=== PATIENT | female | born 1955 | race Caucasian/White ===

== ENCOUNTER 2021-11-24 08:37 | Inpatient (IN) ==
--- NOTE | 2021-11-10 09:37 | PAT Medication Instructions ---
Medication Instructions Date of Service November 10, 2021 Home Medications Medication Instructions Recorded insulin aspart U-100 100 unit/mL See Rx Instructions subcut 10/14/20 subcutaneous solution (Novolog .COMPLEX #60 mL U-100 Insulin aspart) metformin 1,000 mg tablet 1,000 mg PO BID #180 tabs 02/11/21 insulin detemir U-100 100 unit/mL 50 unit (0.5 mL) subcut QPM #45 mL 02/25/21 subcutaneous solution (Levemir U-100 Insulin) clopidogrel 75 mg tablet 75 mg PO QAM #90 tabs 05/22/21 simvastatin 80 mg tablet 80 mg PO QPM #90 tabs 05/25/21 gabapentin 400 mg capsule 400 mg PO TID #90 caps 05/27/21 metoprolol tartrate 50 mg tablet 50 mg PO BID #180 tabs 05/27/21 pen needle, diabetic 31 gauge x #100 ea 05/29/21 3/16" (BD Ultra-Fine Mini Pen Needle) ezetimibe 10 mg tablet 10 mg PO HS #90 tabs 06/09/21 famotidine 40 mg tablet (Pepcid) 40 mg PO HS #90 tabs 06/09/21 potassium chloride 10 mEq 10 meq PO QAM #90 tabs 07/06/21 tablet,extended release(part/cryst) lisinopril 40 mg tablet 40 mg PO HS #90 tabs 07/08/21 cephalexin 500 mg capsule 500 mg PO Q6H 10 days #40 caps 11/07/21 aspirin 81 mg tablet,delayed release (Adult Low Dose Aspirin) 81 mg PO QAM nitroglycerin 0.4 mg sublingual tablet (Nitrostat) 0.4 mg sublingual .COMPLEX PRN insulin aspart U-100 100 unit/mL subcutaneous solution (Novolog U-100 Insulin aspart) See Rx Instructions subcut TID metformin 1,000 mg tablet 1,000 mg PO BID insulin detemir U-100 100 unit/mL subcutaneous solution (Levemir U-100 Insulin) 50 unit (0.5 mL) subcut QPM clopidogrel 75 mg tablet 75 mg PO QAM simvastatin 80 mg tablet 80 mg PO QPM gabapentin 400 mg capsule 400 mg PO TID metoprolol tartrate 50 mg tablet 50 mg PO BID pen needle, diabetic 31 gauge x 3/16" (BD Ultra-Fine Mini Pen Needle) ezetimibe 10 mg tablet 10 mg PO HS famotidine 40 mg tablet (Pepcid) 40 mg PO HS multivitamin (Multiple Vitamins tablet) 1 tab PO QAM potassium chloride 10 mEq tablet,extended release(part/cryst) 10 meq PO QAM lisinopril 40 mg tablet 40 mg PO HS cholecalciferol (vitamin D3) 50 mcg (2,000 unit) capsule 50 mcg PO QAM bumetanide 0.5 mg tablet 0.5 mg PO QAM fluticasone fur. 100 mcg-umeclid 62.5 mcg-vilant 25 mcg inhalat.powder (Trelegy Ellipta) 1 inh inhalation QDL pantoprazole 20 mg tablet,delayed release 20 mg PO QAM cephalexin 500 mg capsule 500 mg PO Q6H 10 days dulaglutide 1.5 mg/0.5 mL subcutaneous pen injector 1.5 mg subcut WK Continue as directed cephalexin 500 mg capsule 500 mg PO Q6H 10 days fluticasone fur. 100 mcg-umeclid 62.5 mcg-vilant 25 mcg inhalat.powder (Trelegy Ellipta) 1 inh inhalation QDL dulaglutide 1.5 mg/0.5 mL subcutaneous pen injector 1.5 mg subcut WK nitroglycerin 0.4 mg sublingual tablet (Nitrostat) 0.4 mg sublingual .COMPLEX PRN(if needed) ASK your prescriber and surgeon aspirin 81 mg tablet,delayed release (Adult Low Dose Aspirin) 81 mg PO QAM clopidogrel 75 mg tablet 75 mg PO QAM DO NOT take the morning of surgery multivitamin (Multiple Vitamins tablet) 1 tab PO QAM potassium chloride 10 mEq tablet,extended release(part/cryst) 10 meq PO QAM cholecalciferol (vitamin D3) 50 mcg (2,000 unit) capsule 50 mcg PO QAM bumetanide 0.5 mg tablet 0.5 mg PO QAM metformin 1,000 mg tablet 1,000 mg PO BID insulin aspart U-100 100 unit/mL subcutaneous solution (Novolog U-100 Insulin aspart) See Rx Instructions subcut TID Take morning of surgery With a small sip of water, OTHERWISE NOTHING TO EAT OR DRINK AFTER MIDNIGHT: gabapentin 400 mg capsule 400 mg PO TID metoprolol tartrate 50 mg tablet 50 mg PO BID fluticasone fur. 100 mcg-umeclid 62.5 mcg-vilant 25 mcg inhalat.powder (Trelegy Ellipta) 1 inh inhalation QDL pantoprazole 20 mg tablet,delayed release 20 mg PO QAM Take evening before surgery simvastatin 80 mg tablet 80 mg PO QPM gabapentin 400 mg capsule 400 mg PO TID metoprolol tartrate 50 mg tablet 50 mg PO BID ezetimibe 10 mg tablet 10 mg PO HS famotidine 40 mg tablet (Pepcid) 40 mg PO HS lisinopril 40 mg tablet 40 mg PO HS metformin 1,000 mg tablet 1,000 mg PO BID insulin detemir U-100 100 unit/mL subcutaneous solution (Levemir U-100 Insulin) 50 unit (0.5 mL) subcut QPM insulin aspart U-100 100 unit/mL subcutaneous solution (Novolog U-100 Insulin aspart) See Rx Instructions subcut TID Other Notes If you have any questions please call us at [phone] or [phone] or [phone] or [phone]
--- NOTE | 2021-11-16 14:52 | Anesthesiology Consultation ---
Date of Service November 16, 2021 Assessment & Plan (1) Encounter for pre-operative examination: - awaiting echocardiogram report and final cardiology clearance. - check BSG am DOS. - ER [facility] 11/07/21: "... right leg pain. The patient states that she had the onset of her symptoms about an hour ago. She states that she suddenly developed a severe pain in the right calf area that radiated up into the area behind the knee. She also noticed that her right great toe was flexed as if in spasm. The patient states that her symptoms have since resolved...evaluation today suggest a early or mild cellulitis to the right posterior calf area where there a couple of skin lesions, erythema and increased warmth. The patient CBC was normal. Chemistry panel shows a glucose of 237 otherwise unremarkable. Ultrasound was negative for DVT. The patient was told the results. She will be discharged on Keflex..." - cardiology 10/27/21 [place]: "...coronary artery disease s/p PCI of LCx, bioprosthetic AVR, hypertension, dyslipidemia, type 2 diabetes mellitus with diabetic neuropathy, hx of CVA in 2014, lymphedema, and peripheral arterial disease s/p right external iliac artery stent in 2017 who presents for preoperative cardiovascular evaluation prior to right common femoral artery endarterectomy on 11/24/[address] Orr...stable and asymptomatic from a cardiovascular standpoint with no anginal symptoms occurring at >4 METS of act ivity. Nuclear stress test in August 2019 was also negative for ischemia. She has no evidence of CHF. She is scheduled to have an echocardiogram in late November, but will arrange for the study to be completed prior to her surgery to reevaluate her bioprosthetic AVR. Pending the results of the echo, patient is at an acceptable risk to proceed with upcoming surgery from a cardiovascular standpoint. She can hold her Plavix for 7 days prior to surgery. Recommend she remain on low dose aspirin therapy throughout the perioperative period give her history of intracoronary stenting. She should also remain on beta ulises therapy perioperatively. Recommend close monitoring and avoidance of hypotension, hypertension, tachycardia, hypoxia, and significant anemia throughout the perioperative period to reduce myocardial oxygen demand and meet myocardial oxygen delivery..." Chart Review Chart Review: Pending: Refer to Additional Notes / Consult section and Patient seen in Pre Admission Testing Teaching & Discussion Pre-Anesthesia Teaching/Discussion Notes: Instructed NPO after midnight before surgery, except medications with 15 cc of water. Medication instructions provided according to the PAT guidelines. History Surgery Operation Date: 11/24/21 08:00 Proposed Procedures p Right Common Femoral Endarterectomy with patch - Ed Orr MD Height/Weight Height: 5 ft 5 in Weight: 98.6 kg Allergies Allergy/AdvReac Type Severity Reaction Status Date / Time No Known Allergies Allergy Verified 11/08/21 00:10 Medications Home Medications Medication Instructions Recorded Confirmed Last Taken aspirin 81 mg tablet,delayed 81 mg PO QAM 10/19/19 11/08/21 11/07/21 release (Adult Low Dose Aspirin) nitroglycerin 0.4 mg sublingual 0.4 mg sublingual .COMPLEX PRN 10/19/19 11/08/21 Unknown tablet (Nitrostat) Chest Pain insulin aspart U-100 100 unit/mL See Rx Instructions subcut 10/14/20 11/08/21 11/07/21 subcutaneous solution (Novolog .COMPLEX #60 mL U-100 Insulin aspart) metformin 1,000 mg tablet 1,000 mg PO BID #180 tabs 02/11/21 11/08/21 11/07/21 insulin detemir U-100 100 unit/mL 50 unit (0.5 mL) subcut QPM #45 mL 02/25/21 11/08/21 11/07/21 subcutaneous solution (Levemir U-100 Insulin) clopidogrel 75 mg tablet 75 mg PO QAM #90 tabs 05/22/21 11/08/21 11/07/21 gabapentin 400 mg capsule 400 mg PO TID #90 caps 05/27/21 11/08/21 11/07/21 14:00 metoprolol tartrate 50 mg tablet 50 mg PO BID #180 tabs 05/27/21 11/08/21 11/07/21 08:00 pen needle, diabetic 31 gauge x #100 ea 05/29/21 10/29/21 Unknown 05/20" (BD Ultra-Fine Mini Pen Needle) ezetimibe 10 mg tablet 10 mg PO HS #90 tabs 06/09/21 11/08/21 11/06/21 famotidine 40 mg tablet (Pepcid) 40 mg PO HS #90 tabs 06/09/21 11/08/21 11/06/21 multivitamin (Multiple Vitamins 1 tab PO QAM 07/02/21 11/08/21 11/07/21 tablet) potassium chloride 10 mEq 10 meq PO QAM #90 tabs 07/06/21 11/08/21 11/07/21 tablet,extended release(part/cryst) lisinopril 40 mg tablet 40 mg PO HS #90 tabs 07/08/21 11/08/21 11/06/21 cholecalciferol (vitamin D3) 50 50 mcg PO QAM 10/29/21 11/08/21 11/07/21 mcg (2,000 unit) capsule bumetanide 0.5 mg tablet 0.5 mg PO QAM 11/06/21 11/08/21 11/07/21 fluticasone fur. 100 mcg-umeclid 1 inh inhalation QDL 11/06/21 11/08/21 11/07/21 62.5 mcg-vilant 25 mcg inhalat.powder (Trelegy Ellipta) pantoprazole 20 mg tablet,delayed 20 mg PO QAM 11/06/21 11/08/21 11/07/21 release dulaglutide 1.5 mg/0.5 mL 1.5 mg subcut WK 11/08/21 11/08/21 Unknown subcutaneous pen injector simvastatin 80 mg tablet 80 mg PO QPM #90 tabs 11/13/21 Unknown Past Medical History Medical History (Updated 11/16/21 @ 15:06 by Laura Luciano PA-C) Carotid arterial disease R carotid endarterectomy 2014 COPD (chronic obstructive pulmonary disease) controlled, stable per pt-denies rescue inhaler use Coronary artery disease s/p 1 stent Diabetes mellitus with complication IDDM Diabetic neuropathy GERD (gastroesophageal reflux disease) controlled, stable per pt History of anesthesia reaction difficulty waking History of femoral angiogram (~09/29/21) right lower extremity angiogram @ [facility] Dr. 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 Exercise / Class Metabolic Activity III < 4 Walking/Shop/Light housework (denies CP or SOB with usual activities) Past Family History Family History Grandmother (Paternal) Breast cancer Family/Other Ovarian cancer Father Diabetes Heart disease Myocardial infarction Hypertension Mother Diabetes Heart disease Brother Diabetes Heart disease Hypertension Grandfather (Paternal) Family history of esophageal cancer Other No family history of adverse response to anesthesia Denies family history of Prostate cancer Colorectal cancer Past Surgical History Surgical History History of cardiac cath x2 with 1 stent placed--last done before 2014 History of esophagogastroduodenoscopy (EGD) last 01/2020 @ [facility] History of tooth extraction all teeth S/P aortic valve replacement (2014) 2014 @ [facility]--follows with Dr. Espinal S/P carotid endarterectomy (2014) R S/P section x 2 S/P coronary artery stent placement 1 placed S/P hernia repair x 2 S/P peripheral artery angioplasty with stent placement (08/2017) angioplasty and stent R external iliac artery S/P total hysterectomy and bilateral salpingo-oophorectomy (1992) d/t endometriosis Past Anesthesia History No Family Hx of Anesthesia Complications and Other (difficulty waking) History of PONV No Hx of PONV and No Hx of Motion Sickness Social History Smoking Status: Current every day smoker tobacco type: cigarettes Smoking cigarettes per day: 5 cigs a day-advised Do You Dip or Chew Tobacco: No Hx Alcohol Use: No Hx Substance Use: No substance use type: does not use Review of Systems Patient denies chest pain, shortness of breath, dyspnea on exertion, snoring, witnessed apneas, fever, chills, cough, wheezing, fatigue, lethargy, nausea, vomiting, visual changes, diaphoresis, numbness, weakness or palpitations. She states had mild HALL when walking in from the sun earlier which is usual for her, denies change or worsening. Physical Exam Vital Signs Vitals BP 102/60 manual P 74 TEMP 98.6 SP02 96% on RA RESP 17 Physical Resting comfortably in chair in NAD, alert and oriented, responding appropriately Full cervical extension range of motion without pain TMD 3.5 finger breadths Mallampati Score 2 Dentition: edentulous Lungs: normal respiratory effort. Clear throughout to auscultation, no adventitious breath sounds Cardiac: regular rate and rhythm, no murmurs noted Carotid arteries: negative bruit bilat Lab Results Anesthesia Preop Results Results Anesthesia Widget: WBC 6.84 K/ul (4.8-10.8) 11/16/21 Hgb 12.5 g/dl (12.0-16.0) 11/16/21 Hct 37.9 % (34.1-44.9) 11/16/21 Plt 231 K/uL (130-400) 11/16/21 Na 139 mmol/L (136-145) 11/16/21 K 4.3 mmol/L (3.5-5.1) 11/16/21 Cl 105 mmol/L (98-107) 11/16/21 CO2 26 mmol/L (21-32) 11/16/21 BUN 24 mg/dl (6-23) H 11/16/21 Creat 1.10 mg/dl (0.6-1.2) 11/16/21 Glucose Level 98 mg/dl (70-99(Fasting)) 11/16/21 POC Glucose 134 mg/dl (70-99) H 09/29/21 PT 9.9 Seconds (9.0-12.0) 11/16/21 PTT 24.2 Seconds (21.0-31.0) 11/16/21 INR 0.9 (0.9-1.1) 11/16/21 HA1c 7.5 % (4.5-5.6) H 11/16/21 Blood Type A Positive 11/16/21 Antibody Screen NEGATIVE 11/16/21 Testing Electrocardiogram Date: 10/28/21 Unusual P axis, possible ectopic atrial rhythm, rate 69 bpm Chest X-Ray Date: 11/16/21 Cardiac silhouette is enlarged. Prior median sternotomy with cardiac valvular prosthesis. Atherosclerosis of the thoracic aorta. No pneumothorax, pleural effusion, airspace consolidation or overt pulmonary edema. Bones of the chest appear grossly intact. IMPRESSION: Cardiomegaly without acute process. Echocardiogram Date: 03/20/19 EF 50-55% No major focal wall motion abnormalities of the LV LVH Peak systolic gradient across the aortic valve bioprosthesis 14 mmHg Mild mitral, tricuspid and pulmonic valvular insufficiency Pulmonary artery pressure was estimated in range of 20 mmHg Dense sclerotic and calcific changes involving the mitral valve leaflets as well as mitral annular calcification Stress Test Date: 08/14/19 Pharmacologic MPHR not reported Normal myocardial perfusion SPECT images without evidence for pharmacologically induced ischemia Normal LV wall motion and thickening EF 65% Other Testing Venous doppler 11/08/21 No DVT within the right lower extremity Carotid doppler 11/02/16 No hemodynamically significant stenosis identified COVID-19 Risk Screen Screening Information COVID-19 Screen Date: 11/16/21 Exposure 21 Days Family/Household +COVID Last 21 Days: No Exposure 10 Days Any COVID Exposure Last 10 Days: No Symptoms Last 10 Days Experienced COVID Sx Last 10 Days: No + COVID 0-90 Days COVID + in Last 0-90 Days: No Risk Plan COVID Risk Plan: No Risk Identified (to surgeon's discretion if preop COVID testing needed)
--- NOTE | 2021-11-24 07:41 | History & Physical Report ---
Date of Service November 24, 2021 History of Present Illness Chief Complaint: Severe claudication, right common femoral artery stensis Primary Care Provider: Domonique Henderson DO Ms. Gan is a middle-aged female who presents to Dr. Orr's vascular surgery clinic today for a postop visit after undergoing a right leg angiography without intervention by Dr. Orr at [facility] approximately 2 weeks ago. Patient states that she has not had any improvement in her right leg symptoms. She continues to claudicate but relatively short distances. During her angiogram, it was noted that she had a severe stenosis versus occlusion of her right common femoral artery which was not amenable to endovascular intervention. She was advised to follow-up in our office to discuss surgical intervention. Patient denies any new complaints or concerns. Allergies Allergy/AdvReac Type Severity Reaction Status Date / Time No Known Allergies Allergy Verified 11/08/21 00:10 Home Medications Medication Instructions Recorded Confirmed Type aspirin 81 mg tablet,delayed 81 mg PO QAM 10/19/19 11/08/21 History release (Adult Low Dose Aspirin) nitroglycerin 0.4 mg sublingual 0.4 mg sublingual .COMPLEX PRN 10/19/19 11/08/21 History tablet (Nitrostat) Chest Pain insulin aspart U-100 100 unit/mL See Rx Instructions subcut 10/14/20 11/08/21 Rx subcutaneous solution (Novolog .COMPLEX #60 mL U-100 Insulin aspart) metformin 1,000 mg tablet 1,000 mg PO BID #180 tabs 02/11/21 11/08/21 Rx insulin detemir U-100 100 unit/mL 50 unit (0.5 mL) subcut QPM #45 mL 02/25/21 11/08/21 Rx subcutaneous solution (Levemir U-100 Insulin) clopidogrel 75 mg tablet 75 mg PO QAM #90 tabs 05/22/21 11/08/21 Rx gabapentin 400 mg capsule 400 mg PO TID #90 caps 05/27/21 11/08/21 Rx metoprolol tartrate 50 mg tablet 50 mg PO BID #180 tabs 05/27/21 11/08/21 Rx pen needle, diabetic 31 gauge x #100 ea 05/29/21 10/29/21 Rx 3/16" (BD Ultra-Fine Mini Pen Needle) ezetimibe 10 mg tablet 10 mg PO HS #90 tabs 04/05/22 09/04/22 Rx famotidine 40 mg tablet (Pepcid) 40 mg PO HS #90 tabs 22 11/08/21 Rx multivitamin (Multiple Vitamins 1 tab PO QAM 07/02/21 11/08/21 History tablet) potassium chloride 10 mEq 10 meq PO QAM #90 tabs 07/06/21 11/08/21 Rx tablet,extended release(part/cryst) lisinopril 40 mg tablet 40 mg PO HS #90 tabs 07/08/21 11/08/21 Rx cholecalciferol (vitamin D3) 50 50 mcg PO QAM 10/29/21 11/08/21 History mcg (2,000 unit) capsule bumetanide 0.5 mg tablet 0.5 mg PO QAM 11/06/21 11/08/21 History fluticasone fur. 100 mcg-umeclid 1 inh inhalation QDL 11/06/21 11/08/21 History 62.5 mcg-vilant 25 mcg inhalat.powder (Trelegy Ellipta) pantoprazole 20 mg tablet,delayed 20 mg PO QAM 11/06/21 11/08/21 History release dulaglutide 1.5 mg/0.5 mL 1.5 mg subcut WK 11/08/21 11/08/21 History subcutaneous pen injector simvastatin 80 mg tablet 80 mg PO QPM #90 tabs 11/13/21 Rx Past Med/Surg History Medical History Carotid arterial disease R carotid endarterectomy 2014 COPD (chronic obstructive pulmonary disease) controlled, stable per pt-denies rescue inhaler use Coronary artery disease s/p 1 stent Diabetes mellitus with complication IDDM Diabetic neuropathy GERD (gastroesophageal reflux disease) controlled, stable per pt History of anesthesia reaction difficulty waking History of femoral angiogram (~09/29/21) right lower extremity angiogram @ [facility] Dr. 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 Espinal S/P carotid endarterectomy (2014) R S/P section x 2 S/P coronary artery stent placement 1 placed S/P hernia repair x 2 S/P peripheral artery angioplasty with stent placement (08/2017) angioplasty and stent R external iliac artery S/P total hysterectomy and bilateral salpingo-oophorectomy (1992) d/t endometriosis Family History Grandmother (Paternal) Breast cancer Family/Other Ovarian cancer Father Diabetes Heart disease Myocardial infarction Hypertension Mother Diabetes Heart disease Brother Diabetes Heart disease Hypertension Grandfather (Paternal) Family history of esophageal cancer Other No family history of adverse response to anesthesia Denies family history of Prostate cancer Colorectal cancer Social History Smoking Status: Current every day smoker Tobacco Type: Cigarettes Age Started Using Tobacco: 21; packs per day: 0.15; Cigarettes Per Day: 5 cigs a day-advised; Second Hand Exposure: No; Hx Alcohol Use: No Hx Substance Use: No Preferred Language: Indonesian Communication Ability: Effective Visual Impairment: No Limitations Hearing Ability: Normal Case Finishing Machine Adjuster Required: No Beliefs That Will Affect Care: None marital status: Single Current Living Situation: Alone current occupational status: disabled How many Children do You have: 2 Feels Safe at Home: Yes Childhood Exposure to Second-Hand Smoke: Yes caffeine: Yes during the past year weight has: remained stable Dental Care, Regularly: Yes Physical Activity Frequency: Daily Physical Activity Frequency Comment: walks around house Seatbelt Use: always Sunscreen Use: Yes Assistive Devices: Denture - Upper, Denture - Lower and Glasses Review of Systems All systems reviewed & are unremarkable except as noted in HPI & below Physical Exam Constitutional: WD/WN, vitals as above Respiratory: normal respiratory effort, lungs clear to auscultation Cardiovascular: RRR, no murmur, no edema Vessels: radial pulses present; + femoral pulses abnormal (none on right), + posterior tibial pulses abnormal (none on right) and + dorsalis pedis pulses abnormal (none on right) Extremities: normal capillary refill Gastrointestinal (Abdomen): normal bowel sounds, soft, nontender, no hepatosplenomegaly Musculoskeletal: no cyanosis or clubbing, extremities motor strength 5/5 Skin: no rashes, warm and dry Neurologic: CN's II-XI intact bilaterally and moves all extremities Psychiatric: Orientation: alert and oriented x 3
[~2021-11-24 08:37] MED LIST: SODIUM CHLORIDE 0.9% 1000ML IV SCH; ceFAZolin 2000MG 2,000 MG/15 ML SYR IV SCH
[2021-11-24] MEDS ORDERED: PROPOFOL IV EMULSION 10 MG/ML 20 ML VIAL IV ONE (09:36)
[2021-11-24] MEDS ORDERED: ONDANSETRON INJ 2 MG/ML 2 ML VIAL ONE (09:36)
[2021-11-24] MEDS ORDERED: MIDAZOLAM HCL 1 MG/ML 2ML VIAL ONE (09:36)
[2021-11-24] MEDS ORDERED: LIDOCAINE 2% MPF LOCAL 5 ML VIAL INFIL ONE (09:36)
[2021-11-24] MEDS ORDERED: fentaNYL citrate 100 MCG/2 ML VIAL ONE ×3 (09:36→12:28)
[2021-11-24 09:50] LABS: BUN Creatinine Ratio 22.4 (10-20); Calcium 8.9 mg/dl (8.5-10.1); Est GFR (African American) 63.1 ml/min; Est GFR (Non-African American) 54.4 ml/min; Potassium 3.9 mmol/L (3.5-5.1)
[2021-11-24] MEDS ORDERED: PHENYLEPHRINE 100MCG/ML 5ML SYR IV PRN (09:51)
[2021-11-24] MEDS ORDERED: ONDANSETRON INJ 2 MG/ML 2 ML VIAL IV PRN ×2 (09:51→14:57)
[2021-11-24] MEDS ORDERED: ATROPINE SULFATE 0.1 MG/ML 10ML SYR IV PRN (09:51)
[2021-11-24] MEDS ORDERED: PROMETHAZINE HCL 6.25 MG in SODIUM CHLORIDE 0.9% 50 ML IV PRN (09:51)
[2021-11-24] MEDS ORDERED: fentaNYL citrate 100 MCG/2 ML VIAL IV PRN (09:51)
[2021-11-24] MEDS ORDERED: LABETALOL HCL IV 5 MG/ML 20ML IV PRN (09:51)
[2021-11-24] MEDS ORDERED: ePHEDrine sulfate 50 MG/ML AMP IV PRN (09:51)
[2021-11-24] MEDS ORDERED: ALBUTEROL 0.083% NEBU SOLN 3 ML VIAL INH PRN (09:51)
[2021-11-24] MEDS ORDERED: KETOROLAC 30 MG/ML VIAL IV PRN (09:51)
[2021-11-24] MEDS ORDERED: HEPARIN (PORCINE) 1000 UNIT/ML 10 ML (CATH LAB USE ONLY) ONE (10:18)
[2021-11-24] MEDS ORDERED: LIDOCAINE 1% LOCAL 20 ML VIAL ONE (10:19)
[2021-11-24] MEDS ORDERED: EPINEPHrine INJ 1 MG/ML AMP ONE (10:19)
[2021-11-24] MEDS ORDERED: PAPAVERINE HCL INJ 30 MG/ML 2 ML VIAL ONE (10:19)
[2021-11-24] MEDS ORDERED: BUPIVACAINE 0.5 % 5 MG/1 ML MPF 30ML VIAL ONE (10:19)
[2021-11-24] MEDS ORDERED: THROMBIN 5000 UNITS KIT ONE (10:20)
[2021-11-24] MEDS ORDERED: GELATIN SPONGE SZ 100 ONE (10:20)
[2021-11-24] MEDS ORDERED: ceFAZolin 330 MG/ML 1 GM VIAL ONE (10:20)
--- NOTE | 2021-11-24 10:26 | History & Physical Bridge Note ---
Date of Service November 24, 2021 History & Physical Bridge Note I have examined the patient, reviewed the History & Physical and in the interval since the performance of the History & Physical I have noted the following changes of clinical significance: no changes noted
[2021-11-24] MEDS ORDERED: THROMBIN FOR SOLN 20000 UNIT KIT ONE (10:27)
[2021-11-24] MEDS ORDERED: HEPARIN SOD (PORCINE) 1000 UNIT/ML ONE (11:13)
[2021-11-24] MEDS ORDERED: ROCURONIUM BROMIDE 10 MG/ML 5 ML VIAL IV ONE (11:39)
[2021-11-24] MEDS ORDERED: PROTAMINE SULFATE 10 MG/ML 5 ML VIAL ONE (11:53)
[2021-11-24] MEDS ORDERED: NEOSTIGMINE METHYLSULFATE 1 MG/ML 10ML VIAL ONE (12:18)
[2021-11-24] MEDS ORDERED: GLYCOPYRROLATE 0.2 MG/ML VIAL ONE (12:18)
--- NOTE | 2021-11-24 12:19 | Operative Report ---
Post Operative Report Pre & Post Diagnosis Operation Date: 11/24/21 10:50 Pre-Op Diagnosis: Right Common Femoral Artery Stenosis Post-Op Diagnosis: Right Common Femoral Artery Stenosis I identified the patient and participated in the time-out.: Yes Procedure Operation Date: 11/24/21 10:50 Actual Procedures p Right Common Femoral Endarterectomy with Bovine Patch Graft(Right) - Ed Orr MD Surgeon Ed Orr MD Applications Consultant Francis,PAC Estimated Blood Loss 30 Findings Consistent with Post-Op Diagnosis Specimens right common femoral artery plaque Anesthesia Type General Complications none Disposition Accompanied Patient To Recovery: No Disposition: Recovery Room Indications This is a 66-year-old female who had severe claudication right lower extremity. She had an arteriogram which showed near occlusion of the right common femoral artery with severe plaque. Endarterectomy was recommended. I have discussed the risks options and benefits of the procedure with the patient. The patient understands the risks options and benefits and agrees to the procedure. Description of Procedure The patient was taken the op room and placed in supine position. After general anesthesia was accomplished the right groin was prepped and draped in a sterile manner. Longitudinal incision was then made in the right groin. This is carried down to where the common femoral artery was identified. It exposed from the proximal superficial femoral artery up to the inguinal ligament. It was heavily calcified from its bifurcation up to the inguinal ligament. At the inguinal ligament the artery was soft with a good pulse. He did have a posterior plaque present but not severe. They look like there was a placed a clamp just underneath the inguinal ligament. The patient was heparinized at that time. After adequate heparinization was accomplished the profunda, superficial femoral artery, and proximal common femoral artery within the clamp. Longitudinal arteriotomy was started on the superficial femoral artery extended upward along the common femoral artery to the inguinal ligament. There was a point at the inguinal ligament where the plaque did stop. The plaque was heavily calcified and totally encroached on the lumen with thrombus present. Using a spatula of the plaque was then endarterectomized from the inguinal ligament down to beyond the bifurcation of the superficial femoral artery. The profundofemoral artery origin was endarterectomized. Tacking stitch was used to tack the plaque down on the medial side of the profunda. All loose debris and loose plaque was removed from the common femoral artery. The artery was irrigated. No loose flaps were seen. The arteriotomy was then closed using a bovine patch angioplasty with a 5-0 Prolene suture sewn with in the usual vascular fashion. Prior to completing the closure backbleeding for bleeding was allowed to occur. The final few sutures were then placed and securely tied. Clamps were removed. There was a small leak seen on the medial side towards the inguinal ligament. This was controlled and interrupted 5-0 Prolene. Adequate hemostasis was then noted of the patch. There is excellent Doppler signals heard in the superficial femoral artery and profundofemoral artery on the right groin. The wound was inspected. It was irrigated with Ancef solution. Once adequate hemostasis was obtained wound was then closed with a running 2-0 Vicryl suture for the femoral sheath 3-0 Vicryl for the subcutaneous layer and jose l for the skin. A Prevena dressing was then placed over the wound.The patient left the operation room in satisfactory condition and tolerated the procedure well. All needle and sponge counts were correct at the end of the procedure. Jacinta Castro Pac assisted due to lack of resident availability and was necessary for positioning, draping, retraction, wound closure deep layers, subcutaneous tissue, and skin closure and was necessary for assisting with the case. I attest to the content of the Intraoperative Record and any orders documented therein. Any exceptions are noted below.
[2021-11-24] MEDS ORDERED: MoRPHine SULFATE 4 MG/ML 1 ML CARP\\VIAL IV PRN (14:57)
[2021-11-24] MEDS ORDERED: NITROGLYCERIN SL 0.4 MG/TAB TAB SL PRN (14:57)
[2021-11-24] MEDS: GABAPENTIN 400 MG CAP PO SCH ×2 (16:15→20:40)
[2021-11-24] MEDS: LACTATED RINGER'S 1,000 ML IV SCH (16:44)
[2021-11-24] MEDS: INSULIN ASPART PER UNIT SQ SCH ×2 (17:54→21:14)
[2021-11-24] MEDS: ceFAZolin 2000MG 2,000 MG/15 ML SYR IV SCH (18:27)
[2021-11-24] MEDS: lisinopril 40 MG TAB PO SCH (20:39)
[2021-11-24] MEDS: METOPROLOL TARTRATE 50 MG TAB PO SCH (20:39)
[2021-11-24] MEDS: SIMVASTATIN 80 MG TAB PO SCH (20:39)
[2021-11-24] MEDS: EZETIMIBE 10 MG TABLET PO SCH (20:40)
[2021-11-24] MEDS: metFORMIN HCL 500 MG TAB PO SCH (20:40)
[2021-11-24] MEDS: FAMOTIDINE 40 MG TABLET PO SCH (20:41)
[2021-11-24] MEDS: INSULIN DETEMIR FLEXPEN/FLEX TOUCH 100 UNITS/ML 3ML SQ SCH (21:14)
[2021-11-25] MEDS: LACTATED RINGER'S 1,000 ML IV SCH ×2 (00:54→10:04)
[2021-11-25] MEDS: ceFAZolin 2000MG 2,000 MG/15 ML SYR IV SCH (01:08)
[2021-11-25 06:32] LABS: Basophils # (auto) 0.01 K/uL (0-0.2); Basophils % (auto) 0.1 %; Eosinophils # (auto) 0.18 K/uL (0-0.50); Eosinophils % (auto) 2.7 %; Hematocrit (blood only) 32.1 % (34.1-44.9); Hemoglobin 10.8 g/dl (12.0-16.0); Immature Granulocytes # (auto) 0.02 K/uL (0.00-0.02); Immature Granulocytes % (auto) 0.3 %; Lymphocytes # (auto) 1.42 K/uL (1.2-3.4); Mean Corpuscular Hemoglobin 30.8 pg (25.0-34.0); Mean Corpuscular Hgb Conc 33.6 g/dL (32.0-36.0); Mean Corpuscular Volume 91.5 fL (80.0-100.0); Mean Platelet Volume 10.2 fL (9.4-12.3); Monocytes # (auto) 0.77 K/uL (0.24-0.82); Monocytes % (auto) 11.4 %; Neutrophils # (auto) 4.35 K/uL (1.4-6.5); Neutrophils % (auto) 64.5 %; Platelet Count 193 K/uL (130-400); RDW Standard Deviation 46.8 fL (36.4-46.3); Red Blood Count 3.51 M/uL (3.93-5.22); White Blood Count 6.75 K/ul (4.8-10.8)
[2021-11-25] MEDS: oxyCODONE/ACETAMINOPHEN 5mg/325mg TAB PO PRN ×2 (07:51→21:33)
[2021-11-25] MEDS: ASPIRIN 81 MG ECTAB PO SCH (08:30)
[2021-11-25] MEDS: PANTOprazole 40 MG TAB PO SCH (08:31)
[2021-11-25] MEDS: MULTIVITAMIN TAB PO SCH (08:31)
[2021-11-25] MEDS: BUMETANIDE 1 MG TAB PO SCH (08:31)
[2021-11-25] MEDS: CLOPIDOGREL BISULFATE 75 MG TAB PO SCH (08:32)
[2021-11-25] MEDS: GABAPENTIN 400 MG CAP PO SCH ×3 (08:32→21:10)
[2021-11-25] MEDS: CHOLECALCIFEROL 1,000 UNITS 25 MCG TAB PO SCH (08:32)
[2021-11-25] MEDS: ENOXAPARIN INJ 40 MG/0.4 ML SYR SQ SCH (08:33)
[2021-11-25] MEDS: metFORMIN HCL 500 MG TAB PO SCH ×2 (08:33→21:10)
[2021-11-25] MEDS: METOPROLOL TARTRATE 50 MG TAB PO SCH ×2 (09:16→21:11)
[2021-11-25] MEDS: INSULIN ASPART PER UNIT SQ SCH ×4 (09:24→21:08)
[2021-11-25] MEDS: POTASSIUM CHLORIDE 10 MEQ TABCR PO SCH (09:34)
[2021-11-25] MEDS ORDERED: SODIUM CHLORIDE 0.9% 1000ML 500 ML IV ONE (10:31)
[2021-11-25] MEDS: SODIUM CHLORIDE 0.9% 1000ML 1,000 ML IV SCH ×2 (11:37→19:42)
[2021-11-25] MEDS: FLUTICASONE FUROATE 100MCG 14 PUFFS/INHALER INH SCH (11:38)
[2021-11-25] MEDS: UMECLIDINIUM/VILANTEROL 62.5/25MCG 7 PUFFS/INHALER INH SCH (11:38)
--- NOTE | 2021-11-25 13:30 | Surgery Progress Note ---
Date of Service November 25, 2021 Assessment & Plan (1) Occlusion of common femoral artery: Plan: Pt doing well postop. Taking PO well. Continue fluids for now. Can get OOB to chair if asymptomatic after supper. Admission and Anticipated Discharge Date Admission Date: November 24, 2021 Subjective 66 yo f POD 31 after R common femoral endarterectomy with bovine patch, seen in f/u today. Pt admits some R groin pain, but states is tolerable. Denies any new RLE pain. Has ambulated to BR and back. States is tired today. Has been mildly hypotensive, but denies feeling lightheaded or dizzy. Review of Systems Review of Systems: All systems reviewed & are unremarkable except as noted in HPI & below Physical Exam Constitutional: WD/WN, vitals as above + obese Respiratory: normal respiratory effort Auscultation: + diminished lung sounds and + wheezes Cardiovascular: Rate/Rhythm: regular rate and regular rhythm Vessels: posterior tibial pulses present, dorsalis pedis pulses present and radial pulses present; + abnormal peripheral pulses Extremities: normal capillary refill and + edema Gastrointestinal (Abdomen): Inspection/Auscultation: abdomen normal to inspection and normal bowel sounds Percussion/Palpation: abdomen soft; abdomen nontender Musculoskeletal: no cyanosis or clubbing, extremities motor strength 5/5 Skin: no rashes, warm and dry + incision (R groin prevena vac inplace.) Neurologic: moves all extremities and awake; no focal motor deficits and not confused Psychiatric: A+Ox3, euthymic affect Results & Data ([facility]) Vital Signs (Past 12 Hours) Vital Signs Temp Pulse Resp BP BP Pulse Ox O2 Del Method 11/25/21 10:55 36.9 C 73 87/55 L 96 Nasal Cannula 11/25/21 12:33 64 99/52 L 94 Nasal Cannula 11/25/21 11:36 65 93/58 L 97 Nasal Cannula 11/25/21 11:10 65 96/60 L 96 Nasal Cannula 11/25/21 07:37 Nasal Cannula 11/25/21 10:21 84 96/65 L 94 Nasal Cannula 11/25/21 09:15 37.1 C 85 89/55 L 11/25/21 07:57 37.7 C H 88 17 102/66 91 Nasal Cannula 11/25/21 04:17 37.6 C H 77 18 107/65 94 Nasal Cannula O2 Flow Rate 11/25/21 10:55 2.5 11/25/21 12:33 2 11/25/21 11:36 2 11/25/21 11:10 2 11/25/21 07:37 2 11/25/21 10:21 2 11/25/21 09:15 11/25/21 07:57 1 11/25/21 04:17 1
[2021-11-25] MEDS: INSULIN DETEMIR FLEXPEN/FLEX TOUCH 100 UNITS/ML 3ML SQ SCH (21:09)
[2021-11-25] MEDS: EZETIMIBE 10 MG TABLET PO SCH (21:09)
[2021-11-25] MEDS: SIMVASTATIN 80 MG TAB PO SCH (21:10)
[2021-11-25] MEDS: FAMOTIDINE 40 MG TABLET PO SCH (21:11)
[2021-11-25] MEDS: lisinopril 40 MG TAB PO SCH (21:11)
[2021-11-26] MEDS: SODIUM CHLORIDE 0.9% 1000ML 1,000 ML IV SCH ×2 (03:21→11:16)
[2021-11-26] MEDS: ENOXAPARIN INJ 40 MG/0.4 ML SYR SQ SCH (07:56)
[2021-11-26] MEDS: PANTOprazole 40 MG TAB PO SCH (07:57)
[2021-11-26] MEDS: metFORMIN HCL 500 MG TAB PO SCH ×2 (07:58→21:10)
[2021-11-26] MEDS: CHOLECALCIFEROL 1,000 UNITS 25 MCG TAB PO SCH (07:58)
[2021-11-26] MEDS: MULTIVITAMIN TAB PO SCH (07:58)
[2021-11-26] MEDS: CLOPIDOGREL BISULFATE 75 MG TAB PO SCH (07:58)
[2021-11-26] MEDS: BUMETANIDE 1 MG TAB PO SCH (07:59)
[2021-11-26] MEDS: ASPIRIN 81 MG ECTAB PO SCH (07:59)
[2021-11-26] MEDS: GABAPENTIN 400 MG CAP PO SCH ×3 (08:00→21:10)
[2021-11-26] MEDS: POTASSIUM CHLORIDE 10 MEQ TABCR PO SCH (08:58)
[2021-11-26] MEDS: METOPROLOL TARTRATE 50 MG TAB PO SCH ×2 (09:03→21:11)
[2021-11-26] MEDS: INSULIN ASPART PER UNIT SQ SCH ×4 (09:43→21:23)
[2021-11-26] MEDS: FLUTICASONE FUROATE 100MCG 14 PUFFS/INHALER INH SCH (11:16)
[2021-11-26] MEDS: UMECLIDINIUM/VILANTEROL 62.5/25MCG 7 PUFFS/INHALER INH SCH (11:16)
--- NOTE | 2021-11-26 14:26 | Surgery Progress Note ---
Date of Service November 26, 2021 Assessment & Plan (1) Stenosis of right femoral artery: Plan: POD #2 from a right common femoral endarterectomy. She is doing well. Plan on d/c with home health tomorrow. Admission and Anticipated Discharge Date Admission Date: November 24, 2021 Subjective Patient states she is feeling better this afternoon. Denies any significant groin pain. Denies foot pain. Physical Exam Constitutional: WD/WN, vitals as above Respiratory: normal respiratory effort; no respiratory distress Cardiovascular: Rate/Rhythm: regular rate and regular rhythm Vessels: dorsalis pedis pulses present (palpable both sides) Extremities: normal capillary refill Musculoskeletal: no cyanosis or clubbing, extremities motor strength 5/5 Skin: + incision (dressing intact) Neurologic: CN's II-XI intact bilaterally and moves all extremities Psychiatric: Orientation: alert and oriented x 3 Results & Data ([facility]) Vital Signs (Past 12 Hours) Vital Signs Temp Pulse Resp BP BP Pulse Ox O2 Del Method 11/26/21 14:15 37.2 C 80 20 103/61 96 Nasal Cannula 11/26/21 07:49 Nasal Cannula 11/26/21 09:58 96/47 L 11/26/21 09:30 94/60 L 11/26/21 09:02 86 97/61 L 90 Nasal Cannula 11/26/21 07:33 37.5 C 76 18 106/68 94 Nasal Cannula O2 Flow Rate 11/26/21 14:15 2 11/26/21 07:49 2 11/26/21 09:58 11/26/21 09:30 11/26/21 09:02 1 11/26/21 07:33 2.5
[2021-11-26] MEDS ORDERED: oxyCODONE/ACETAMINOPHEN 5mg/325mg TAB PO PRN (14:27)
[2021-11-26] MEDS: EZETIMIBE 10 MG TABLET PO SCH (21:10)
[2021-11-26] MEDS: FAMOTIDINE 40 MG TABLET PO SCH (21:10)
[2021-11-26] MEDS: lisinopril 40 MG TAB PO SCH (21:11)
[2021-11-26] MEDS: SIMVASTATIN 80 MG TAB PO SCH (21:11)
[2021-11-26] MEDS: INSULIN DETEMIR FLEXPEN/FLEX TOUCH 100 UNITS/ML 3ML SQ SCH (21:23)
[2021-11-27] MEDS: ASPIRIN 81 MG ECTAB PO SCH (08:27)
[2021-11-27] MEDS: GABAPENTIN 400 MG CAP PO SCH ×2 (08:27→13:00)
[2021-11-27] MEDS: ENOXAPARIN INJ 40 MG/0.4 ML SYR SQ SCH (08:27)
[2021-11-27] MEDS: CHOLECALCIFEROL 1,000 UNITS 25 MCG TAB PO SCH (08:27)
[2021-11-27] MEDS: metFORMIN HCL 500 MG TAB PO SCH (08:27)
[2021-11-27] MEDS: CLOPIDOGREL BISULFATE 75 MG TAB PO SCH (08:27)
[2021-11-27] MEDS: BUMETANIDE 1 MG TAB PO SCH (08:27)
[2021-11-27] MEDS: PANTOprazole 40 MG TAB PO SCH (08:27)
[2021-11-27] MEDS: MULTIVITAMIN TAB PO SCH (08:27)
[2021-11-27] MEDS: METOPROLOL TARTRATE 50 MG TAB PO SCH (08:27)
[2021-11-27] MEDS: POTASSIUM CHLORIDE 10 MEQ TABCR PO SCH (08:28)
[2021-11-27] MEDS: INSULIN ASPART PER UNIT SQ SCH ×2 (09:11→12:59)
--- NOTE | 2021-11-27 11:10 | Surgery Progress Note ---
Date of Service November 27, 2021 Assessment & Plan (1) Stenosis of right femoral artery: Plan: Patient doing well post right common femoral endarterectomy and patch. Prevena dressing in place with good suction. This can be removed tuesday. Will d/c today. Admission and Anticipated Discharge Date Admission Date: November 24, 2021 Subjective Patient has minimal pain in right groin. Feels much better today. Claims her right foot is warm and feels much better. Physical Exam Constitutional: WD/WN, vitals as above Respiratory: normal respiratory effort; no respiratory distress Cardiovascular: Rate/Rhythm: regular rate and regular rhythm Vessels: femoral pulses present and dorsalis pedis pulses present Extremities: normal capillary refill Musculoskeletal: no cyanosis or clubbing, extremities motor strength 5/5 Skin: + incision (dressing intact) Neurologic: CN's II-XI intact bilaterally and moves all extremities Psychiatric: Orientation: alert and oriented x 3 Results & Data ([facility]) Vital Signs (Past 12 Hours) Vital Signs Temp Pulse Resp BP Pulse Ox Pulse Ox O2 Del Method 11/27/21 08:15 Nasal Cannula 11/27/21 08:15 94 11/27/21 06:51 37.5 C 80 18 104/57 L 94 Nasal Cannula 11/26/21 23:16 36.8 C 81 18 101/65 96 Nasal Cannula O2 Del Method O2 Flow Rate O2 Flow Rate 11/27/21 08:15 2 11/27/21 08:15 Nasal Cannula 2 11/27/21 06:51 2 11/26/21 23:16 2
[2021-11-27] MEDS: FLUTICASONE FUROATE 100MCG 14 PUFFS/INHALER INH SCH (13:00)
[2021-11-27] MEDS: UMECLIDINIUM/VILANTEROL 62.5/25MCG 7 PUFFS/INHALER INH SCH (13:00)
--- NOTE | 2021-11-30 06:39 | Anesthesiology Progress Note ---
Date of Service November 30, 2021 Anesthesia Post Procedure Pain Intensity Right Groin: Pain Intensity: 3 Transfer of Care Handoff Completed per policy Notes Mental Status: alert / awake / arousable Patient Amnestic to Procedure: Yes Nausea / Vomiting: adequately controlled Pain: adequately controlled Airway Patency, RR, SpO2: stable & adequate BP & HR: stable & adequate Hydration State: stable & adequate Anesthetic Complications: no major complications apparent
--- NOTE | 2021-12-01 08:09 | Discharge Summary ---
Date of Service December 01, 2021 Admission HPI Per Admitting Provider Ms. Gan is a middle-aged female who presents to Dr. Orr's vascular surgery clinic today for a postop visit after undergoing a right leg angiography without intervention by Dr. Orr at [facility] approximately 2 weeks ago. Patient states that she has not had any improvement in her right leg symptoms. She continues to claudicate but relatively short distances. During her angiogram, it was noted that she had a severe stenosis versus occlusion of her right common femoral artery which was not amenable to endovascular intervention. She was advised to follow-up in our office to discus s surgical intervention. Patient denies any new complaints or concerns. Admission Exam Per Admitting Provider Constitutional: WD/WN, vitals as above Respiratory: normal respiratory effort, lungs clear to auscultation Cardiovascular: RRR, no murmur, no edema Vessels: radial pulses present; + femoral pulses abnormal (none on right), + posterior tibial pulses abnormal (none on right) and + dorsalis pedis pulses abnormal (none on right) Extremities: normal capillary refill Gastrointestinal (Abdomen): normal bowel sounds, soft, nontender, no hepatosplenomegaly Musculoskeletal: no cyanosis or clubbing, extremities motor strength 5/5 Skin: no rashes, warm and dry Neurologic: CN's II-XI intact bilaterally and moves all extremities Psychiatric: Orientation: alert and oriented x 3 Principal Diagnosis 1. s/p R Common femoral endarterectomy with bovine patch 2. R common femoral artery occlusion Discharge Exam Constitutional WD/WN, vitals as above + obese Respiratory normal respiratory effort Auscultation: + diminished lung sounds and + wheezes Cardiovascular Rate/Rhythm: regular rate and regular rhythm Vessels: posterior tibial pulses present, dorsalis pedis pulses present and radial pulses present; + abnormal peripheral pulses Extremities: normal capillary refill and + edema Gastrointestinal (Abdomen) Inspection/Auscultation: abdomen normal to inspection and normal bowel sounds Percussion/Palpation: abdomen soft; abdomen nontender Musculoskeletal no cyanosis or clubbing, extremities motor strength 5/5 Skin no rashes, warm and dry + incision (R groin prevena vac inplace.) Neurologic moves all extremities and awake; no focal motor deficits and not confused Psychiatric A+Ox3, euthymic affect Discharge Data Allergies Allergy/AdvReac Type Severity Reaction Status Date / Time No Known Allergies Allergy Verified 11/24/21 09:02 Procedures Performed Operation Date: 11/24/21 10:50 Actual Procedures p Right Common Femoral Endarterectomy with Bovine Patch Graft(Right) - Ed Orr MD Ordered Studies 11/24/21 05:00 US - OR guided needle placemen Routine Hospital Course (1) Stenosis of right femoral artery: POD #3. Patient doing well post right common femoral endarterectomy and patch. Prevena dressing in place with good suction. This can be removed tuesday. Will d/c today. Total Time Total Time Spent Total Time Spent (In Minutes): 0 Discharge Plan Discharge Items Patient Disposition: Home - Home Health Services Reason For Visit: Right Common Femoral Artery Stenosis Discharge Diagnosis: Right common femoral artery stenosis, post endarterectomy and patch Activity: Per Instructions section Lifting: Gradually increase as tolerated Exercise/Sports: Gradually increase as tolerated Weightbearing: Full weightbearing Non-emergency contact: Surgeon Call non-emergency contact if: your temperature is above 101.5, your wound has increased redness, your wound has increased drainage and your wound pain has increased Follow-up/Referrals: Domonique Henderson DO [Primary Care Provider] - Diet: Carb Consistent or DM2 and Heart Healthy Addtl Attending Provider Instructions: ACTIVITY RECOMMENDATIONS: Remove prevena dressing tuesday shower after prevena removed. SPECIAL CARE INSTRUCTIONS: Call your doctor if: * Temperature above 101 degrees * Pain not relieved by pain medicine ordered * There is increased drainage or redness from any incision * You have any unanswered questions or concerns. Pending Studies at Discharge: No Stand-Alone Forms: My [facility], Smoking Cessation Medications and DC Order Prescriptions: New oxycodone-acetaminophen [Percocet] 5-325 mg tablet 1 tab PO Q6H PRN (Reason: pain) Qty: 30 0RF Continued insulin aspart U-100 [Novolog U-100 Insulin aspart] 100 unit/mL solution See Rx Instructions subcut .COMPLEX Qty: 60 5RF Rx Instructions: 14 units TID increase 2 units based on Blood sugar reading MAX dose of 22 units tid subcut; metformin 1,000 mg tablet 1,000 mg PO BID Qty: 180 3RF Levemir U-100 Insulin 100 unit/mL solution 50 unit subcut QPM Qty: 45 3RF metoprolol tartrate 50 mg tablet 50 mg PO BID Qty: 180 1RF gabapentin 400 mg capsule 400 mg PO TID Qty: 90 5RF (DME) pen needle, diabetic [BD Ultra-Fine Mini Pen Needle] 31 gauge x 3/16" needle See Rx Instructions .Route Qty: 100 3RF Rx Instructions: As directed 3 times a day with insulin ezetimibe 10 mg tablet 10 mg PO HS Qty: 90 1RF famotidine [Pepcid] 40 mg tablet 40 mg PO HS Qty: 90 1RF Rx Instructions: 40 mg PO HS and PRN QAM; potassium chloride 10 mEq tablet,ER particles/crystals 10 meq PO QAM Qty: 90 1RF lisinopril 40 mg tablet 40 mg PO HS Qty: 90 1RF simvastatin 80 mg tablet 80 mg PO QPM Qty: 90 1RF aspirin [Adult Low Dose Aspirin] 81 mg tablet,delayed release (DR/EC) 81 mg PO QAM nitroglycerin [Nitrostat] 0.4 mg tablet, sublingual 0.4 mg sublingual .COMPLEX PRN (Reason: Chest Pain) Rx Instructions: 1 SL AT THE ONSET OF CHEST PAIN.MAY REPEAT EVERY 5 MIN FOR A TOTAL OF THREE DOSES PRN; do not exceed 3 doses per episode cholecalciferol (vitamin D3) 50 mcg (2,000 unit) capsule 50 mcg PO QAM multivitamin [Multiple Vitamins] Tablet 1 tab PO QAM bumetanide 0.5 mg tablet 0.5 mg PO QAM Trelegy Ellipta 100-62.5-25 mcg blister with device 1 inh inhalation QDL dulaglutide 1.5 mg/0.5 mL pen injector 1.5 mg subcut WK Label Comments: takes on sundays No Action pantoprazole 20 mg tablet,delayed release (DR/EC) 20 mg PO QAM Qty: 90 1RF clopidogrel 75 mg tablet 75 mg PO QAM Qty: 90 1RF Discharge Orders: Discharge Order (Routine); Ordered 11/27/21 Ordered By: Ed Orr Admission Data Admit Date/Time: 11/24/21 08:42 Attending Provider: Ed Orr Admit Provider: Ed Orr Primary Care Provider: Domonique Henderson Other Interventions: Discharge Summary Assessment (RN) Last Done: 11/27/21 15:01
== END 2021-11-27 17:44 | disposition home health service (06) | DRG 254 ==
LOC: ASU 08:37 → 3E 08:42

== ENCOUNTER 2021-12-31 15:22 | Inpatient (IN) ==
[2021-12-31] MEDS ORDERED: ACETAMINOPHEN 325 MG TAB PO PRN (15:30)
[2021-12-31] MEDS ORDERED: ONDANSETRON INJ 2 MG/ML 2 ML VIAL IV PRN (15:30)
[2021-12-31] MEDS ORDERED: oxyCODONE/ACETAMINOPHEN 5mg/325mg TAB PO PRN (15:35)
[2021-12-31] MEDS ORDERED: VANCOMYCIN CONSULT ACTIVE PRN (15:40)
[2021-12-31] MEDS ORDERED: VANCOMYCIN HCL 1,000 MG in SODIUM CHLORIDE 0.9% 250 ML IV SCH (15:45)
--- NOTE | 2021-12-31 16:06 | History & Physical Report ---
Date of Service December 31, 2021 Assessment & Plan (1) Wound, surgical, infected: Plan: Pt discussed with Dr Orr. Pt admitted for IV abx, imaging, and definitive care. Will undergo CTA abd/pelvis to eval surgical site, obtain blood cx d/t systemic sx, also culture wound. Will reeval in AM. History of Present Illness Chief Complaint: R groin swelling Primary Care Provider: Domonique Henderson, DO 66 yo f with multiple medical problems, including DMII, HTN, hyperlipidemia, neuropathy, carotid stenosis, aortic valve replacement, GERD, CAD, IPMN, COPD, PAD, seen in office today for eval after she noted increased swelling and drainage from R groin surgical wound starting 4 days ago. Pt previously underwent R common femoral artery endarterectomy with bovine patch on Nov.24. Her R groin wound was looking well and jose l were removed on 12/14/21. She states she noted increased swelling and signifncat drainage from R groin wound about 4 days ago and has been getting worse. Admits fatigue/malaise, and states she vomited this AM. No HALL, chest pain, SOB, abd pain, nausea presently, rest pain, claudication, discoloration of toes, other complaints. In office today she was noted to have temp of 100F and appeared ill. She was recommended to go to [facility] for admission for IV abx. Allergies Allergy/AdvReac Type Severity Reaction Status Date / Time No Known Allergies Allergy Verified 12/23/21 14:48 Home Medications Medication Instructions Recorded Confirmed Type aspirin 81 mg tablet,delayed 81 mg PO QAM 10/19/19 12/23/21 History release (Adult Low Dose Aspirin) nitroglycerin 0.4 mg sublingual 0.4 mg sublingual .COMPLEX PRN 10/19/19 12/23/21 History tablet (Nitrostat) Chest Pain insulin aspart U-100 100 unit/mL See Rx Instructions subcut 10/14/20 12/23/21 Rx subcutaneous solution (Novolog .COMPLEX #60 mL U-100 Insulin aspart) metformin 1,000 mg tablet 1,000 mg PO BID #180 tabs 02/11/21 12/23/21 Rx insulin detemir U-100 100 unit/mL 50 unit (0.5 mL) subcut QPM #45 mL 02/25/21 12/23/21 Rx subcutaneous solution (Levemir U-100 Insulin) pen needle, diabetic 31 gauge x #100 ea 05/29/21 12/23/21 Rx 3/16" (BD Ultra-Fine Mini Pen Needle) multivitamin (Multiple Vitamins 1 tab PO QAM 07/02/21 12/23/21 History tablet) potassium chloride 10 mEq 10 meq PO QAM #90 tabs 07/06/21 12/23/21 Rx tablet,extended release(part/cryst) lisinopril 40 mg tablet 40 mg PO HS #90 tabs 07/08/21 12/23/21 Rx cholecalciferol (vitamin D3) 50 50 mcg PO QAM 10/29/21 12/23/21 History mcg (2,000 unit) capsule bumetanide 0.5 mg tablet 0.5 mg PO QAM 11/06/21 12/23/21 History dulaglutide 1.5 mg/0.5 mL 1.5 mg subcut WK 11/08/21 12/23/21 History subcutaneous pen injector simvastatin 80 mg tablet 80 mg PO QPM #90 tabs 11/13/21 12/23/21 Rx clopidogrel 75 mg tablet 75 mg PO QAM #90 tabs 11/30/21 12/23/21 Rx pantoprazole 20 mg tablet,delayed 20 mg PO QAM #90 tabs 11/30/21 12/23/21 Rx release gabapentin 400 mg capsule 400 mg PO TID #90 caps 12/04/21 12/23/21 Rx blood pressure monitor #1 ea 12/08/21 12/23/21 Rx metoprolol tartrate 50 mg tablet 50 mg PO BID #180 tabs 12/10/21 12/23/21 Rx ezetimibe 10 mg tablet 10 mg PO HS #90 tabs 12/17/21 12/23/21 Rx famotidine 40 mg tablet (Pepcid) 40 mg PO HS #90 tabs 12/17/21 12/23/21 Rx fluticasone fur. 100 mcg-umeclid 1 inh inhalation QDL 90 days #60 ea 12/17/21 12/23/21 Rx 62.5 mcg-vilant 25 mcg inhalat.powder (Trelegy Ellipta) nystatin 100,000 unit/gram topical 1 applic topical TID 2 weeks #30 12/23/21 12/23/21 Rx cream grams nystatin 100,000 unit/gram topical 1 applic topical TID PRN yeast 12/23/21 12/23/21 Rx powder infection #60 grams Past Med/Surg History Medical History Carotid arterial disease R carotid endarterectomy 2014 COPD (chronic obstructive pulmonary disease) controlled, stable per pt-denies rescue inhaler use Coronary artery disease s/p 1 stent Diabetes mellitus with complication IDDM Diabetic neuropathy GERD (gastroesophageal reflux disease) controlled, stable per pt History of anesthesia reaction difficulty waking History of femoral angiogram (~09/29/21) right lower extremity angiogram @ [facility] Dr. 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) Lymphedema hx Occlusion of common femoral artery On anticoagulant therapy plavix daily Peripheral arterial disease stent R iliac artery Wound, surgical, infected Surgical History History of cardiac cath x2 with 1 stent placed--last done before 2014 History of esophagogastroduodenoscopy (EGD) last 01/2020 @ [facility] History of tooth extraction all teeth S/P aortic valve replacement (2014) [address] [facility] [place]--follows with Dr. Espinal S/P carotid endarterectomy (2014) R S/P section x 2 S/P coronary artery stent placement 1 placed S/P hernia repair x 2 S/P peripheral artery angioplasty with stent placement (08/2017) angioplasty and stent R external iliac artery S/P total hysterectomy and bilateral salpingo-oophorectomy (1992) d/t endometriosis Family History Grandmother (Paternal) Breast cancer Family/Other Ovarian cancer Father Diabetes Heart disease Myocardial infarction Hypertension Mother Diabetes Heart disease Brother Diabetes Heart disease Hypertension Grandfather (Paternal) Family history of esophageal cancer Other No family history of adverse response to anesthesia Denies family history of Prostate cancer Colorectal cancer Social History Smoking Status: Heavy tobacco smoker Tobacco Type: Cigarettes Age Started Using Tobacco: 21; packs per day: 0.15; Cigarettes Per Day: 5 cigs a day-advised; Second Hand Exposure: No; Hx Alcohol Use: No Hx Substance Use: No Preferred Language: Liberian Communication Ability: Effective Visual Impairment: No Limitations Hearing Ability: Normal Marine Services Technician Required: No Beliefs That Will Affect Care: None marital status: Single Current Living Situation: Alone current occupational status: disabled How many Children do You have: 2 Feels Safe at Home: Yes Childhood Exposure to Second-Hand Smoke: Yes caffeine: Yes during the past year weight has: remained stable Dental Care, Regularly: Yes Physical Activity Frequency: Daily Physical Activity Frequency Comment: walks around house Seatbelt Use: always Sunscreen Use: Yes Assistive Devices: Walker Review of Systems All systems reviewed & are unremarkable except as noted in HPI & below Physical Exam Constitutional: WD/WN, vitals as above + ill appearing, + disheveled, cooperative and comfortable; not in distress ENMT: Ears: no hearing impairment Neck: trachea midline Respiratory: normal respiratory effort; no respiratory distress Auscultation: + diminished lung sounds and + wheezes (coarse sounds) Cardiovascular: Rate/Rhythm: regular rate and regular rhythm Vessels: posterior tibial pulses present (dopplerable), dorsalis pedis pulses present (dopplerable) and radial pulses present; + abnormal peripheral pulses Extremities: normal capillary refill and + edema Gastrointestinal (Abdomen): Inspection/Auscultation: abdomen normal to inspection and normal bowel sounds Percussion/Palpation: abdomen soft; abdomen nontender Musculoskeletal: no cyanosis or clubbing, extremities motor strength 5/5 Skin: R groin incision healed, but with copious serous draiange. + significant localized erythema and warmth and tenderness. Neurologic: moves all extremities and awake; no focal motor deficits and not confused Psychiatric: Orientation: alert and oriented x 3 Affect: + blunted affect Code Status & VTE Plan VTE Prophylaxis Plan VTE Prophylaxis will be ordered: Yes
[2021-12-31] MEDS ORDERED: OPTIRAY 320 500ml IV ONE (17:46)
[2021-12-31 17:55] LABS: Basophils # (auto) 0.06 K/uL (0-0.2); Basophils % (auto) 0.5 %; Eosinophils # (auto) 0.03 K/uL (0-0.50); Eosinophils % (auto) 0.2 %; Immature Granulocytes # (auto) 0.05 K/uL (0.00-0.02); Immature Granulocytes % (auto) 0.4 %; Lymphocytes # (auto) 1.21 K/uL (1.2-3.4); Lymphocytes % (auto) 9.7 %; Mean Corpuscular Hgb Conc 33.3 g/dL (32.0-36.0); Mean Corpuscular Volume 93.1 fL (80.0-100.0); Mean Platelet Volume 10.6 fL (9.4-12.3); Monocytes # (auto) 1.39 K/uL (0.24-0.82); Monocytes % (auto) 11.1 %; Neutrophils # (auto) 9.76 K/uL (1.4-6.5); Neutrophils % (auto) 78.1 %; Platelet Count 229 K/uL (130-400); RDW Coefficient of Variation 14.2 % (11.5-14.5); RDW Standard Deviation 48.6 fL (36.4-46.3); Red Blood Count 4.19 M/uL (3.93-5.22)
[2021-12-31 18:04] LABS: Prothrombin Time 10.9 Seconds (9.0-12.0)
--- NOTE | 2021-12-31 18:09 | CT Scan Report ---
CT ANGIOGRAM OF THE ABDOMEN AND PELVIS COMBO CLINICAL HISTORY: Right groin infection. Recent surgery. COMPARISON STUDY: CT angiogram of the abdomen and pelvis dated 11/22/2019. TECHNIQUE: Before and following the IV administration of 108 cc of Optiray 320, CT angiogram of the a bdomen and pelvis was performed from the lung bases the proximal femora. Images are reviewed in the a xial, sagittal, and coronal planes. 3-D MIPS images are created and assessed. IV contrast was adminis tered without complication. A dose lowering technique was utilized adhering to the principles of ALA RA. The examinations are degraded by motion artifact. CT DOSE: 3364.43 mGy.cm FINDINGS: Lower chest: The patient is status post midline sternotomy and cardiac valve surgeries. The heart is enlarged and without pericardial effusion. The coronary arteries are densely calcified. There is a sm all hiatal hernia. The lung bases are grossly clear noting dependent atelectasis. Liver: The contrast-enhanced liver is normal in size, contour, and attenuation. There is no intrahepa tic biliary ductal dilatation. Gallbladder: Unremarkable. Spleen: Normal in size and attenuation noting heterogeneous arterial phase enhancement. Pancreas: Unremarkable. Adrenal glands: Nodular thickening of the adrenal glands is similar to previous. Kidneys: The contrast enhanced kidneys are normal in size and without hydronephrosis. No renal calcul i are identified on the unenhanced series. There is no ureteral stone. The kidneys enhance symmetrica lly. Abdominal aorta and iliac arteries: There is advanced atherosclerotic calcification of the abdominal aorta. The abdominal aorta is normal in caliber and patent. No dissection is seen. Advanced atheroscl erotic plaque and irregularity seen throughout the iliac arteries. Stents are present within the righ t external iliac artery. The stents are patent. Postsurgical change is suggested involving the right common femoral artery. A linear filling defect within the right superficial femoral artery on image # [id number] may represent a focal dissection. Major branches of the abdominal aorta: The celiac trunk, superior mesenteric, and inferior mesenteric arteries are widely patent. Hepatic arterial anatomy is conventional. The splenic artery is patent. There are 2 right renal arteries and a single left renal artery. The renal arteries are patent bilate rally. Bowel: There is moderate colonic fecal retention. No bowel obstruction is seen. There is mild diverti culosis of the right colon without CT evidence of acute diverticulitis. The appendix is well-visuali zed and normal. Peritoneum: There is no intraperitoneal free air or abdominal ascites. There are fat and fluid-contai demetrio umbilical/periumbilical hernias. There is laxity of the ventral pelvic wall with diastases of th e rectus musculature. Lymphadenopathy: None. Pelvic viscera: The bladder is normal as visualized. The uterus is surgically absent. No adnexal lesi on is seen. Soft tissues: There is a peripherally enhancing fluid collection in the right groin with surrounding inflammation. This measures approximately 6.5 x 3.5 x 11.5 cm as seen on image #415. The collection e xtends from the right common femoral artery peripherally into the upper thigh. There is overlying dami mal thickening. Skeletal structures: The skeletal structures are osteopenic. There is mild lumbosacral spondylosis. N o lytic or blastic bony lesions are seen. IMPRESSION: 1. Motion compromised examination. 2. Postsurgical change is noted in the right groin. 3. There is a large, peripherally enhancing, and presumably postsurgical fluid collection in the righ t groin as detailed above with surrounding infiltration. Although this could represent a resolving he matoma, the sterility of this fluid cannot be evaluated by imaging and abscess is not excluded. Clini bea correlation will be essential. 4. There is a linear filling defect within the proximal right superficial femoral artery which is new from 11/22/2019. A focal dissection is not excluded. 5. Right external iliac artery stents are patent. 6. The abdominal aorta is patent, as are its major branches. 7. Additional findings as above. ACT 112: Negative or not required by law. Electronically signed by: Rober Duong M.D. 12/31/2021 6:07 PM
[2021-12-31 18:29] LABS: BUN Creatinine Ratio 15.2 (10-20); Calcium 9.8 mg/dl (8.5-10.1); Creatinine Clr Calc Pharmacy 57.4 ml/min; Est GFR (African American) 52.3 ml/min; Est GFR (Non-African American) 45.1 ml/min; Potassium 3.8 mmol/L (3.5-5.1)
[2021-12-31] MEDS ORDERED: VANCOMYCIN HCL 2,000 MG in SODIUM CHLORIDE 0.9% 500 ML IV ONE (19:30)
[2021-12-31] MEDS ORDERED: NITROGLYCERIN SL 0.4 MG/TAB TAB SL PRN (20:00)
[2021-12-31] MEDS ORDERED: NYSTATIN POWDER 15GM BTL EXT PRN (20:01)
[2021-12-31] MEDS ORDERED: PHARMACY GLYCEMIC MGMT CONSULT PRN (20:07)
[2021-12-31] MEDS ORDERED: METOPROLOL TARTRATE 50 MG TAB PO SCH (21:00)
[2021-12-31] MEDS ORDERED: GABAPENTIN 400 MG CAP PO SCH (21:00)
[2021-12-31] MEDS ORDERED: lisinopril 40 MG TAB PO SCH (21:00)
--- NOTE | 2021-12-31 21:29 | Communication Note ---
Date of Service: December 31, 2021 Code phillip was called for BP of 50/38. At my arrival, patient is conversing. Patient is admitted under vascular service for R groin infection. NSS bolus 1L started. repeat BP 74/48. Temp is 37.0 (37.7 several hours ago) and recent bsg was 200+. Checking cbc, cmp, lactate. I spoke with Dr. Orr on phone and will be transferring patient to ICU under his direction. She has not been administered pain or antihypertensives per chart review. She is receiving vancomycin. Most likely etiology of the hypotension is septic shock. Lower suspicion for hemorrhagic or cardiogenic per her presentation.
[2021-12-31] MEDS ORDERED: ENOXAPARIN INJ 40 MG/0.4 ML SYR SQ SCH (21:30)
[2021-12-31 21:31] LABS: Basophils # (auto) 0.05 K/uL (0-0.2); Basophils % (auto) 0.4 %; Eosinophils # (auto) 0.01 K/uL (0-0.50); Eosinophils % (auto) 0.1 %; Hemoglobin 11.2 g/dl (12.0-16.0); Immature Granulocytes % (auto) 0.8 %; Lymphocytes % (auto) 15.2 %; Mean Corpuscular Hemoglobin 31.2 pg (25.0-34.0); Mean Corpuscular Hgb Conc 33.9 g/dL (32.0-36.0); Mean Corpuscular Volume 91.9 fL (80.0-100.0); Mean Platelet Volume 10.4 fL (9.4-12.3); Monocytes # (auto) 1.53 K/uL (0.24-0.82); Monocytes % (auto) 11.6 %; Neutrophils # (auto) 9.45 K/uL (1.4-6.5); Neutrophils % (auto) 71.9 %; Platelet Count 193 K/uL (130-400); RDW Coefficient of Variation 14.3 % (11.5-14.5); RDW Standard Deviation 48.2 fL (36.4-46.3); Red Blood Count 3.59 M/uL (3.93-5.22); White Blood Count 13.14 K/ul (4.8-10.8)
[2021-12-31] MEDS ORDERED: CARBOHYDRATES FOR HYPOGLYCEMIA PO PRN (21:45)
[2021-12-31] MEDS ORDERED: GLUCAGON FOR INJ 1 MG VIAL IM PRN (21:45)
[2021-12-31] MEDS ORDERED: LANTUS PER UNIT CHARGE SQ SCH (21:45)
[2021-12-31] MEDS ORDERED: GLUCOSE 40% GEL 15 GM TUBE PO PRN (21:45)
[2021-12-31] MEDS ORDERED: DEXTROSE 50% 50 ML SYRINGE IV PRN (21:45)
[2021-12-31] MEDS ORDERED: GLUCOSE 10 TAB/TUBE PO PRN (21:45)
[2021-12-31] MEDS ORDERED: PIPERACILLIN/TAZOBACTAM 3.375 GM in DEXTROSE 5% 100 ML IV ONE (21:47)
[2021-12-31 21:51] LABS: INR 1.1 (0.9-1.1); Prothrombin Time 11.5 Seconds (9.0-12.0)
[2021-12-31] MEDS ORDERED: NOREPINEPHRINE/D5W 4 MG/250 ML IV ONE (21:51)
[2021-12-31] MEDS ORDERED: ICU Protocol for HYPERglycemia PRN (21:53)
[2021-12-31] MEDS ORDERED: STAT IV Infusion **Titration per Protocol STA (21:53)
--- NOTE | 2021-12-31 21:57 | Critical Care Consultation ---
Date of Consultation December 31, 2021 Assessment & Plan (1) Wound, surgical, infected: (2) Stenosis of right femoral artery: (3) COPD (chronic obstructive pulmonary disease): (4) Hypertension: (5) Coronary artery disease: (6) GERD (gastroesophageal reflux disease): (7) Hyperlipidemia: (8) Diabetic neuropathy: (9) Carotid arterial disease: (10) Peripheral arterial disease: (11) S/P aortic valve replacement: (12) Current smoker: Plan Reason Critically Ill: 66 YOF admitted for concerns of surgical site infection- direct admission, whom later developed hypotension. A rapid response team was called. Patient was notably hypotensive at time of response. She was trans ferred to ICU for likely sepsis. Labs are pending and will continue with resuscitation, broaden abx coverage, evaluate organ dysfunction, evaluate for other sources as well. Neuro - Diabetic neuropathy CAM ICU: Negative - Try to maintain normal sleep wake cycles - Continue gabapentin when a Cardiac -Shock, Carotid artery stenosis, HTN, Peripheral Artery Disease- s/p stenting right common femoral, Aortic Valve replacement history, - Patient presents likely in septic shock from soft tissue infection of her previously done right common femoral artery stenting. Surgery was done in November with removal of jose l in December - Will resuscitate up to 30ml/kg if needed- wean vasoactive support as able - Random Cortisol - Bedside POCUS consistent with low volume state- no pericardial effusion, appears to be good squeeze by LV - No evidence of pulmonary edema - Surgical care to primary service Respiratory - COPD, Current smoker - History of not an acute exacerbation at this time- on Trelegey at home- will order Umeclidinium/Vilanterol in conjunction with Fluticasone - Not on RUSSELL at home- add PRN Albuterol - No PFTS for review - smokes 0.25-0.5 PPD GI - GERD - on dual therapy H2/PPI at home - Continue these- may need to convert to IV PPI if prolonged NPO state secondary to vasopressor use RENAL/LYTES - MARY - ELECTRICAL REPAIRER increased from 1.2/1.1- likely in setting of sepsis - Avoid nephrotoxic medications and if needed minimize exposure time - renal dose medications if needed - No acute needs - Cancino catheter placed for accurate SOBEIDA ENDO - DMII on inslulin - Continue sliding scale and bolus insulin - Hyperglycemic ICU prtocol - HYPOglcyemic protocol ordered HEME - NO acute needs ID - Septic shock - Patient with likely source of right groin soft tissue infection delayed from surgical site in November - Vancomycin, will add Zosyn for pseudomonas coverage with her history of DM - Evidence of MARY, no further organ dysfunction at this time - Lactate 1.0 - WBC 13 with elevated NLR of 5:1 - send urine, await blood and wound culture results - Hold home BP medications- fluids and pressors as above - Source control per primary surgical service LINES/IV ACCESS - PIV x2, Cancino to gravity Continue use of theese lines DVT PROPHYLAXIS - SCDS, DISPO- ICU I have personally spent 45 minutes of critical care time in the direct management of this patient. This is a life/limb threatening event. This includes time spent evaluating patient, direct bedside care, chart review, placing orders, interpretation of diagnostic studies, discussion with consultants, patient, and family members, as well as other required patient management activities. This time is exclusive of all separately billable procedures, and in addition to any other critical care service time. Thank you for allowing us to participate in the care of this patient. Please refer to my attending physician's documentation for any further recommendations. 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 Patient was direct admission to hospital today via the Vascular Surgical Team following office visit for concern of right groin surgical site infection. Patient recently had a right common femoral endarterectomy with patch in November 2021. Patient states that wound was looking good up until about 3-5 days ago where she noticed increase in redness, warmth, and pain. Initially she states that there wasn't any drainage from the site, but within past 2 days she noted clear drainage starting to come from the wound. She denies feeling ill or having fevers at home. She was evaluated in the clinic today, on admission she did have wound cultures, blood cultures obtained. She was initally started on Vancomycin. This is currently infusing. Code Purple/Rapid Response was called this evening for hypotension. Upon arrival the patient was noted to be supine with bolus of crystalloid infusing. Patient was awake, conversant, she is warm peripherally and centrally, HR noted in the 70s and regular. Her RN reports that BP was 50/38 prior to bolus being started, her BP was 70/40s with fluid infsuing. The IM/FP resident was also at bedside and did discuss case with Primary Vascular surgeon. Patient will be transferred to the ICU for continued resuscitation for likely septic shock, will initiate vasopressors, re-send labs to include lactate. As she is diabetic will add on Pseudomonas coverage for STI/Surgical site infection with Zosyn. Imaging obtained on admission by primary team- CTA abdomen/pelvis- does note fluid collection in right groin with hematoma vs. abscess. Allergies Allergy/AdvReac Type Severity Reaction Status Date / Time No Known Allergies Allergy Verified 12/23/21 14:48 Home Medications Medication Instructions Recorded Confirmed Type aspirin 81 mg tablet,delayed 81 mg PO QAM 10/19/19 12/23/21 History release (Adult Low Dose Aspirin) nitroglycerin 0.4 mg sublingual 0.4 mg sublingual .COMPLEX PRN 10/19/19 12/23/21 History tablet (Nitrostat) Chest Pain insulin aspart U-100 100 unit/mL See Rx Instructions subcut 10/14/20 12/23/21 Rx subcutaneous solution (Novolog .COMPLEX #60 mL U-100 Insulin aspart) metformin 1,000 mg tablet 1,000 mg PO BID #180 tabs 02/11/21 12/23/21 Rx insulin detemir U-100 100 unit/mL 50 unit (0.5 mL) subcut QPM #45 mL 02/25/21 12/23/21 Rx subcutaneous solution (Levemir U-100 Insulin) pen needle, diabetic 31 gauge x #100 ea 05/29/21 12/23/21 Rx 3/16" (BD Ultra-Fine Mini Pen Needle) multivitamin (Multiple Vitamins 1 tab PO QAM 07/02/21 12/23/21 History tablet) potassium chloride 10 mEq 10 meq PO QAM #90 tabs 07/06/21 12/23/21 Rx tablet,extended release(part/cryst) lisinopril 40 mg tablet 40 mg PO HS #90 tabs 07/08/21 12/23/21 Rx cholecalciferol (vitamin D3) 50 50 mcg PO QAM 10/29/21 12/23/21 History mcg (2,000 unit) capsule bumetanide 0.5 mg tablet 0.5 mg PO QAM 11/06/21 12/23/21 History dulaglutide 1.5 mg/0.5 mL 1.5 mg subcut WK 11/08/21 12/23/21 History subcutaneous pen injector simvastatin 80 mg tablet 80 mg PO QPM #90 tabs 11/13/21 12/23/21 Rx clopidogrel 75 mg tablet 75 mg PO QAM #90 tabs 11/30/21 12/23/21 Rx pantoprazole 20 mg tablet,delayed 20 mg PO QAM #90 tabs 11/30/21 12/23/21 Rx release gabapentin 400 mg capsule 400 mg PO TID #90 caps 12/04/21 12/23/21 Rx blood pressure monitor #1 ea 12/08/21 12/23/21 Rx metoprolol tartrate 50 mg tablet 50 mg PO BID #180 tabs 12/10/21 12/23/21 Rx ezetimibe 10 mg tablet 10 mg PO HS #90 tabs 12/17/21 12/23/21 Rx famotidine 40 mg tablet (Pepcid) 40 mg PO HS #90 tabs 12/17/21 12/23/21 Rx fluticasone fur. 100 mcg-umeclid 1 inh inhalation QDL 90 days #60 ea 12/17/21 12/23/21 Rx 62.5 mcg-vilant 25 mcg inhalat.powder (Trelegy Ellipta) nystatin 100,000 unit/gram topical 1 applic topical TID 2 weeks #30 12/23/21 12/23/21 Rx cream grams nystatin 100,000 unit/gram topical 1 applic topical TID PRN yeast 12/23/21 12/23/21 Rx powder infection #60 grams Patient History Medical History Carotid arterial disease R carotid endarterectomy 2014 COPD (chronic obstructive pulmonary disease) controlled, stable per pt-denies rescue inhaler use Coronary artery disease s/p 1 stent Diabetes mellitus with complication IDDM Diabetic neuropathy GERD (gastroesophageal reflux disease) controlled, stable per pt History of anesthesia reaction difficulty waking History of femoral angiogram (~09/29/21) right lower extremity angiogram @ [facility] Dr. 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) Lymphedema hx Occlusion of common femoral artery On anticoagulant therapy plavix daily Peripheral arterial disease stent R iliac artery Wound, surgical, infected Surgical History History of cardiac cath x2 with 1 stent placed--last done before 2014 History of esophagogastroduodenoscopy (EGD) last 01/2020 @ [facility] History of tooth extraction all teeth S/P aortic valve replacement (2014) 2015 @ [facility] Anthony--follows with Dr. Espinal S/P carotid endarterectomy (2014) R S/P section x 2 S/P coronary artery stent placement 1 placed S/P hernia repair x 2 S/P peripheral artery angioplasty with stent placement (08/2017) angioplasty and stent R external iliac artery S/P total hysterectomy and bilateral salpingo-oophorectomy (1992) d/t endometriosis Family History Grandmother (Paternal) Breast cancer Family/Other Ovarian cancer Father Diabetes Heart disease Myocardial infarction Hypertension Mother Diabetes Heart disease Brother Diabetes Heart disease Hypertension Grandfather (Paternal) Family history of esophageal cancer Other No family history of adverse response to anesthesia Denies family history of Prostate cancer Colorectal cancer Social History Smoking Status: Heavy tobacco smoker Tobacco Type: Cigarettes Age Started Using Tobacco: 21; packs per day: 0.15; Cigarettes Per Day: 5 cigs a day-advised; Second Hand Exposure: No; Hx Alcohol Use: No Hx Substance Use: No Preferred Language: Trinidadian Communication Ability: Effective Visual Impairment: No Limitations Hearing Ability: Normal Drilling Machine Runner Required: No Beliefs That Will Affect Care: None marital status: Single Current Living Situation: Alone current occupational status: disabled How many Children do You have: 2 Feels Safe at Home: Yes Childhood Exposure to Second-Hand Smoke: Yes caffeine: Yes during the past year weight has: remained stable Dental Care, Regularly: Yes Physical Activity Frequency: Daily Physical Activity Frequency Comment: walks around house Seatbelt Use: always Sunscreen Use: Yes Assistive Devices: Walker Review of Systems Review of Systems: REVIEW OF SYSTEMS: Constitutional: (+) fever, sweats or chills Eyes: No diplopia, no worsening or blurred vision ENT: normal hearing, no trouble swallowing Respiratory: No cough, sputum, dyspnea at rest or on exertion Cardiovascular: No chest pain, tightness or palpitations Abdomen: No pain, nausea, vomiting, diarrhea or constipation Musculoskeletal: No joint pain, calf pain, swelling Neurologic: No weakness, numbness/tingling, or balance problems Psychiatric: No anxiety or depression Skin: (+) pain and erythema/drainage to right groin. Physical Exam Physical Exam: PHYSICAL EXAM: General: awake, alert, no apparent distress Head: Normocephalic, atraumatic ENT: PERRL, EOMI, no pharyngeal exudate, mucous membranes dry Neuro: AAO x 3, speech clear and appropriate, strength intact bilaterally 5/5, sensation intact and equal all extremities and dermatomes, no pronator drift Chest: equal rise and fall of the chest, no accessory muscle use, no heaves or thrills, Clear to auscultation, on room air, Cardiac: Regular rate and rhythm, telemetry reviewed- NSR, skin warm dry, cap refill <3 seconds, peripheral pulses +2 no JVD, no murmur, no edema GI: NABS x 4 quadrants, soft, nontender to palpation, no rebound, guarding or tenderness : Cancino placed, no pain, no CVA tenderness, urine clear Extremities: Normal inspection, no peripheral edema or erythema, calfs nontender to palpation Psych: Normal mood and affect Skin: Right groin with erythema up to inguinal fold and mid-thigh, yellow drainage noted on dressing, Results & Data Results & Data ([facility]) Vital Signs (Past 12 Hours) Vital Signs Temp Pulse Resp BP BP Pulse Ox O2 Del Method 12/31/21 20:52 82 75/48 L 12/31/21 20:58 76 50/38 L 12/31/21 20:57 37.0 C 78 16 74/48 L 93 Room Air 12/31/21 20:52 Room Air 12/31/21 17:11 Room Air 12/31/21 16:36 37.7 C H 89 18 96/58 L 92 Room Air Diagnostic Findings Abdomen/Pelvis CTA 12/31/21 15:35 CT ANGIOGRAM OF THE ABDOMEN AND PELVIS COMBO CLINICAL HISTORY: Right groin infection. Recent surgery. COMPARISON STUDY: CT angiogram of the abdomen and pelvis dated 11/22/2019. TECHNIQUE: Before and following the IV administration of 108 cc of Optiray 320, CT angiogram of the abdomen and pelvis was performed from the lung bases the proximal femora. Images are reviewed in the axial, sagittal, and coronal planes. 3-D MIPS images are created and assessed. IV contrast was administered without complication. A dose lowering technique was utilized adhering to the principles of ALARA. The examinations are degraded by motion artifact. CT DOSE: 3364.43 mGy.cm FINDINGS: Lower chest: The patient is status post midline sternotomy and cardiac valve surgeries. The heart is enlarged and without pericardial effusion. The coronary arteries are densely calcified. There is a small hiatal hernia. The lung bases are grossly clear noting dependent atelectasis. Liver: The contrast-enhanced liver is normal in size, contour, and attenuation. There is no intrahepatic biliary ductal dilatation. Gallbladder: Unremarkable. Spleen: Normal in size and attenuation noting heterogeneous arterial phase enhancement. Pancreas: Unremarkable. Adrenal glands: Nodular thickening of the adrenal glands is similar to previous. Kidneys: The contrast enhanced kidneys are normal in size and without hydronephrosis. No renal calculi are identified on the unenhanced series. There is no ureteral stone. The kidneys enhance symmetrically. Abdominal aorta and iliac arteries: There is advanced atherosclerotic calcification of the abdominal aorta. The abdominal aorta is normal in caliber and patent. No dissection is seen. Advanced atherosclerotic plaque and irregularity seen throughout the iliac arteries. Stents are present within the right external iliac artery. The stents are patent. Postsurgical change is suggested involving the right common femoral artery. A linear filling defect within the right superficial femoral artery on image #[id number] may represent a focal dissection. Major branches of the abdominal aorta: The celiac trunk, superior mesenteric, and inferior mesenteric arteries are widely patent. Hepatic arterial anatomy is conventional. The splenic artery is patent. There are 2 right renal arteries and a single left renal artery. The renal arteries are patent bilaterally. Bowel: There is moderate colonic fecal retention. No bowel obstruction is seen. There is mild diverticulosis of the right colon without CT evidence of acute diverticulitis. The appendix is well-visualized and normal. Peritoneum: There is no intraperitoneal free air or abdominal ascites. There are fat and fluid-containing umbilical/periumbilical hernias. There is laxity of the ventral pelvic wall with diastases of the rectus musculature. Lymphadenopathy: None. Pelvic viscera: The bladder is normal as visualized. The uterus is surgically absent. No adnexal lesion is seen. Soft tissues: There is a peripherally enhancing fluid collection in the right groin with surrounding inflammation. This measures approximately 6.5 x 3.5 x 11.5 cm as seen on image #415. The collection extends from the right common femoral artery peripherally into the upper thigh. There is overlying dermal thickening. Skeletal structures: The skeletal structures are osteopenic. There is mild lumbosacral spondylosis. No lytic or blastic bony lesions are seen. IMPRESSION: 1. Motion compromised examination. 2. Postsurgical change is noted in the right groin. 3. There is a large, peripherally enhancing, and presumably postsurgical fluid collection in the right groin as detailed above with surrounding infiltration. Although this could represent a resolving hematoma, the sterility of this fluid cannot be evaluated by imaging and abscess is not excluded. Clinical correlation will be essential. 4. There is a linear filling defect within the proximal right superficial femoral artery which is new from 11/22/2019. A focal dissection is not excluded. 5. Right external iliac artery stents are patent. 6. The abdominal aorta is patent, as are its major branches. 7. Additional findings as above. ACT 112: Negative or not required by law. Electronically signed by: Rober Duong M.D. 12/31/2021 6:07 PM Medications Administered Home Medications aspirin 81 mg tablet,delayed release (Adult Low Dose Aspirin) 81 mg PO QAM 10/19/19 [History Confirmed 12/23/21] nitroglycerin 0.4 mg sublingual tablet (Nitrostat) 0.4 mg sublingual .COMPLEX PRN Chest Pain 10/19/19 [History Confirmed 12/23/21] insulin aspart U-100 100 unit/mL subcutaneous solution (Novolog U-100 Insulin aspart) See Rx Instructions subcut .COMPLEX #60 mL 10/14/20 [Rx Confirmed 12/23/21] metformin 1,000 mg tablet 1,000 mg PO BID #180 tabs 02/11/21 [Rx Confirmed 12/23/21] insulin detemir U-100 100 unit/mL subcutaneous solution (Levemir U-100 Insulin) 50 unit (0.5 mL) subcut QPM #45 mL 02/25/21 [Rx Confirmed 12/23/21] pen needle, diabetic 31 gauge x 3/16" (BD Ultra-Fine Mini Pen Needle) #100 ea 05/29/21 [Rx Confirmed 12/23/21] multivitamin (Multiple Vitamins tablet) 1 tab PO QAM 07/02/21 [History Confirmed 12/23/21] potassium chloride 10 mEq tablet,extended release(part/cryst) 10 meq PO QAM #90 tabs 07/06/21 [Rx Confirmed 12/23/21] lisinopril 40 mg tablet 40 mg PO HS #90 tabs 07/08/21 [Rx Confirmed 12/23/21] cholecalciferol (vitamin D3) 50 mcg (2,000 unit) capsule 50 mcg PO QAM 10/29/21 [History Confirmed 12/23/21] bumetanide 0.5 mg tablet 0.5 mg PO QAM 11/06/21 [History Confirmed 12/23/21] dulaglutide 1.5 mg/0.5 mL subcutaneous pen injector 1.5 mg subcut WK 11/08/21 [History Confirmed 12/23/21] simvastatin 80 mg tablet 80 mg PO QPM #90 tabs 11/13/21 [Rx Confirmed 12/23/21] clopidogrel 75 mg tablet 75 mg PO QAM #90 tabs 11/30/21 [Rx Confirmed 12/23/21] pantoprazole 20 mg tablet,delayed release 20 mg PO QAM #90 tabs 11/30/21 [Rx Confirmed 12/23/21] gabapentin 400 mg capsule 400 mg PO TID #90 caps 12/04/21 [Rx Confirmed 12/23/21] blood pressure monitor #1 ea 12/08/21 [Rx Confirmed 12/23/21] metoprolol tartrate 50 mg tablet 50 mg PO BID #180 tabs 12/10/21 [Rx Confirmed 12/23/21] ezetimibe 10 mg tablet 10 mg PO HS #90 tabs 12/17/21 [Rx Confirmed 12/23/21] famotidine 40 mg tablet (Pepcid) 40 mg PO HS #90 tabs 12/17/21 [Rx Confirmed 12/23/21] fluticasone fur. 100 mcg-umeclid 62.5 mcg-vilant 25 mcg inhalat.powder (Trelegy Ellipta) 1 inh inhalation QDL 90 days #60 ea 12/17/21 [Rx Confirmed 12/23/21] nystatin 100,000 unit/gram topical cream 1 applic topical TID 2 weeks #30 grams 12/23/21 [Rx Confirmed 12/23/21] nystatin 100,000 unit/gram topical powder 1 applic topical TID PRN yeast infection #60 grams 12/23/21 [Rx Confirmed 12/23/21] Active Medications Clopidogrel Bisulfate (Clopidogrel Bisulfate 75 Mg Tab) 75 mg PO QAM ZAC Stop: 01/31/22 08:59 Dextrose (Dextrose 50% 50 Ml Syringe) 25 - 50 ml IV UD PRN; Protocol PRN Reason: Hypoglycemia Protocol Stop: 01/30/22 21:44 Ezetimibe (Ezetimibe 10 Mg Tablet) 10 mg PO HS ZAC Stop: 01/30/22 20:59 Famotidine (Famotidine 40 Mg Tablet) 40 mg PO HS ZAC Stop: 01/30/22 20:59 Fluticasone Furoate (Fluticasone Furoate 100mcg 14 Puffs/Inhaler) 1 puffs INH QDL ZAC Stop: 01/31/22 11:29 Glucagon (Glucagon For Inj 1 Mg Vial) 1 mg IM UD PRN; Protocol PRN Reason: Hypoglycemia Protocol Stop: 01/30/22 21:44 Glucose (Glucose 40% Gel 15 Gm Tube) 15 - 30 gm PO UD PRN; Protocol PRN Reason: Hypoglycemia Protocol Stop: 01/30/22 21:44 Glucose (Glucose 10 Tab/Tube) 4 - 8 tab PO UD PRN; Protocol PRN Reason: Hypoglycemia Protocol Stop: 01/30/22 21:44 Vancomycin HCl 2,000 mg/ (Sodium Chloride) 540 mls @ 200 mls/hr IV ONE ONE; Protocol Stop: 12/31/21 22:11 Last Admin: 12/31/21 20:30 Dose: 200 mls/hr Vancomycin HCl 750 mg/ Sodium (Chloride) 265 mls @ 200 mls/hr IV Q12H ZAC; Protocol Stop: 01/08/22 07:29 Piperacillin Sod/Tazobactam (Sod 3.375 gm/ Dextrose) 115 mls @ 28.75 mls/hr IV Q8H ZAC; Protocol Stop: 01/07/22 21:59 Piperacillin Sod/Tazobactam (Sod 3.375 gm/ Dextrose) 115 mls @ 230 mls/hr IV NOW ONE; Protocol Stop: 12/31/21 22:16 Norepinephrine Bitartrate (Levophed/D5w) 4 mg in 250 mls @ 18.075 mls/hr IV .[id number] [facility]; Protocol Stop: 01/30/22 21:52 Lactated Ringer's (Lr) 500 mls @ 999 mls/hr IV .Q31M ONE Stop: 12/31/21 22:32 Insulin Aspart (Insulin Aspart Per Unit) 0 units SC Q6 ZAC Stop: 01/31/22 21:44 Insulin Glargine (Lantus Per Unit Charge) 40 units SQ HS ZAC Stop: 01/30/22 21:44 Miscellaneous (Carbohydrates For Hypoglycemia ) 15 - 30 gm PO UD PRN PRN Reason: Hypoglycemia Treatment Stop: 01/30/22 21:44 Miscellaneous (Icu Protocol For Hyperglycemia) 1 each N/A PRN PRN; Protocol PRN Reason: Hyperglycemia Protocol Stop: 01/02/22 21:52 Miscellaneous Information (Vancomycin Consult Active) 1 each N/A UD PRN PRN Reason: Consult Stop: 01/30/22 15:39 Miscellaneous Information (Pharmacy Glycemic Mgmt Consult) 1 each N/A UD PRN; Protocol PRN Reason: Consult Stop: 01/30/22 20:06 Multivitamins (Multivitamin Tab) 1 tab PO QAM [facility] Stop: 01/31/22 08:59 Nystatin (Nystatin Powder 15gm Btl) 1 appln EXT PRN PRN PRN Reason: Affected Skin Folds Stop: 01/30/22 20:00 Pantoprazole Sodium (Pantoprazole 40 Mg Tab) 40 mg PO QAM [facility] Stop: 01/31/22 08:59 Potassium Chloride (Potassium Chloride 10 Meq Tabcr) 10 meq PO DAILY [facility] Stop: 01/31/22 08:59 Simvastatin (Simvastatin 80 Mg Tab) 80 mg PO PM [facility] Stop: 01/30/22 20:59 ECG Additional Comments: obtain on arrival to ICU Coding Level of Care Code Critical Care 1st 30-74 mins Diagnoses Wound, surgical, infected T81.49XA Stenosis of right femoral artery I70.201 COPD (chronic obstructive pulmonary disease) J44.9 Hypertension I10 Coronary artery disease I25.10 GERD (gastroesophageal reflux disease) K21.9 Hyperlipidemia E78.5 Diabetic neuropathy E11.40 Carotid arterial disease I77.9 Peripheral arterial disease I73.9 S/P aortic valve replacement Z95.2 Current smoker F17.200
[2021-12-31] MEDS: NOREPINEPHRINE/D5W 4 MG/250 ML PLCT IV SCH (22:00)
[2021-12-31] MEDS ORDERED: LACTATED RINGER'S 500 ML IV ONE (22:02)
[2021-12-31 22:12] LABS: Bilirubin,Total 0.7 mg/dl (0.2-1.0); Calcium 8.5 mg/dl (8.5-10.1); Creatinine Clr Calc Pharmacy 45.7 ml/min; Est GFR (African American) 39.7 ml/min; Est GFR (Non-African American) 34.2 ml/min; Globulin 3.1 gm/dl (2.5-4.0); Potassium 3.8 mmol/L (3.5-5.1); Total Protein 6.1 gm/dl (6.0-8.3)
[2021-12-31] MEDS: EZETIMIBE 10 MG TABLET PO SCH (22:23)
[2021-12-31] MEDS: SIMVASTATIN 80 MG TAB PO SCH (22:23)
[2021-12-31] MEDS: FAMOTIDINE 40 MG TABLET PO SCH (22:23)
[2022-01-01] MEDS ORDERED: ALBUTEROL HFA 8 GM INHALER INH PRN (01:38)
[2022-01-01] MEDS: PIPERACILLIN/TAZOBACTAM 3.375 GM in DEXTROSE 5% 100 ML IV SCH ×3 (03:47→19:11)
[2022-01-01] MEDS: INSULIN ASPART PER UNIT SC SCH ×4 (08:03→20:52)
[2022-01-01] MEDS: VANCOMYCIN HCL 750 MG in SODIUM CHLORIDE 0.9% 250 ML IV SCH ×2 (08:04→19:12)
[2022-01-01] MEDS: MULTIVITAMIN TAB PO SCH (08:04)
[2022-01-01] MEDS: PANTOprazole 40 MG TAB PO SCH (08:05)
[2022-01-01] MEDS: UMECLIDINIUM/VILANTEROL 62.5/25MCG 7 PUFFS/INHALER INH SCH (08:05)
[2022-01-01] MEDS: CLOPIDOGREL BISULFATE 75 MG TAB PO SCH (08:05)
[2022-01-01] MEDS ORDERED: BUMETANIDE 1 MG TAB PO SCH (09:00)
[2022-01-01] MEDS ORDERED: CHOLECALCIFEROL 1,000 UNITS 25 MCG TAB PO SCH (09:00)
[2022-01-01] MEDS ORDERED: ASPIRIN 81 MG ECTAB PO SCH (09:00)
--- NOTE | 2022-01-01 09:15 | Surgery Progress Note ---
Date of Service January 01, 2022 Assessment & Plan (1) Wound, surgical, infected: Plan: Pt discussed with Dr Orr. Recommends R groin I&D, debridement, and wound vac placement in OR today. CTA reviewed, demonstrates R groin fludi collection. Pt moved to ICU d/t septic shock overnight. She is stable presently after fluid resuscitation. Procedure, risks, benefits, and alternatives discussed with pt by myself at Dr Orr's request. She expresses understanding and agreement to proceed. Admission and Anticipated Discharge Date Admission Date: December 31, 2021 Subjective 66 yo f with multiple medical problems, admitted for R groin wound infection, seen in f/u today. Pt states feeling slightly better than yesterday. Still t ired and mildly nauseated. No new complaints. Review of Systems Review of Systems: All systems reviewed & are unremarkable except as noted in HPI & below Physical Exam Constitutional: WD/WN, vitals as above + ill appearing, + disheveled, coope rative and comfortable; not in distress Respiratory: normal respiratory effort; no respiratory distress Auscultation: + diminished lung sounds and + wheezes (coarse sounds) Cardiovascular: Rate/Rhythm: regular rate and regular rhythm Vessels: posterior tibial pulses present (dopplerable), dorsalis pedis pulses present (dopplerable) and radial pulses present; + abnormal peripheral pulses Extremities: normal capillary refill and + edema Gastrointestinal (Abdomen): Inspection/Auscultation: abdomen normal to inspection and normal bowel sounds Percussion/Palpation: abdomen soft; abdomen nontender Musculoskeletal: no cyanosis or clubbing, extremities motor strength 5/5 Neurologic: moves all extremities and awake; no focal motor deficits and not confused Psychiatric: Orientation: alert and oriented x 3 Affect: + blunted affect Results & Data ([place]) Vital Signs (Past 12 Hours) Vital Signs Temp Pulse Resp BP BP Pulse Ox O2 Del Method 01/01/22 06:15 38.1 C H 64 22 93 01/01/22 06:15 104/41 L 01/01/22 06:00 38.1 C H 63 23 94 01/01/22 06:00 111/49 L 01/01/22 05:45 38.1 C H 69 23 94 01/01/22 05:45 104/51 L 01/01/22 05:30 38.1 C H 69 23 93 01/01/22 05:30 104/55 L 01/01/22 05:15 38.1 C H 72 26 H 92 01/01/22 05:15 108/46 L 01/01/22 05:00 38.1 C H 69 22 94 01/01/22 05:00 101/45 L 01/01/22 04:45 38.2 C H 67 22 94 01/01/22 04:45 103/47 L 01/01/22 04:30 38.2 C H 65 23 93 01/01/22 04:30 100/50 L 01/01/22 04:15 38.2 C H 68 25 H 93 01/01/22 04:15 101/47 L 01/01/22 04:00 38.2 C H 75 26 H 90 01/01/22 04:00 94/42 L 01/01/22 03:45 38.2 C H 83 30 H 94 01/01/22 03:45 109/55 L 01/01/22 03:30 38.2 C H 68 24 92 01/01/22 03:30 103/45 L 01/01/22 03:15 38.2 C H 61 24 92 01/01/22 03:15 94/50 L 01/01/22 03:00 38.2 C H 65 24 93 01/01/22 03:00 102/54 L 01/01/22 02:45 38.1 C H 67 23 94 01/01/22 02:45 94/49 L 01/01/22 02:30 38.1 C H 65 24 93 01/01/22 02:30 92/52 L 01/01/22 02:15 38.1 C H 66 23 94 01/01/22 02:15 93/48 L 01/01/22 02:00 38.1 C H 73 24 93 01/01/22 02:00 92/49 L 01/01/22 01:45 38.1 C H 76 24 92 01/01/22 01:45 104/48 L 01/01/22 01:30 38.1 C H 69 22 93 01/01/22 01:30 90/39 L 01/01/22 01:15 38.1 C H 68 22 94 01/01/22 01:15 118/53 L 01/01/22 01:00 38.1 C H 64 24 96 01/01/22 01:00 103/48 L 01/01/22 00:45 38.1 C H 69 22 96 01/01/22 00:45 102/44 L 01/01/22 00:30 38.0 C H 65 22 95 01/01/22 00:30 103/44 L 01/01/22 00:15 38.0 C H 68 21 95 01/01/22 00:15 104/48 L 01/01/22 00:00 38.0 C H 70 23 95 01/01/22 00:00 104/46 L 12/31/21 23:45 37.9 C H 65 22 95 12/31/21 23:45 108/47 L 12/31/21 23:30 37.9 C H 71 24 92 12/31/21 23:30 103/43 L 12/31/21 23:15 37.8 C H 63 22 96 12/31/21 23:15 96/45 L 12/31/21 23:00 37.8 C H 66 21 96 12/31/21 23:00 95/39 L 12/31/21 22:50 37.7 C H 68 22 96 12/31/21 22:45 37.7 C H 66 21 97 12/31/21 22:45 115/45 L 12/31/21 22:40 37.7 C H 66 22 96 12/31/21 21:30 77/43 L 96 Nasal Cannula 12/31/21 22:30 37.6 C H 64 15 98 12/31/21 22:30 106/60 12/31/21 22:15 37.6 C H 70 22 98 12/31/21 22:15 111/55 L 12/31/21 22:04 37.5 C 76 23 99 Nasal Cannula 12/31/21 22:00 Nasal Cannula 12/31/21 21:53 76 12/31/21 22:00 89/43 L O2 Flow Rate 01/01/22 06:15 01/01/22 06:15 01/01/22 06:00 01/01/22 06:00 01/01/22 05:45 01/01/22 05:45 01/01/22 05:30 01/01/22 05:30 01/01/22 05:15 01/01/22 05:15 01/01/22 05:00 01/01/22 05:00 01/01/22 04:45 01/01/22 04:45 01/01/22 04:30 01/01/22 04:30 01/01/22 04:15 01/01/22 04:15 01/01/22 04:00 01/01/22 04:00 01/01/22 03:45 01/01/22 03:45 01/01/22 03:30 01/01/22 03:30 01/01/22 03:15 01/01/22 03:15 01/01/22 03:00 01/01/22 03:00 01/01/22 02:45 01/01/22 02:45 01/01/22 02:30 01/01/22 02:30 01/01/22 02:15 01/01/22 02:15 01/01/22 02:00 01/01/22 02:00 01/01/22 01:45 01/01/22 01:45 01/01/22 01:30 01/01/22 01:30 01/01/22 01:15 01/01/22 01:15 01/01/22 01:00 01/01/22 01:00 01/01/22 00:45 01/01/22 00:45 01/01/22 00:30 01/01/22 00:30 01/01/22 00:15 01/01/22 00:15 01/01/22 00:00 01/01/22 00:00 12/31/21 23:45 12/31/21 23:45 12/31/21 23:30 12/31/21 23:30 12/31/21 23:15 12/31/21 23:15 12/31/21 23:00 12/31/21 23:00 12/31/21 22:50 12/31/21 22:45 12/31/21 22:45 12/31/21 22:40 12/31/21 21:30 2 12/31/21 22:30 12/31/21 22:30 12/31/21 22:15 12/31/21 22:15 12/31/21 22:04 2 12/31/21 22:00 2 12/31/21 21:53 12/31/21 22:00
[2022-01-01] MEDS ORDERED: NORMOSOL-R 1,000 ML IV SCH (09:45)
[2022-01-01 09:49] LABS: Basophils # (auto) 0.05 K/uL (0-0.2); Basophils % (auto) 0.5 %; Eosinophils % (auto) 0.9 %; Hematocrit (blood only) 31.4 % (34.1-44.9); Hemoglobin 10.7 g/dl (12.0-16.0); Immature Granulocytes # (auto) 0.04 K/uL (0.00-0.02); Immature Granulocytes % (auto) 0.4 %; Lymphocytes # (auto) 1.51 K/uL (1.2-3.4); Mean Corpuscular Hemoglobin 31.4 pg (25.0-34.0); Mean Corpuscular Hgb Conc 34.1 g/dL (32.0-36.0); Mean Corpuscular Volume 92.1 fL (80.0-100.0); Mean Platelet Volume 10.5 fL (9.4-12.3); Monocytes # (auto) 1.13 K/uL (0.24-0.82); Monocytes % (auto) 10.5 %; Neutrophils # (auto) 7.93 K/uL (1.4-6.5); Neutrophils % (auto) 73.7 %; Platelet Count 193 K/uL (130-400); RDW Coefficient of Variation 14.3 % (11.5-14.5); RDW Standard Deviation 48.3 fL (36.4-46.3); Red Blood Count 3.41 M/uL (3.93-5.22); White Blood Count 10.76 K/ul (4.8-10.8)
--- NOTE | 2022-01-01 09:56 | Critical Care Progress Note ---
Date of Service January 01, 2022 Assessment & Plan (1) COPD (chronic obstructive pulmonary disease): Plan: Reason Critically Ill: 66-year-old female who was admitted to the hospital for septic shock likely secondary to postsurgical soft tissue infection of medial thigh and transferred to the ICU for vasopressor support. Now awaiting I&D surgery, transfer to hospitalist service. Neuro -Diabetic neuropathy: * Continue home gabapentin Cardiac -Shock/PAD (s/p femoral stent)/hypertension/CAD: Patient stabilized hemodynamically. On maintenance Normosol as she is n.p.o awaiting surgery. * Vasopressor support: Wean down norepinephrine as tolerated * Continue home simvastatin Respiratory -COPD: Patient continues to smoke daily, approximately half pack a day. On Trelegy at home * Anoro Ellipta, Arnuity Ellipta scheduled. With albuterol inhaler as needed. Recommend outpatient follow-up to discuss adjustment of COPD regimen. GI -GERD: * Continue home pantoprazole, famotidine * Currently n.p.o. diet. Advance diet as tolerated postoperatively. RENAL/LYTES -Slight hypokalemia, hypomagnesemia * Initiate magnesium repletion postoperatively unless patient has already been transferred (1 g IV x4 bags). Recheck in a.m. -Cancino catheter in place: * No concerns at this time. ENDO -DM2 on insulin: * Continue sliding scale, bolus insulin, per home regimen. * Hypoglycemic ICU protocol HEME * Stable H&H. Continue to trend ID -Right groin abscess/cellulitis/sepsis: Patient seen by Dr. Orr, who confirmed I&D procedure will proceed later today. Lactate of 1.0 this morning. * Defer antibiotic management to primary team * Topical nystatin * Monitor fever curve. * Mucinex, flutter valve ordered for productive cough LINES/IV ACCESS * PIVs intact. DVT PROPHYLAXIS * Defer to surgical team. Thank you for allowing us to be part of this patient's care. Please refer to Dr. Joe's documentation for any further recommendations. (2) Hypertension: (3) Coronary artery disease: (4) GERD (gastroesophageal reflux disease): (5) Soft tissue infection: (6) Wound, surgical, infected: (7) Stenosis of right femoral artery: (8) Hyperlipidemia: (9) Diabetic neuropathy: (10) Carotid arterial disease: (11) Peripheral arterial disease: (12) S/P aortic valve replacement: (13) Current smoker: Admission and Anticipated Discharge Date Admission Date: December 31, 2021 Supervising Physician Co-Signing Physician Notes Dr. Hernandez was the resident-physician during care of patient. I separately evaluated patient for ellison portions of the history and the exam. I was present during the critical portion of medical decision making, and I discussed the case with the resident. I generally agree with the findings and plan except for any additions/exceptions noted. Patient seen and examined at bedside She was on 0.02 of Levophed at time of examination MAP being in the high 60s. She stated that she is feeling better after coming to the hospital Denies any chest pain, no shortness of breath, no headache. No nausea or vomiting. Constitutional: No acute distress HEENT: EOMI, PERRLA Respiratory system: Decreased air entry bilaterally, no wheeze, rhonchi, positive crackles bilateral lower lobes CVS: S1-S2 positive, positive 3 out of 6 systolic murmur appreciated best at ao rta Abdomen: Soft, nontender, nondistended, positive bowel sounds x4, obese Extremities: +2 pulses bilaterally radialis/ dorsalis pedis, no cyanosis, +1 pitting edema bilateral lower extremity, right groin clear drainage appreciated with mild erythema around Neuro: Awake alert oriented x3 Psych: Normal mood and affect G/U:Positive Cancino --Prophylaxis VTE: IPC GI: Pantoprazole Lines: Peripheral Diet: N.p.o. Plan: In/out: +725, urine output 16 T-max 38.1 C Continue with broad-spectrum antibiotics. CT of the leg does show fluid collection subcu. Case discussed with Dr. Orr. Stated it is good to take the patient to the OR. Continue with O2 supplementation to keep oxygen saturation between 90-92% Continue with inhalers for her underlying COPD Hypokalemia and hypomagnesemia being replaced I have personally spent 36 minutes of critical care time in the direct management of this patient. This is a life/limb threatening event. This includes time spent evaluating patient, direct bedside care, chart review, placing orders, interpretation of diagnostic studies, discussion with consultants, patient, and/or family members regarding treatment decisions, as well as other required patient management activities. This time is exclusive of all separately billable procedures, and teaching time and separate from and in addition to any other critical care service time. Subjective No acute events overnight. This morning, patient sleeping upon entry. She denies headache, shortness of breath, chest pain, abdominal pain. Review of Systems Review of Systems: All systems reviewed & are unremarkable except as noted in HPI & below Physical Exam Physical Exam: General: No acute distress HEENT: PERRLA. Normal conjunctiva, anicteric sclera. Oropharynx normal. Respiratory: Normal respiratory effort, hampered by cough on inspiration. Bibasilar crackles. No wheeze. Cardiovascular: RRR + murmur loudest at the left upper sternal border. No gallops or rubs. Bilateral pedal edema. GI: Soft abdomen with normal bowel sounds heard on auscultation. Nontender x4 quadrants Neuro: Alert and oriented x3. Skin: Bilateral erythema in the medial thigh that appears to include the groin on limited exam. Bilateral, warm, tender erythema of the lower leg Results & Data Results & Data ([facility]) Vital Signs (Past 12 Hours) Vital Signs Temp Pulse Pulse Resp BP BP BP 01/01/22 06:15 38.1 C H 64 22 01/01/22 06:15 104/41 L 01/01/22 06:00 38.1 C H 63 23 01/01/22 06:00 111/49 L 01/01/22 05:45 38.1 C H 69 23 01/01/22 05:45 104/51 L 01/01/22 05:30 38.1 C H 69 23 01/01/22 05:30 104/55 L 01/01/22 05:15 38.1 C H 72 26 H 01/01/22 05:15 108/46 L 01/01/22 05:00 38.1 C H 69 22 01/01/22 05:00 101/45 L 01/01/22 04:45 38.2 C H 67 22 01/01/22 04:45 103/47 L 01/01/22 04:30 38.2 C H 65 23 01/01/22 04:30 100/50 L 01/01/22 04:15 38.2 C H 68 25 H 01/01/22 04:15 101/47 L 01/01/22 04:00 38.2 C H 75 26 H 01/01/22 04:00 94/42 L 01/01/22 03:45 38.2 C H 83 30 H 01/01/22 03:45 109/55 L 01/01/22 03:30 38.2 C H 68 24 01/01/22 03:30 103/45 L 01/01/22 03:15 38.2 C H 61 24 01/01/22 03:15 94/50 L 01/01/22 03:00 38.2 C H 65 24 01/01/22 03:00 102/54 L 01/01/22 02:45 38.1 C H 67 23 01/01/22 02:45 94/49 L 01/01/22 02:30 38.1 C H 65 24 01/01/22 02:30 92/52 L 01/01/22 02:15 38.1 C H 66 23 01/01/22 02:15 93/48 L 01/01/22 02:00 38.1 C H 73 24 01/01/22 02:00 92/49 L 01/01/22 01:45 38.1 C H 76 24 01/01/22 01:45 104/48 L 01/01/22 01:30 38.1 C H 69 22 01/01/22 01:30 90/39 L 01/01/22 01:15 38.1 C H 68 22 01/01/22 01:15 118/53 L 01/01/22 01:00 38.1 C H 64 24 01/01/22 01:00 103/48 L 01/01/22 00:45 38.1 C H 69 22 01/01/22 00:45 102/44 L 01/01/22 00:30 38.0 C H 65 22 01/01/22 00:30 103/44 L 01/01/22 00:15 38.0 C H 68 21 01/01/22 00:15 104/48 L 01/01/22 00:00 38.0 C H 70 23 01/01/22 00:00 104/46 L 12/31/21 23:45 37.9 C H 65 22 12/31/21 23:45 108/47 L 12/31/21 23:30 37.9 C H 71 24 12/31/21 23:30 103/43 L 12/31/21 23:15 37.8 C H 63 22 12/31/21 23:15 96/45 L 12/31/21 23:00 37.8 C H 66 21 12/31/21 23:00 95/39 L 12/31/21 22:50 37.7 C H 68 22 12/31/21 22:45 37.7 C H 66 21 12/31/21 22:45 115/45 L 12/31/21 22:40 37.7 C H 66 22 12/31/21 21:30 77/43 L 12/31/21 22:30 37.6 C H 64 15 12/31/21 22:30 106/60 12/31/21 22:15 37.6 C H 70 22 12/31/21 22:15 111/55 L 12/31/21 22:04 37.5 C 76 23 12/31/21 22:00 12/31/21 21:53 76 12/31/21 22:00 89/43 L 12/31/21 20:52 82 75/48 L 12/31/21 20:58 76 50/38 L 12/31/21 20:57 37.0 C 78 16 74/48 L 12/31/21 20:52 Pulse Ox O2 Del Method O2 Flow Rate 01/01/22 06:15 93 01/01/22 06:15 01/01/22 06:00 94 01/01/22 06:00 01/01/22 05:45 94 01/01/22 05:45 01/01/22 05:30 93 01/01/22 05:30 01/01/22 05:15 92 01/01/22 05:15 01/01/22 05:00 94 01/01/22 05:00 01/01/22 04:45 94 01/01/22 04:45 01/01/22 04:30 93 01/01/22 04:30 01/01/22 04:15 93 01/01/22 04:15 01/01/22 04:00 90 01/01/22 04:00 01/01/22 03:45 94 01/01/22 03:45 01/01/22 03:30 92 01/01/22 03:30 01/01/22 03:15 92 01/01/22 03:15 01/01/22 03:00 93 01/01/22 03:00 01/01/22 02:45 94 01/01/22 02:45 01/01/22 02:30 93 01/01/22 02:30 01/01/22 02:15 94 01/01/22 02:15 01/01/22 02:00 93 01/01/22 02:00 01/01/22 01:45 92 01/01/22 01:45 01/01/22 01:30 93 01/01/22 01:30 01/01/22 01:15 94 01/01/22 01:15 01/01/22 01:00 96 01/01/22 01:00 01/01/22 00:45 96 01/01/22 00:45 01/01/22 00:30 95 01/01/22 00:30 01/01/22 00:15 95 01/01/22 00:15 01/01/22 00:00 95 01/01/22 00:00 12/31/21 23:45 95 12/31/21 23:45 12/31/21 23:30 92 12/31/21 23:30 12/31/21 23:15 96 12/31/21 23:15 12/31/21 23:00 96 12/31/21 23:00 12/31/21 22:50 96 12/31/21 22:45 97 12/31/21 22:45 12/31/21 22:40 96 12/31/21 21:30 96 Nasal Cannula 2 12/31/21 22:30 98 12/31/21 22:30 12/31/21 22:15 98 12/31/21 22:15 12/31/21 22:04 99 Nasal Cannula 2 12/31/21 22:00 Nasal Cannula 2 12/31/21 21:53 12/31/21 22:00 12/31/21 20:52 12/31/21 20:58 12/31/21 20:57 93 Room Air 12/31/21 20:52 Room Air Laboratory Results 01/01/22 09:18 01/01/22 09:18 Resident Activity Tracking Resident Involvement: Resident Care Provided Care Provided: Adult Hospital Medicine
--- NOTE | 2022-01-01 09:56 | Anesthesiology Consultation ---
Date of Service January 01, 2022 Assessment & Plan Chart Review Chart Review: Acceptable Risk for Surgery and Patient NOT seen in Pre Admission Testing Consults Requested none ASA ASA4 Proposed Anesthesia Anesthesia Type: General Anesthesia Line Insertion: Arterial line History Surgery Operation Date: 01/01/22 08:20 Proposed Procedures p Right Groin Incision and Drainage with Wound Vac Placement - Ed Orr MD Height/Weight Height: 5 ft 11 in Weight: 96.4 kg Allergies Allergy/AdvReac Type Severity Reaction Status Date / Time No Known Allergies Allergy Verified 12/23/21 14:48 Medications Home Medications Medication Instructions Recorded Confirmed Last Taken aspirin 81 mg tablet,delayed 81 mg PO QAM 10/19/19 12/23/21 11/23/21 09:00 release (Adult Low Dose Aspirin) nitroglycerin 0.4 mg sublingual 0.4 mg sublingual .COMPLEX PRN 10/19/19 12/23/21 Unknown tablet (Nitrostat) Chest Pain insulin aspart U-100 100 unit/mL See Rx Instructions subcut 10/14/20 12/23/21 11/23/21 17:00 subcutaneous solution (Novolog .COMPLEX #60 mL U-100 Insulin aspart) metformin 1,000 mg tablet 1,000 mg PO BID #180 tabs 02/11/21 12/23/21 11/22/21 17:00 insulin detemir U-100 100 unit/mL 50 unit (0.5 mL) subcut QPM #45 mL 02/25/21 12/23/21 11/23/21 21:00 subcutaneous solution (Levemir U-100 Insulin) pen needle, diabetic 31 gauge x #100 ea 05/29/21 12/23/21 Unknown 3/16" (BD Ultra-Fine Mini Pen Needle) multivitamin (Multiple Vitamins 1 tab PO QAM 07/02/21 12/23/21 11/23/21 09:00 tablet) potassium chloride 10 mEq 10 meq PO QAM #90 tabs 07/06/21 12/23/21 11/23/21 09:00 tablet,extended release(part/cryst) lisinopril 40 mg tablet 40 mg PO HS #90 tabs 07/08/21 12/23/21 11/23/21 21:00 cholecalciferol (vitamin D3) 50 50 mcg PO QAM 10/29/21 12/23/21 11/23/21 09:00 mcg (2,000 unit) capsule bumetanide 0.5 mg tablet 0.5 mg PO QAM 11/06/21 12/23/21 11/23/21 09:00 dulaglutide 1.5 mg/0.5 mL 1.5 mg subcut WK 11/08/21 12/23/21 11/22/21 09:00 subcutaneous pen injector simvastatin 80 mg tablet 80 mg PO QPM #90 tabs 11/13/21 12/23/21 11/23/21 21:00 clopidogrel 75 mg tablet 75 mg PO QAM #90 tabs 11/30/21 12/23/21 Unknown pantoprazole 20 mg tablet,delayed 20 mg PO QAM #90 tabs 11/30/21 12/23/21 Unknown release gabapentin 400 mg capsule 400 mg PO TID #90 caps 12/04/21 12/23/21 Unknown blood pressure monitor #1 ea 12/08/21 12/23/21 Unknown metoprolol tartrate 50 mg tablet 50 mg PO BID #180 tabs 12/10/21 12/23/21 Unknown ezetimibe 10 mg tablet 10 mg PO HS #90 tabs 12/17/21 12/23/21 Unknown famotidine 40 mg tablet (Pepcid) 40 mg PO HS #90 tabs 12/17/21 12/23/21 Unknown fluticasone fur. 100 mcg-umeclid 1 inh inhalation QDL 90 days #60 ea 12/17/21 12/23/21 Unknown 62.5 mcg-vilant 25 mcg inhalat.powder (Trelegy Ellipta) nystatin 100,000 unit/gram topical 1 applic topical TID 2 weeks #30 12/23/21 12/23/21 Unknown cream grams nystatin 100,000 unit/gram topical 1 applic topical TID PRN yeast 12/23/21 12/23/21 Unknown powder infection #60 grams Active Medications Generic Name Dose Route Start Last Admin Trade Name Freq PRN Reason Stop Dose Admin Clopidogrel Bisulfate 75 mg 01/01/22 09:00 01/01/22 08:05 Clopidogrel Bisulfate 75 Mg Tab PO 01/31/22 08:59 75 mg QAM ZAC Administration Ezetimibe 10 mg 12/31/21 21:00 12/31/21 22:23 Ezetimibe 10 Mg Tablet PO 01/30/22 20:59 10 mg HS ZAC Administration Famotidine 40 mg 12/31/21 21:00 12/31/21 22:23 Famotidine 40 Mg Tablet PO 01/30/22 20:59 40 mg HS ZAC Administration Vancomycin HCl 750 mg/ Sodium 265 mls @ 200 mls/hr 01/01/22 07:30 01/01/22 08:04 Chloride IV 01/08/22 07:29 200 mls/hr Q12H ZAC Administration Protocol Piperacillin Sod/Tazobactam 115 mls @ 28.75 mls/hr 01/01/22 04:00 01/01/22 08:17 Sod 3.375 gm/ Dextrose IV 01/08/22 03:59 Infused Q8H ZAC Infusion Protocol Norepinephrine Bitartrate 4 mg in 250 mls @ 18.075 mls/hr 12/31/21 21:53 01/01/22 04:06 Levophed/D5w IV 01/30/22 21:52 0.03 mcg/kg/min .[id number] ZAC 10.8 mls/hr Titration Protocol 0.05 MCG/KG/MIN Insulin Aspart 0 units 01/01/22 06:30 01/01/22 08:03 Insulin Aspart Per Unit SC 01/31/22 06:29 5 units Q6 ZAC Administration Insulin Glargine 40 units 12/31/21 21:45 12/31/21 22:26 Lantus Per Unit Charge SQ 01/30/22 21:44 40 units HS ZAC Administration Multivitamins 1 tab 01/01/22 09:00 01/01/22 08:04 Multivitamin Tab PO 01/31/22 08:59 Not Given QAM ZAC Pantoprazole Sodium 40 mg 01/01/22 09:00 01/01/22 08:05 Pantoprazole 40 Mg Tab PO 01/31/22 08:59 40 mg QAM ZAC Administration Simvastatin 80 mg 12/31/21 21:00 12/31/21 22:23 Simvastatin 80 Mg Tab PO 01/30/22 20:59 80 mg PM ZAC Administration Umeclidinium/Vilanterol 1 puffs 01/01/22 09:00 01/01/22 08:05 Umeclidinium/Vilanterol 62.5/25mcg 7 Puffs/Inhaler INH 01/31/22 08:59 1 puffs DAILY ZAC Administration Past Medical History Medical History Carotid arterial disease R carotid endarterectomy 2014 COPD (chronic obstructive pulmonary disease) controlled, stable per pt-denies rescue inhaler use Coronary artery disease s/p 1 stent Diabetes mellitus with complication IDDM Diabetic neuropathy GERD (gastroesophageal reflux disease) controlled, stable per pt History of anesthesia reaction difficulty waking History of femoral angiogram (~09/29/21) right lower extremity angiogram @ [facility] Dr. 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) Lymphedema hx Occlusion of common femoral artery On anticoagulant therapy plavix daily Peripheral arterial disease stent R iliac artery Wound, surgical, infected Exercise / Class Metabolic Activity III < 4 Walking/Shop/Light housework Past Family History Family History Grandmother (Paternal) Breast cancer Family/Other Ovarian cancer Father Diabetes Heart disease Myocardial infarction Hypertension Mother Diabetes Heart disease Brother Diabetes Heart disease Hypertension Grandfather (Paternal) Family history of esophageal cancer Other No family history of adverse response to anesthesia Denies family history of Prostate cancer Colorectal cancer Past Surgical History Surgical History History of cardiac cath x2 with 1 stent placed--last done before 2014 History of esophagogastroduodenoscopy (EGD) last 01/2020 @ [facility] History of tooth extraction all teeth S/P aortic valve replacement (2014) 2014 @ [facility] [place]--follows with Dr. Espinal S/P carotid endarterectomy (2014) R S/P section x 2 S/P coronary artery stent placement 1 placed S/P hernia repair x 2 S/P peripheral artery angioplasty with stent placement (08/2017) angioplasty and stent R external iliac artery S/P total hysterectomy and bilateral salpingo-oophorectomy (1992) d/t endometriosis Past Anesthesia History No Hx of Anesthesia Complications and No Family Hx of Anesthesia Complications History of PONV No Hx of PONV and No Hx of Motion Sickness Social History Smoking Status: Heavy tobacco smoker tobacco type: cigarettes Smoking cigarettes per day: 5 cigs a day-advised Hx Alcohol Use: No Hx Substance Use: No substance use type: does not use Physical Exam Vital Signs Last Vital Signs Temp 37.3 C 01/01/22 09:45 Pulse 64 01/01/22 09:45 Resp 22 01/01/22 09:45 BP 90/45 L 01/01/22 09:45 Pulse Ox 94 01/01/22 09:45 O2 Del Method 01/01/22 09:45 O2 Flow Rate 2 12/31/21 22:04 Testing Laboratory Results 01/01/22 09:18 PT 11.5 Seconds (9.0-12.0) 12/31/21 21:18 INR 1.1 (0.9-1.1) 12/31/21 21:18 12/31/21 Unknown Gram Stain - Final Groin 01/01/22 12/31/21 07:59 22:16 POC Glucose 229 H 194 H Electrocardiogram Date: 12/31/21 Findings: + NSR @ (at 70 w/ 1st degree AVB;NS ST & T wave abnl) Echocardiogram Date: 11/13/21 EF: 60% LV Function: normal RWMA: + none Other Findings: + LVH (mild) and + diastolic dysfunction (Grade 1) Bioprosthetic AV NL Fxn;MAC-severe
[2022-01-01 10:18] LABS: Albumin Globulin Ratio 0.9 (0.9-2); Albumin Level 2.8 gm/dl (3.4-5.0); BUN Creatinine Ratio 16.4 (10-20); Bilirubin,Total 0.9 mg/dl (0.2-1.0); Calcium 8.3 mg/dl (8.5-10.1); Creatinine Clr Calc Pharmacy 61.9 ml/min; Est GFR (African American) 57.2 ml/min; Est GFR (Non-African American) 49.4 ml/min; Magnesium 1.5 mg/dl (1.7-2.4); Phosphorus 2.8 mg/dl (2.5-4.9); Potassium 3.3 mmol/L (3.5-5.1); Total Protein 5.8 gm/dl (6.0-8.3)
[2022-01-01] MEDS: FLUTICASONE FUROATE 100MCG 14 PUFFS/INHALER INH SCH (12:24)
--- NOTE | 2022-01-01 13:03 | Pharmacy Report ---
Pharmacy Glycemic Short Note 2 - Date of Service January 01, 2022 - Glycemic Short BSG Results (Last 24 hours): 12/31/21 12/31/21 12/31/21 17:01 17:14 20:15 Glucose 129 H POC Glucose 152 H 219 H 12/31/21 12/31/21 01/01/22 21:18 22:16 07:59 Glucose 205 H POC Glucose 194 H 229 H 01/01/22 01/01/22 09:18 12:30 Glucose 183 H POC Glucose 120 H OUTPATIENT ANTIDIABETIC REGIMEN: * Levemir 50 units SC PM * Novolog 14-22 units SC TIDM * Trulicity 1.5 mg SC Sundays * Metformin 1000 mg PO BIDM * HbA1c = 7.5% (11/16/21) ASSESSMENT: * 66 yo F admitted to ICU secondary to postsurgical soft tissue infection of thigh leading to septic shock and requiring vasopressor support. Patient is an insulin-dependent type 2 diabetic as an outpatient. Moderately controlled given most recent A1c. Has been NPO since admission for possible surgery. Remains on Vancomycin and Zosyn. Levophed has been off since around 1000. * Received 40 units of Lantus around 2230 last evening. No Novolog until this AM. BSGs were: 152-219 mg/dL. * Fasting BSG elevated at 229 mg/dL this AM. Received 5 units correctional Novolog and BSG down to 120 mg/dL prior to OR. Expecting some stress-induced hyperglycemia postoperatively and likely to have diet ordered. * No change to Novolog. Will increase Lantus to 45 units this evening. PLAN FOR INPATIENT GLYCEMIC CONTROL: * Hold outpatient oral diabetes medications * Basal insulin * Lantus 45 units SC AM * Bolus insulin * NovoLog per scale ACHS or Q6hrs while NPO * Goal Range: Low 110 mg/dL - High 140 mg/dL * Correction Factor: 20 mg/dL/unit * Nutritional / Prandial insulin per carb ratio of 1 unit per 7 grams CHO consumed
[2022-01-01] MEDS ORDERED: fentaNYL citrate 100 MCG/2 ML VIAL ONE (13:10)
[2022-01-01] MEDS ORDERED: ONDANSETRON INJ 2 MG/ML 2 ML VIAL ONE (13:12)
[2022-01-01] MEDS ORDERED: PROPOFOL IV EMULSION 10 MG/ML 20 ML VIAL IV ONE (13:12)
[2022-01-01] MEDS ORDERED: DEXAMETHASONE SOD INJ 4 MG/ML VIAL ONE (13:12)
--- NOTE | 2022-01-01 13:12 | Pharmacy Report ---
Pharmacy PK ABX Note - Date of Service January 01, 2022 - Assessment and Plan Assessment 66 year old F receiving Vancomycin and Zosyn for treatment of postsurgical soft tissue infection of thigh. * PMHx significant for T2DM, current every day smoker, lymphedema, peripheral arterial disease, recent surgery (11/2021). * Afebrile. Leukocytosis of 12.50k on admission, down to 10.76k today. SCr 1.25 upon admission, bumped to 1.5 but now down to 1.16 this AM. Procalcitonin 0.47. Lactate 1.0. * Preliminary groin culture growing Staph species. Blood cultures with no growth to date. * Heading back to OR for I&D today. Plan Vancomycin * Loading dose: 2000 mg IV x 1 * Maintenance dose: 750 mg IV every 12 hours * Regimen is predicted to achieve target AUC/CHRISTOPHER of 400-600 mg/L.hr * Random level ordered for: 01/02/22 Zosyn * 3.375 g IV loading dose followed by 3.375 g IV every 8 hours Pharmacy will continue to follow and will adjust dose/frequency as necessary. Thank you. Pharmacy has transitioned to AUC monitoring for vancomycin. AUC/CHRISTOPHER is the pref erred PK/PD target and is associated with decreased risk of nephrotoxicity compared to traditional trough targets.
--- NOTE | 2022-01-01 13:35 | Operative Report ---
Post Operative Report Pre & Post Diagnosis Operation Date: 01/01/22 08:20 Pre-Op Diagnosis: Infected wound, right groin Post-Op Diagnosis: Infected wound, right groin I identified the patient and participated in the time-out.: Yes Procedure Operation Date: 01/01/22 08:20 Actual Procedures p Right Groin Incision and Drainage with Wound Vac [id number](Right) - Ed Orr MD Surgeon Ed Orr MD Fork Repairer Francis,PAC Estimated Blood Loss 20 Findings Consistent with Post-Op Diagnosis Specimens culture sent Anesthesia Type General Complications none Disposition Accompanied Patient To Recovery: No Disposition: Recovery Room Indications Is a 66-year-old female who had a right common femoral artery endarterectomy with bovine patch angioplasty 3 weeks prior to this. Last time she was seen in the office post surgery her wound was healed nicely. There is no redness drainage or tenderness present. She came to the office yesterday which is approximately 3 weeks after surgery with a swollen erythematous right groin mostly lateral to the incision. She was draining serous fluid. She was admitted to the hospital last night. During the night she became hypotensive was admitted to the ICU. CAT scan shows collection of fluid lateral to the old incision. Debridement and wound VAC application was recommended. I have discussed the risks options and benefits of the procedure with the patient. The patient understands the risks options and benefits and agrees to the procedure. Description of Procedure The patient was taken to the operating room placed in supine position. After general seizure was accomplished the right groin was prepped draped in sterile manner. A timeout was performed and the patient was identified. Incision was made in the line of the old incision. This carried down through the skin layers. There was a large 12 x 8 x 4 cm collection of murky fluid. This was anterior to the muscles of the thigh. It was away from the arterial supply. This area was then irrigated with the Pulsavac. The wound was cleaned at that point. Cultures were sent. Wound VAC was then applied to the wound. It measur ed proximally 12 x 8 x 4 cm in size. The patient left the operation room in satisfactory condition and tolerated the procedure well. All needle and sponge counts were correct at the end of the procedure. Jacinta Castro Pac assisted due to lack of resident availability and was necessary for positioning, draping, retraction, wound closure deep layers, subcutaneous tissue, and skin closure and was necessary for assisting with the case. I attest to the content of the Intraoperative Record and any orders documented therein. Any exceptions are noted below.
--- NOTE | 2022-01-01 15:11 | Billing Data ---
Date of Service January 01, 2022 Coding Level of Care Code Critical Care 1st 30-74 mins Time Spent (min) 36
--- NOTE | 2022-01-01 15:11 | Anesthesiology Progress Note ---
Date of Service January 01, 2022 Anesthesia Post Procedure Vital Signs Vital Signs: Temp Pulse Pulse Pulse Resp BP BP 01/01/22 14:50 68 15 01/01/22 12:45 119/62 01/01/22 12:45 68 18 01/01/22 12:30 68 25 H 01/01/22 12:30 110/79 01/01/22 12:15 114/57 L 01/01/22 12:15 37.2 C 67 20 01/01/22 12:00 37.2 C 64 14 01/01/22 12:00 114/67 01/01/22 11:45 124/64 01/01/22 11:45 37.3 C 71 18 01/01/22 11:30 37.2 C 65 20 01/01/22 11:30 114/55 L 01/01/22 11:15 107/52 L 01/01/22 11:15 37.3 C 63 20 01/01/22 11:00 37.3 C 68 20 01/01/22 11:00 95/51 L 01/01/22 10:45 114/55 L 01/01/22 10:45 37.3 C 63 20 01/01/22 10:30 37.3 C 63 21 01/01/22 10:30 97/55 L 01/01/22 10:15 98/49 L 01/01/22 10:15 37.3 C 66 20 01/01/22 10:00 37.3 C 65 22 01/01/22 10:00 101/46 L 01/01/22 14:40 71 13 01/01/22 14:30 36.6 C 71 19 01/01/22 14:20 73 20 01/01/22 14:10 91 H 18 01/01/22 14:00 79 20 01/01/22 13:53 36.5 C 94 H 14 01/01/22 12:12 36.6 C 69 18 114/67 01/01/22 09:45 37.3 C 64 22 01/01/22 09:45 90/45 L 01/01/22 09:30 37.3 C 63 20 01/01/22 09:30 107/48 L 01/01/22 09:15 37.3 C 67 20 01/01/22 09:15 98/48 L 01/01/22 09:00 37.5 C 75 25 H 01/01/22 09:00 110/61 01/01/22 08:46 37.5 C 78 21 01/01/22 08:46 98/48 L 01/01/22 08:45 37.5 C 72 20 01/01/22 08:30 37.6 C H 71 19 01/01/22 08:30 116/64 01/01/22 08:15 37.6 C H 74 14 01/01/22 08:15 111/60 01/01/22 08:00 37.7 C H 77 20 01/01/22 08:00 109/53 L 01/01/22 07:47 120/59 L 01/01/22 07:47 37.8 C H 70 18 01/01/22 07:45 37.8 C H 66 20 01/01/22 07:45 109/50 L 01/01/22 07:30 37.9 C H 65 14 01/01/22 07:30 113/56 L 01/01/22 07:15 37.9 C H 69 20 01/01/22 07:15 118/59 L 01/01/22 07:00 37.9 C H 63 22 01/01/22 07:00 109/47 L 01/01/22 08:00 01/01/22 06:15 38.1 C H 64 22 01/01/22 06:15 104/41 L 01/01/22 06:00 38.1 C H 63 23 01/01/22 06:00 111/49 L 01/01/22 05:45 38.1 C H 69 23 01/01/22 05:45 104/51 L 01/01/22 05:30 38.1 C H 69 23 01/01/22 05:30 104/55 L 01/01/22 05:15 38.1 C H 72 26 H 01/01/22 05:15 108/46 L 01/01/22 05:00 38.1 C H 69 22 01/01/22 05:00 101/45 L 01/01/22 04:45 38.2 C H 67 22 01/01/22 04:45 103/47 L 01/01/22 04:30 38.2 C H 65 23 01/01/22 04:30 100/50 L 01/01/22 04:15 38.2 C H 68 25 H 01/01/22 04:15 101/47 L 01/01/22 04:00 38.2 C H 75 26 H 01/01/22 04:00 94/42 L 01/01/22 03:45 38.2 C H 83 30 H 01/01/22 03:45 109/55 L 01/01/22 03:30 38.2 C H 68 24 01/01/22 03:30 103/45 L 01/01/22 03:15 38.2 C H 61 24 01/01/22 03:15 94/50 L 01/01/22 03:00 38.2 C H 65 24 01/01/22 03:00 102/54 L 01/01/22 02:45 38.1 C H 67 23 01/01/22 02:45 94/49 L 01/01/22 02:30 38.1 C H 65 24 01/01/22 02:30 92/52 L 01/01/22 02:15 38.1 C H 66 23 01/01/22 02:15 93/48 L 01/01/22 02:00 38.1 C H 73 24 01/01/22 02:00 92/49 L 01/01/22 01:45 38.1 C H 76 24 01/01/22 01:45 104/48 L 01/01/22 01:30 38.1 C H 69 22 01/01/22 01:30 90/39 L 01/01/22 01:15 38.1 C H 68 22 01/01/22 01:15 118/53 L 01/01/22 01:00 38.1 C H 64 24 01/01/22 01:00 103/48 L 01/01/22 00:45 38.1 C H 69 22 01/01/22 00:45 102/44 L 01/01/22 00:30 38.0 C H 65 22 01/01/22 00:30 103/44 L 01/01/22 00:15 38.0 C H 68 21 01/01/22 00:15 104/48 L 01/01/22 00:00 38.0 C H 70 23 01/01/22 00:00 104/46 L 12/31/21 23:45 37.9 C H 65 22 12/31/21 23:45 108/47 L 12/31/21 23:30 37.9 C H 71 24 12/31/21 23:30 103/43 L 12/31/21 23:15 37.8 C H 63 22 12/31/21 23:15 96/45 L 12/31/21 23:00 37.8 C H 66 21 12/31/21 23:00 95/39 L 12/31/21 22:50 37.7 C H 68 22 12/31/21 22:45 37.7 C H 66 21 12/31/21 22:45 115/45 L 12/31/21 22:40 37.7 C H 66 22 12/31/21 21:30 12/31/21 22:30 37.6 C H 64 15 12/31/21 22:30 106/60 12/31/21 22:15 37.6 C H 70 22 12/31/21 22:15 111/55 L 12/31/21 22:04 37.5 C 76 23 12/31/21 22:00 12/31/21 21:53 76 12/31/21 22:00 12/31/21 20:52 82 12/31/21 20:58 76 50/38 L 12/31/21 20:57 37.0 C 78 16 12/31/21 20:52 12/31/21 17:11 12/31/21 16:36 37.7 C H 89 18 BP Pulse Ox O2 Del Method O2 Flow Rate 01/01/22 14:50 95/49 L 96 Nasal Cannula 3 01/01/22 12:45 01/01/22 12:45 94 Nasal Cannula 2 01/01/22 12:30 92 01/01/22 12:30 01/01/22 12:15 01/01/22 12:15 93 01/01/22 12:00 95 01/01/22 12:00 01/01/22 11:45 01/01/22 11:45 93 01/01/22 11:30 95 01/01/22 11:30 01/01/22 11:15 01/01/22 11:15 95 01/01/22 11:00 95 01/01/22 11:00 01/01/22 10:45 01/01/22 10:45 95 01/01/22 10:30 95 01/01/22 10:30 01/01/22 10:15 01/01/22 10:15 94 01/01/22 10:00 93 01/01/22 10:00 01/01/22 14:40 98/47 L 93 Nasal Cannula 3 01/01/22 14:30 95/46 L 95 Nasal Cannula 3 01/01/22 14:20 98/47 L 94 Nasal Cannula 3 01/01/22 14:10 98/48 L 94 Oxymask 6 01/01/22 14:00 97/53 L 100 Oxymask 10 01/01/22 13:53 111/53 L 92 Oxymask 15 01/01/22 12:12 93 Nasal Cannula 3 01/01/22 09:45 94 Room Air 01/01/22 09:45 01/01/22 09:30 92 01/01/22 09:30 01/01/22 09:15 91 01/01/22 09:15 01/01/22 09:00 96 01/01/22 09:00 01/01/22 08:46 92 01/01/22 08:46 01/01/22 08:45 92 01/01/22 08:30 94 01/01/22 08:30 01/01/22 08:15 97 01/01/22 08:15 01/01/22 08:00 94 01/01/22 08:00 01/01/22 07:47 01/01/22 07:47 92 01/01/22 07:45 93 01/01/22 07:45 01/01/22 07:30 96 01/01/22 07:30 01/01/22 07:15 95 01/01/22 07:15 01/01/22 07:00 94 01/01/22 07:00 01/01/22 08:00 Room Air 01/01/22 06:15 93 01/01/22 06:15 01/01/22 06:00 94 01/01/22 06:00 01/01/22 05:45 94 01/01/22 05:45 01/01/22 05:30 93 01/01/22 05:30 01/01/22 05:15 92 01/01/22 05:15 01/01/22 05:00 94 01/01/22 05:00 01/01/22 04:45 94 01/01/22 04:45 01/01/22 04:30 93 01/01/22 04:30 01/01/22 04:15 93 01/01/22 04:15 01/01/22 04:00 90 01/01/22 04:00 01/01/22 03:45 94 01/01/22 03:45 01/01/22 03:30 92 01/01/22 03:30 01/01/22 03:15 92 01/01/22 03:15 01/01/22 03:00 93 01/01/22 03:00 01/01/22 02:45 94 01/01/22 02:45 01/01/22 02:30 93 01/01/22 02:30 01/01/22 02:15 94 01/01/22 02:15 01/01/22 02:00 93 01/01/22 02:00 01/01/22 01:45 92 01/01/22 01:45 01/01/22 01:30 93 01/01/22 01:30 01/01/22 01:15 94 01/01/22 01:15 01/01/22 01:00 96 01/01/22 01:00 01/01/22 00:45 96 01/01/22 00:45 01/01/22 00:30 95 01/01/22 00:30 01/01/22 00:15 95 01/01/22 00:15 01/01/22 00:00 95 01/01/22 00:00 12/31/21 23:45 95 12/31/21 23:45 12/31/21 23:30 92 12/31/21 23:30 12/31/21 23:15 96 12/31/21 23:15 12/31/21 23:00 96 12/31/21 23:00 12/31/21 22:50 96 12/31/21 22:45 97 12/31/21 22:45 12/31/21 22:40 96 12/31/21 21:30 77/43 L 96 Nasal Cannula 2 12/31/21 22:30 98 12/31/21 22:30 12/31/21 22:15 98 12/31/21 22:15 12/31/21 22:04 99 Nasal Cannula 2 12/31/21 22:00 Nasal Cannula 2 12/31/21 21:53 12/31/21 22:00 89/43 L 12/31/21 20:52 75/48 L 12/31/21 20:58 12/31/21 20:57 74/48 L 93 Room Air 12/31/21 20:52 Room Air 12/31/21 17:11 Room Air 12/31/21 16:36 96/58 L 92 Room Air Pain Intensity Right Groin: Pain Intensity: 2 Transfer of Care Handoff Completed per policy Notes Mental Status: alert / awake / arousable and participated in evaluation Patient Amnestic to Procedure: Yes Nausea / Vomiting: adequately controlled Pain: adequately controlled Airway Patency, RR, SpO2: stable & adequate BP & HR: stable & adequate Hydration State: stable & adequate Anesthetic Complications: no major complications apparent and Pt Satisfied with anesthetic care
[2022-01-01] MEDS ORDERED: oxyCODONE/ACETAMINOPHEN 5mg/325mg TAB PO PRN (15:16)
[2022-01-01] MEDS: POTASSIUM CHLORIDE 10 MEQ TABCR PO SCH (16:41)
[2022-01-01] MEDS: MAGNESIUM SULFATE / D5W 1 GM/100 ML BAG IV SCH ×2 (16:44→18:57)
[2022-01-01] MEDS: LACTATED RINGER'S 1,000 ML IV SCH (16:44)
[2022-01-01] MEDS ORDERED: Nursing to Pharmacy Communication SCH (16:45)
[2022-01-01] MEDS ORDERED: INSULIN ASPART PER UNIT ONE (16:55)
[2022-01-01] MEDS: POTASSIUM CHLORIDE / WTR 10 MEQ/100 ML PLCT IV SCH ×3 (16:56→19:12)
[2022-01-01] MEDS: NOREPINEPHRINE/D5W 4 MG/250 ML PLCT IV SCH (19:01)
[2022-01-01] MEDS: guaiFENesin 600 MG TABCR PO SCH (20:51)
[2022-01-01] MEDS: FAMOTIDINE 40 MG TABLET PO SCH (20:51)
[2022-01-01] MEDS: EZETIMIBE 10 MG TABLET PO SCH (20:51)
[2022-01-01] MEDS: SIMVASTATIN 80 MG TAB PO SCH (20:51)
[2022-01-01] MEDS: LANTUS PER UNIT CHARGE SQ SCH (20:53)
[2022-01-01] MEDS ORDERED: INSULIN ASPART PER UNIT SC SCH (21:45)
[2022-01-02] MEDS: LACTATED RINGER'S 1,000 ML IV SCH ×2 (00:06→07:40)
[2022-01-02] MEDS: NOREPINEPHRINE/D5W 4 MG/250 ML PLCT IV SCH (03:55)
[2022-01-02] MEDS: PIPERACILLIN/TAZOBACTAM 3.375 GM in DEXTROSE 5% 100 ML IV SCH ×3 (03:56→20:45)
[2022-01-02 05:46] LABS: Creatinine Clr Calc Pharmacy 74.7 ml/min; Est GFR (African American) 71.9 ml/min; Est GFR (Non-African American) 62.1 ml/min; Magnesium 1.9 mg/dl (1.7-2.4)
[2022-01-02] MEDS ORDERED: VANCOMYCIN LEVEL ONE (07:30)
--- NOTE | 2022-01-02 07:43 | Critical Care Progress Note ---
Date of Service January 02, 2022 Assessment & Plan (1) COPD (chronic obstructive pulmonary disease): Plan: Reason Critically Ill: 66-year-old female who was admitted to the hospital for septic shock likely secondary to postsurgical soft tissue infection of medial thigh and transferred to the ICU for vasopressor support. Now stable s/p I&D surgery. Likely downgrade from ICU service. Neuro -Diabetic neuropathy: * Continue home gabapentin Cardiac -Shock/PAD (s/p femoral stent)/hypertension/CAD: Patient stabilized hemodynamically. * Continue home simvastatin Respiratory -COPD: Patient continues to smoke daily, approximately half pack a day. On Trelegy at home * Anoro Ellipta, Arnuity Ellipta scheduled. With albuterol inhaler as needed. Recommend outpatient follow-up to discuss adjustment of COPD regimen. GI -GERD: * Continue home pantoprazole, famotidine RENAL/LYTES -No significant electrolyte derangements -Cancino catheter in place: * No concerns at this time. ENDO -DM2 on insulin: * Continue sliding scale, bolus insulin, per home regimen. * Hypoglycemic ICU protocol HEME -Hemoglobin 9.9, down from 10.7. Patient hemodynamically stable, otherwise asymptomatic. * Continue to trend ID -Right groin abscess/cellulitis/sepsis: Patient seen by Dr. Orr, who confirmed I&D procedure will proceed later today. Lactate of 1.0 this morning. * Continue vancomycin, Zosyn * Topical nystatin * Monitor fever curve. * Mucinex, flutter valve ordered for productive cough LINES/IV ACCESS * PIVs intact. DVT PROPHYLAXIS * Defer to surgical team. Thank you for allowing us to be part of this patient's care. Please refer to Dr. Joe's documentation for any further recommendations. (2) Hypertension: (3) Coronary artery disease: (4) GERD (gastroesophageal reflux disease): (5) Soft tissue infection: Admission and Anticipated Discharge Date Admission Date: December 31, 2021 Supervising Physician Co-Signing Physician Notes Dr. Hernandez was the resident-physician during care of patient. I separately evaluated patient for ellison portions of the history and the exam. I was present during the critical portion of medical decision making, and I discussed the case with the resident. I generally agree with the findings and plan except for any additions/exceptions noted. Patient seen and examined at bedside. No acute distress, no adverse events overnight Patient's map was in the 70s at the time of examination She did not need any vasopressor support Overall she says she is feeling well. She was taken to the OR yesterday for cleaning of the wound. Denies any pain. No chest pain, no shortness of breath No headache. Fair appetite Constitutional: No acute distress HEENT: EOMI, PERRLA Respiratory system: Decreased air entry bilaterally, no wheeze, rhonchi, positive crackles bilateral lower lobes CVS: S1-S2 positive, positive 3 out of 6 systolic murmur appreciated best at aorta Abdomen: Soft, nontender, nondistended, positive bowel sounds x4, obese Extremities: +2 pulses bilaterally radialis/ dorsalis pedis, no cyanosis, +1 pitting edema bilateral lower extremity, right groin wound VAC in place Neuro: Awake alert oriented x3 Psych: Normal mood and affect G/U:Positive Cancino --Prophylaxis VTE: Heparin subcu GI: Pantoprazole Lines: Peripheral Diet: Cardiac Plan: In/out: +1.8 L, urine output 2251 Afebrile in the 24 hours Wound cultures growing Staphylococcus species. Would continue with vancomycin and Zosyn for the time being till we have narrowed down whether it is MSSA. Phosphorus being replaced. DC IV fluids Patient hemodynamically stable to be downgraded to medical floor Please note the above document was generated using voice recognition software. It may contain grammatical, syntax or spelling errors.Any formal questions or concerns about the content, text or information contained within the body of this dictation should be directly addressed to the provider for clarification. Subjective No acute events overnight. Patient is awake this morning upon arrival. She denies headache, nausea, vomiting, or groin pain. She continues to cough up phlegm. Review of Systems Review of Systems: All systems reviewed & are unremarkable except as noted in HPI & below Physical Exam Physical Exam: General: No acute distress HEENT: PERRLA. Normal conjunctiva, anicteric sclera. Oropharynx normal. Respiratory: Normal respiratory effort, mild aspiratory wheeze. Cardiovascular: RRR. 3/6 systolic murmur heard loudest at the RUSB. No gallops or rubs. No edema. GI: Soft abdomen with normal bowel sounds heard on auscultation. Nontender x4 quadrants Neuro: Alert and oriented x3. Skin: Bilateral pedal erythema appears improved from yesterday. Results & Data Results & Data ([facility]) Vital Signs (Past 12 Hours) Vital Signs Temp Pulse Resp BP Pulse Ox Pulse Ox O2 Del Method 01/02/22 05:30 36.8 C 63 18 95 01/02/22 05:00 36.8 C 63 18 94 01/02/22 05:00 100/56 L 01/02/22 04:30 36.7 C 70 27 H 93 01/02/22 04:00 36.7 C 64 20 97 01/02/22 04:00 113/62 01/02/22 03:30 36.7 C 58 L 18 96 01/02/22 03:00 36.7 C 66 17 98 01/02/22 03:00 115/56 L 01/02/22 02:30 36.6 C 64 18 96 01/02/22 02:00 36.7 C 62 18 97 01/02/22 02:00 93/50 L 01/02/22 01:30 36.7 C 60 18 96 01/02/22 01:00 36.8 C 65 20 97 01/02/22 01:00 111/52 L 01/02/22 00:30 36.9 C 59 L 19 95 01/02/22 00:00 36.9 C 65 18 96 01/02/22 00:00 101/55 L 01/01/22 23:00 37.0 C 67 21 97 01/01/22 23:00 103/55 L 01/01/22 22:00 37.0 C 66 21 94 01/01/22 22:00 95/57 L 01/01/22 21:00 37.1 C 82 24 98 01/01/22 20:00 69 27 H 97 01/01/22 20:00 105/57 L 01/01/22 23:59 95 01/01/22 20:00 Nasal Cannula O2 Del Method O2 Flow Rate O2 Flow Rate 01/02/22 05:30 01/02/22 05:00 01/02/22 05:00 01/02/22 04:30 01/02/22 04:00 01/02/22 04:00 01/02/22 03:30 01/02/22 03:00 01/02/22 03:00 01/02/22 02:30 01/02/22 02:00 01/02/22 02:00 01/02/22 01:30 01/02/22 01:00 01/02/22 01:00 01/02/22 00:30 01/02/22 00:00 01/02/22 00:00 01/01/22 23:00 01/01/22 23:00 01/01/22 22:00 01/01/22 22:00 01/01/22 21:00 01/01/22 20:00 01/01/22 20:00 01/01/22 23:59 Nasal Cannula 4 01/01/22 20:00 4 Resident Activity Tracking Resident Involvement: Resident Care Provided Care Provided: Adult Hospital Medicine
[2022-01-02] MEDS: POTASSIUM CHLORIDE 10 MEQ TABCR PO SCH (07:54)
[2022-01-02] MEDS: INSULIN ASPART PER UNIT SC SCH ×4 (07:54→21:25)
[2022-01-02] MEDS: CLOPIDOGREL BISULFATE 75 MG TAB PO SCH (07:55)
[2022-01-02] MEDS: PANTOprazole 40 MG TAB PO SCH (07:55)
[2022-01-02] MEDS: MULTIVITAMIN TAB PO SCH (07:55)
[2022-01-02] MEDS: guaiFENesin 600 MG TABCR PO SCH ×2 (07:56→21:24)
[2022-01-02] MEDS: UMECLIDINIUM/VILANTEROL 62.5/25MCG 7 PUFFS/INHALER INH SCH (07:56)
[2022-01-02] MEDS: VANCOMYCIN HCL 750 MG in SODIUM CHLORIDE 0.9% 250 ML IV SCH (07:58)
[2022-01-02 08:00] LABS: Basophils # (auto) 0.03 K/uL (0-0.2); Basophils % (auto) 0.3 %; Eosinophils # (auto) 0.01 K/uL (0-0.50); Eosinophils % (auto) 0.1 %; Hematocrit (blood only) 30.8 % (34.1-44.9); Hemoglobin 9.9 g/dl (12.0-16.0); Immature Granulocytes # (auto) 0.04 K/uL (0.00-0.02); Immature Granulocytes % (auto) 0.4 %; Lymphocytes # (auto) 1.08 K/uL (1.2-3.4); Lymphocytes % (auto) 11.5 %; Mean Corpuscular Hemoglobin 30.3 pg (25.0-34.0); Mean Corpuscular Hgb Conc 32.1 g/dL (32.0-36.0); Mean Corpuscular Volume 94.2 fL (80.0-100.0); Mean Platelet Volume 10.8 fL (9.4-12.3); Monocytes # (auto) 0.79 K/uL (0.24-0.82); Monocytes % (auto) 8.4 %; Neutrophils # (auto) 7.46 K/uL (1.4-6.5); Neutrophils % (auto) 79.3 %; Platelet Count 195 K/uL (130-400); RDW Coefficient of Variation 14.2 % (11.5-14.5); RDW Standard Deviation 49.2 fL (36.4-46.3); Red Blood Count 3.27 M/uL (3.93-5.22); White Blood Count 9.41 K/ul (4.8-10.8)
[2022-01-02] MEDS ORDERED: MAGNESIUM SULFATE / D5W 1 GM/100 ML BAG IV ONE (08:00)
[2022-01-02 08:23] LABS: BUN Creatinine Ratio 18.8 (10-20); Calcium 8.1 mg/dl (8.5-10.1); Creatinine Clr Calc Pharmacy 74.9 ml/min; Est GFR (African American) 71.9 ml/min; Est GFR (Non-African American) 62.1 ml/min; Phosphorus 2.2 mg/dl (2.5-4.9); Potassium 4.3 mmol/L (3.5-5.1)
[2022-01-02] MEDS ORDERED: POTASSIUM PHOS 3 MMOL/1 ML INFUSION IV STA (08:25)
[2022-01-02] MEDS ORDERED: POTASSIUM PHOSPHATE 15 MMOL in SODIUM CHLORIDE 0.9% 250 ML IV ONE (08:45)
[2022-01-02] MEDS: HEPARIN SOD 5,000 UNIT/0.5 ML VIAL SQ SCH ×2 (08:50→21:24)
--- NOTE | 2022-01-02 09:32 | Pharmacy Report ---
Pharmacy PK ABX Note - Date of Service January 02, 2022 - Assessment and Plan Assessment 66 year old F receiving Vancomycin and Zosyn for treatment of postsurgical soft tissue infection of thigh. * PMHx significant for T2DM, current every day smoker, lymphedema, peripheral arterial disease, recent surgery (11/2021). * Remains afebrile and leukocytosis has resolved. SCr improved to 0.96 today. * Groin culture from admission final as MSSA. Provider would like to continue Vanc/Zosyn until OR culture is finalized. Plan Vancomycin * Current regimen: 750 mg IV every 12 hours * Random level obtained 01/02/22 resulted as 11.9 mcg/mL. This is predicted to b e subtherapeutic. * Change to 1000 mg IV every 12 hours. Predicted AUC at steady state: 497 mg/L.hr * Repeat random level ordered for: 01/04/22 Zosyn * 3.375 g IV loading dose followed by 3.375 g IV every 8 hours Pharmacy will continue to follow and will adjust dose/frequency as necessary. Thank you. Pharmacy has transitioned to AUC monitoring for vancomycin. AUC/CHRISTOPHER is the preferred PK/PD target and is associated with decreased risk of nephrotoxicity compared to traditional trough targets.
--- NOTE | 2022-01-02 10:08 | Billing Data ---
Date of Service January 02, 2022 Coding Level of Care Code 66080 Subseq Hosp Care Lvl 3
[2022-01-02] MEDS: FLUTICASONE FUROATE 100MCG 14 PUFFS/INHALER INH SCH (11:55)
[2022-01-02] MEDS: VANCOMYCIN HCL 1,000 MG in SODIUM CHLORIDE 0.9% 250 ML IV SCH (20:45)
[2022-01-02] MEDS: SIMVASTATIN 80 MG TAB PO SCH (21:24)
[2022-01-02] MEDS: EZETIMIBE 10 MG TABLET PO SCH (21:24)
[2022-01-02] MEDS: FAMOTIDINE 40 MG TABLET PO SCH (21:24)
[2022-01-02] MEDS: LANTUS PER UNIT CHARGE SQ SCH (21:25)
--- NOTE | 2022-01-02 22:43 | Electrocardiogram Report ---
Test Reason : Blood Pressure : / mmHG Vent. Rate : 070 BPM Atrial Rate : 070 BPM P-R Int : 220 ms QRS Dur : 106 ms QT Int : 442 ms P-R-T Axes : 078 012 058 degrees QTc Int : 477 ms Sinus rhythm with 1st degree A-V block Nonspecific ST and T wave abnormality Abnormal ECG When compared with ECG of 13-NOV-2019 00:05, Nonspecific ST abnormality is now Present Confirmed by Darrick Tobar ([id number]) on 01/02/2022 10:42:54 PM Referred By: Ed Orr Confirmed By:Darrick Tobar
[2022-01-03] MEDS: PIPERACILLIN/TAZOBACTAM 3.375 GM in DEXTROSE 5% 100 ML IV SCH ×3 (03:55→19:58)
[2022-01-03 07:09] LABS: Hematocrit (blood only) 28.5 % (34.1-44.9); Hemoglobin 9.6 g/dl (12.0-16.0); Mean Corpuscular Hemoglobin 30.9 pg (25.0-34.0); Mean Corpuscular Hgb Conc 33.7 g/dL (32.0-36.0); Mean Corpuscular Volume 91.6 fL (80.0-100.0); Mean Platelet Volume 10.7 fL (9.4-12.3); Platelet Count 202 K/uL (130-400); RDW Coefficient of Variation 13.8 % (11.5-14.5); RDW Standard Deviation 46.4 fL (36.4-46.3); Red Blood Count 3.11 M/uL (3.93-5.22); White Blood Count 6.65 K/ul (4.8-10.8)
[2022-01-03 07:33] LABS: Creatinine Clr Calc Pharmacy 82.4 ml/min; Est GFR (African American) 79.9 ml/min; Est GFR (Non-African American) 68.9 ml/min; Magnesium 1.7 mg/dl (1.7-2.4)
[2022-01-03] MEDS: MULTIVITAMIN TAB PO SCH (08:38)
[2022-01-03] MEDS: guaiFENesin 600 MG TABCR PO SCH ×2 (08:38→20:04)
[2022-01-03] MEDS: PANTOprazole 40 MG TAB PO SCH (08:38)
[2022-01-03] MEDS: UMECLIDINIUM/VILANTEROL 62.5/25MCG 7 PUFFS/INHALER INH SCH (08:39)
[2022-01-03] MEDS: HEPARIN SOD 5,000 UNIT/0.5 ML VIAL SQ SCH ×2 (08:39→20:04)
[2022-01-03] MEDS: POTASSIUM CHLORIDE 10 MEQ TABCR PO SCH (08:39)
[2022-01-03] MEDS: CLOPIDOGREL BISULFATE 75 MG TAB PO SCH (08:39)
[2022-01-03] MEDS: VANCOMYCIN HCL 1,000 MG in SODIUM CHLORIDE 0.9% 250 ML IV SCH ×2 (08:40→19:58)
[2022-01-03] MEDS: INSULIN ASPART PER UNIT SC SCH ×4 (09:18→21:01)
--- NOTE | 2022-01-03 09:33 | Surgery Progress Note ---
Date of Service January 03, 2022 Assessment & Plan (1) Wound, surgical, infected: Plan: Patient is postoperative day 2 from her debridement of her right groin wound.Cultures so far showed pinpoint growth and are being reintubated.Once cultures are done we most likely will switch her to oral antibiotics and discharged home with her wound VAC. Admission and Anticipated Discharge Date Admission Date: December 31, 2021 Subjective Patient does not complain of any pain. Her foot feels normal. She is tolerating the VAC well Physical Exam Constitutional: WD/WN, vitals as above Respiratory: normal respiratory effort; no respiratory distress Cardiovascular: Rate/Rhythm: regular rate and regular rhythm Vessels: posterior tibial pulses present (Good Doppler pulse) Extremities: normal capillary refill Musculoskeletal: Extremities: strength 5/5 throughout Skin: + wound (Wound VAC in place) Neurologic: CN's II-XI intact bilaterally and moves all extremities Psychiatric: Orientation: alert and oriented x 3 Results & Data ([facility]) Vital Signs (Past 12 Hours) Vital Signs Temp Pulse Resp BP Pulse Ox O2 Del Method O2 Flow Rate 01/03/22 07:25 36.8 C 59 L 16 142/71 H 95 Nasal Cannula 3
[2022-01-03] MEDS: FLUTICASONE FUROATE 100MCG 14 PUFFS/INHALER INH SCH (13:17)
--- NOTE | 2022-01-03 13:51 | Pharmacy Report ---
Pharmacy Glycemic Short Note 2 - Date of Service January 03, 2022 - Glycemic Short BSG Results (Last 24 hours): 01/02/22 01/02/22 01/03/22 17:10 21:03 07:57 POC Glucose 129 H 106 H 65 L* 01/03/22 01/03/22 07:58 12:00 POC Glucose 76 89 OUTPATIENT ANTIDIABETIC REGIMEN: * Levemir 50 units SC PM * Novolog 14-22 units SC TIDM * Trulicity 1.5 mg SC Sundays * Metformin 1000 mg PO BIDM * HbA1c = 7.5% (11/16/21) ASSESSMENT: 01/03/22 * Patient's BSGs yesterday were [phone] mg/dL. Patient received 62 units of insulin (45 units of basal and 17 units of bolus). * Patient's fasting BSG was 76 mg/dL. * Reduce basal by 50% to 20 units nightly as regimen very basal heavy and fasting BSG dropped significantly). * Novolog weight-based stress of 1/2. BACKGROUND * 66 yo F admitted to ICU secondary to postsurgical soft tissue infection of thigh leading to septic shock and requiring vasopressor support. Patient is an insulin-dependent type 2 diabetic as an outpatient. Moderately controlled given most recent A1c. Has been NPO since admission for possible surgery. Remains on Vancomycin and Zosyn. Levophed has been off since around 1000. * Received 40 units of Lantus around 2230 last evening. No Novolog until this AM. BSGs were: 152-219 mg/dL. * Fasting BSG elevated at 229 mg/dL this AM. Received 5 units correctional Novolog and BSG down to 120 mg/dL prior to OR. Expecting some stress-induced hyperglycemia postoperatively and likely to have diet ordered. * No change to Novolog. Will increase Lantus to 45 units this evening. PLAN FOR INPATIENT GLYCEMIC CONTROL: * Hold outpatient oral diabetes medications * Basal insulin * Lantus 20 units SC PM * Bolus insulin * NovoLog per scale ACHS or Q6hrs while NPO * Goal Range: Low 110 mg/dL - High 140 mg/dL * Correction Factor: 30 mg/dL/unit * Nutritional / Prandial insulin per carb ratio of 1 unit per 10 grams CHO consumed
[2022-01-03] MEDS: FAMOTIDINE 40 MG TABLET PO SCH (20:04)
[2022-01-03] MEDS: EZETIMIBE 10 MG TABLET PO SCH (20:04)
[2022-01-03] MEDS: SIMVASTATIN 80 MG TAB PO SCH (20:04)
[2022-01-03] MEDS ORDERED: LANTUS PER UNIT CHARGE SQ SCH (21:00)
[2022-01-04] MEDS: PIPERACILLIN/TAZOBACTAM 3.375 GM in DEXTROSE 5% 100 ML IV SCH ×3 (05:08→20:37)
[2022-01-04] MEDS ORDERED: VANCOMYCIN LEVEL ONE (07:30)
[2022-01-04 07:44] LABS: Creatinine Clr Calc Pharmacy 92.6 ml/min; Est GFR (Non-African American) 78.6 ml/min; Magnesium 1.6 mg/dl (1.7-2.4)
--- NOTE | 2022-01-04 09:22 | Surgery Progress Note ---
Date of Service January 04, 2022 Assessment & Plan (1) Wound, surgical, infected: Plan: POD #3 after R groin wound I&D. Doing well with wound vac. Will need PT/OT assessments to determine whether she will need rehab. Will need wound vac changes M/W/F. OK for d/c once discharge plan in place. Admission and Anticipated Discharge Date Admission Date: December 31, 2021 Subjective 66 yo f POD #3 after R groin I&D, debridement, seen in f/u today. Pt states she is feeling much better. Patient does not complain of any pain. Her foot feels normal. She is tolerating the VAC well Review of Systems Review of Systems: All systems reviewed & are unremarkable except as noted in HPI & below Physical Exam Constitutional: WD/WN, vitals as above + ill appearing, + disheveled, cooperative and comfortable; not in distress Respiratory: normal respiratory effort; no respiratory distress Auscultation: lungs clear to auscultation bilaterally and + diminished lung sounds Cardiovascular: Rate/Rhythm: regular rate and regular rhythm Vessels: posterior tibial pulses present (dopplerable), dorsalis pedis pulses present (dopplerable) and radial pulses present; + abnormal peripheral pulses Extremities: normal capillary refill Gastrointestinal (Abdomen): Inspection/Auscultation: abdomen normal to inspection and normal bowel sounds Percussion/Palpation: abdomen soft; abdomen nontender Musculoskeletal: no cyanosis or clubbing, extremities motor strength 5/5 Skin: R groin wound vac changed today. Wound bed with excellent granulation, no erythema or purulent draiange noted. Neurologic: moves all extremities and awake; no focal motor deficits and not confused Psychiatric: Orientation: alert and oriented x 3 Affect: + blunted affect Results & Data ([facility]) Vital Signs (Past 12 Hours) Vital Signs Temp Pulse Resp BP Pulse Ox O2 Del Method 01/04/22 07:15 36.8 C 78 16 178/77 H 92 Room Air 01/03/22 21:58 36.6 C 73 16 164/67 H 93 Room Air
[2022-01-04] MEDS: VANCOMYCIN HCL 1,000 MG in SODIUM CHLORIDE 0.9% 250 ML IV SCH ×2 (09:24→17:44)
[2022-01-04] MEDS: CLOPIDOGREL BISULFATE 75 MG TAB PO SCH (09:25)
[2022-01-04] MEDS: PANTOprazole 40 MG TAB PO SCH (09:25)
[2022-01-04] MEDS: guaiFENesin 600 MG TABCR PO SCH ×2 (09:25→20:40)
[2022-01-04] MEDS: MULTIVITAMIN TAB PO SCH (09:25)
[2022-01-04] MEDS: HEPARIN SOD 5,000 UNIT/0.5 ML VIAL SQ SCH ×2 (09:26→20:40)
[2022-01-04] MEDS: UMECLIDINIUM/VILANTEROL 62.5/25MCG 7 PUFFS/INHALER INH SCH (09:27)
[2022-01-04] MEDS: INSULIN ASPART PER UNIT SC SCH ×4 (09:28→21:22)
[2022-01-04] MEDS: POTASSIUM CHLORIDE 10 MEQ TABCR PO SCH (09:30)
[2022-01-04] MEDS: FLUTICASONE FUROATE 100MCG 14 PUFFS/INHALER INH SCH (11:10)
--- NOTE | 2022-01-04 13:59 | Pharmacy Report ---
Pharmacy PK ABX Note - Date of Service January 04, 2022 - Assessment and Plan Assessment 66 year old F receiving Vancomycin and Zosyn for treatment of postsurgical soft tissue infection of thigh. * PMHx significant for T2DM, current every day smoker, lymphedema, peripheral arterial disease, recent surgery (11/2021). * Remains afebrile and leukocytosis has resolved. SCr improved to 0.79 mg/dL today. * Groin culture from admission final as MSSA. OR culture from 01/01 currently g rowing Staph species. * Awaiting final report of 01/01 culture - if also MSSA likely reasonable to de-escalate to cefazolin or cephalexin (if PO okay) Plan Vancomycin * Current regimen: 1000 mg IV every 12 hours * Random level obtained 01/04/22 resulted as 13.5 mcg/mL. This is predicted to be subtherapeutic. * Change to 1000 mg IV every 8 hours. Predicted AUC at steady state: 556 mg/L.hr * Will repeat level in the next 48-72 hours if therapy is continued and/or change in patient clinical status Zosyn * 3.375 g IV loading dose followed by 3.375 g IV every 8 hours Pharmacy will continue to follow and will adjust dose/frequency as necessary. Thank you. Pharmacy has transitioned to AUC monitoring for vancomycin. AUC/CHRISTOPHER is the preferred PK/PD target and is associated with decreased risk of nephrotoxicity compared to traditional trough targets.
[2022-01-04] MEDS: FAMOTIDINE 40 MG TABLET PO SCH (20:40)
[2022-01-04] MEDS: SIMVASTATIN 80 MG TAB PO SCH (20:40)
[2022-01-04] MEDS: EZETIMIBE 10 MG TABLET PO SCH (20:40)
[2022-01-04] MEDS ORDERED: LANTUS PER UNIT CHARGE SQ SCH (21:00)
[2022-01-05] MEDS: VANCOMYCIN HCL 1,000 MG in SODIUM CHLORIDE 0.9% 250 ML IV SCH ×2 (00:26→08:08)
[2022-01-05] MEDS: PIPERACILLIN/TAZOBACTAM 3.375 GM in DEXTROSE 5% 100 ML IV SCH ×2 (04:01→12:48)
[2022-01-05] MEDS: CLOPIDOGREL BISULFATE 75 MG TAB PO SCH (08:12)
[2022-01-05] MEDS: PANTOprazole 40 MG TAB PO SCH (08:12)
[2022-01-05] MEDS: UMECLIDINIUM/VILANTEROL 62.5/25MCG 7 PUFFS/INHALER INH SCH (08:13)
[2022-01-05] MEDS: MULTIVITAMIN TAB PO SCH (08:13)
[2022-01-05] MEDS: guaiFENesin 600 MG TABCR PO SCH (08:13)
[2022-01-05] MEDS: HEPARIN SOD 5,000 UNIT/0.5 ML VIAL SQ SCH (08:14)
[2022-01-05] MEDS: INSULIN ASPART PER UNIT SC SCH ×2 (08:59→12:56)
[2022-01-05] MEDS: POTASSIUM CHLORIDE 10 MEQ TABCR PO SCH (09:01)
--- NOTE | 2022-01-05 10:47 | Surgery Progress Note ---
Date of Service January 05, 2022 Assessment & Plan (1) Wound, surgical, infected: Plan: POD #4 after R groin wound I&D. Doing well with wound vac. Approved for home vac and home nursing. Will d/c home today. Admission and Anticipated Discharge Date Admission Date: December 31, 2021 Subjective 66 yo f POD #4 after R groin I&D, debridement, seen in f/u today. Pt states she is feeling much better. Patient does not complain of any pain. Her foot feels normal. She is tolerating the VAC well. Review of Systems Review of Systems: All systems reviewed & are unremarkable except as noted in HPI & below Physical Exam Constitutional: WD/WN, vitals as above cooperative and comfortable; not in distress Respiratory: normal respiratory effort; no respiratory distress Auscultation: lungs clear to auscultation bilaterally, + diminished lung sounds and + wheezes (coarse sounds) Cardiovascular: Rate/Rhythm: regular rate and regular rhythm Vessels: posterior tibial pulses present (dopplerable), dorsalis pedis pulses present (dopplerable) and radial pulses present; + abnormal peripheral pulses Extremities: normal capillary refill Gastrointestinal (Abdomen): Inspection/Auscultation: abdomen normal to inspection and normal bowel sounds Percussion/Palpation: abdomen soft; abdomen nontender Musculoskeletal: no cyanosis or clubbing, extremities motor strength 5/5 Skin: Wound vac in place, working well. Neurologic: moves all extremities and awake; no focal motor deficits and not confused Psychiatric: Orientation: alert and oriented x 3 Results & Data ([facility]) Vital Signs (Past 12 Hours) Vital Signs Temp Pulse Resp BP Pulse Ox O2 Del Method 01/05/22 07:15 37.0 C 71 18 142/77 H 93 Room Air
[2022-01-05] MEDS: FLUTICASONE FUROATE 100MCG 14 PUFFS/INHALER INH SCH (12:43)
--- NOTE | 2022-01-06 13:20 | Discharge Summary ---
Date of Service January 06, 2022 Admission HPI Per Admitting Provider 66 yo f with multiple medical problems, including DMII, HTN, hyperlipidemia, neuropathy, carotid stenosis, aortic valve replacement, GERD, CAD, IPMN, COPD, PAD, seen in office today for eval after she noted increased swelling and drainage from R groin surgical wound starting 4 days ago. Pt previously underwent R common femoral artery endarterectomy with bovine patch on Nov.24. Her R groin wound was looking well and jose l were removed on 12/14/21. She states she noted increased swelling and signifncat drainage from R groin wound about 4 days ago and has been getting worse. Admits fatigue/malaise, and states she vomited this AM. No HALL, chest pain, SOB, abd pain, nausea presently, rest pain, claudication, discoloration of toes, other complaints. In office today she was noted to have temp of 100F and appeared ill. She was recommended to go to [facility] for admission for IV abx. Admission Exam Per Admitting Provider Constitutional: WD/WN, vitals as above + ill appearing, + disheveled, cooperative and comfortable; not in distress ENMT: Ears: no hearing impairment Neck: trachea midline Respiratory: normal respiratory effort; no respiratory distress Auscultation: + diminished lung sounds and + wheezes (coarse sounds) Cardiovascular: Rate/Rhythm: regular rate and regular rhythm Vessels: posterior tibial pulses present (dopplerable), dorsalis pedis pulses present (dopplerable) and radial pulses present; + abnormal peripheral pulses Extremities: normal capillary refill and + edema Gastrointestinal (Abdomen): Inspection/Auscultation: abdomen normal to inspection and normal bowel sounds Percussion/Palpation: abdomen soft; abdomen nontender Musculoskeletal: no cyanosis or clubbing, extremities motor strength 5/5 Skin: R groin incision healed, but with copious serous draiange. + significant localized erythema and warmth and tenderness. Neurologic: moves all extremities and awake; no focal motor deficits and not confused Psychiatric: Orientation: alert and oriented x 3 Affect: + blunted affect Principal Diagnosis 1. s/p R groin I&D and debridement with wound vac placement 2. R groin wound infection Discharge Exam Constitutional WD/WN, vitals as above + ill appearing, + disheveled, cooperative and comfortable; not in distress ENMT Ears: no hearing impairment Neck trachea midline Respiratory normal respiratory effort; no respiratory distress Auscultation: lungs clear to auscultation bilaterally, + diminished lung sounds and + wheezes (coarse sounds) Cardiovascular Rate/Rhythm: regular rate and regular rhythm Vessels: posterior tibial pulses present (dopplerable), dorsalis pedis pulses present (dopplerable) and radial pulses present; + abnormal peripheral pulses Extremities: normal capillary refill; no edema Gastrointestinal (Abdomen) Inspection/Auscultation: abdomen normal to inspection and normal bowel sounds Percussion/Palpation: abdomen soft; abdomen nontender Musculoskeletal no cyanosis or clubbing, extremities motor strength 5/5 Skin R groin wound vac working well Neurologic moves all extremities and awake; no focal motor deficits and not confused Psychiatric Orientation: alert and oriented x 3 Affect: euthymic affect Discharge Data Allergies Allergy/AdvReac Type Severity Reaction Status Date / Time No Known Allergies Allergy Verified 12/23/21 14:48 Consultations 12/31/21 21:24 Consult [employer] Routine Procedures Performed Operation Date: 01/01/22 08:20 Actual Procedures p Right Groin Incision and Drainage with Wound Vacuum Placement(Right) - Ed Orr MD Ordered Studies 12/31/21 15:35 CTA abd pelvis wo/w con [CT angio abd pelvis wo/w con] Routine Hospital Course (1) Wound, surgical, infected: POD #4 after R groin wound I&D. Doing well with wound vac. Approved for home vac and home nursing. Will d/c home today. Total Time Total Time Spent Total Time Spent (In Minutes): 0 Discharge Plan Discharge Items Patient Disposition: Home - Home Health Services Reason For Visit: RT GROIN WOUND INFECTION Discharge Diagnosis: 1. s/p R groin wound Incision & Drainage and Debridement with wound vac placement 2. R groin wound infection Activity: Per Instructions section Non-emergency contact: Primary Care Provider and Surgeon Call non-emergency contact if: your pain is not controlled, your pain is concerning for you, you have a fever, your wound has increased redness and your wound has increased drainage Follow-up/Referrals: Domonique Hendersno DO [Primary Care Provider] - 01/13/22 10:20 am (Follow up with your PCP within 1-2 weeks APPT WITH JEREMÍAS RIBERA PA-C) Ed Orr MD [Physician] - (Follow up with Dr Orr or Jacinta Castro PA-C, in [address] Orr's office will call you with a hosptial follow up visit.) Diet: Heart Healthy Addtl Attending Provider Instructions: ACTIVITY RECOMMENDATIONS: 1. DO NOT GET WOUND WET. 2. No Lifting more than 10 lbs. 3. Will need office appt on a wound vac change day for us to reeval the wound. HOME NURSING WILL NEED TO REPLACE WOUND VAC AT HOME AFTER YOUR APPT. See Above SPECIAL CARE INSTRUCTIONS: Call your doctor if: * Temperature above 101 degrees * Pain not relieved by pain medicine ordered * There is increased drainage or redness from any incision * You have any unanswered questions or concerns. Pending Studies at Discharge: No Stand-Alone Forms: [facility] E96, Smoking Cessation Medications and DC Order Prescriptions: New oxycodone-acetaminophen [Percocet] 5-325 mg Tablet 1 - 2 tab PO Q6H PRN (Reason: pain) Qty: 20 0RF sulfamethoxazole-trimethoprim [Bactrim DS] 800-160 mg tablet 1 tab PO Q12H 14 Days Qty: 28 0RF Continued insulin aspart U-100 [Novolog U-100 Insulin aspart] 100 unit/mL solution See Rx Instructions subcut .COMPLEX Qty: 60 5RF Rx Instructions: 14 units TID increase 2 units based on Blood sugar reading MAX dose of 22 units tid subcut; metformin 1,000 mg tablet 1,000 mg PO BID Qty: 180 3RF Levemir U-100 Insulin 100 unit/mL solution 50 unit subcut QPM Qty: 45 3RF (DME) pen needle, diabetic [BD Ultra-Fine Mini Pen Needle] 31 gauge x 3/16" needle See Rx Instructions .Route Qty: 100 3RF Rx Instructions: As directed 3 times a day with insulin potassium chloride 10 mEq tablet,ER particles/crystals 10 meq PO QAM Qty: 90 1RF lisinopril 40 mg tablet 40 mg PO HS Qty: 90 1RF simvastatin 80 mg tablet 80 mg PO QPM Qty: 90 1RF pantoprazole 20 mg tablet,delayed release (DR/EC) 20 mg PO QAM Qty: 90 1RF clopidogrel 75 mg tablet 75 mg PO QAM Qty: 90 1RF gabapentin 400 mg capsule 400 mg PO TID Qty: 90 5RF (DME) blood pressure monitor Kit See Rx Instructions .Route Qty: 1 0RF Rx Instructions: As directed metoprolol tartrate 50 mg tablet 50 mg PO BID Qty: 180 1RF ezetimibe 10 mg tablet 10 mg PO HS Qty: 90 1RF famotidine [Pepcid] 40 mg tablet 40 mg PO HS Qty: 90 1RF Rx Instructions: 40 mg PO HS and PRN QAM; Trelegy Ellipta 100-62.5-25 mcg blister with device 1 inh inhalation QDL 90 Days Qty: 60 1RF aspirin [Adult Low Dose Aspirin] 81 mg tablet,delayed release (DR/EC) 81 mg PO QAM nitroglycerin [Nitrostat] 0.4 mg tablet, sublingual 0.4 mg sublingual .COMPLEX PRN (Reason: Chest Pain) Rx Instructions: 1 SL AT THE ONSET OF CHEST PAIN.MAY REPEAT EVERY 5 MIN FOR A TOTAL OF THREE DOSES PRN; do not exceed 3 doses per episode cholecalciferol (vitamin D3) 50 mcg (2,000 unit) capsule 50 mcg PO QAM multivitamin [Multiple Vitamins] Tablet 1 tab PO QAM nystatin 100,000 unit/gram cream 1 applic topical TID 14 Days Qty: 30 4RF Rx Instructions: until area healed nystatin 100,000 unit/gram powder 1 applic topical TID PRN (Reason: yeast infection) Qty: 60 3RF bumetanide 0.5 mg tablet 0.5 mg PO QAM dulaglutide 1.5 mg/0.5 mL pen injector 1.5 mg subcut WK Label Comments: takes on sundays Discharge Orders: Discharge Order (Routine); Ordered 01/05/22 Ordered By: Jacinta Sloan/Other Patient Handouts: Nutrition for Wound Healing, Negative Pressure Wound Therapy Admission Data Admit Date/Time: 12/31/21 15:32 Attending Provider: Ed Orr Admit Provider: Ed Orr Primary Care Provider: Domonique Henderson Other Providers: Chriss Irving Other Interventions: Discharge Summary Assessment (RN) Last Done: 01/05/22 11:10
--- NOTE | 2022-01-15 08:33 | Coding Query ---
CODING QUERY To promote full compliance with coding requirements relating to patient care, provider participation is requested in all cases of slipper maker uncertainty. Please assist us with the question(s) below: Please clarify the meaning of MARY. MARY is not a valid abbreviation. Thank you. ( X ) Acute Kidney Injury ( ) Acute Kidney Insufficiency ( ) Other (Specify): Principal Diagnosis: "that condition established after study, to be chiefly responsible for occasioning the admission of the patient to the hospital for care." Co-Existing Principal Diagnosis: "when two or more diagnoses equally meet the criteria for principal diagnosis as determined by the circumstances of admission, diagnostic work up, and/or therapy provided, and the Alphabetic Index, Tabular List, or another coding guideline does not provide sequencing direction, any one of the diagnoses may be sequenced first." "When the physician has documented what appears to be a current diagnosis in the body of the record, but has not included the diagnosis in the final diagnostic statement, the physician should be asked whether the diagnosis should be added." (Source Coding [facility] 2 QTR90. p3-4) [place]
== END 2022-01-05 14:47 | disposition home health service (06) | DRG 862 ==
LOC: 3W 16:05 → 1E 21:28 → 3N 01-02 13:13

== ENCOUNTER 2022-05-07 11:43 | Inpatient (IN) ==
--- NOTE | 2022-05-07 11:54 | Emergency Department Note ---
Impression & Plan Mobitz type 2 second degree heart block, CHF (congestive heart failure) ED Provider Note NAME: SHANA WARD AGE: 66 SEX: F : 1955 ARRIVES VIA: Ambulance INFORMANT: Patient ED PROVIDER(S): Sree Astorga DO CHIEF COMPLAINT: shortness of breath HPI: Patient is a 66-year-old female with a past medical history of COPD, CAD with stents, hypertension, GERD, diabetes, hyperlipidemia, aortic valve replacement who presents to the ER for shortness of breath which has been getting worse over the past week. She notes she can no longer lay flat as she is significantly short of breath. She denies any chest pain. Does have some nausea but no vomiting. She had diarrhea several days ago and that has resolved. No dysuria, urgency, or frequency. She was at the PCPs office and referred in as she was found to be hypoxic at 86%. No cough or congestion. She does admit to increased swelling of the legs. PAST MEDICAL HISTORY:See Below PAST SURGICAL HISTORY:See Below FAMILY HISTORY:See Below SOCIAL HISTORY:See Below HOME MEDICATIONS:See Below ALLERGIES:See Below VITALS:See Below PHYSICAL EXAMINATION: GENERAL: Sitting up in bed, alert, well appearing, well nourished, no distress, non-toxic EYE EXAM: normal conjunctiva. PERRL and EOM's grossly intact. OROPHARYNX:mucous membranes are moist NECK: supple, no nuchal rigidity, no adenopathy, non-tender LUNGS: Clear to auscultation. Normal chest wall mechanics HEART: no murmurs, S1 normal and S2 normal ABDOMEN: abdomen soft, non-tender, normo-active bowel sounds, no masses, no rebound or guarding. UPPER EXTREMITIES: upper extremities are grossly normal. LOWER EXTREMITIES: Pitting edema in the lower extremity NEURO EXAM: Normal sensorium, cranial nerves II-XII grossly intact, normal speech, no gross weakness of arms, no gross weakness of legs. MEDICAL DECISION MAKING: Patient is a 66-year-old female who presents the ER for shortness of breath which has been getting worse for the past week. IV was established blood work is obtained. She was referred in by the PCP. Labs show no significant leukocy tosis. Mild anemia at 10. BMP with a potassium of 5.6 and creatinine 1.6. LFTs bilirubin and lipase was unremarkable. Troponin was elevated 28. COVID- negative. EKG does suggest a Mobitz 2 heart block with a heart rate in the 30s. Systolic pressures are maintaining. She was given dose of Lasix after discussion with cardiology. She was updated at bedside. Discussed with hospitalist for further evaluation and management. She remained on the pacer pads throughout her stay in the ER. Triage Nursing notes reviewed. Limited review of prior medical records performed Vital Signs: reviewed and remarkable for no significant abnormalities Differential diagnosis: Cardiac ischemia, aortic dissection, pulmonary embolism, pneumothorax, pneumo diogenes, pericarditis, myocarditis, esophageal rupture, GERD, cholecystitis, pancreatitis, musculoskeletal, as well as other pathologies. ER treatment provided: See below Diagnostics interpreted by me include EKG and cardiac monitoring as listed below: -Cardiac Monitoring: An order was placed for continuous cardiac monitoring. The monitor shows a rate of 35 with sinus rhythm. -ECG: Mobitz 2 rate of [address] wave changes in the inferior leads QTc 448 -Laboratory studies:Interpreted by me as stated above in MDM and shown below. Imaging studies: Xrays: As interpreted by me: Portable AP upright 1 view of the chest shows no pneumonia CTs show: none Consultation(s): D/w Dr. Espinal for further evaluation management and treatment from cardiology. Recommended monitoring and admission as patient was not hypotensive at this time. Procedures:none Past Med/Surg History Medical History Carotid arterial disease R carotid endarterectomy 2014 COPD (chronic obstructive pulmonary disease) controlled, stable per pt-denies rescue inhaler use Coronary artery disease s/p 1 stent Diabetes mellitus with complication IDDM Diabetic neuropathy GERD (gastroesophageal reflux disease) controlled, stable per pt History of anesthesia reaction difficulty waking History of femoral angiogram (~09/29/21) right lower extremity angiogram @ [facility] Dr. 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 Espinal S/P carotid endarterectomy (2014) R S/P section x 2 S/P coronary artery stent placement 1 placed S/P hernia repair x 2 S/P peripheral artery angioplasty with stent placement (08/2017) angioplasty and stent R external iliac artery S/P total hysterectomy and bilateral salpingo-oophorectomy (1992) d/t endometriosis Family History Grandmother (Paternal) Breast cancer Family/Other Ovarian cancer Father Diabetes Heart disease Myocardial infarction Hypertension Mother Diabetes Heart disease Brother Diabetes Heart disease Hypertension Grandfather (Paternal) Family history of esophageal cancer Other No family history of adverse response to anesthesia Denies family history of Prostate cancer Colorectal cancer Social History Smoking Status: Current every day smoker Tobacco Type: Cigarettes Age Started Using Tobacco: 21; packs per day: 0.15; Cigarettes Per Day: 5 cigs a day-advised; Second Hand Exposure: No; Hx Alcohol Use: No Hx Substance Use: No Preferred Language: Albanian Communication Ability: Effective Visual Impairment: No Limitations Hearing Ability: Normal Foreman Or Supervisor And Operator Required: No Beliefs That Will Affect Care: None marital status: Single Current Living Situation: Alone current occupational status: disabled How many Children do You have: 2 Feels Safe at Home: Yes Childhood Exposure to Second-Hand Smoke: Yes caffeine: Yes during the past year weight has: remained stable Dental Care, Regularly: Yes Physical Activity Frequency: Daily Physical Activity Frequency Comment: walks around house Seatbelt Use: always Sunscreen Use: Yes Assistive Devices: None Allergies Allergies Allergy/AdvReac Type Severity Reaction Status Date / Time No Known Allergies Allergy Verified 05/07/22 10:25 Home Meds Home Medications Medication Instructions Recorded Confirmed aspirin 81 mg tablet,delayed 81 mg PO QAM 10/19/19 05/07/22 release (Adult Low Dose Aspirin) multivitamin (Multiple Vitamins 1 tab PO QAM 07/02/21 05/07/22 tablet) cholecalciferol (vitamin D3) 50 50 mcg PO QAM 10/29/21 05/07/22 mcg (2,000 unit) capsule nystatin 100,000 unit/gram topical 1 applic topical TID PRN 05/07/22 cream Previous Rx's Medication Instructions Recorded insulin aspart U-100 100 unit/mL See Rx Instructions subcut 10/14/20 subcutaneous solution (Novolog .COMPLEX #60 mL U-100 Insulin aspart) insulin detemir U-100 100 unit/mL 50 unit (0.5 mL) subcut QPM #45 mL 02/25/21 subcutaneous solution (Levemir U-100 Insulin) pen needle, diabetic 31 gauge x #100 ea 05/29/2105/20" (BD Ultra-Fine Mini Pen Needle) simvastatin 80 mg tablet 80 mg PO QPM #90 tabs 11/13/21 clopidogrel 75 mg tablet 75 mg PO QAM #90 tabs 11/30/21 pantoprazole 20 mg tablet,delayed 20 mg PO QAM #90 tabs 11/30/21 release gabapentin 400 mg capsule 400 mg PO TID #90 caps 12/04/21 blood pressure monitor #1 ea 12/08/21 metoprolol tartrate 50 mg tablet 50 mg PO BID #180 tabs 12/10/21 ezetimibe 10 mg tablet 10 mg PO HS #90 tabs 12/17/21 famotidine 40 mg tablet (Pepcid) 40 mg PO HS #90 tabs 12/17/21 nystatin 100,000 unit/gram topical 1 applic topical TID PRN yeast 12/23/21 powder infection #60 grams potassium chloride 10 mEq 10 meq PO QAM #90 tabs 01/08/22 tablet,extended release(part/cryst) nitroglycerin 0.4 mg sublingual 0.4 mg sublingual .COMPLEX PRN 01/14/22 tablet (Nitrostat) Chest Pain #20 tabs lisinopril 40 mg tablet 40 mg PO HS #90 tabs 01/27/22 bumetanide 0.5 mg tablet 0.5 mg PO QAM #90 tabs 02/03/22 dulaglutide 1.5 mg/0.5 mL 1.5 mg (0.5 mL) subcut WK #6 mL 02/22/22 subcutaneous pen injector metformin 1,000 mg tablet 1,000 mg PO BID #180 tabs 02/22/22 fluticasone fur. 100 mcg-umeclid 1 inh inhalation QDL 90 days #60 ea 04/12/22 62.5 mcg-vilant 25 mcg inhalat.powder (Trelegy Ellipta) Results & Data (ED) Vital Signs Vital Signs - 24 hr 05/07/22 11:55 05/07/22 12:04 05/07/22 11:56 Temperature 36.8 C Temperature Source Oral Pulse Rate 33 L 30 L 33 L Pulse Rate [Right Brachial] Pulse Rhythm Regular Pulse Rhythm [Right Brachial] Pulse Strength Normal Pulse Strength [Right Brachial] Respiratory Rate 19 19 Respiratory Effort / Characteristics Non-Labored Spontaneous Respiratory Depth Normal Respiratory Pattern Regular Blood Pressure 127/50 L Blood Pressure [Right Arm] Blood Pressure Mean 75 Blood Pressure Mean [Right Arm] Blood Pressure Position Lying Blood Pressure Position [Right Arm] Pulse Oximetry 94 94 Oxygen Delivery Method Room Air Nasal Cannula Nasal Cannula Oxygen Flow Rate 2 Sepsis Recent Fever Within 48 Hours No Sepsis New/Unexplained Change in Mental Status No Sepsis Action Taken by Nursing No Action Required 05/07/22 14:00 Temperature Temperature Source Pulse Rate Pulse Rate [Right Brachial] 40 L Pulse Rhythm Pulse Rhythm [Right Brachial] Regular Pulse Strength Pulse Strength [Right Brachial] Normal Respiratory Rate 19 Respiratory Effort / Characteristics Non-Labored Spontaneous Respiratory Depth Normal Respiratory Pattern Regular Blood Pressure Blood Pressure [Right Arm] 149/36 H Blood Pressure Mean Blood Pressure Mean [Right Arm] 73 Blood Pressure Position Blood Pressure Position [Right Arm] Lying Pulse Oximetry 95 Oxygen Delivery Method Nasal Cannula Oxygen Flow Rate 2 Sepsis Recent Fever Within 48 Hours Sepsis New/Unexplained Change in Mental Status Sepsis Action Taken by Nursing Laboratory Data 05/07/22 12:00 05/07/22 12:00 Lab Results 05/07/22 05/07/22 05/07/22 Range/Units 11:57 12:00 12:00 WBC 7.69 (4.8-10.8) K/ul RBC 3.40 L (4.20-5.40) M/uL Hgb 10.0 L (12.0-16.0) g/dl Hct 31.7 L (37.0-47.0) % MCV 93.2 (80.0-100.0) fL MCH 29.4 (25.0-34.0) pg MCHC 31.5 L (32.0-36.0) g/dL RDW Std Deviation 50.0 H (36.4-46.3) fL RDW Coeff of Jacinto 15.0 H (11.5-14.5) % Plt Count 269 (130-400) K/uL MPV 10.5 (9.4-12.4) fL Immature Gran % (Auto) 0.1 % Neut % (Auto) 66.2 % Lymph % (Auto) 24.1 % Hart % (Auto) 8.8 % Eos % (Auto) 0.3 % Baso % (Auto) 0.5 % Neut # (Auto) 5.09 (1.40-6.50) K/uL Lymph # (Auto) 1.85 (1.2-3.4) K/uL Hart # (Auto) 0.68 H (0.11-0.59) K/uL Eos # (Auto) 0.02 (0-0.50) K/uL Baso # (Auto) 0.04 (0-0.2) K/uL Immature Gran # (Auto) 0.01 (0.01-0.20) K/uL Sodium 140 (136-145) mmol/L Potassium 5.6 H (3.5-5.1) mmol/L Chloride 111 H (98-107) mmol/L Carbon Dioxide 26 (21-32) mmol/L Anion Gap 3 (3-11) BUN 30 H (6-23) mg/dl Creatinine 1.67 H (0.6-1.2) mg/dl Est Cr Clr Drug Dosing 38.9 ml/min Est GFR ( Amer) 36.8 ml/min Est GFR (Non-Af Amer) 31.8 ml/min BUN/Creatinine Ratio 18.0 (10-20) Glucose 65 L (70-99(Fasting)) mg/dl POC Glucose (70-99) mg/dl Calcium 9.1 (8.5-10.1) mg/dl Total Bilirubin 0.8 (0.2-1.0) mg/dl AST 18 (13-39) U/L ALT 22 (7-52) U/L Alkaline Phosphatase 69 (34-104) U/L Troponin I High Sens 28.8 H (0-14) pg/ml Total Protein 6.9 (6.0-8.3) gm/dl Albumin 3.4 (3.4-5.0) gm/dl Globulin 3.5 (2.5-4.0) gm/dl Albumin/Globulin Ratio 1.0 (0.9-2) Lipase 21 (11-82) U/L SARS-CoV-2 (PCR) NEGATIVE (Negative) 05/07/22 05/07/22 Range/Units 13:29 13:55 WBC (4.8-10.8) K/ul RBC (4.20-5.40) M/uL Hgb (12.0-16.0) g/dl Hct (37.0-47.0) % MCV (80.0-100.0) fL MCH (25.0-34.0) pg MCHC (32.0-36.0) g/dL RDW Std Deviation (36.4-46.3) fL RDW Coeff of Jacinto (11.5-14.5) % Plt Count (130-400) K/uL MPV (9.4-12.4) fL Immature Gran % (Auto) % Neut % (Auto) % Lymph % (Auto) % Hart % (Auto) % Eos % (Auto) % Baso % (Auto) % Neut # (Auto) (1.40-6.50) K/uL Lymph # (Auto) (1.2-3.4) K/uL Hart # (Auto) (0.11-0.59) K/uL Eos # (Auto) (0-0.50) K/uL Baso # (Auto) (0-0.2) K/uL Immature Gran # (Auto) (0.01-0.20) K/uL Sodium (136-145) mmol/L Potassium (3.5-5.1) mmol/L Chloride (98-107) mmol/L Carbon Dioxide (21-32) mmol/L Anion Gap (3-11) BUN (6-23) mg/dl Creatinine (0.6-1.2) mg/dl Est Cr Clr Drug Dosing ml/min Est GFR ( Amer) ml/min Est GFR (Non-Af Amer) ml/min BUN/Creatinine Ratio (10-20) Glucose (70-99(Fasting)) mg/dl POC Glucose 51 L* 87 (70-99) mg/dl Calcium (8.5-10.1) mg/dl Total Bilirubin (0.2-1.0) mg/dl AST (13-39) U/L ALT (7-52) U/L Alkaline Phosphatase (34-104) U/L Troponin I High Sens (0-14) pg/ml Total Protein (6.0-8.3) gm/dl Albumin (3.4-5.0) gm/dl Globulin (2.5-4.0) gm/dl Albumin/Globulin Ratio (0.9-2) Lipase (11-82) U/L SARS-CoV-2 (PCR) (Negative) Administered Medications Discontinued Medications Dextrose (Dextrose 50% 50 Ml Syringe) 25 ml IV NOW ONE Stop: 05/07/22 13:33 Last Admin: 05/07/22 13:36 Dose: 25 ml Documented By: FEDERICO Furosemide (Furosemide Inj 20 Mg/2 Ml Vial) 20 mg IV NOW STA Stop: 05/07/22 12:41 Last Admin: 05/07/22 13:51 Dose: 20 mg Documented By: FEDERICO Calcium Gluconate 1,000 mg/ (Dextrose) 60 mls @ 240 mls/hr IV NOW ONE Stop: 05/07/22 13:43 Last Admin: 05/07/22 13:53 Dose: 240 mls/hr Documented By: FEDERICO Imaging Data Radiologist's Impression: Chest X-Ray 05/07/22 11:51 XR chest 1V portable HISTORY: Chest pain, nonspecific COMPARISON: Chest 11/16/2021. FINDINGS: No pneumothorax. The cardiac silhouette is mildly enlarged. This has s lightly progressed in the interval. Interval progression of the diffuse interstitial/vascular thickening and patchy bibasilar densities which likely represents moderate pulmonary edema. There are small bilateral pleural effusions which are new from the prior study. There are postoperative changes and an aortic valve prosthesis. IMPRESSION: Interval progression of the moderate pulmonary edema and small bilateral pleural effusions. ACT 112: Negative or not required by law. Electronically signed by: Jose D Reddy M.D. 05/07/2022 12:30 PM Discharge Plan Visit Data Chief Complaint: Bradycardia ED Provider: Sree Astorga Discharge Problem: Mobitz type 2 second degree heart block, CHF (congestive heart failure) Forms Stand Alone Forms: [facility] Prescriptions Prescriptions: No Action insulin aspart U-100 [Novolog U-100 Insulin aspart] 100 unit/mL solution See Rx Instructions subcut .COMPLEX Qty: 60 5RF Rx Instructions: 14 units TID increase 2 units based on Blood sugar reading MAX dose of 22 units tid subcut; Levemir U-100 Insulin 100 unit/mL solution 50 unit subcut QPM Qty: 45 3RF (DME) pen needle, diabetic [BD Ultra-Fine Mini Pen Needle] 31 gauge x 3/16" needle See Rx Instructions .Route Qty: 100 3RF Rx Instructions: As directed 3 times a day with insulin simvastatin 80 mg tablet 80 mg PO QPM Qty: 90 1RF pantoprazole 20 mg tablet,delayed release (DR/EC) 20 mg PO QAM Qty: 90 1RF clopidogrel 75 mg tablet 75 mg PO QAM Qty: 90 1RF gabapentin 400 mg capsule 400 mg PO TID Qty: 90 5RF (DME) blood pressure monitor Kit See Rx Instructions .Route Qty: 1 0RF Rx Instructions: As directed metoprolol tartrate 50 mg tablet 50 mg PO BID Qty: 180 1RF ezetimibe 10 mg tablet 10 mg PO HS Qty: 90 1RF famotidine [Pepcid] 40 mg tablet 40 mg PO HS Qty: 90 1RF Rx Instructions: 40 mg PO HS and PRN QAM; potassium chloride 10 mEq tablet,ER particles/crystals 10 meq PO QAM Qty: 90 1RF lisinopril 40 mg tablet 40 mg PO HS Qty: 90 1RF bumetanide 0.5 mg tablet 0.5 mg PO QAM Qty: 90 1RF metformin 1,000 mg tablet 1,000 mg PO BID Qty: 180 3RF dulaglutide 1.5 mg/0.5 mL pen injector 1.5 mg subcut WK Qty: 6 1RF Patient Comments: takes on sundays Trelegy Ellipta 100-62.5-25 mcg blister with device 1 inh inhalation QDL 90 Days Qty: 60 1RF aspirin [Adult Low Dose Aspirin] 81 mg tablet,delayed release (DR/EC) 81 mg PO QAM cholecalciferol (vitamin D3) 50 mcg (2,000 unit) capsule 50 mcg PO QAM nystatin 100,000 unit/gram cream 1 applic topical TID PRN Rx Instructions: until area healed multivitamin [Multiple Vitamins] Tablet 1 tab PO QAM nitroglycerin [Nitrostat] 0.4 mg tablet, sublingual 0.4 mg sublingual .COMPLEX PRN (Reason: Chest Pain) Qty: 20 3RF Rx Instructions: 1 SL AT THE ONSET OF CHEST PAIN.MAY REPEAT EVERY 5 MIN FOR A TOTAL OF THREE DOSES PRN; do not exceed 3 doses per episode nystatin 100,000 unit/gram powder 1 applic topical TID PRN (Reason: yeast infection) Qty: 60 3RF Referrals Referrals: Domonique Henderson DO [Primary Care Provider] -
[2022-05-07 12:27] LABS: Basophils # (auto) 0.04 K/uL (0-0.2); Basophils % (auto) 0.5 %; Eosinophils # (auto) 0.02 K/uL (0-0.50); Eosinophils % (auto) 0.3 %; Hematocrit (blood only) 31.7 % (37.0-47.0); Immature Granulocytes # (auto) 0.01 K/uL (0.01-0.20); Immature Granulocytes % (auto) 0.1 %; Lymphocytes # (auto) 1.85 K/uL (1.2-3.4); Lymphocytes % (auto) 24.1 %; Mean Corpuscular Hemoglobin 29.4 pg (25.0-34.0); Mean Corpuscular Hgb Conc 31.5 g/dL (32.0-36.0); Mean Corpuscular Volume 93.2 fL (80.0-100.0); Mean Platelet Volume 10.5 fL (9.4-12.4); Monocytes # (auto) 0.68 K/uL (0.11-0.59); Monocytes % (auto) 8.8 %; Neutrophils # (auto) 5.09 K/uL (1.40-6.50); Neutrophils % (auto) 66.2 %; Platelet Count 269 K/uL (130-400); White Blood Count 7.69 K/ul (4.8-10.8)
--- NOTE | 2022-05-07 12:31 | XRay Report ---
XR chest 1V portable HISTORY: Chest pain, nonspecific COMPARISON: Chest 11/16/2021. FINDINGS: No pneumothorax. The cardiac silhouette is mildly enlarged. This has slightly progressed in the interval. Interval progression of the diffuse interstitial/vascular thickening and patchy bibasi lar densities which likely represents moderate pulmonary edema. There are small bilateral pleural eff usions which are new from the prior study. There are postoperative changes and an aortic valve prosth esis. IMPRESSION: Interval progression of the moderate pulmonary edema and small bilateral pleural effusions. ACT 112: Negative or not required by law. Electronically signed by: Jose D Reddy M.D. 05/07/2022 12:30 PM
[2022-05-07] MEDS ORDERED: FUROSEMIDE INJ 20 MG/2 ML VIAL IV STA (12:40)
[2022-05-07 12:46] LABS: Albumin Level 3.4 gm/dl (3.4-5.0); Bilirubin,Total 0.8 mg/dl (0.2-1.0); Calcium 9.1 mg/dl (8.5-10.1); Creatinine Clr Calc Pharmacy 38.9 ml/min; Est GFR (African American) 36.8 ml/min; Est GFR (Non-African American) 31.8 ml/min; Globulin 3.5 gm/dl (2.5-4.0); Potassium 5.6 mmol/L (3.5-5.1); Total Protein 6.9 gm/dl (6.0-8.3)
--- NOTE | 2022-05-07 12:48 | History & Physical Report ---
Date of Service May 07, 2022 Assessment & Plan (1) Bradycardia: Plan: Bradycardia, shortness of breath, AoC CHF with volume overload: - Likely onset by combination of sx bradycardia with addition salt load from soup intake in the prior week - Metoprolol tartrate 50 mg twice daily home held for bradycardia. Patient is not on other negative chronotropic's. Bioprosthetic AVR 2014 CAD with PCI: LCx PATT 08/2007, patent on repeat cath 12/2014 History of right common femoral endarterectomy with subsequent surgical site infection Lipids: Well-controlled in the past year Echo 11/2021: EF 60-65%, mild LVH, well-functioning bioprosthetic valve - EKG:Sinus bradycardia.? Mobitz 2 versus U waves in the setting of bradycardia. Potassium levels pending. Mild hyperkalemia 5.6, creatinine elevated at 1.67, clinically with volume overload High-sensitivity troponin: mild elevation, suspect demand. Trended Baseline approximately 1011, 10.0 on admission. MCV 93 - HD stable at this time. Defer temp pacer. - Cardiology consulted. Reviewed case on admission. Given that her blood pressure stable and is generally well will defer temporary pacemaker placement at this time, will continue on PCU with pacer pads in place. Atropine is entered on-call. Will hold metoprolol and follow-up rhythm. Unable to clearly distinguish between Mobitz 1 and 2 on 2 block, but suspicious for Mobitz 2. Repeat echo pending Metoprolol held Hyperkalemia With mild MARY, bradycardia/slow flow Lasix given No peaked T waves BMP trended every 6 hours, then daily MARY Creatinine 1.67 on admission, suspect slow flow with bradycardia. Clinically patient is clearly volume overloaded with orthopnea, pulmonary edema, lower extremity edema. We will continue Lasix as above. If blood pressure drops, atropine versus baseline - BMP daily - Really dose medications Lisinopril held COPD - +orthopnea and cough suspect 2/2 AoC CHF - no wheezing at admission exam, diffusely course - will tx as above, albuterol PRN. Defer steroids/abx at this time GERD Continue Protonix DM 2 Hold home antiglycemic's (Dulaglutide/metformin) Convert to weight-based basal bolus Goal BSG [id number] Basal 9 twice daily CF 45, carb ratio 15 Glucose checks AC/at bedtime DVT PPx: SCDs, Heparin w ?MARY. Hold if pacer placement anticipated Diet: DM2, HH Dispo: PCU CODE: FULL (2) COPD (chronic obstructive pulmonary disease): (3) Hypertension: (4) Coronary artery disease: (5) GERD (gastroesophageal reflux disease): (6) Hyperlipidemia: (7) Diabetes mellitus with complication: (8) Carotid arterial disease: (9) Peripheral arterial disease: (10) S/P aortic valve replacement: History of Present Illness Primary Care Provider: Domonique Henderson DO Shea is a 66-year-old female with past medical history of COPD, CAD with history of PCI, hypertension, GERD, DM, hyperlipidemia, AVR who presented with shortness of breath worsening over the last week and orthopnea. Has felt sick for week. stomaches, only eating broth and soups. Did have a few days of diarrhea. No vomiting. No fever, no chills or sweats. +myalgias for 2-3 days. No diarrhea today. No chest pain, no chest pressure +orthopnea and shortness of breath x4 days. Sleeping sitting up because she can't breath laying flat no syncope of presyncope No over the counter medication changes this week. Did take bumex today ASA/Plaavix Trelegy inhaler --> COPD. Works well. +wheezing in the last week. Medical History: Reviewed Medications: Reviewed Family history: Reviewed Surgical History: Reviewed Allergies: Reviewed Social History: +1ppw tobacco use. No alcohol. Code Status:Full Code Allergies Allergy/AdvReac Type Severity Reaction Status Date / Time No Known Allergies Allergy Verified 05/07/22 10:25 Home Medications Medication Instructions Recorded Confirmed Type aspirin 81 mg tablet,delayed 81 mg PO QAM 10/19/19 05/07/22 History release (Adult Low Dose Aspirin) insulin aspart U-100 100 unit/mL See Rx Instructions subcut 10/14/20 05/07/22 Rx subcutaneous solution (Novolog .COMPLEX #60 mL U-100 Insulin aspart) insulin detemir U-100 100 unit/mL 50 unit (0.5 mL) subcut QPM #45 mL 02/25/21 05/07/22 Rx subcutaneous solution (Levemir U-100 Insulin) pen needle, diabetic 31 gauge x #100 ea 05/29/21 05/07/22 Rx 3/16" (BD Ultra-Fine Mini Pen Needle) multivitamin (Multiple Vitamins 1 tab PO QAM 07/02/21 05/07/22 History tablet) cholecalciferol (vitamin D3) 50 50 mcg PO QAM 10/29/21 05/07/22 History mcg (2,000 unit) capsule simvastatin 80 mg tablet 80 mg PO QPM #90 tabs 11/13/21 05/07/22 Rx clopidogrel 75 mg tablet 75 mg PO QAM #90 tabs 11/30/21 05/07/22 Rx pantoprazole 20 mg tablet,delayed 20 mg PO QAM #90 tabs 11/30/21 05/07/22 Rx release gabapentin 400 mg capsule 400 mg PO TID #90 caps 12/04/21 05/07/22 Rx blood pressure monitor #1 ea 12/08/21 05/07/22 Rx metoprolol tartrate 50 mg tablet 50 mg PO BID #180 tabs 12/10/21 05/07/22 Rx ezetimibe 10 mg tablet 10 mg PO HS #90 tabs 12/17/21 05/07/22 Rx famotidine 40 mg tablet (Pepcid) 40 mg PO HS #90 tabs 12/17/21 05/07/22 Rx nystatin 100,000 unit/gram topical 1 applic topical TID PRN yeast 12/23/21 0 05/07/22 Rx powder infection #60 grams potassium chloride 10 mEq 10 meq PO QAM #90 tabs 01/08/22 05/07/22 Rx tablet,extended release(part/cryst) nitroglycerin 0.4 mg sublingual 0.4 mg sublingual .COMPLEX PRN 01/14/22 05/07/22 Rx tablet (Nitrostat) Chest Pain #20 tabs lisinopril 40 mg tablet 40 mg PO HS #90 tabs 01/27/22 05/07/22 Rx bumetanide 0.5 mg tablet 0.5 mg PO QAM #90 tabs 02/03/22 05/07/22 Rx dulaglutide 1.5 mg/0.5 mL 1.5 mg (0.5 mL) subcut WK #6 mL 02/22/22 05/07/22 Rx subcutaneous pen injector metformin 1,000 mg tablet 1,000 mg PO BID #180 tabs 02/22/22 05/07/22 Rx fluticasone fur. 100 mcg-umeclid 1 inh inhalation QDL 90 days #60 ea 04/12/22 05/07/22 Rx 62.5 mcg-vilant 25 mcg inhalat.powder (Trelegy Ellipta) nystatin 100,000 unit/gram topical 1 applic topical TID PRN 05/07/22 History cream Past Med/Surg History Medical History Carotid arterial disease R carotid endarterectomy 2014 COPD (chronic obstructive pulmonary disease) controlled, stable per pt-denies rescue inhaler use Coronary artery disease s/p 1 stent Diabetes mellitus with complication IDDM Diabetic neuropathy GERD (gastroesophageal reflux disease) controlled, stable per pt History of anesthesia reaction difficulty waking History of femoral angiogram (~09/29/21) right lower extremity angiogram @ [facility] Dr. 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) Lymphedema hx Occlusion of common femoral artery On anticoagulant therapy plavix daily Peripheral arterial disease stent R iliac artery Wound, surgical, infected Surgical History History of cardiac cath x2 with 1 stent placed--last done before 2014 History of esophagogastroduodenoscopy (EGD) last 01/2020 @ [facility] History of tooth extraction all teeth S/P aortic valve replacement (2014) 2014 @ [facility]--follows with Dr. Espinal S/P carotid endarterectomy (2014) R S/P section x 2 S/P coronary artery stent placement 1 placed S/P hernia repair x 2 S/P peripheral artery angioplasty with stent placement (08/2017) angioplasty and stent R external iliac artery S/P total hysterectomy and bilateral salpingo-oophorectomy (1992) d/t endometriosis Family History Grandmother (Paternal) Breast cancer Family/Other Ovarian cancer Father Diabetes Heart disease Myocardial infarction Hypertension Mother Diabetes Heart disease Brother Diabetes Heart disease Hypertension Grandfather (Paternal) Family history of esophageal cancer Other No family history of adverse response to anesthesia Denies family history of Prostate cancer Colorectal cancer Social History Smoking Status: Current every day smoker Tobacco Type: Cigarettes Age Started Using Tobacco: 21; packs per day: 0.15; Cigarettes Per Day: 5 cigs a day-advised; Second Hand Exposure: No; Hx Alcohol Use: No Hx Substance Use: No Preferred Language: Irish Communication Ability: Effective Visual Impairment: No Limitations Hearing Ability: Normal Clinical Appeals Auditor Required: No Beliefs That Will Affect Care: None marital status: Single Current Living Situation: Alone current occupational status: disabled How many Children do You have: 2 Feels Safe at Home: Yes Childhood Exposure to Second-Hand Smoke: Yes caffeine: Yes during the past year weight has: remained stable Dental Care, Regularly: Yes Physical Activity Frequency: Daily Physical Activity Frequency Comment: walks around house Seatbelt Use: always Sunscreen Use: Yes Assistive Devices: None Review of Systems Review of Systems: All systems reviewed & are unremarkable except as noted in HPI & below Physical Exam Physical Exam: General: A&Ox3. NAD. Cooperative. HEENT: Atraumatic, normocephalic.Vision/hearing intact Pulm:Coarse, bibasilar crackles and diminished breath sounds. No wheezing. Symmetrical chest rise. No increased work of breathing. No respiratory distress. Cardiac:Bradycardic, soft systolic murmur. Radial pulses intact and symmetrical.JVD above the clavicle which rises to the mandible on HJR Abdominal: Nontender, nondistended, soft. BS present. Extremities: Bilateral pitting edema. Distal extremity strength and sensation grossly intact Results & Data Results & Data ([facility]) Vital Signs (Past 12 Hours) Vital Signs Temp Pulse Resp BP Pulse Ox O2 Del Method O2 Flow Rate 05/07/22 11:56 33 L 05/07/22 12:04 30 L 19 94 Nasal Cannula 2 05/07/22 11:55 36.8 C 33 L 19 127/50 L 94 Room Air, Nasal Cannula PG Care Time/CCT Total # of Minutes Spent Total Time Spent with Patient: Total time spent is greater than 50% in coordination of care (as documented) at patient's floor/unit and/or counseling patient: Coding Level of Care Code 75448 INT INP/OBS CARE 3/75MIN Diagnoses Bradycardia R00.1 COPD (chronic obstructive pulmonary disease) J44.9 Hypertension I10 Coronary artery disease I25.10 GERD (gastroesophageal reflux disease) K21.9 Hyperlipidemia E78.5 Diabetes mellitus with complication E11.8 Carotid arterial disease I77.9 Peripheral arterial disease I73.9 S/P aortic valve replacement Z95.2
[2022-05-07 12:51] LABS: Troponin I High Sensitivity 28.8 pg/ml (0-14)
[2022-05-07] MEDS ORDERED: ATROPINE SULFATE 0.1 MG/ML 10ML SYR IV PRN (13:12)
[2022-05-07] MEDS ORDERED: GLUCAGON FOR INJ 1 MG VIAL SQ PRN (13:23)
[2022-05-07] MEDS ORDERED: DEXTROSE 50% 50 ML SYRINGE IV PRN (13:23)
[2022-05-07] MEDS ORDERED: GLUCOSE 40% GEL 15 GM TUBE PO PRN (13:23)
[2022-05-07] MEDS ORDERED: CARBOHYDRATES FOR HYPOGLYCEMIA PO PRN (13:23)
[2022-05-07] MEDS ORDERED: GLUCOSE 10 TAB/TUBE PO PRN (13:23)
[2022-05-07] MEDS ORDERED: CALCIUM GLUCONATE 10% 1,000 MG in DEXTROSE 5% 50 ML IV ONE (13:29)
[2022-05-07] MEDS ORDERED: STAT IV STA (13:29)
[2022-05-07] MEDS ORDERED: DEXTROSE 50% 50 ML SYRINGE IV ONE (13:32)
--- NOTE | 2022-05-07 14:04 | Cardiology Consultation ---
Date of Consultation May 07, 2022 Assessment & Plan (1) Bradycardia: -sinus rhythm with 2-1 AV block noted on presentation. -agree with holding metoprolol tartrate. -no need for temporary pacemaker at this time (hemodynamically stable and normal mentation). -will likely need permanent pacemaker. (2) CHF (congestive heart failure): -suspect her hypervolemia secondary to her bradycardia. -agree with intravenous diuretics. -would recheck an echocardiogram to assess left ventricular systolic function. (3) Coronary artery disease: -s/p LCx PATT, August 2007, patent December 2014. -nonobstructive disease at catheterization, December 2014. -continue medical management. (4) S/P aortic valve replacement: -s/p #25 Allen-Haq pericardial tissue valve, December 2014. -normal function on echocardiogram November 2021. History of Present Illness History of Present Illness Mrs. Gan is a 66-year-old female admitted earlier today with profound bradycardia and decompensated CHF. This consultation was ordered to assistance in her cardiac management. Of note, the patient is well known to me from the outpatient setting. The patient was in her usual state of health until approximately 1 week prior to presentation. She began to note abdominal discomfort in began to experience loose stools. She was not able to eat anything but soups and broth. Approximately 4-5 days prior to presentation, patient began to note significant fatigue, dyspnea with minimal exertion, and orthopnea. She presented to Lisha Roberts PA-C in our [place] office this morning. She was significantly hypoxic, and bradycardic, and therefore immediately transferred to the hospital by ambulance. On arrival here, the patient was noted to be in decompensated CHF and had a heart rate of approximately 30 beats per minute. Twelve lead ECG noted 2-1 AV conduction. Hospitalization was rec ommended. Her cardiac history began in August 2007 when she underwent placement of a PATT within the LCx. She had a follow-up catheterization performed in December 2014 before her valve replacement surgery. This noted a 30% in stent restenoses. She also was found have a 40% mid LAD and 40% distal RCA. Results personally reviewed and discussed in detail. She underwent placement of a #25 Allen-Haq pericardial tissue valve in the aortic position in December 2014 at the [facility]. She did have an echocardiogram performed in November 2021 which noted normal left ventricular systolic function with ejection fraction 60-65%. The bioprosthetic aortic valve was functioning properly. There was mild left ventricular hypertrophy. She underwent a right common femoral artery endarterectomy in November [address] Orr. Unfortunately, she was readmitted in December with an infection at her surgical site. This required an I and D, IV antibiotics, and application of a wound VAC. She was discharged home on January 06, 2022. Currently, patient is resting comfortably without complaints chest pain dyspnea, syncope, or presyncope. Past medical and surgical history 1. Coronary artery disease-see above 2. LCx PATT-August 2007, patent December 2014 3. Bioprosthetic AVR-December 2014, see above 4. Hypertension 5. Hypercholesterolemia 6. Diabetes mellitus 7. Diabetic neuropathy 8. Peripheral vascular disease-Dr. Orr 9. Right CVA-2014 10. Right external iliac artery stent -2017 11. Right common femoral endarterectomy-November 2021 12. GERD 13. Lymphedema 14. IPMN 15. Hysterectomy-1992 Social history Single, lives alone Retired nurse's aide Smokes 10 cigarettes per week No alcohol Family history Father at 78 from COPD Mother at 53 from an PR Both brothers have diabetes Review of systems A 10 point review systems was negative except that described above. Allergies Allergy/AdvReac Type Severity Reaction Status Date / Time No Known Allergies Allergy Verified 05/07/22 10:25 Home Medications Medication Instructions Recorded Confirmed Type aspirin 81 mg tablet,delayed 81 mg PO QAM 10/19/19 05/07/22 History release (Adult Low Dose Aspirin) insulin aspart U-100 100 unit/mL See Rx Instructions subcut 10/14/20 05/07/22 Rx subcutaneous solution (Novolog .COMPLEX #60 mL U-100 Insulin aspart) insulin detemir U-100 100 unit/mL 50 unit (0.5 mL) subcut QPM #45 mL 02/25/21 05/07/22 Rx subcutaneous solution (Levemir U-100 Insulin) pen needle, diabetic 31 gauge x #100 ea 05/29/21 05/07/22 Rx 3/16" (BD Ultra-Fine Mini Pen Needle) multivitamin (Multiple Vitamins 1 tab PO QAM 07/02/21 05/07/22 History tablet) cholecalciferol (vitamin D3) 50 50 mcg PO QAM 10/29/21 05/07/22 History mcg (2,000 unit) capsule simvastatin 80 mg tablet 80 mg PO QPM #90 tabs 11/13/21 05/07/22 Rx clopidogrel 75 mg tablet 75 mg PO QAM #90 tabs 11/30/21 05/07/22 Rx pantoprazole 20 mg tablet,delayed 20 mg PO QAM #90 tabs 11/30/21 05/07/22 Rx release gabapentin 400 mg capsule 400 mg PO TID #90 caps 12/04/21 05/07/22 Rx blood pressure monitor #1 ea 12/08/21 05/07/22 Rx metoprolol tartrate 50 mg tablet 50 mg PO BID #180 tabs 12/10/21 05/07/22 Rx ezetimibe 10 mg tablet 10 mg PO HS #90 tabs 12/17/21 05/07/22 Rx famotidine 40 mg tablet (Pepcid) 40 mg PO HS #90 tabs 12/17/21 05/07/22 Rx nystatin 100,000 unit/gram topical 1 applic topical TID PRN yeast 12/23/2105/27 Rx powder infection #60 grams potassium chloride 10 mEq 10 meq PO QAM #90 tabs 01/08/22 05/07/22 Rx tablet,extended release(part/cryst) nitroglycerin 0.4 mg sublingual 0.4 mg sublingual .COMPLEX PRN 01/14/22 05/07/22 Rx tablet (Nitrostat) Chest Pain #20 tabs lisinopril 40 mg tablet 40 mg PO HS #90 tabs 01/27/22 05/07/22 Rx bumetanide 0.5 mg tablet 0.5 mg PO QAM #90 tabs 02/03/22 05/07/22 Rx dulaglutide 1.5 mg/0.5 mL 1.5 mg (0.5 mL) subcut WK #6 mL 02/22/22 05/07/22 Rx subcutaneous pen injector metformin 1,000 mg tablet 1,000 mg PO BID #180 tabs 02/22/22 05/07/22 Rx fluticasone fur. 100 mcg-umeclid 1 inh inhalation QDL 90 days #60 ea 04/12/22 05/07/22 Rx 62.5 mcg-vilant 25 mcg inhalat.powder (Trelegy Ellipta) nystatin 100,000 unit/gram topical 1 applic topical TID PRN 05/07/22 History cream Patient History Medical History Carotid arterial disease R carotid endarterectomy 2014 COPD (chronic obstructive pulmonary disease) controlled, stable per pt-denies rescue inhaler use Coronary artery disease s/p 1 stent Diabetes mellitus with complication IDDM Diabetic neuropathy GERD (gastroesophageal reflux disease) controlled, stable per pt History of anesthesia reaction difficulty waking History of femoral angiogram (~09/29/21) right lower extremity angiogram @ [facility] Dr. 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) Lymphedema hx Occlusion of common femoral artery On anticoagulant therapy plavix daily Peripheral arterial disease stent R iliac artery Wound, surgical, infected Surgical History History of cardiac cath x2 with 1 stent placed--last done before 2014 History of esophagogastroduodenoscopy (EGD) last 01/2020 @ [facility] History of tooth extraction all teeth S/P aortic valve replacement (2014) 2014 @ [facility] [place]--follows with Dr. Espinal S/P carotid endarterectomy (2014) R S/P section x 2 S/P coronary artery stent placement 1 placed S/P hernia repair x 2 S/P peripheral artery angioplasty with stent placement (08/2017) angioplasty and stent R external iliac artery S/P total hysterectomy and bilateral salpingo-oophorectomy (1992) d/t endometriosis Family History Grandmother (Paternal) Breast cancer Family/Other Ovarian cancer Father Diabetes Heart disease Myocardial infarction Hypertension Mother Diabetes Heart disease Brother Diabetes Heart disease Hypertension Grandfather (Paternal) Family history of esophageal cancer Other No family history of adverse response to anesthesia Denies family history of Prostate cancer Colorectal cancer Social History Smoking Status: Current every day smoker Tobacco Type: Cigarettes Age Started Using Tobacco: 21; packs per day: 0.15; Cigarettes Per Day: 5 cigs a day-advised; Second Hand Exposure: No; Hx Alcohol Use: No Hx Substance Use: No Preferred Language: Nicaraguan Communication Ability: Effective Visual Impairment: No Limitations Hearing Ability: Normal Water Resources Program Director Required: No Beliefs That Will Affect Care: None marital status: Single Current Living Situation: Alone current occupational status: disabled How many Children do You have: 2 Feels Safe at Home: Yes Childhood Exposure to Second-Hand Smoke: Yes caffeine: Yes during the past year weight has: remained stable Dental Care, Regularly: Yes Physical Activity Frequency: Daily Physical Activity Frequency Comment: walks around house Seatbelt Use: always Sunscreen Use: Yes Assistive Devices: None Physical Exam Physical Exam: In general is well-developed well-nourished white female no acute distress. HEENT exam is negative. Neck is supple with full carotid upstrokes. A transmitted murmur is noted bilaterally. No JVD. Cardiovascular exam reveals a regular rhythm with a 2/6 basal systolic ejection murmur. No S3. Lungs are clear without rales, rhonchi or wheezes. Abdomen is obese without bruits. Extremities reveal intact radial artery pulses bilaterally. 2+ nonpitting edema is noted to the knees bilaterally. Results & Data ([facility]) Vital Signs (Past 12 Hours) Vital Signs Temp Pulse Resp BP Pulse Ox O2 Del Method O2 Flow Rate 05/07/22 11:56 33 L 05/07/22 12:04 30 L 19 94 Nasal Cannula 2 05/07/22 11:55 36.8 C 33 L 19 127/50 L 94 Room Air, Nasal Cannula Laboratory Results CBC notes a hemoglobin of 10.0, hematocrit 31.7, white count 7.69, and platelet count of 487605. Electrolytes note a sodium of 140, potassium 5.6, chloride 111, bicarb 26, BUN 30, creatinine 1.67, and glucose of 65. High sensitivity troponin is 28.8. Diagnostic Findings EKG notes sinus rhythm with 2-1 AV block. There is a nonspecific ST and T-wave abnormality. Chest x-ray notes cardiomegaly and diffuse interstitial edema. PG Care Time/CCT Total # of Minutes Spent Total Time Spent with Patient: Total time spent is greater than 50% in coordination of care (as documented) at patient's floor/unit and/or counseling patient: Coding Level of Care Code 50693 INT INP/OBS CARE 3/75MIN Diagnoses Bradycardia R00.1 CHF (congestive heart failure) I50.9 Coronary artery disease I25.10 S/P aortic valve replacement Z95.2
[2022-05-07] MEDS ORDERED: ACETAMINOPHEN 325 MG TAB PO PRN (15:04)
--- NOTE | 2022-05-07 15:15 | Electrocardiogram Report ---
Test Reason : Blood Pressure : / mmHG Vent. Rate : 033 BPM Atrial Rate : 033 BPM P-R Int : 194 ms QRS Dur : 088 ms QT Int : 606 ms P-R-T Axes : 053 034 041 degrees QTc Int : 448 ms Poor data quality, interpretation may be adversely affected Sinus rhythm with 2:1 A-V conduction Nonspecific ST and T wave abnormality Abnormal ECG When compared with ECG of 31-DEC-2021 22:44, Significant changes have occurred Confirmed by Keagan Espinal ([id number]) on 05/07/2022 3:14:57 PM Referred By: Confirmed By:Keagan Espinal
[2022-05-07] MEDS: HEPARIN SOD 5,000 UNIT/0.5 ML VIAL SQ SCH ×2 (16:07→21:11)
[2022-05-07] MEDS: FUROSEMIDE 40 MG/4 ML VIAL IV SCH (17:15)
[2022-05-07] MEDS: INSULIN ASPART PER UNIT SC SCH ×2 (17:16→21:07)
[2022-05-07 18:55] LABS: BUN Creatinine Ratio 18.2 (10-20); Calcium 9.1 mg/dl (8.5-10.1); Creatinine Clr Calc Pharmacy 42.2 ml/min; Est GFR (African American) 40.6 ml/min; Potassium 4.2 mmol/L (3.5-5.1)
[2022-05-07 19:53] LABS: Magnesium 1.9 mg/dl (1.7-2.4)
[2022-05-07] MEDS: LANTUS PER UNIT CHARGE SQ SCH (21:07)
[2022-05-07] MEDS: MAGNESIUM SULFATE / D5W 1 GM/100 ML BAG IV SCH ×2 (21:11→22:50)
[2022-05-07] MEDS: EZETIMIBE 10 MG TABLET PO SCH (21:11)
[2022-05-07] MEDS: SIMVASTATIN 80 MG TAB PO SCH (21:11)
[2022-05-07] MEDS: BENZONATATE 100 MG CAPSULE PO PRN (22:52)
[2022-05-08 05:00] LABS: Basophils # (auto) 0.05 K/uL (0-0.2); Basophils % (auto) 0.7 %; Eosinophils # (auto) 0.12 K/uL (0-0.50); Eosinophils % (auto) 1.8 %; Hematocrit (blood only) 29.6 % (37.0-47.0); Hemoglobin 9.5 g/dl (12.0-16.0); Immature Granulocytes # (auto) 0.02 K/uL (0.01-0.20); Immature Granulocytes % (auto) 0.3 %; Lymphocytes # (auto) 1.79 K/uL (1.2-3.4); Lymphocytes % (auto) 26.4 %; Mean Corpuscular Hemoglobin 29.1 pg (25.0-34.0); Mean Corpuscular Hgb Conc 32.1 g/dL (32.0-36.0); Mean Corpuscular Volume 90.8 fL (80.0-100.0); Mean Platelet Volume 10.6 fL (9.4-12.4); Monocytes # (auto) 0.69 K/uL (0.11-0.59); Monocytes % (auto) 10.2 %; Neutrophils # (auto) 4.11 K/uL (1.40-6.50); Neutrophils % (auto) 60.6 %; Platelet Count 249 K/uL (130-400); RDW Coefficient of Variation 14.8 % (11.5-14.5); RDW Standard Deviation 48.5 fL (36.4-46.3); Red Blood Count 3.26 M/uL (4.20-5.40); White Blood Count 6.78 K/ul (4.8-10.8)
[2022-05-08 05:12] LABS: BUN Creatinine Ratio 22.4 (10-20); Calcium 8.7 mg/dl (8.5-10.1); Creatinine Clr Calc Pharmacy 45.4 ml/min; Est GFR (African American) 44.4 ml/min; Est GFR (Non-African American) 38.3 ml/min; Potassium 4.5 mmol/L (3.5-5.1)
[2022-05-08] MEDS: HEPARIN SOD 5,000 UNIT/0.5 ML VIAL SQ SCH ×3 (05:38→21:35)
[2022-05-08] MEDS: INSULIN ASPART PER UNIT SC SCH ×4 (08:36→21:14)
[2022-05-08] MEDS: LANTUS PER UNIT CHARGE SQ SCH ×2 (08:36→21:14)
[2022-05-08] MEDS: FUROSEMIDE 40 MG/4 ML VIAL IV SCH ×2 (08:38→17:44)
[2022-05-08] MEDS: PANTOprazole 40 MG TAB PO SCH (08:38)
[2022-05-08] MEDS: CLOPIDOGREL BISULFATE 75 MG TAB PO SCH (08:38)
[2022-05-08] MEDS: ASPIRIN 81 MG ECTAB PO SCH (08:38)
[2022-05-08 09:48] LABS: BUN Creatinine Ratio 22.1 (10-20); Calcium 9.2 mg/dl (8.5-10.1); Creatinine Clr Calc Pharmacy 46.4 ml/min; Est GFR (African American) 45.6 ml/min; Est GFR (Non-African American) 39.3 ml/min; Potassium 4.5 mmol/L (3.5-5.1)
[2022-05-08 10:03] LABS: Estimated Average Glucose 146 mg/dl; Hemoglobin A1C 6.7 % (4.5-5.6)
[2022-05-08] MEDS: guaiFENesin 600 MG TABCR PO SCH ×2 (10:22→21:36)
[2022-05-08] MEDS ORDERED: NON-FORMULARY MEDICATION (Fluticasone-Umeclidin-Vilanter [Trelegy Ellipta] 100-62.5-25 mcg INH SCH (11:30)
[2022-05-08 12:12] LABS: BUN Creatinine Ratio 23.7 (10-20); Calcium 9.2 mg/dl (8.5-10.1); Creatinine Clr Calc Pharmacy 49.6 ml/min; Est GFR (African American) 49.4 ml/min; Est GFR (Non-African American) 42.6 ml/min; Potassium 4.4 mmol/L (3.5-5.1)
[2022-05-08] MEDS: FLUTICASONE FUROATE 100MCG 14 PUFFS/INHALER INH SCH (12:17)
[2022-05-08] MEDS: UMECLIDINIUM/VILANTEROL 62.5/25MCG 7 PUFFS/INHALER INH SCH (12:18)
--- NOTE | 2022-05-08 12:56 | Cardiology Progress Note ---
Date of Service May 08, 2022 Assessment & Plan (1) Bradycardia: (2) CHF (congestive heart failure): (3) Coronary artery disease: (4) S/P aortic valve replacement: Plan Patient remains bradycardic with significant heart block but normotensive BP and good perfusion, no symptoms attributable to bradycardia at rest. She appears only mildly hypervolemic and is modestly diuresing with furosemide 40 mg twice daily. Renal function slightly improved overnight. No symptoms to suggest ongoing myocardial ischemia, previously her coronary disease was nonobstructive. Appropriate bioprosthetic aortic valve function on echo late 2021 as well is on exam currently. Permanent pacemaker planned for early this week. Admission and Anticipated Discharge Date Admission Date: May 07, 2022 Subjective Uneventful night. Patient had no complaints. Rhythm remains sinus with second- degree AV block (2-1) with heart rates often in the 30-40 bpm range. Patient remains at bedrest. Physical Exam Physical Exam: No distress. BP normotensive. Pulse 42 bpm and slightly irregular. Skin: no ecchymoses or generalized lesions. HEENT: unremarkable. Neck: Jugular venous pulse just above the clavicle at 90 degrees, bilateral transmitted murmur. Lungs: Moderately decreased breath sounds but clear. No accessory muscle use Cardiac: Slightly irregular rhythm, normal S1 and intact aortic closure sound, 2/6 basal systolic ejection murmur rating to the carotids, no diastolic murmur or gallop. Abdomen: benign. Extremities: 2+ pretibial edema, pulses intact. Neurologic: normal affect and conversation, nonfocal. Results & Data ([facility]) Vital Signs (Past 12 Hours) Vital Signs Temp Pulse Pulse Resp BP Pulse Ox O2 Del Method 05/08/22 12:06 97.9 F 42 L 20 116/48 L 94 Nasal Cannula 05/08/22 09:30 Nasal Cannula 05/08/22 08:02 97.9 F 59 L 16 144/84 H 92 Nasal Cannula 05/08/22 07:50 35 L 05/08/22 02:27 98.8 F 35 L 19 107/48 L 91 Nasal Cannula O2 Flow Rate 05/08/22 12:06 2 05/08/22 09:30 2 05/08/22 08:02 2 05/08/22 07:50 05/08/22 02:27 2 Laboratory Results Normal electrolytes with potassium 4.5, BUN 32, creatinine 1.43 (28/1.54 yesterday). PG Care Time/CCT Total # of Minutes Spent Total Time Spent with Patient: Total time spent is greater than 50% in coordination of care (as documented) at patient's floor/unit and/or counseling patient: Coding Level of Care Code 81391 SUB INP/OBS CARE 2/35MIN Diagnoses Bradycardia R00.1 CHF (congestive heart failure) I50.9 Coronary artery disease I25.10 S/P aortic valve replacement Z95.2
--- NOTE | 2022-05-08 17:09 | Hospitalist Progress Note ---
Date of Service May 08, 2022 Assessment & Plan (1) Bradycardia: Plan: Due to 2nd degree AV block, 2:1, in the setting of chronic beta ulises use. Metoprolol d/c. TSH wnl in 2021; will recheck while here. NO exposure to ticks - does not go outside; has no outside pets. This afternoon her BPs were low; thus, lasix was held, patient placed on bedrest. Need to follow this carefully. Thus far no urgent need for dopamine or similar agent or temporary pacer insertion. Plan is still permanent pacemaker placement on Tuesday. (2) Acute diastolic HF (heart failure): Plan: 2nd to #1 has been diuresed with good results over the last 24 hours but BPs now low or low-normal and thus will hold lasix this evening recheck BMP am (3) COPD (chronic obstructive pulmonary disease): Plan: possible early mild COPD flare, but defer on steroids. add mucinex 1200mg BID. add combivent 1 puff QID. Cont home meds. (4) Hypertension: Plan: low, due to diuresis and #1. holding AMADA holding BB holding bumex has received several doses of IV lasix - held this afternoon due to low BP (5) Coronary artery disease: Plan: LCx PATT August 2007 patent stent in December 2014 no evidence of ACS cont aspirin BB on hold due to #1 cont plavix cont zetia cont simvastatin 80mg daily (6) GERD (gastroesophageal reflux disease): Plan: cont PPI (7) Hyperlipidemia: Plan: cont zetia + simvastatin (8) Diabetes mellitus with complication: Plan: a1c <7% cont lantus cont novolog (9) Carotid arterial disease: Plan: 2014 - CEA cont asa, plavix, etc (10) Peripheral arterial disease: Plan: right common femoral endarterectomy, November 2021 no issues at this time palpable distal pulses in legs cont asa, plavix, statin, etc (11) S/P aortic valve replacement: Plan: bioprosthetic AV 2021 - echo with normal functioning and well-seated AV (12) MARY (acute kidney injury): Plan: Cr 1.6 at presentation improving repeat BMP am (13) DVT prophylaxis: Plan: heparin 5000 TID (14) Tobacco dependence: Plan: nicoderm 7mg daily Plan given that she feels unwell - which may all be 2nd to #1 - but to be complete check ua, r/o UTI care d/w Dr Barbosa from cardiology Admission and Anticipated Discharge Date Admission Date: May 07, 2022 Subjective tele overnight - HRs 30-40 2nd degree AV block, 2:1 patient simply feels poorly she feels ill - has cough, although not much different than her chronic cough mild white sputum production no dyspnea at rest but + STANLEY had diarrhea at home has some myalgias no chest pain no sore throat no headache no fevers Review of Systems Review of Systems: gen - appetite fair, no fevers/chills cv - no chest pain pulm - mild wheezing GI - no abd pain - voiding without LUTS Physical Exam Physical Exam: gen - looks ill, coughing, NAD mouth - MMM neck - JVD about 2cm above clavicle heart - bradycardic, s1 s2 lungs - mild fine rales b/l with wheezing b/l abd - soft, NT, ND, BS+ ext - trace edema, pulses 2+ b/l psych - a/o x 3 Results & Data Results & Data ([facility]) Vital Signs (Past 12 Hours) Vital Signs Temp Pulse Pulse Resp BP Pulse Ox O2 Del Method 05/08/22 16:02 36.9 C 37 L 20 91/36 L 92 Nasal Cannula 05/08/22 15:21 39 L 05/08/22 12:06 36.6 C 42 L 20 116/48 L 94 Nasal Cannula 05/08/22 09:30 Nasal Cannula 05/08/22 08:02 36.6 C 59 L 16 144/84 H 92 Nasal Cannula 05/08/22 07:50 35 L O2 Flow Rate 05/08/22 16:02 2 05/08/22 15:21 05/08/22 12:06 2 05/08/22 09:30 2 05/08/22 08:02 2 05/08/22 07:50 Laboratory Results Laboratory Results - last 24 hr 05/08/22 05/08/22 05/08/22 04:12 09:15 09:15 Sodium 139 Potassium 4.5 Chloride 105 Carbon Dioxide 30 Anion Gap 4 BUN 31 H Creatinine 1.40 H Est Cr Clr Drug Dosing 46.4 Est GFR ( Amer) 45.6 Est GFR (Non-Af Amer) 39.3 BUN/Creatinine Ratio 22.1 H Glucose 237 H POC Glucose Estimat Average Glucose 146 Hemoglobin A1c 6.7 H Calcium 9.2 Troponin I High Sens 27.6 H 05/08/22 05/08/22 05/08/22 11:13 11:41 16:28 Sodium 139 Potassium 4.4 Chloride 105 Carbon Dioxide 31 Anion Gap 3 BUN 31 H Creatinine 1.31 H Est Cr Clr Drug Dosing 49.6 Est GFR ( Amer) 49.4 Est GFR (Non-Af Amer) 42.6 BUN/Creatinine Ratio 23.7 H Glucose 136 H POC Glucose 147 H 167 H Estimat Average Glucose Hemoglobin A1c Calcium 9.2 Troponin I High Sens PG Care Time/CCT Total # of Minutes Spent Total Time Spent with Patient: Total time spent is greater than 50% in coordination of care (as documented) at patient's floor/unit and/or counseling patient: Coding Level of Care Code 84038 SUB INP/OBS CARE 3/50MIN Diagnoses Bradycardia R00.1 Acute diastolic HF (heart failure) I50.31 COPD (chronic obstructive pulmonary disease) J44.9 Hypertension I10 Coronary artery disease I25.10 GERD (gastroesophageal reflux disease) K21.9 Hyperlipidemia E78.5 Diabetes mellitus with complication E11.8 Carotid arterial disease I77.9 Peripheral arterial disease I73.9 S/P aortic valve replacement Z95.2 MARY (acute kidney injury) N17.9 DVT prophylaxis Z29.9 Tobacco dependence F17.200
[2022-05-08] MEDS ORDERED: IPRATROPIUM BROMIDE/ALBUTEROL respimat INH INH SCH (17:10)
[2022-05-08] MEDS: ALBUTEROL HFA 8 GM INHALER INH SCH (19:00)
[2022-05-08] MEDS: IPRATROPIUM BROMIDE HFA INHALER INH SCH (19:01)
[2022-05-08] MEDS: NICOTINE 7 MG/24 HR TDSY TD SCH (21:32)
[2022-05-08] MEDS: EZETIMIBE 10 MG TABLET PO SCH (21:36)
[2022-05-08] MEDS: SIMVASTATIN 80 MG TAB PO SCH (21:36)
[2022-05-09] MEDS: HEPARIN SOD 5,000 UNIT/0.5 ML VIAL SQ SCH ×3 (06:31→21:39)
[2022-05-09] MEDS: IPRATROPIUM BROMIDE HFA INHALER INH SCH ×4 (07:45→19:07)
[2022-05-09] MEDS: ALBUTEROL HFA 8 GM INHALER INH SCH ×4 (07:45→19:07)
[2022-05-09] MEDS: CLOPIDOGREL BISULFATE 75 MG TAB PO SCH (08:24)
[2022-05-09] MEDS: guaiFENesin 600 MG TABCR PO SCH ×2 (08:24→21:39)
[2022-05-09] MEDS: PANTOprazole 40 MG TAB PO SCH (08:24)
[2022-05-09] MEDS: ASPIRIN 81 MG ECTAB PO SCH (08:25)
[2022-05-09] MEDS: INSULIN ASPART PER UNIT SC SCH ×4 (08:26→21:13)
[2022-05-09] MEDS: NICOTINE 7 MG/24 HR TDSY TD SCH (08:33)
[2022-05-09] MEDS: LANTUS PER UNIT CHARGE SQ SCH ×2 (08:37→21:13)
[2022-05-09 09:38] LABS: BUN Creatinine Ratio 23.5 (10-20); Calcium 8.9 mg/dl (8.5-10.1); Creatinine Clr Calc Pharmacy 64.6 ml/min; Est GFR (African American) 66.8 ml/min; Est GFR (Non-African American) 57.7 ml/min; Magnesium 1.9 mg/dl (1.7-2.4); Potassium 3.8 mmol/L (3.5-5.1)
--- NOTE | 2022-05-09 09:40 | Cardiology Progress Note ---
Date of Service May 09, 2022 Assessment & Plan (1) Bradycardia: (2) CHF (congestive heart failure): (3) Coronary artery disease: (4) S/P aortic valve replacement: Plan Patient remains bradycardic with significant heart block. BP variable, transient hypotension yesterday without evidence of hypoperfusion. Moderately hypertensive and mildly hypervolemic appearing this morning, could resume diuretic but with once daily dosing rather than twice daily (furosemide 40 mg daily). No symptoms to suggest ongoing myocardial ischemia, previously her coronary disease was nonobstructive. Appropriate bioprosthetic aortic valve function on echo late 2021 as well is on exam currently. Permanent pacemaker planned for early this week. Admission and Anticipated Discharge Date Admission Date: May 07, 2022 Subjective Uneventful night. No specific complaints. No lightheadedness or orthostatic symptoms. She had mild hypotension yesterday and her diuretic was held, this morning she is moderately hypertensive. Rhythm remains sinus with second-degree AV block (2-1) with heart rate consistently in the 40 bpm range. Physical Exam Physical Exam: No distress. BP moderately hypertensive. . Pulse 42 bpm and slightly irregular. Skin: no ecchymoses or generalized lesions. HEENT: unremarkable. Neck: Jugular venous pulse jail to the angle of the jaw at 90 degrees with increased respiratory variation, bilateral transmitted murmur. Lungs: Moderately decreased breath sounds with occasional faint expiratory wheeze. No accessory muscle use Cardiac: Slightly irregular rhythm, normal S1 and intact aortic closure sound, 3/6 basal systolic ejection murmur rating to the carotids, no diastolic murmur or gallop. Abdomen: benign. Extremities: 1+ pretibial edema, pulses intact. Neurologic: normal affect and conversation, nonfocal. Results & Data ([facility]) Vital Signs (Past 12 Hours) Vital Signs Temp Pulse Pulse Resp BP BP Pulse Ox 05/09/22 08:01 98.1 F 54 L 18 170/65 H 93 05/09/22 07:47 42 L 16 94 05/08/22 22:01 40 L 05/09/22 03:07 98.2 F 48 L 19 151/53 H 94 05/08/22 23:04 98.6 F 40 L 17 129/48 L 95 O2 Del Method O2 Flow Rate 05/09/22 08:01 Nasal Cannula 2 05/09/22 07:47 Nasal Cannula 2 05/08/22 22:01 05/09/22 03:07 Nasal Cannula 2 05/08/22 23:04 Nasal Cannula 2 Laboratory Results Normal electrolytes, BUN 24, creatinine 1.02. PG Care Time/CCT Total # of Minutes Spent Total Time Spent with Patient: Total time spent is greater than 50% in coordination of care (as documented) at patient's floor/unit and/or counseling patient: Coding Level of Care Code 81322 SUB INP/OBS CARE 2/35MIN Diagnoses Bradycardia R00.1 CHF (congestive heart failure) I50.9 Coronary artery disease I25.10 S/P aortic valve replacement Z95.2
[2022-05-09 10:59] LABS: Appearance Urine Clear (Clear); Bacteria Urine Automated Negative (Negative); Bilirubin Urine Negative (Negative); Blood Urine Negative (Negative); Cast Urine Automated 0 /lpf (0-5); Color Urine Yellow; Epithelial Cell Urine Auto >30 /lpf (0-5); Glucose Urine UA Negative (Negative); Ketones Urine Trace (Negative); Leukocyte Esterase Urine Trace (Negative); Nitrite Urine Negative (Negative); Protein Urine 1+ (Negative); RBC Urine Automated 0-4 /hpf (0-4); Specific Gravity Urine 1.021 (1.000-1.030); Urobilinogen Urine Negative (Negative); pH Urine 6.5 (4.5-7.5)
[2022-05-09] MEDS ORDERED: FUROSEMIDE 40 MG/4 ML VIAL IV ONE (11:21)
[2022-05-09] MEDS: UMECLIDINIUM/VILANTEROL 62.5/25MCG 7 PUFFS/INHALER INH SCH (12:47)
[2022-05-09] MEDS: FLUTICASONE FUROATE 100MCG 14 PUFFS/INHALER INH SCH (12:47)
--- NOTE | 2022-05-09 13:03 | Hospitalist Progress Note ---
Date of Service May 09, 2022 Assessment & Plan (1) Bradycardia: Plan: Due to 2nd degree AV block, 2:1, in the setting of chronic beta ulises use. Metoprolol d/c. TSH wnl today. NO exposure to ticks - does not go outside; has no outside pets. Perfusion remains adequate with good UOP. Creatinine wnl. BPs satisfactory. Plan -l permanent pacemaker placement tomorrow. NPO after MN tonight. (2) Acute diastolic HF (heart failure): Plan: 2nd to #1 resume diuresis with lasix 40mg IV daily (3) COPD (chronic obstructive pulmonary disease): Plan: pt reports numerous infectious symptoms - myalgias, nausea, cough, etc cxr obtained - no pneumonia Biofire resp panel fully negative cont bronchodilators, mucinex cont home meds cont NC O2 (4) Hypertension: Plan: low, due to diuresis and #1. holding AMADA holding BB holding bumex has received several doses of IV lasix - dose reduced from BID to qdaily dosing. (5) Coronary artery disease: Plan: LCx PATT August 2007 patent stent in December 2014 no evidence of ACS cont aspirin BB on hold due to #1 cont plavix cont zetia cont simvastatin 80mg daily (6) GERD (gastroesophageal reflux disease): Plan: cont PPI (7) Hyperlipidemia: Plan: cont zetia + simvastatin (8) Diabetes mellitus with complication: Plan: a1c <7% cont lantus cont novolog (9) Carotid arterial disease: Plan: 2014 - CEA cont asa, plavix, etc (10) Peripheral arterial disease: Plan: right common femoral endarterectomy, November 2021 no issues at this time palpable distal pulses in legs cont asa, plavix, statin, etc (11) S/P aortic valve replacement: Plan: bioprosthetic AV 2021 - echo with normal functioning and well-seated AV has fairly loud systolic murmur in expected location of AV -- check limited echo to reassess AVR function (12) MARY (acute kidney injury): Plan: Cr 1.6 at presentation now 1 resolved repeat BMP am (13) DVT prophylaxis: Plan: heparin 5000 TID (14) Tobacco dependence: Plan: nicoderm 7mg daily Plan care d/w Dr aBrbosa from cardiology Admission and Anticipated Discharge Date Admission Date: May 07, 2022 Subjective patient continues to feel poorly did not sleep last night appetite remains poor has upset stomach/nausea -- did not eat breakfast, but did each lunch still feels "achy all over" still with cough and mild runny nose no fevers no dysuria tele - ongoing 2nd degree AV block 2:1; rates 30-50, mostly 40s or less Review of Systems Review of Systems: gen - no fevers or chills; very tired/fatigued cv - no orthopnea or chest pain; denies dizziness pulm - mild cough, mild wheezing, white sputum only GI - no vomiting but has nausea Physical Exam Physical Exam: gen - looks ill and quite tired; NAD mouth - MMM neck - JVD present heart - bradycardic, s1 s2, 2-3/6 systolic murmur RUSB/LUSB lungs - mild fine rales b/l (worse on right) with wheezing b/l abd - soft, NT, ND, BS+ ext - trace edema, pulses 2+ b/l psych - a/o x 3 Results & Data Results & Data ([facility]) Vital Signs (Past 12 Hours) Vital Signs Temp Pulse Pulse Resp BP BP Pulse Ox 05/09/22 12:08 37.0 C 46 L 18 129/46 L 92 05/09/22 11:45 50 L 16 95 05/09/22 08:35 45 L 05/09/22 08:35 05/09/22 08:01 36.7 C 54 L 18 170/65 H 93 05/09/22 07:47 42 L 16 94 05/09/22 03:07 36.8 C 48 L 19 151/53 H 94 O2 Del Method O2 Flow Rate 05/09/22 12:08 Nasal Cannula 2 05/09/22 11:45 Nasal Cannula 2 05/09/22 08:35 05/09/22 08:35 Nasal Cannula 2 05/09/22 08:01 Nasal Cannula 2 05/09/22 07:47 Nasal Cannula 2 05/09/22 03:07 Nasal Cannula 2 Laboratory Results Laboratory Results - last 24 hr 05/08/22 05/08/22 05/09/22 16:28 20:01 07:19 Sodium Potassium Chloride Carbon Dioxide Anion Gap BUN Creatinine Est Cr Clr Drug Dosing Est GFR ( Amer) Est GFR (Non-Af Amer) BUN/Creatinine Ratio Glucose POC Glucose 167 H 237 H 132 H Calcium Magnesium TSH Urine Color Urine Appearance Urine pH Ur Specific [place] Urine Protein Urine Glucose (UA) Urine Ketones Urine Blood Urine Nitrite Urine Bilirubin Urine Urobilinogen Ur Leukocyte Esterase Urine WBC (Auto) Urine RBC (Auto) U Hyaline Cast (Auto) U Epithel Cells (Auto) Urine Bacteria (Auto) 05/09/22 05/09/22 05/09/22 09:07 09:07 10:45 Sodium 141 Potassium 3.8 Chloride 109 H Carbon Dioxide 29 Anion Gap 3 BUN 24 H Creatinine 1.02 Est Cr Clr Drug Dosing 64.6 Est GFR ( Amer) 66.8 Est GFR (Non-Af Amer) 57.7 BUN/Creatinine Ratio 23.5 H Glucose 155 H POC Glucose Calcium 8.9 Magnesium 1.9 TSH 2.127 Urine Color Yellow Urine Appearance Clear Urine pH 6.5 Ur Specific [place] 1.021 Urine Protein 1+ H Urine Glucose (UA) Negative Urine Ketones Trace H Urine Blood Negative Urine Nitrite Negative Urine Bilirubin Negative Urine Urobilinogen Negative Ur Leukocyte Esterase Trace H Urine WBC (Auto) 1-5 Urine RBC (Auto) 0-4 U Hyaline Cast (Auto) 0 U Epithel Cells (Auto) >30 H Urine Bacteria (Auto) Negative 05/09/22 11:29 Sodium Potassium Chloride Carbon Dioxide Anion Gap BUN Creatinine Est Cr Clr Drug Dosing Est GFR ( Amer) Est GFR (Non-Af Amer) BUN/Creatinine Ratio Glucose POC Glucose 140 H Calcium Magnesium TSH Urine Color Urine Appearance Urine pH Ur Specific [place] Urine Protein Urine Glucose (UA) Urine Ketones Urine Blood Urine Nitrite Urine Bilirubin Urine Urobilinogen Ur Leukocyte Esterase Urine WBC (Auto) Urine RBC (Auto) U Hyaline Cast (Auto) U Epithel Cells (Auto) Urine Bacteria (Auto) Diagnostic Findings Chest X-Ray 05/09/22 15:59 XR chest 2V PA/lateral HISTORY: 66 years-old Female fatigue, cough, wheezing; eval pneumonia acute cough with wheezing COMPARISON: Chest radiograph 05/07/2022 TECHNIQUE: PA and lateral views of the chest FINDINGS: Cardiomegaly with pulmonary vascular congestion, improved from the prior study. Prior median sternotomy with cardiac valvular prosthesis. Bones appear grossly intact. Decreased size of the layering pleural effusions with improved bibasilar densities. IMPRESSION: 1. Cardiomegaly with improved pulmonary edema. 2. Decreased size of the layering pleural effusions with improved aeration of the lung bases. ACT 112: Negative or not required by law. The above report was generated using voice recognition software. It may contain grammatical, syntax or spelling errors. Electronically signed by: Anupam Vila M.D. 05/09/2022 4:58 PM PG Care Time/CCT Total # of Minutes Spent Total Time Spent with Patient: Total time spent is greater than 50% in coordination of care (as documented) at patient's floor/unit and/or counseling patient: Coding Level of Care Code 21236 SUB INP/OBS CARE 3/50MIN Diagnoses Bradycardia R00.1 Acute diastolic HF (heart failure) I50.31 COPD (chronic obstructive pulmonary disease) J44.9 Hypertension I10 Coronary artery disease I25.10 GERD (gastroesophageal reflux disease) K21.9 Hyperlipidemia E78.5 Diabetes mellitus with complication E11.8 Carotid arterial disease I77.9 Peripheral arterial disease I73.9 S/P aortic valve replacement Z95.2 MARY (acute kidney injury) N17.9 DVT prophylaxis Z29.9 Tobacco dependence F17.200
--- NOTE | 2022-05-09 17:00 | XRay Report ---
XR chest 2V PA/lateral HISTORY: 66 years-old Female fatigue, cough, wheezing; eval pneumonia acute cough with wheezing COMPARISON: Chest radiograph 05/07/2022 TECHNIQUE: PA and lateral views of the chest FINDINGS: Cardiomegaly with pulmonary vascular congestion, improved from the prior study. Prior median sternoto my with cardiac valvular prosthesis. Bones appear grossly intact. Decreased size of the layering pleu ral effusions with improved bibasilar densities. IMPRESSION: 1. Cardiomegaly with improved pulmonary edema. 2. Decreased size of the layering pleural effusions with improved aeration of the lung bases. ACT 112: Negative or not required by law. The above report was generated using voice recognition software. It may contain grammatical, syntax o r spelling errors. Electronically signed by: Anupam Vila M.D. 05/09/2022 4:58 PM
[2022-05-09 19:02] LABS: Adenovirus PCR Not Detected (NotDetected); Bordetella parapertussis PCR Not Detected (NotDetected); Bordetella pertussis PCR Not Detected (NotDetected); Chlamydia pneumoniae PCR Not Detected (NotDetected); Coronavirus 229E PCR Not Detected (NotDetected); Coronavirus CoV-2 (COVID19)PCR Not Detected (NotDetected); Coronavirus HKU1 PCR Not Detected (NotDetected); Coronavirus NL63 PCR Not Detected (NotDetected); Coronavirus OC43PCR Not Detected (NotDetected); Human Metapneumovirus PCR Not Detected (NotDetected); Influenza A PCR Not Detected (NotDetected); Influenza B PCR Not Detected (NotDetected); Mycoplasma pneumoniae PCR Not Detected (NotDetected); Parainfluenza Virus 1 PCR Not Detected (NotDetected); Parainfluenza Virus 2 PCR Not Detected (NotDetected); Parainfluenza Virus 3 PCR Not Detected (NotDetected); Parainfluenza Virus 4 PCR Not Detected (NotDetected); Respiratory Syncytial VirusPCR Not Detected (NotDetected); Rhinovirus/Enterovirus PCR Not Detected (NotDetected)
[2022-05-09] MEDS: MELATONIN 3 MG TAB PO SCH (21:38)
[2022-05-09] MEDS: SIMVASTATIN 80 MG TAB PO SCH (21:38)
[2022-05-09] MEDS: EZETIMIBE 10 MG TABLET PO SCH (21:38)
[2022-05-10] MEDS: HEPARIN SOD 5,000 UNIT/0.5 ML VIAL SQ SCH ×3 (05:22→21:20)
[2022-05-10] MEDS: ALBUTEROL HFA 8 GM INHALER INH SCH ×4 (07:08→19:58)
[2022-05-10] MEDS: IPRATROPIUM BROMIDE HFA INHALER INH SCH ×4 (07:08→19:58)
[2022-05-10 07:18] LABS: BUN Creatinine Ratio 19.4 (10-20); Creatinine Clr Calc Pharmacy 67.2 ml/min; Est GFR (African American) 70.2 ml/min; Est GFR (Non-African American) 60.5 ml/min; Potassium 3.5 mmol/L (3.5-5.1)
[2022-05-10] MEDS ORDERED: BACITRACIN OINT 0.9 GM PKT ONE (08:11)
[2022-05-10] MEDS ORDERED: LIDOCAINE 1% LOCAL 20 ML VIAL ONE (08:11)
[2022-05-10] MEDS ORDERED: WATER, STERILE FOR INJ 10 ML VIAL ONE (08:12)
[2022-05-10] MEDS ORDERED: VANCOMYCIN HCL 1000MG/20ML VIAL ONE (08:12)
[2022-05-10] MEDS: NICOTINE 7 MG/24 HR TDSY TD SCH (08:30)
[2022-05-10] MEDS: INSULIN ASPART PER UNIT SC SCH ×4 (08:37→20:28)
--- NOTE | 2022-05-10 08:59 | History & Physical Bridge Note ---
Date of Service May 10, 2022 History & Physical Bridge Note I have examined the patient, reviewed the History & Physical and in the interval since the performance of the History & Physical I have noted the following changes of clinical significance: no changes noted. She continues to have second degree AV block, often with periods of 2-1 AV block. She requires a pacemaker. I reviewed the indications, procedure, risks and alternatives with the patient, and answered all questions. Patient understands and agrees to the procedure. Consent obtained. I also reviewed the risks and use of sedation, patient understands and consent obtained.
--- NOTE | 2022-05-10 09:00 | Pre Anesthesia Assessment ---
Date of Service May 10, 2022 Pre Sedation Assessment Vital Signs Temp Pulse Pulse Resp BP BP Pulse Ox 05/10/22 08:50 44 L 16 150/49 H 96 05/10/22 07:55 46 L 05/10/22 07:52 36.8 C 44 L 18 130/50 L 94 05/10/22 07:08 43 L 16 93 05/09/22 21:59 38 L 05/10/22 04:12 36.9 C 46 L 18 150/54 H 93 05/09/22 23:06 36.5 C 40 L 18 150/61 H 94 05/09/22 19:56 05/09/22 19:30 36.2 C L 43 L 18 151/70 H 92 05/09/22 19:10 38 L 16 92 05/09/22 15:23 48 L 16 94 05/09/22 15:18 36.3 C L 48 L 18 154/67 H 92 05/09/22 15:10 38 L 05/09/22 12:08 37.0 C 46 L 18 129/46 L 92 05/09/22 11:45 50 L 16 95 O2 Del Method O2 Flow Rate 05/10/22 08:50 Nasal Cannula 2 05/10/22 07:55 05/10/22 07:52 Nasal Cannula 2 05/10/22 07:08 Room Air 05/09/22 21:59 05/10/22 04:12 Nasal Cannula 2 05/09/22 23:06 Nasal Cannula 2 05/09/22 19:56 Nasal Cannula 2 05/09/22 19:30 Nasal Cannula 2 05/09/22 19:10 Nasal Cannula 2 05/09/22 15:23 Room Air 05/09/22 15:18 Nasal Cannula 2 05/09/22 15:10 05/09/22 12:08 Nasal Cannula 2 05/09/22 11:45 Nasal Cannula 2 Cardiovascular + bradycardic no murmur Respiratory normal respiratory effort, lungs clear to auscultation Pre-Sedation Airway Assessment Smoking Status: Current every day smoker Hx Sleep Apnea: No Short, Thick Neck: No Thyromental Distance: > or= 3.5 Finger Breadths Oral Cavity: + WNL Mallampati Class: III ASA: ASA2 NPO Status Date of Last Intake of Fluids: 05/09/22 Time of Last Intake of Fluids: 23:00 Date of Last Intake of Solid Food: 05/09/22 Time of Last Intake of Solid Foods: 23:00 Procedure Planning Contraindications for Sedation: none Current Medications Reviewed: Yes Notes The planned sedation has been discussed with the patient. Informed Consent was obtained. I have identified the patient, determined the appropriateness of sedation and have assessed the patient immediately prior to the procedure. All medicine(s) and interventions are by my order.
[2022-05-10] MEDS ORDERED: MIDAZOLAM HCL 5 MG/ML 1 ML VIAL ONE (09:01)
[2022-05-10] MEDS ORDERED: fentaNYL citrate 100 MCG/2 ML VIAL ONE ×2 (09:01→10:18)
[2022-05-10] MEDS ORDERED: ceFAZolin 330 MG/ML 1 GM VIAL ONE (09:06)
--- NOTE | 2022-05-10 10:52 | Electrophysiology Report ---
Date of Service May 10, 2022 Electrophysiology Procedure Electrophysiology Procedure Report Preoperative diagnosis: Symptomatic second-degree AV block Postoperative diagnosis: Same Procedure: Dual-chamber left bundle branch pacemaker implantation Surgeon: Claudio Holley MD Estimated blood loss: 40 cc Complications: None Disposition: Commissions Specialist recovery Procedure details: After obtaining informed consent for the procedure, the patient was brought to the laboratory and prepped and draped in the standard sterile manner. The left prepectoral region was anesthetized with 1% lidocaine local anesthetic and left axillary venipuncture was performed by percutaneous technique and a guidewire placed through the left subclavian vein into the superior vena cava. The area was further infiltrated with 1% lidocaine local anesthetic and a 5 cm incision was made parallel to the left clavicle and 2 cm below it and carried down to the anterior pectoralis fascia. A pacemaker pocket was formed by blunt dissection anterior to the pectoralis fascia and a vancomycin-soaked sponge was placed in the pocket. An 8.5 [place] [employer] lead introducer was placed over the guidewire into the left subclavian vein, the dilator and guidewire were removed and a bipolar active fixation steroid tipped atrial lead was advanced through the introducer into the superior vena cava. A guidewire was placed through the introducer and the introducer was stripped from the lead and guidewire. The atrial lead was temporarily positioned in the right ventricle for backup pacing. A 7 [place] [employer] lead introducer was placed over the guidewire into the left subclavian vein, the dilator and guidewire were removed. A C315 His 02 septal sheath was advanced through the introducer over a guidewire and advanced into the right ventricular outflow tract. The guidewire and dilator were removed and the sh eath was positioned in a mid septal location. A bipolar active fixation steroid tipped ventricular lead was advanced through the introducer and rotated to advance the screw into the septum. Septal penetration was confirmed by dye injection through the sheath. Pacing and sensing thresholds were evaluated in bipolar configuration and are noted on the data sheet. The septal sheath was stripped away from the lead. The introducer and the introducer was removed over the the lead. The atrial lead was then removed from the right ventricle and using a curved stylette the atrial lead was positioned in the region of the atrial appendage and the screw extended fixing the lead in position. Pacing and sensing thresholds were evaluated in bipolar configuration and are recorded on the implant data sheet. Diaphragmatic pacing was evaluated as noted on the implant data sheet. Once the leads were in position they were attached to the anterior pectoralis fascia using 2 sutures of 2-0 silk around each lead collar. The vancomycin soaked sponge was removed from the pocket, hemostasis was obtained, the pacemaker was attached to the leads and placed in the pocket with the leads coiled beneath it. The incision was closed with a running double subcutaneous closure of 3-0 Vicryl absorbable suture, followed by running subcuticular skin closure of 4-0 Vicryl absorbable suture. Bacitracin ointment was placed on the incision and a dressing applied. [facility] Electrophysiology codes Indication for Procedure (1) Second degree atrioventricular block, Mobitz (type) I: Pacing Procedure 1: Pacin Insert/Replace Pacer A & V PG Moderate Sedation Codes Moderate Sedation Codes Procedure 1: Sedation/Anesthesia: 82419 Mod Sedation by the same physician;Init15 Min Child Age 5 & Up Procedure 2: Sedation/Anesthesia: 26747 Mod Sedation by the same physician; Ea [id number] Minutes
[2022-05-10] MEDS: CLOPIDOGREL BISULFATE 75 MG TAB PO SCH (11:02)
[2022-05-10] MEDS: PANTOprazole 40 MG TAB PO SCH (11:02)
[2022-05-10] MEDS: guaiFENesin 600 MG TABCR PO SCH ×2 (11:02→19:50)
[2022-05-10] MEDS: UMECLIDINIUM/VILANTEROL 62.5/25MCG 7 PUFFS/INHALER INH SCH (11:03)
[2022-05-10] MEDS: FLUTICASONE FUROATE 100MCG 14 PUFFS/INHALER INH SCH (11:03)
[2022-05-10] MEDS: ASPIRIN 81 MG ECTAB PO SCH (11:06)
--- NOTE | 2022-05-10 11:15 | Post Anesthesia Assessment ---
Date of Service May 10, 2022 Post Sedation Assessment Vital Signs Temp Pulse Pulse Resp BP BP Pulse Ox 05/10/22 11:12 86 18 94 05/10/22 08:50 44 L 16 150/49 H 96 05/10/22 07:55 46 L 05/10/22 07:52 36.8 C 44 L 18 130/50 L 94 05/10/22 07:08 43 L 16 93 05/09/22 21:59 38 L 05/10/22 04:12 36.9 C 46 L 18 150/54 H 93 05/09/22 23:06 36.5 C 40 L 18 150/61 H 94 05/09/22 19:56 05/09/22 19:30 36.2 C L 43 L 18 151/70 H 92 05/09/22 19:10 38 L 16 92 05/09/22 15:23 48 L 16 94 05/09/22 15:18 36.3 C L 48 L 18 154/67 H 92 05/09/22 15:10 38 L 05/09/22 12:08 37.0 C 46 L 18 129/46 L 92 05/09/22 11:45 50 L 16 95 O2 Del Method O2 Flow Rate 05/10/22 11:12 Nasal Cannula 2 05/10/22 08:50 Nasal Cannula 2 05/10/22 07:55 05/10/22 07:52 Nasal Cannula 2 05/10/22 07:08 Room Air 05/09/22 21:59 05/10/22 04:12 Nasal Cannula 2 05/09/22 23:06 Nasal Cannula 2 05/09/22 19:56 Nasal Cannula 2 05/09/22 19:30 Nasal Cannula 2 05/09/22 19:10 Nasal Cannula 2 05/09/22 15:23 Room Air 05/09/22 15:18 Nasal Cannula 2 05/09/22 15:10 05/09/22 12:08 Nasal Cannula 2 05/09/22 11:45 Nasal Cannula 2 Discharge Sedation Level of Care: Fast Track Phase II Post Sedation Plan On clinical assessment, the patient appears to have tolerated the sedation without complications. Patient is recovering as anticipated. Patient will continue to be monitored by nursing and may be discharged when sedation discharge criteria are met per below protocol. Upon Completions of procedure up to 15 minutes continue every 5 minute vital signs and the P.A.R. score; then discharge to a Phase I or Fast Track to Phase II per the following guidelines: * Discharge Patient to appropriate Phase II area if PAR is 8 or greater or return to pre- procedure baseline. The post - procedure orders will be as directed. * If PAR score is less than 8 or not return to pre-procedure baseline then patient will follow Phase I monitoring till PAR is reached for Phase II. The Phase I may be done in procedure room or may call to secure a Phase I area. * If naloxone or flumazenil are used for reversal, hold in Phase I for continued monitoring from when last reversal dose was given for a minimum of 60 minutes or longer pending the nurse and/or physician discretion of patient condition before discharge to Phase II. Please call the Sedation Physician to re-evaluate and complete post-note for discharge to Phase II area. Do NOT discharge from procedure sedation or Phase 1 until post- sedation evaluation note is complete by procedure /sedation MD Sedation Discharge Instructions to be given to the patient at discharge to home.
[2022-05-10] MEDS: LANTUS PER UNIT CHARGE SQ SCH ×2 (12:08→20:29)
--- NOTE | 2022-05-10 12:50 | XCELERA ---
[id number]
[2022-05-10] MEDS: METOPROLOL TARTRATE 50 MG TAB PO SCH ×2 (13:19→19:50)
--- NOTE | 2022-05-10 15:42 | Hospitalist Progress Note ---
Date of Service May 10, 2022 Assessment & Plan (1) Bradycardia: Plan: Due to 2nd degree AV block, 2:1, in the setting of chronic beta ulises use. Metoprolol d/c. TSH wnl today. NO exposure to ticks - does not go outside; has no outside pets. s/p permanent pacemaker placement by Dr Holley this am. Mild bleeding at insertion site but thus far no hematoma. Pacing on monitor since returning from OR. Appreciate Dr Holley's assistance. CXR in am. (2) Acute diastolic HF (heart failure): Plan: 2nd to #1 improved defer further diuresis to cardiology (3) COPD (chronic obstructive pulmonary disease): Plan: pt reports numerous infectious symptoms - myalgias, nausea, cough, etc cxr obtained - no pneumonia Biofire resp panel fully negative cont bronchodilators, mucinex cont home meds cont NC O2 (4) Hypertension: Plan: low, due to diuresis and #1. holding AMADA holding BB holding bumex has received several doses of IV lasix - dose reduced from BID to qdaily dosing. (5) S/P aortic valve replacement: Plan: bioprosthetic AV 2021 - echo with normal functioning and well-seated AV has fairly loud systolic murmur in expected location of AV -- checked limited echo to reassess AVR function - results as below - patient has had infectious symptoms - sweats, nausea, myalgias, simply feel unwell thus, will obtain blood cx's x 2 sets to ensure no bacteremia to suggest endoca rditis check sed rate, crp Dr Holley aware of of echo findings, exam, etc. Dr Holley to discuss with cardiology team re: JAMES (6) Coronary artery disease: Plan: LCx PATT August 2007 patent stent in December 2014 no evidence of ACS cont aspirin BB on hold due to #1 - defer resumption to cardiology cont plavix cont zetia cont simvastatin 80mg daily (7) GERD (gastroesophageal reflux disease): Plan: cont PPI (8) Hyperlipidemia: Plan: cont zetia + simvastatin (9) Diabetes mellitus with complication: Plan: a1c <7% cont lantus cont novolog adjust insulins as needed (10) Carotid arterial disease: Plan: 2014 - CEA cont asa, plavix, etc (11) Peripheral arterial disease: Plan: right common femoral endarterectomy, November 2021 normal distal pulses in legs cont asa, plavix, statin, etc (12) MARY (acute kidney injury): Plan: Cr 1.6 at presentation now 0.9 resolved repeat BMP am due to diuresis (13) DVT prophylaxis: Plan: heparin 5000 TID (14) Tobacco dependence: Plan: nicoderm 7mg daily (15) Myalgia: Plan: extensive w/u for infectious process while here - ua wnl, urine cx neg, cxr w/o pneumonia, biofire resp panel neg obtained blood cx's x 2 sets today along with sed rate/crp (see # 5 above) could check a CPK in am to be complete Plan care d/w Dr Holley from cardiology grand-daughter updated at bedside today daughter updated over the weekend Admission and Anticipated Discharge Date Admission Date: May 07, 2022 Subjective patient underwent pace insertion this am she also underwent echo which showed increased velocities across her bioprosthetic AV - a significant change from her echo in fall 2021 tele overnight - AVB, 2nd degree 2:1 now pacing post-pacer insertion despite pacemaker placement and now normal HRs she continues to feel lousy continues with nausea continues with cough, fatigue she mentions having had severe sweats a few days before she came into the hospital myalgias continue as well Review of Systems Review of Systems: gen - no fevers/chills cv - mild discomfort over pacemaker site but no central pain; no orthopnea pulm - continues with mild cough and mild dyspnea with activity GI - nausea but no emesis; able to eat/drink; no pain Physical Exam Physical Exam: gen - still looks ill and quite tired; NAD mouth - MMM neck - minimal JVD heart - RRR, s1 s2, 2-3/6 systolic murmur RUSB/left mid sternal border lungs - mild fine rales b/l with wheezing b/l - no change from yesterday's exam abd - soft, NT, ND, BS+ ext - no edema, pulses 2+ b/l psych - a/o x 3 chest - pacemaker site left upper chest covered with large dressing; dressing is blood-soaked Results & Data Results & Data ([facility]) Vital Signs (Past 12 Hours) Vital Signs Temp Pulse Pulse Resp BP BP Pulse Ox 05/10/22 15:37 36.5 C 65 20 125/61 95 05/10/22 14:30 36.7 C 89 16 128/74 92 05/10/22 14:00 87 18 128/75 92 05/10/22 13:30 88 16 116/73 91 05/10/22 13:00 88 16 122/74 91 05/10/22 12:51 05/10/22 12:30 93 H 16 127/74 91 05/10/22 12:15 91 H 16 145/62 H 91 05/10/22 11:45 86 16 129/71 05/10/22 11:30 75 18 129/71 91 05/10/22 11:15 36.6 C 85 16 150/83 H 92 05/10/22 11:00 36.6 C 86 14 139/81 92 05/10/22 11:12 86 18 94 05/10/22 08:50 44 L 16 150/49 H 96 05/10/22 07:55 46 L 05/10/22 07:52 36.8 C 44 L 18 130/50 L 94 05/10/22 07:08 43 L 16 93 05/10/22 04:12 36.9 C 46 L 18 150/54 H 93 O2 Del Method O2 Flow Rate 05/10/22 15:37 Nasal Cannula 2 05/10/22 14:30 Nasal Cannula 2 05/10/22 14:00 Nasal Cannula 2 05/10/22 13:30 Nasal Cannula 2 05/10/22 13:00 Nasal Cannula 2 05/10/22 12:51 Nasal Cannula 2 05/10/22 12:30 Nasal Cannula 2 05/10/22 12:15 Nasal Cannula 2 05/10/22 11:45 05/10/22 11:30 Nasal Cannula 2 05/10/22 11:15 Nasal Cannula 2 05/10/22 11:00 Nasal Cannula 2 05/10/22 11:12 Nasal Cannula 2 05/10/22 08:50 Nasal Cannula 2 05/10/22 07:55 05/10/22 07:52 Nasal Cannula 2 05/10/22 07:08 Room Air 05/10/22 04:12 Nasal Cannula 2 Laboratory Results Laboratory Results - last 24 hr 05/09/22 05/09/22 05/09/22 16:21 19:50 Unknown Sodium Potassium Chloride Carbon Dioxide Anion Gap BUN Creatinine Est Cr Clr Drug Dosing Est GFR ( Amer) Est GFR (Non-Af Amer) BUN/Creatinine Ratio Glucose POC Glucose 180 H 204 H Calcium Adenovirus (PCR) Not Detected B. pertussis DNA (PCR) Not Detected B.parapertussis DNA PCR Not Detected C. pneumoniae DNA (PCR) Not Detected Coronavirus OC43 (PCR) Not Detected Coronavirus HKU1 (PCR) Not Detected Coronavirus 229E (PCR) Not Detected SARS-CoV-2 (PCR) Not Detected Coronavirus NL63 (PCR) Not Detected Human Metapneumovir PCR Not Detected Influenza Type A (PCR) Not Detected Influenza Type B (PCR) Not Detected M. pneumoniae (PCR) Not Detected Parainfluenza 1 (PCR) Not Detected Parainfluenza 2 (PCR) Not Detected Parainfluenza 3 (PCR) Not Detected Parainfluenza 4 (PCR) Not Detected RSV (PCR) Not Detected Entero/Rhino (PCR) Not Detected 05/10/22 05/10/22 05/10/22 06:11 06:17 07:37 Sodium 141 Potassium 3.5 Chloride 108 H Carbon Dioxide 29 Anion Gap 4 BUN 19 Creatinine 0.98 Est Cr Clr Drug Dosing 67.2 Est GFR ( Amer) 70.2 Est GFR (Non-Af Amer) 60.5 BUN/Creatinine Ratio 19.4 Glucose 159 H POC Glucose 164 H 177 H Calcium 9.0 Adenovirus (PCR) B. pertussis DNA (PCR) B.parapertussis DNA PCR C. pneumoniae DNA (PCR) Coronavirus OC43 (PCR) Coronavirus HKU1 (PCR) Coronavirus 229E (PCR) SARS-CoV-2 (PCR) Coronavirus NL63 (PCR) Human Metapneumovir PCR Influenza Type A (PCR) Influenza Type B (PCR) M. pneumoniae (PCR) Parainfluenza 1 (PCR) Parainfluenza 2 (PCR) Parainfluenza 3 (PCR) Parainfluenza 4 (PCR) RSV (PCR) Entero/Rhino (PCR) 05/10/22 11:36 Sodium Potassium Chloride Carbon Dioxide Anion Gap BUN Creatinine Est Cr Clr Drug Dosing Est GFR ( Amer) Est GFR (Non-Af Amer) BUN/Creatinine Ratio Glucose POC Glucose 152 H Calcium Adenovirus (PCR) B. pertussis DNA (PCR) B.parapertussis DNA PCR C. pneumoniae DNA (PCR) Coronavirus OC43 (PCR) Coronavirus HKU1 (PCR) Coronavirus 229E (PCR) SARS-CoV-2 (PCR) Coronavirus NL63 (PCR) Human Metapneumovir PCR Influenza Type A (PCR) Influenza Type B (PCR) M. pneumoniae (PCR) Parainfluenza 1 (PCR) Parainfluenza 2 (PCR) Parainfluenza 3 (PCR) Parainfluenza 4 (PCR) RSV (PCR) Entero/Rhino (PCR) PG Care Time/CCT Total # of Minutes Spent Total Time Spent with Patient: Total time spent is greater than 50% in coordination of care (as documented) at patient's floor/unit and/or counseling patient: Coding Level of Care Code 57489 SUB INP/OBS CARE 2/35MIN Diagnoses Bradycardia R00.1 Acute diastolic HF (heart failure) I50.31 COPD (chronic obstructive pulmonary disease) J44.9 Hypertension I10 S/P aortic valve replacement Z95.2 Coronary artery disease I25.10 GERD (gastroesophageal reflux disease) K21.9 Hyperlipidemia E78.5 Diabetes mellitus with complication E11.8 Carotid arterial disease I77.9 Peripheral arterial disease I73.9 MARY (acute kidney injury) N17.9 DVT prophylaxis Z29.9 Tobacco dependence F17.200 Myalgia M79.10
[2022-05-10] MEDS: ACETAMINOPHEN W/CODEINE #3 1 TAB PO PRN ×2 (17:10→21:24)
[2022-05-10] MEDS: SIMVASTATIN 80 MG TAB PO SCH (19:50)
[2022-05-10] MEDS: MELATONIN 3 MG TAB PO SCH (19:50)
[2022-05-10] MEDS: BENZONATATE 100 MG CAPSULE PO PRN (19:50)
[2022-05-10] MEDS: EZETIMIBE 10 MG TABLET PO SCH (19:50)
[2022-05-11] MEDS: ACETAMINOPHEN W/CODEINE #3 1 TAB PO PRN ×3 (02:54→22:23)
--- NOTE | 2022-05-11 05:39 | Electrocardiogram Report ---
Test Reason : Blood Pressure : / mmHG Vent. Rate : 093 BPM Atrial Rate : 093 BPM P-R Int : 226 ms QRS Dur : 116 ms QT Int : 450 ms P-R-T Axes : 042 113 -54 degrees QTc Int : 559 ms Atrial-sensed ventricular-paced rhythm with occasional Premature ventricular complexes Abnormal ECG When compared with ECG of 07-MAY-2022 11:52, Electronic ventricular pacemaker has replaced Sinus rhythm with 2:1 A-V conduction Confirmed by Claudio Holley [id number] on 05/11/2022 5:39:07 AM Referred By: Domonique Henderson Confirmed By:Claudio Holley
[2022-05-11] MEDS: HEPARIN SOD 5,000 UNIT/0.5 ML VIAL SQ SCH ×3 (06:21→21:16)
[2022-05-11 06:43] LABS: Hematocrit (blood only) 30.3 % (37.0-47.0); Hemoglobin 9.9 g/dl (12.0-16.0); Mean Corpuscular Hgb Conc 32.7 g/dL (32.0-36.0); Mean Corpuscular Volume 91.8 fL (80.0-100.0); Mean Platelet Volume 10.1 fL (9.4-12.4); Platelet Count 235 K/uL (130-400); RDW Coefficient of Variation 14.6 % (11.5-14.5); RDW Standard Deviation 48.6 fL (36.4-46.3); White Blood Count 5.84 K/ul (4.8-10.8)
[2022-05-11] MEDS: IPRATROPIUM BROMIDE HFA INHALER INH SCH ×4 (07:00→20:03)
[2022-05-11] MEDS: ALBUTEROL HFA 8 GM INHALER INH SCH ×4 (07:00→20:03)
[2022-05-11 07:03] LABS: BUN Creatinine Ratio 18.9 (10-20); Calcium 8.9 mg/dl (8.5-10.1); Creatinine Clr Calc Pharmacy 62.1 ml/min; Est GFR (African American) 63.8 ml/min; Est GFR (Non-African American) 55.1 ml/min; Magnesium 1.7 mg/dl (1.7-2.4); Potassium 3.8 mmol/L (3.5-5.1)
[2022-05-11] MEDS: NICOTINE 7 MG/24 HR TDSY TD SCH (08:34)
[2022-05-11] MEDS: LANTUS PER UNIT CHARGE SQ SCH ×2 (08:40→21:10)
[2022-05-11] MEDS: METOPROLOL TARTRATE 50 MG TAB PO SCH ×2 (08:40→21:15)
[2022-05-11] MEDS: INSULIN ASPART PER UNIT SC SCH ×4 (08:40→21:09)
[2022-05-11] MEDS: CLOPIDOGREL BISULFATE 75 MG TAB PO SCH (08:41)
[2022-05-11] MEDS: ASPIRIN 81 MG ECTAB PO SCH (08:41)
[2022-05-11] MEDS: PANTOprazole 40 MG TAB PO SCH (08:41)
[2022-05-11] MEDS: guaiFENesin 600 MG TABCR PO SCH ×2 (08:41→21:15)
--- NOTE | 2022-05-11 09:34 | XRay Report ---
XR chest 2V PA/lateral HISTORY: 66 years-old Female EXACT TIME ORDERED Evaluate for pneumothorax and l status post placemen t of a left subclavian pacer COMPARISON: 05/09/2022 TECHNIQUE: PA and lateral views of the chest FINDINGS: Cardiac silhouette is enlarged. Prior median sternotomy with cardiac valvular prosthesis. Left subcla vian pacer. No pneumothorax. Small pleural effusions with mild bibasilar densities. Degenerative long ges of the shoulders and spine. IMPRESSION: 1. Status post placement of a left subclavian dual lead pacer. No postprocedural pneumothorax identif ied. 2. Small pleural effusions with mild bibasilar atelectasis. ACT 112: Negative or not required by law. The above report was generated using voice recognition software. It may contain grammatical, syntax o r spelling errors. Electronically signed by: Anupam Vial M.D. 05/11/2022 9:33 AM
--- NOTE | 2022-05-11 09:36 | Cardiology Progress Note ---
Date of Service May 11, 2022 Assessment & Plan (1) Status post placement of cardiac pacemaker: Plan: 1. Postop day #1: The device is working well, leads are in good position and there is no pneumothorax. She is having some oozing from the incision, part of this may be her platelet inhibition although it is more than expected just from that. Her hemoglobin is not down from preop. We will continue to observe, it is conceivable that we will have to open the incision to contain the bleeding. It does not seem to be bleeding into the pacemaker pocket so we should be able to just do some superficial subcutaneous hemostasis if needed. I will keep her n.p.o. in case we need to do it this afternoon. Admission and Anticipated Discharge Date Admission Date: May 07, 2022 Subjective She is having some incisional discomfort but not a lot more than expected. She did have a lot of incisional oozing over the night although I do not think she had a lot of blood loss. Otherwise she has been feeling well without chest discomfort or shortness of breath. Physical Exam Physical Exam: The incision is oozing, the dressing was saturated. There does not appear to be swelling in the device pocket. There is the expected ecchymosis around the incision. The incision is tight. Cardiac rhythm is regular without rub Lungs are clear Results & Data ([facility]) Vital Signs (Past 12 Hours) Vital Signs Temp Pulse Pulse Resp BP BP Pulse Ox 05/11/22 07:11 36.8 C 78 19 111/64 92 05/11/22 07:02 76 18 95 05/11/22 03:03 36.6 C 70 18 125/70 92 05/11/22 00:08 64 05/10/22 22:38 37.0 C 65 18 126/56 L 95 O2 Del Method O2 Flow Rate 05/11/22 07:11 Nasal Cannula 3 05/11/22 07:02 Nasal Cannula 2 05/11/22 03:03 Nasal Cannula 3 05/11/22 00:08 05/10/22 22:38 Nasal Cannula 2 Laboratory Results CBC 05/11/22 Range/Units 06:16 WBC 5.84 (4.8-10.8) K/ul RBC 3.30 L (4.20-5.40) M/uL Hgb 9.9 L (12.0-16.0) g/dl Hct 30.3 L (37.0-47.0) % Plt Count 235 (130-400) K/uL Comprehensive Metabolic Panel 05/11/22 Range/Units 06:16 Sodium 138 (136-145) mmol/L Potassium 3.8 (3.5-5.1) mmol/L Chloride 105 (98-107) mmol/L Carbon Dioxide 29 (21-32) mmol/L BUN 20 (6-23) mg/dl Creatinine 1.06 (0.6-1.2) mg/dl Glucose 151 H (70-99(Fasting)) mg/dl Calcium 8.9 (8.5-10.1) mg/dl Intake and Output 05/10/22 05/11/22 05/11/22 22:59 06:59 14:59 Intake Total 200 / 625 150 / 625 Output Total 300 / 525 175 / 525 Balance -100 / 100 -25 / 100 Intake: Oral 200 / 625 150 / 625 Output: Urine 300 / 525 175 / 525 Diagnostic Findings 1. Postop electrocardiogram: Appropriate left bundle pacing. 2. Telemetry: Appropriate ventricular pacing throughout 3. Chest x-ray: Good lead position in the atrial appendage and the intraventricular septum. No pneumothorax. 4. Device evaluation: Excellent pacing and sensing characteristics PG Care Time/CCT Total # of Minutes Spent Total Time Spent with Patient: Total time spent is greater than 50% in coordination of care (as documented) at patient's floor/unit and/or counseling patient: Coding Level of Care Code 57524 Post Operative Follow-Up Diagnoses Status post placement of cardiac pacemaker Z95.0 CPT Codes Dual Lead Pacemaker System - 00101 ([id number])
[2022-05-11] MEDS: UMECLIDINIUM/VILANTEROL 62.5/25MCG 7 PUFFS/INHALER INH SCH (12:48)
[2022-05-11] MEDS: FLUTICASONE FUROATE 100MCG 14 PUFFS/INHALER INH SCH (12:49)
--- NOTE | 2022-05-11 15:14 | Hospitalist Progress Note ---
Date of Service May 11, 2022 Assessment & Plan (1) Bradycardia: Plan: Due to 2nd degree AV block, 2:1, in the setting of chronic beta ulises use. s/p permanent pacemaker placement by Dr Holley this am. Mild bleeding at insertion site but thus far no hematoma. Dr Gallo aware Pacing on monitor since returning from OR. Appreciate Dr Holley's assistance. CXR in am. (2) Acute diastolic HF (heart failure): Plan: 2nd to #1 improved defer further diuresis to cardiology (3) COPD (chronic obstructive pulmonary disease): Plan: pt reports numerous infectious symptoms - myalgias, nausea, cough, etc cxr obtained - no pneumonia Biofire resp panel fully negative cont bronchodilators, mucinex cont home meds cont NC O2 (4) Hypertension: Plan: BP 142/69 today will resume home meds which were on hold on account of low BP (5) S/P aortic valve replacement: Plan: bioprosthetic AV 2021 - echo with normal functioning and well-seated AV has fairly loud systolic murmur in expected location of AV -- checked limited echo to reassess AVR function showed increase in gradient cardiology aware (6) Coronary artery disease: Plan: LCx PATT August 2007 patent stent in December 2014 no evidence of ACS cont aspirin, BB cont plavix cont zetia cont simvastatin 80mg daily (7) GERD (gastroesophageal reflux disease): Plan: cont PPI (8) Hyperlipidemia: Plan: cont zetia + simvastatin (9) Diabetes mellitus with complication: Plan: a1c <7% cont lantus cont novolog adjust insulins as needed (10) Carotid arterial disease: Plan: 2014 - CEA cont asa, plavix, etc (11) Peripheral arterial disease: Plan: right common femoral endarterectomy, November 2021 normal distal pulses in legs cont asa, plavix, statin, etc (12) MARY (acute kidney injury): Plan: resolved repeat BMP am due to diuresis (13) DVT prophylaxis: Plan: heparin 5000 TID (14) Tobacco dependence: Plan: nicoderm 7mg daily (15) Myalgia: Plan: extensive w/u for infectious process while here - ua wnl, urine cx neg, cxr w/o pneumonia, biofire resp panel neg obtained blood cx's x 2 sets today along with sed rate/crp (see # 5 above) could check a CPK in am to be complete Plan Due to bleeding, may go back to the OR Admission and Anticipated Discharge Date Admission Date: May 07, 2022 Subjective patient seen and examined, she is post pacemaker insertion, however, she is still oozing blood from the site Review of Systems Review of Systems: All systems reviewed are negative, apart from the ones contained in the history. Physical Exam Physical Exam: The patient is awake, alert and oriented 3, well developed and well nourished, normocephalic and atraumatic, lying in bed and in no acute distress. HEENT--PERRL, EOMI, mucous membranes and oropharynx mildly dry Neck--supple. No JVD. No bruits. Thyroid normal, trachea midline, no adenopathy. Heart--normal S1 and S2. No murmurs, rubs or gallops. Lungs--clear bilaterally, no respiratory distress, no accessory muscle use. Abdomen--normal bowel sounds and soft. Mild epigastric and left sided abdominal pain Extremities--no cyanosis or clubbing. No edema. Dermatologic--normal skin turgor, normal color, no abnormal lymph nodes, no rash. Neurologic--cranial nerves II through XII grossly intact. Rheumatologic--normal range of motion. Psychiatric--normal affect. Results & Data Results & Data ([facility]) Vital Signs (Past 12 Hours) Vital Signs Temp Pulse Pulse Resp BP Pulse Ox O2 Del Method 05/11/22 12:00 Nasal Cannula 05/11/22 08:00 77 05/11/22 11:44 99.5 F 71 16 142/69 H 95 Room Air 05/11/22 10:44 70 16 94 Nasal Cannula 05/11/22 07:11 98.2 F 78 19 111/64 92 Nasal Cannula 05/11/22 07:02 76 18 95 Nasal Cannula O2 Flow Rate 05/11/22 12:00 3 05/11/22 08:00 05/11/22 11:44 05/11/22 10:44 3 05/11/22 07:11 3 05/11/22 07:02 2 PG Care Time/CCT Total # of Minutes Spent Total Time Spent with Patient: Total time spent is greater than 50% in coordination of care (as documented) at patient's floor/unit and/or counseling patient: Coding Level of Care Code 14523 SUB INP/OBS CARE 235MIN Diagnoses Bradycardia R00.1 Acute diastolic HF (heart failure) I50.31 COPD (chronic obstructive pulmonary disease) J44.9 Hypertension I10 S/P aortic valve replacement Z95.2 Coronary artery disease I25.10 GERD (gastroesophageal reflux disease) K21.9 Hyperlipidemia E78.5 Diabetes mellitus with complication E11.8 Carotid arterial disease I77.9 Peripheral arterial disease I73.9 MARY (acute kidney injury) N17.9 DVT prophylaxis Z29.9 Tobacco dependence F17.200 Myalgia M79.10 Time Spent (min) 35
[2022-05-11] MEDS: BENZONATATE 100 MG CAPSULE PO PRN (21:14)
[2022-05-11] MEDS: MELATONIN 3 MG TAB PO SCH (21:15)
[2022-05-11] MEDS: EZETIMIBE 10 MG TABLET PO SCH (21:15)
[2022-05-11] MEDS: SIMVASTATIN 80 MG TAB PO SCH (21:15)
[2022-05-12] MEDS: HEPARIN SOD 5,000 UNIT/0.5 ML VIAL SQ SCH ×3 (06:03→20:39)
[2022-05-12 06:52] LABS: Hematocrit (blood only) 29.6 % (37.0-47.0); Hemoglobin 9.7 g/dl (12.0-16.0); Mean Corpuscular Hemoglobin 29.9 pg (25.0-34.0); Mean Corpuscular Hgb Conc 32.8 g/dL (32.0-36.0); Mean Corpuscular Volume 91.4 fL (80.0-100.0); Mean Platelet Volume 9.7 fL (9.4-12.4); Platelet Count 210 K/uL (130-400); RDW Coefficient of Variation 14.7 % (11.5-14.5); Red Blood Count 3.24 M/uL (4.20-5.40); White Blood Count 4.42 K/ul (4.8-10.8)
[2022-05-12] MEDS: IPRATROPIUM BROMIDE HFA INHALER INH SCH ×4 (07:34→19:22)
[2022-05-12] MEDS: ALBUTEROL HFA 8 GM INHALER INH SCH ×4 (07:35→19:22)
[2022-05-12] MEDS: NICOTINE 7 MG/24 HR TDSY TD SCH (08:42)
[2022-05-12] MEDS: LANTUS PER UNIT CHARGE SQ SCH ×2 (08:46→20:35)
[2022-05-12] MEDS: METOPROLOL TARTRATE 50 MG TAB PO SCH ×2 (08:46→20:40)
[2022-05-12] MEDS: INSULIN ASPART PER UNIT SC SCH ×4 (08:46→20:35)
[2022-05-12] MEDS: PANTOprazole 40 MG TAB PO SCH (08:47)
[2022-05-12] MEDS: CLOPIDOGREL BISULFATE 75 MG TAB PO SCH (08:47)
[2022-05-12] MEDS: guaiFENesin 600 MG TABCR PO SCH ×2 (08:47→20:40)
[2022-05-12] MEDS: ASPIRIN 81 MG ECTAB PO SCH (08:47)
--- NOTE | 2022-05-12 13:01 | Hospitalist Progress Note ---
Date of Service May 12, 2022 Assessment & Plan (1) Bradycardia: Plan: Due to 2nd degree AV block, 2:1, in the setting of chronic beta ulises use. s/p permanent pacemaker placement by Dr Holley this am. Hemostasis has been achieved at the site after some oozing yesterday Pacemaker is working well Appreciate Dr Holley's assistance. CXR in am. (2) Acute diastolic HF (heart failure): Plan: 2nd to #1 improved defer further diuresis to cardiology (3) COPD (chronic obstructive pulmonary disease): Plan: pt reports numerous infectious symptoms - myalgias, nausea, cough, etc cxr obtained - no pneumonia Biofire resp panel fully negative cont bronchodilators, mucinex cont home meds cont NC O2 (4) Hypertension: Plan: BP 105/64 continue home meds (5) S/P aortic valve replacement: Plan: bioprosthetic AV 2021 - echo with normal functioning and well-seated AV has fairly loud systolic murmur in expected location of AV -- checked limited echo to reassess AVR function showed increase in gradient cardiology aware (6) Coronary artery disease: Plan: LCx PATT August 2007 patent stent in December 2014 no evidence of ACS cont aspirin, BB cont plavix cont zetia cont simvastatin 80mg daily (7) GERD (gastroesophageal reflux disease): Plan: cont PPI (8) Hyperlipidemia: Plan: cont zetia + simvastatin (9) Diabetes mellitus with complication: Plan: a1c <7% cont lantus cont novolog adjust insulins as needed (10) Carotid arterial disease: Plan: 2014 - CEA cont asa, plavix, etc (11) Peripheral arterial disease: Plan: right common femoral endarterectomy, November 2021 normal distal pulses in legs cont asa, plavix, statin, etc (12) MARY (acute kidney injury): Plan: resolved repeat BMP am due to diuresis (13) DVT prophylaxis: Plan: heparin 5000 TID (14) Tobacco dependence: Plan: nicoderm 7mg daily (15) Myalgia: Plan: extensive w/u for infectious process while here - ua wnl, urine cx neg, cxr w/o pneumonia, biofire resp panel neg obtained blood cx's x 2 sets today along with sed rate/crp (see # 5 above) could check a CPK in am to be complete Plan d/c when ok by cardiology Admission and Anticipated Discharge Date Admission Date: May 07, 2022 Subjective patient seen and examined, she is post pacemaker insertion, no more blood oozing from the site Review of Systems Review of Systems: All systems reviewed are negative, apart from the ones contained in the history. Physical Exam Physical Exam: The patient is awake, alert and oriented 3, well developed and well nourished, normocephalic and atraumatic, lying in bed and in no acute distress. HEENT--PERRL, EOMI, mucous membranes and oropharynx mildly dry Neck--supple. No JVD. No bruits. Thyroid normal, trachea midline, no adenopathy. Heart--normal S1 and S2. No murmurs, rubs or gallops. Lungs--clear bilaterally, no respiratory distress, no accessory muscle use. Abdomen--normal bowel sounds and soft. Mild epigastric and left sided abdominal pain Extremities--no cyanosis or clubbing. No edema. Dermatologic--normal skin turgor, normal color, no abnormal lymph nodes, no rash. Neurologic--cranial nerves II through XII grossly intact. Rheumatologic--normal range of motion. Psychiatric--normal affect. Results & Data Results & Data ([facility]) Vital Signs (Past 12 Hours) Vital Signs Temp Pulse Pulse Resp BP BP Pulse Ox 05/12/22 11:40 98.1 F 70 18 105/64 95 05/12/22 10:54 96 H 14 64 L 05/12/22 09:53 92 05/12/22 09:27 05/12/22 07:52 77 05/12/22 07:42 98.2 F 82 20 130/74 93 05/12/22 07:35 89 12 94 05/12/22 03:00 99.3 F 71 18 123/65 92 O2 Del Method O2 Flow Rate FiO2 05/12/22 11:40 Nasal Cannula 2 05/12/22 10:54 Room Air 21 05/12/22 09:53 Nasal Cannula 1 05/12/22 09:27 Nasal Cannula 1 05/12/22 07:52 05/12/22 07:42 Nasal Cannula 2 05/12/22 07:35 Nasal Cannula 1.5 05/12/22 03:00 Nasal Cannula 2 PG Care Time/CCT Total # of Minutes Spent Total Time Spent with Patient: Total time spent is greater than 50% in coordination of care (as documented) at patient's floor/unit and/or counseling patient: Coding Level of Care Code 72945 SUB INP/OBS CARE 2/35MIN Diagnoses Bradycardia R00.1 Acute diastolic HF (heart failure) I50.31 COPD (chronic obstructive pulmonary disease) J44.9 Hypertension I10 S/P aortic valve replacement Z95.2 Coronary artery disease I25.10 GERD (gastroesophageal reflux disease) K21.9 Hyperlipidemia E78.5 Diabetes mellitus with complication E11.8 Carotid arterial disease I77.9 Peripheral arterial disease I73.9 MARY (acute kidney injury) N17.9 DVT prophylaxis Z29.9 Tobacco dependence F17.200 Myalgia M79.10 Time Spent (min) 35
[2022-05-12] MEDS: FLUTICASONE FUROATE 100MCG 14 PUFFS/INHALER INH SCH (13:18)
[2022-05-12] MEDS: UMECLIDINIUM/VILANTEROL 62.5/25MCG 7 PUFFS/INHALER INH SCH (13:18)
--- NOTE | 2022-05-12 15:17 | Cardiology Progress Note ---
Date of Service May 12, 2022 Assessment & Plan (1) Status post placement of cardiac pacemaker: Plan 1. Postop day #2: She had some oozing from the implant site yesterday, that resolved by evening and has not recurred. Her hemoglobin has not dropped therefore I do not believe she had significant blood loss. The site looks good and she feels well. She is stable for discharge from my standpoint. I will arrange device follow-up. Admission and Anticipated Discharge Date Admission Date: May 07, 2022 Subjective She is feeling better today, less incisional discomfort. No incisional bleeding since yesterday afternoon. Physical Exam Physical Exam: The incision is now clean and dry with no bleeding on the dressing from yesterday evening. No swelling, no erythema and minimal tenderness. Expected ecchymosis. Results & Data ([facility]) Vital Signs (Past 12 Hours) Vital Signs Temp Pulse Pulse Pulse Resp BP Pulse Ox 05/12/22 15:10 67 14 98 05/12/22 11:40 36.7 C 70 18 105/64 95 05/12/22 10:54 96 H 14 64 L 05/12/22 09:53 92 05/12/22 09:27 05/12/22 07:52 77 05/12/22 07:42 36.8 C 82 20 130/74 93 05/12/22 07:35 89 12 94 O2 Del Method O2 Flow Rate FiO2 05/12/22 15:10 Nasal Cannula 1.5 05/12/22 11:40 Nasal Cannula 2 05/12/22 10:54 Room Air 21 05/12/22 09:53 Nasal Cannula 1 05/12/22 09:27 Nasal Cannula 1 05/12/22 07:52 05/12/22 07:42 Nasal Cannula 2 05/12/22 07:35 Nasal Cannula 1.5 Laboratory Results CBC 05/12/22 Range/Units 06:19 WBC 4.42 L (4.8-10.8) K/ul RBC 3.24 L (4.20-5.40) M/uL Hgb 9.7 L (12.0-16.0) g/dl Hct 29.6 L (37.0-47.0) % Plt Count 210 (130-400) K/uL Comprehensive Metabolic Panel 05/12/22 Range/Units 12:06 Glucose 297 H (70-99(Fasting)) mg/dl Intake and Output 05/12/22 05/12/22 05/12/22 06:59 14:59 22:59 Intake Total 120 / 220 275 / 275 Balance 120 / 120 275 / 275 Intake: Oral 120 / 220 275 / 275 Other: Weight 96.9 kg Diagnostic Findings Telemetry: Normal pacemaker function PG Care Time/CCT Total # of Minutes Spent Total Time Spent with Patient: Total time spent is greater than 50% in coordination of care (as documented) at patient's floor/unit and/or counseling patient: Coding Level of Care Code 23594 Post Operative Follow-Up Diagnoses Status post placement of cardiac pacemaker Z95.0
[2022-05-12] MEDS: SIMVASTATIN 80 MG TAB PO SCH (20:39)
[2022-05-12] MEDS: MELATONIN 3 MG TAB PO SCH (20:40)
[2022-05-12] MEDS: EZETIMIBE 10 MG TABLET PO SCH (20:40)
[2022-05-13] MEDS: HEPARIN SOD 5,000 UNIT/0.5 ML VIAL SQ SCH (05:44)
[2022-05-13 06:46] LABS: Hematocrit (blood only) 28.9 % (37.0-47.0); Hemoglobin 9.5 g/dl (12.0-16.0); Mean Corpuscular Hemoglobin 29.6 pg (25.0-34.0); Mean Corpuscular Hgb Conc 32.9 g/dL (32.0-36.0); Mean Platelet Volume 10.4 fL (9.4-12.4); Platelet Count 205 K/uL (130-400); RDW Coefficient of Variation 14.4 % (11.5-14.5); Red Blood Count 3.21 M/uL (4.20-5.40); White Blood Count 4.61 K/ul (4.8-10.8)
[2022-05-13] MEDS: ALBUTEROL HFA 8 GM INHALER INH SCH ×2 (07:04→11:23)
[2022-05-13] MEDS: IPRATROPIUM BROMIDE HFA INHALER INH SCH ×2 (07:05→11:23)
[2022-05-13] MEDS: NICOTINE 7 MG/24 HR TDSY TD SCH (08:28)
[2022-05-13] MEDS: INSULIN ASPART PER UNIT SC SCH ×2 (08:32→12:24)
[2022-05-13] MEDS: LANTUS PER UNIT CHARGE SQ SCH (08:32)
[2022-05-13] MEDS: CLOPIDOGREL BISULFATE 75 MG TAB PO SCH (08:33)
[2022-05-13] MEDS: METOPROLOL TARTRATE 50 MG TAB PO SCH (08:33)
[2022-05-13] MEDS: guaiFENesin 600 MG TABCR PO SCH (08:33)
[2022-05-13] MEDS: ASPIRIN 81 MG ECTAB PO SCH (08:33)
[2022-05-13] MEDS: PANTOprazole 40 MG TAB PO SCH (08:33)
--- NOTE | 2022-05-13 09:16 | Cardiology Progress Note ---
Date of Service May 13, 2022 Assessment & Plan (1) Status post placement of cardiac pacemaker: Plan 1. Postop day #3: Surgically she is doing well and does not need to remain in the hospital for that. I would prefer to keep the dressing on and dry until discharge although it could be removed at any time now and the incision left open to air. I will arrange follow-up in the office for pacer evaluation in 1 month. Admission and Anticipated Discharge Date Admission Date: May 07, 2022 Subjective She is feeling better today than before, no incisional discomfort, feeling stronger in general Physical Exam Physical Exam: I did not remove the dressing but there is no blood on it. Results & Data ([facility]) Vital Signs (Past 12 Hours) Vital Signs Temp Pulse Pulse Resp BP BP Pulse Ox 05/13/22 07:20 36.5 C 70 18 101/65 93 05/13/22 07:18 67 05/13/22 07:06 82 18 95 05/13/22 03:12 37.3 C 60 20 130/75 95 05/12/22 23:18 73 05/12/22 23:13 37.2 C 66 20 120/70 93 O2 Del Method O2 Flow Rate 05/13/22 07:20 Room Air 05/13/22 07:18 05/13/22 07:06 Nasal Cannula 1 05/13/22 03:12 Nasal Cannula 1 05/12/22 23:18 05/12/22 23:13 Nasal Cannula 1 Laboratory Results CBC 05/13/22 Range/Units 05:34 WBC 4.61 L (4.8-10.8) K/ul RBC 3.21 L (4.20-5.40) M/uL Hgb 9.5 L (12.0-16.0) g/dl Hct 28.9 L (37.0-47.0) % Plt Count 205 (130-400) K/uL Comprehensive Metabolic Panel 05/12/22 Range/Units 12:06 Glucose 297 H (70-99(Fasting)) mg/dl Intake and Output 05/12/22 05/13/22 05/13/22 22:59 06:59 14:59 Intake Total 375 / 800 150 / 800 Output Total 550 / 1600 1050 / 1600 Balance -175 / -800 -900 / -800 Intake: Oral 375 / 800 150 / 800 Output: Urine 550 / 1600 1050 / 1600 Other: Weight 96.1 kg Weight Measurement Method Built in [facility] PG Care Time/CCT Total # of Minutes Spent Total Time Spent with Patient: Total time spent is greater than 50% in coordination of care (as documented) at patient's floor/unit and/or counseling patient: Coding Level of Care Code None Diagnoses Status post placement of cardiac pacemaker Z95.0
[2022-05-13] MEDS: FLUTICASONE FUROATE 100MCG 14 PUFFS/INHALER INH SCH (12:20)
[2022-05-13] MEDS: UMECLIDINIUM/VILANTEROL 62.5/25MCG 7 PUFFS/INHALER INH SCH (12:20)
--- NOTE | 2022-05-13 13:16 | Discharge Summary ---
Date of Service May 13, 2022 Admission HPI Per Admitting Provider Shea is a 66-year-old female with past medical history of COPD, CAD with history of PCI, hypertension, GERD, DM, hyperlipidemia, AVR who presented with shortness of breath worsening over the last week and orthopnea. Has felt sick for week. stomaches, only eating broth and soups. Did have a few days of diarrhea. No vomiting. No fever, no chills or sweats. +myalgias for 2-3 days. No diarrhea today. No chest pain, no chest pressure +orthopnea and shortness of breath x4 days. Sleeping sitting up because she can't breath laying flat no syncope of presyncope No over the counter medication changes this week. Did take bumex today ASA/Plaavix Trelegy inhaler --> COPD. Works well. +wheezing in the last week. Medical History: Reviewed Medications: Reviewed Family history: Reviewed Surgical History: Reviewed Allergies: Reviewed Social History: +1ppw tobacco use. No alcohol. Code Status:Full Code Principal Diagnosis bradycardia s/p pacemaker Discharge Exam The patient is awake, alert and oriented 3, well developed and well nourished, normocephalic and atraumatic, lying in bed and in no acute distress. HEENT--PERRL, EOMI, mucous membranes and oropharynx mildly dry Neck--supple. No JVD. No bruits. Thyroid normal, trachea midline, no adenopathy. Heart--normal S1 and S2. No murmurs, rubs or gallops. Lungs--clear bilaterally, no respiratory distress, no accessory muscle use. Abdomen--normal bowel sounds and soft. Mild epigastric and left sided abdominal pain Extremities--no cyanosis or clubbing. No edema. Dermatologic--normal skin turgor, normal color, no abnormal lymph nodes, no rash. Neurologic--cranial nerves II through XII grossly intact. Rheumatologic--normal range of motion. Psychiatric--normal affect. Discharge Data Allergies Allergy/AdvReac Type Severity Reaction Status Date / Time No Known Allergies Allergy Verified 05/07/22 10:25 Consultations 05/07/22 12:39 ED Decision to Admit Stat 05/07/22 15:04 Consult Cardiology Routine Procedures Performed Operation Date: 05/10/22 09:00 Actual Procedures p Pacer with A/V Leads (Dual) - Claudio Holley MD Ordered Studies 05/10/22 06:45 EP Lab Images for PACS ONCE Hospital Course (1) Bradycardia: Due to 2nd degree AV block, 2:1, in the setting of chronic beta ulises use. s/p permanent pacemaker placement by Dr Holley this am. Hemostasis has been achieved at the site after some oozing yesterday Pacemaker is working well Appreciate Dr Holley's assistance. (2) Acute diastolic HF (heart failure): 2nd to #1 improved defer further diuresis to cardiology (3) COPD (chronic obstructive pulmonary disease): pt reports numerous infectious symptoms - myalgias, nausea, cough, etc cxr obtained - no pneumonia Biofire resp panel fully negative cont bronchodilators, mucinex cont home meds cont NC O2 (4) Hypertension: BP 105/64 continue home meds (5) S/P aortic valve replacement: bioprosthetic AV 2021 - echo with normal functioning and well-seated AV has fairly loud systolic murmur in expected location of AV -- checked limited echo to reassess AVR function showed increase in gradient cardiology aware (6) Coronary artery disease: LCx PTAT August 2007 patent stent in December 2014 no evidence of ACS cont aspirin, BB cont plavix cont zetia cont simvastatin 80mg daily (7) GERD (gastroesophageal reflux disease): cont PPI (8) Hyperlipidemia: cont zetia + simvastatin (9) Diabetes mellitus with complication: a1c <7% cont lantus cont novolog adjust insulins as needed (10) Carotid arterial disease: 2014 - CEA cont asa, plavix, etc (11) Peripheral arterial disease: right common femoral endarterectomy, November 2021 normal distal pulses in legs cont asa, plavix, statin, etc (12) MARY (acute kidney injury): resolved repeat BMP am due to diuresis (13) DVT prophylaxis: heparin 5000 TID (14) Tobacco dependence: nicoderm 7mg daily (15) Myalgia: extensive w/u for infectious process while here - ua wnl, urine cx neg, cxr w/o pneumonia, biofire resp panel neg obtained blood cx's x 2 sets today along with sed rate/crp (see # 5 above) could check a CPK in am to be complete Plan d/c home, follow up with cardiology Total Time Total Time Spent Total Time Spent (In Minutes): 35 Discharge Plan Discharge Items Patient Disposition: Home - Self-Care Reason For Visit: SX BRADYCARDIA, ACUTE CHF Discharge Diagnosis: Bradycardia s/p pacemaker Activity: Resume your previous activity Non-emergency contact: Primary Care Provider and [employer] Tender Call non-emergency contact if: you have any medication questions Follow-up/Referrals: Claudio Holley MD [Physician] - 05/24/22 11:00 am (will be seen by Steffen Mead PA-C ) Domonique Henderson DO [Primary Care Provider] - 05/24/22 9:20 am (With Dr. Henderson) Diet: Regular Addtl Attending Provider Instructions: ACTIVITY RECOMMENDATIONS: * Do not raise affected arm over head for 2 weeks. SPECIAL CARE INSTRUCTIONS: * If bleeding occurs, apply direct pressure to area for 5 minutes. * Call your doctor if you have severe pain, fever, drainage or bleeding at site. * Keep dressing on and dry for 48 hours then remove. * Keep any scheduled doctor's appointment. * Implant Card - hand held device with website information given. SKIN IRRITATION: * You may experience some redness and/or swelling in the area where radiation was administered. If any skin irritation occurs, please contact your family physician. FOLLOW UP VISIT: Keep any scheduled doctor appointments. Pending Studies at Discharge: No Stand-Alone Forms: [facility] [place] [employer], Smoking Cessation Medications and DC Order Prescriptions: Continued insulin aspart U-100 [Novolog U-100 Insulin aspart] 100 unit/mL solution See Rx Instructions subcut .COMPLEX Qty: 60 5RF Rx Instructions: 14 units TID increase 2 units based on Blood sugar reading MAX dose of 22 units tid subcut; Levemir U-100 Insulin 100 unit/mL solution 50 unit subcut QPM Qty: 45 3RF (DME) pen needle, diabetic [BD Ultra-Fine Mini Pen Needle] 31 gauge x 3/16" needle See Rx Instructions .Route Qty: 100 3RF Rx Instructions: As directed 3 times a day with insulin simvastatin 80 mg tablet 80 mg PO QPM Qty: 90 1RF pantoprazole 20 mg tablet,delayed release (DR/EC) 20 mg PO QAM Qty: 90 1RF clopidogrel 75 mg tablet 75 mg PO QAM Qty: 90 1RF gabapentin 400 mg capsule 400 mg PO TID Qty: 90 5RF (DME) blood pressure monitor Kit See Rx Instructions .Route Qty: 1 0RF Rx Instructions: As directed metoprolol tartrate 50 mg tablet 50 mg PO BID Qty: 180 1RF ezetimibe 10 mg tablet 10 mg PO HS Qty: 90 1RF famotidine [Pepcid] 40 mg tablet 40 mg PO HS Qty: 90 1RF Rx Instructions: 40 mg PO HS and PRN QAM; potassium chloride 10 mEq tablet,ER particles/crystals 10 meq PO QAM Qty: 90 1RF lisinopril 40 mg tablet 40 mg PO HS Qty: 90 1RF bumetanide 0.5 mg tablet 0.5 mg PO QAM Qty: 90 1RF metformin 1,000 mg tablet 1,000 mg PO BID Qty: 180 3RF dulaglutide 1.5 mg/0.5 mL pen injector 1.5 mg subcut WK Qty: 6 1RF Patient Comments: takes on sundays Trelegy Ellipta 100-62.5-25 mcg blister with device 1 inh inhalation QDL 90 Days Qty: 60 1RF aspirin [Adult Low Dose Aspirin] 81 mg tablet,delayed release (DR/EC) 81 mg PO QAM cholecalciferol (vitamin D3) 50 mcg (2,000 unit) capsule 50 mcg PO QAM nystatin 100,000 unit/gram cream 1 applic topical TID PRN Rx Instructions: until area healed multivitamin [Multiple Vitamins] Tablet 1 tab PO QAM nitroglycerin [Nitrostat] 0.4 mg tablet, sublingual 0.4 mg sublingual .COMPLEX PRN (Reason: Chest Pain) Qty: 20 3RF Rx Instructions: 1 SL AT THE ONSET OF CHEST PAIN.MAY REPEAT EVERY 5 MIN FOR A TOTAL OF THREE DOSES PRN; do not exceed 3 doses per episode nystatin 100,000 unit/gram powder 1 applic topical TID PRN (Reason: yeast infection) Qty: 60 3RF Discharge Orders: Discharge Order (Routine); Ordered 05/13/22 Ordered By: Jayla Junior Admission Data Admit Date/Time: 05/07/22 13:21 Attending Provider: Jayla Junior Admit Provider: Dash Cole Primary Care Provider: Domonique Henderson Other Providers: Dash Cole ; Keagan Espinal Other Interventions: Discharge Summary Assessment (RN) Last Done: 05/13/22 12:32 Coding Level of Care Code 43999 INP/OBS DISCH >30 MIN Diagnoses Bradycardia R00.1 Acute diastolic HF (heart failure) I50.31 COPD (chronic obstructive pulmonary disease) J44.9 Hypertension I10 S/P aortic valve replacement Z95.2 Coronary artery disease I25.10 GERD (gastroesophageal reflux disease) K21.9 Hyperlipidemia E78.5 Diabetes mellitus with complication E11.8 Carotid arterial disease I77.9 Peripheral arterial disease I73.9 MARY (acute kidney injury) N17.9 DVT prophylaxis Z29.9 Tobacco dependence F17.200 Myalgia M79.10 Time Spent (min) 35
== END 2022-05-13 14:18 | disposition home or self-care (01) | DRG 242 ==
LOC: ED 11:43 → SUATTDRO 13:21 → EDINP 13:21 → 2S 14:55

== ENCOUNTER 2022-05-14 19:52 | Inpatient (IN) ==
[2022-05-14] MEDS ORDERED: ACETAMINOPHEN 1,000 MG/100 ML VIAL IV STA (19:57)
[2022-05-14] MEDS ORDERED: CEFEPIME 2,000 MG/20 ML VIAL IV STA (19:57)
[2022-05-14] MEDS ORDERED: MIDAZOLAM BOLUS FROM BAG IV PRN (20:01)
[2022-05-14] MEDS ORDERED: MIDAZOLAM HCL 1 MG/ML 2ML VIAL IV STA (20:01)
[2022-05-14] MEDS ORDERED: fentaNYL BOLUS from BAG IV PRN (20:01)
[2022-05-14] MEDS ORDERED: STAT IV Infusion **Titration per Protocol STA ×2 (20:01→22:23)
[2022-05-14] MEDS ORDERED: fentaNYL citrate PF 100 MCG/2 ML VIAL IV STA (20:01)
--- NOTE | 2022-05-14 20:11 | Emergency Department Note ---
Impression & Plan Acute hypoxemic respiratory failure, MARY (acute kidney injury), Acute non-ST elevation myocardial infarction (NSTEMI), Sepsis ED Provider Note NAME: SHANA WARD AGE: 66 SEX: F : 1955 ARRIVES VIA: Ambulance INFORMANT: Patient, ED PROVIDER(S): Franky Browne MD CHIEF COMPLAINT: Respiratory distress MEDICAL DECISION MAKING: Patient did present due to concern for respiratory distress. The patient was intubated in the field and I did give the order for the patient to receive etomidate in order to do so. The patient did have coarse breath sounds. The patient did have blood work completed sepsis protocols antibiotics MRSA swab bio fire panel chest x-ray and CT of the head. Cancino was placed. The patient was noted to be febrile and was ordered Ofirmev. Patient was ordered IV fluids judiciously initially at 500 cc. Patient was ordered an additional 500 cc bolus. Patient's initial ABG showed a pH of 7.1 PCO2 49. I did asked respiratory to increase the rate if she had mild hypercarbia and associated acidosis. Patient's blood work shows white count of 11.1 with a hemoglobin of 10. Platelet count 132. The patient's kidney function does show acute MARY. Patient likely does have a UTI. The patient was already covered with broad-spectrum antibiotics vancomycin was added. Flagyl also added for anaerobic coverage. Procalcitonin of 30. CK of 1100. Patient's troponin is 15,000. EKG shows paced rhythm does show some ST depressions in the lateral leads but not acute STEMI at this time. Patient's blood pressure has been intermittently soft and may be due to a possible sepsis component. The patient was given a total of 1500 cc of IV fluids and out of 30 cc/kg given the possible concern for concomitant CHF but the patient was given the fluids in light given that the patient is intubated and intermittently hypotensive. The patient's hypotension did seem to improve with decreasing the patient's sedation as every time that this did occur the patient's maps would improve and the patient's systolic would be 110 or 120. I did speak with the on-call hospitalist service Dr. Beltran to [place]. I did speak with the resident as well. I also did speak with the intensive care unit at [facility]. The patient was admitted to the intensive care unit. CT of the head was negative. Patient's repeat ABG showed slightly improved pH of 7.2 PCO2 of 40. Respiratory did decrease the patient's oxygen and PEEP as well as the respiratory rate. Additional treatments and imaging deferred to the inpatient team at this time. Critical Care: I have personally spent 120 minutes of critical care time in direct management of this patient. This includes bedside care, interpretation of diagnostic studies, and testing, discussion with consultants, patient, and family members, and other require inpatient management activities. This 120 minutes is in excess of all separately billable procedures. Prior /Outside records reviewed: I did review the patient's most recent discharge summary from yesterday. The patient does have a known history of COPD CAD history of PCI hypertension GERD diabetes hyperlipidemia AVR had presented with shortness of breath. Patient had placed a permanent pacemaker with Dr. Gallo on May 10. Differential diagnosis: Respiratory arrest, hypertensive urgency, sepsis, reactive airway disease, pneumonia, pneumothorax, COPD, CHF, infections, cardiac ischemia, pulmonary embolism, musculoskeletal, gastrointestinal, as well as other pathologies. Diagnostics, as interpreted by me: ECG: The patient rhythm, rate of 106, wide QRS left bundle branch block pattern, slight depressions in the lateral leads. Repeat EKG interpreted by me a sensed V paced rhythm, rate of 106, wide QRS, ST depressions in the lateral leads no ST elevations. No obvious STEMI. Cardiac monitoring: An order was placed for continuous cardiac monitoring. The monitor shows a rate of 95 with paced rhythm. Patient was placed on pulse oximetry Medical decision rules: None Imaging studies: See below HPI: History is limited. I did receive a command call requesting medication to intubate as the patient was minimally responsive upon presentation. The patient's oxygen saturations were 88% but had a normal heart rate and blood pressure. Patient reportedly did have a pacemaker that was placed earlier in the week. No reported vomiting but they did notice that there was foaming at the mouth. No reported falls or trauma. Patient was found on a couch. Additional history was obtained from the daughter states that they did called several times today without any answer that had called the neighbor to go check on her and found her Distress. EMS was subsequently called. PAST MEDICAL HISTORY: See Below PAST SURGICAL HISTORY: See Below SOCIAL HISTORY: See Below HOME MEDICATIONS: See Below ALLERGIES: See Below VITALS: See Below PHYSICAL EXAMINATION: GENERAL: Endotracheal tube in place, severe distress, ill in appearance. EYE EXAM: Normal conjunctiva. PERRL, no anisocoria and EOM's grossly intact w/o pain. NECK: Supple, no nuchal rigidity, no adenopathy, non-tender. No signs of meningismus. FROM of the neck with good chin to chest and neck extension. No stridor. Chest: Slight ecchymosis near pacemaker site. LUNGS: Coarse sounds throughout. HEART: NSR, no MRG. ABDOMEN: Abdomen soft, non-tender, normo-active bowel sounds, no masses, no rebound or guarding. BACK: No CVA TTP. SKIN: No rashes and no bruising. UPPER EXTREMITIES: Upper extremities are grossly normal. LOWER EXTREMITIES: Grossly normal, no edema. NEURO EXAM: GCS 3 T, gag intact. Pupils equally round and reactive. Past Med/Surg History Medical History Bacteremia Carotid arterial disease R carotid endarterectomy 2014 Complicated UTI (urinary tract infection) COPD (chronic obstructive pulmonary disease) controlled, stable per pt-denies rescue inhaler use Coronary artery disease s/p 1 stent Diabetes mellitus with complication IDDM Diabetic ketoacidosis Diabetic neuropathy GERD (gastroesophageal reflux disease) controlled, stable per pt History of anesthesia reaction difficulty waking History of femoral angiogram (~09/29/21) right lower extremity angiogram @ [facility] Dr. 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 Espinal S/P carotid endarterectomy (2014) R S/P section x 2 S/P coronary artery stent placement 1 placed S/P hernia repair x 2 S/P peripheral artery angioplasty with stent placement (08/2017) angioplasty and stent R external iliac artery S/P total hysterectomy and bilateral salpingo-oophorectomy (1992) d/t endometriosis Family History Grandmother (Paternal) Breast cancer Family/Other Ovarian cancer Father Diabetes Heart disease Myocardial infarction Hypertension Mother Diabetes Heart disease Brother Diabetes Heart disease Hypertension Grandfather (Paternal) Family history of esophageal cancer Other No family history of adverse response to anesthesia Denies family history of Prostate cancer Colorectal cancer Social History Smoking Status: Current every day smoker Tobacco Type: Cigarettes Age Started Using Tobacco: 21; packs per day: 0.15; Cigarettes Per Day: 5 cigs a day-advised; Second Hand Exposure: No; Do You Dip or Chew Tobacco: No; Tobacco Cessation Education Requested by Patient: No Hx Alcohol Use: No Hx Substance Use: No Preferred Language: South Korean Communication Ability: Unable Visual Impairment: No Limitations Hearing Ability: Normal Aerospace Manager Required: No Beliefs That Will Affect Care: None marital status: Single Current Living Situation: Alone current occupational status: disabled How many Children do You have: 2 Other Information That Helps Us Care for You: No Feels Safe at Home: Yes Safety Concerns: Feels Safe At This Time Childhood Exposure to Second-Hand Smoke: Yes caffeine: Yes during the past year weight has: remained stable Dental Care, Regularly: Yes Physical Activity Frequency: Daily Physical Activity Frequency Comment: walks around house Seatbelt Use: always Sunscreen Use: Yes Assistive Devices: None Allergies Allergies Allergy/AdvReac Type Severity Reaction Status Date / Time No Known Allergies Allergy Verified 05/07/22 10:25 Home Meds Home Medications Medication Instructions Recorded Confirmed aspirin 81 mg tablet,delayed 81 mg PO QAM 10/19/19 05/07/22 release (Adult Low Dose Aspirin) multivitamin (Multiple Vitamins 1 tab PO QAM 07/02/21 05/07/22 tablet) cholecalciferol (vitamin D3) 50 50 mcg PO QAM 10/29/21 05/07/22 mcg (2,000 unit) capsule nystatin 100,000 unit/gram topical 1 applic topical TID PRN 05/07/22 cream Previous Rx's Medication Instructions Recorded insulin aspart U-100 100 unit/mL See Rx Instructions subcut 10/14/20 subcutaneous solution (Novolog .COMPLEX #60 mL U-100 Insulin aspart) insulin detemir U-100 100 unit/mL 50 unit (0.5 mL) subcut QPM #45 mL 02/25/21 subcutaneous solution (Levemir U-100 Insulin) pen needle, diabetic 31 gauge x #100 ea 05/29/21 3/16" (BD Ultra-Fine Mini Pen Needle) simvastatin 80 mg tablet 80 mg PO QPM #90 tabs 11/13/21 clopidogrel 75 mg tablet 75 mg PO QAM #90 tabs 11/30/21 pantoprazole 20 mg tablet,delayed 20 mg PO QAM #90 tabs 11/30/21 release gabapentin 400 mg capsule 400 mg PO TID #90 caps 12/04/21 blood pressure monitor #1 ea 12/08/21 metoprolol tartrate 50 mg tablet 50 mg PO BID #180 tabs 12/10/21 ezetimibe 10 mg tablet 10 mg PO HS #90 tabs 12/17/21 famotidine 40 mg tablet (Pepcid) 40 mg PO HS #90 tabs 12/17/21 nystatin 100,000 unit/gram topical 1 applic topical TID PRN yeast 12/23/21 powder infection #60 grams potassium chloride 10 mEq 10 meq PO QAM #90 tabs 01/08/22 tablet,extended release(part/cryst) nitroglycerin 0.4 mg sublingual 0.4 mg sublingual .COMPLEX PRN 01/14/22 tablet (Nitrostat) Chest Pain #20 tabs lisinopril 40 mg tablet 40 mg PO HS #90 tabs 01/27/22 bumetanide 0.5 mg tablet 0.5 mg PO QAM #90 tabs 02/03/22 dulaglutide 1.5 mg/0.5 mL 1.5 mg (0.5 mL) subcut WK #6 mL 02/22/22 subcutaneous pen injector metformin 1,000 mg tablet 1,000 mg PO BID #180 tabs 02/22/22 fluticasone fur. 100 mcg-umeclid 1 inh inhalation QDL 90 days #60 ea 04/12/22 62.5 mcg-vilant 25 mcg inhalat.powder (Trelegy Ellipta) Results & Data (ED) Vital Signs Vital Signs - 24 hr 05/14/22 19:55 05/14/22 20:14 05/14/22 20:18 Temperature 38.3 C H Temperature Source Axillary Pulse Rate 67 68 Pulse Rate [Right] Pulse Rhythm Irregular Pulse Rhythm [Right] Pulse Strength Normal Pulse Strength [Right] Respiratory Rate 16 Respiratory Effort / Characteristics Mechanically Ventilated Blood Pressure 142/63 H Blood Pressure [Right Arm] Blood Pressure Mean 89 Blood Pressure Mean [Right Arm] Blood Pressure Position Lying Blood Pressure Position [Right Arm] Pulse Oximetry 97 95 Oxygen Delivery Method Mechanical Vent Mechanical Vent Fraction of Inspired Oxygen Sepsis Recent Fever Within 48 Hours Yes Sepsis New/Unexplained Change in Mental Status Yes Sepsis Action Taken by Nursing Physician Notified End-Tidal CO2 End Tidal CO2 (18-54mmHg) 05/14/22 20:23 05/14/22 20:34 05/14/22 20:05 Temperature 40.1 C H 40.6 C H Temperature Source Cancino Cath ( Temp Sensing) Cancino Cath ( Temp Sensing) Pulse Rate Pulse Rate [Right] 106 H 93 H Pulse Rhythm Pulse Rhythm [Right] Regular Pulse Strength Pulse Strength [Right] Normal Respiratory Rate 16 16 Respiratory Effort / Characteristics Mechanically Ventilated Mechanically Ventilated Blood Pressure Blood Pressure [Right Arm] 94/56 L 88/65 L Blood Pressure Mean Blood Pressure Mean [Right Arm] 68 72 Blood Pressure Position Blood Pressure Position [Right Arm] Pulse Oximetry 97 95 97 Oxygen Delivery Method Mechanical Vent Mechanical Vent Fraction of Inspired Oxygen Sepsis Recent Fever Within 48 Hours Sepsis New/Unexplained Change in Mental Status Sepsis Action Taken by Nursing End-Tidal CO2 End Tidal CO2 (18-54mmHg) 36 32 05/14/22 20:43 05/14/22 20:44 05/14/22 20:51 Temperature 40.7 C H 40.6 C H Temperature Source Cancino Cath ( Temp Sensing) Cancino Cath ( Temp Sensing) Pulse Rate 107 H Pulse Rate [Right] 98 H 92 H Pulse Rhythm Pulse Rhythm [Right] Pulse Strength Pulse Strength [Right] Respiratory Rate 16 30 H 24 Respiratory Effort / Characteristics Mechanically Ventilated Mechanically Ventilated Blood Pressure Blood Pressure [Right Arm] 85/40 L 122/69 Blood Pressure Mean Blood Pressure Mean [Right Arm] 55 86 Blood Pressure Position Blood Pressure Position [Right Arm] Lying Pulse Oximetry 95 95 96 Oxygen Delivery Method Mechanical Vent Mechanical Vent Fraction of Inspired Oxygen 50 Sepsis Recent Fever Within 48 Hours Sepsis New/Unexplained Change in Mental Status Sepsis Action Taken by Nursing End-Tidal CO2 39 End Tidal CO2 (18-54mmHg) 05/14/22 21:18 05/14/22 21:22 05/14/22 21:34 Temperature 40.2 C H 40.1 C H 39.6 C H Temperature Source Cancino Cath ( Temp Sensing) Cancino Cath ( Temp Sensing) Temporal Artery Scan Pulse Rate Pulse Rate [Right] 67 109 H 100 H Pulse Rhythm Pulse Rhythm [Right] Regular Pulse Strength Pulse Strength [Right] Respiratory Rate 24 24 24 Respiratory Effort / Characteristics Mechanically Ventilated Mechanically Ventilated Mechanically Ventilated Blood Pressure Blood Pressure [Right Arm] 103/78 77/64 L 82/53 L Blood Pressure Mean Blood Pressure Mean [Right Arm] 86 68 62 Blood Pressure Position Blood Pressure Position [Right Arm] Lying Pulse Oximetry 96 97 98 Oxygen Delivery Method Mechanical Vent Mechanical Vent Mechanical Vent Fraction of Inspired Oxygen Sepsis Recent Fever Within 48 Hours Sepsis New/Unexplained Change in Mental Status Sepsis Action Taken by Nursing End-Tidal CO2 End Tidal CO2 (18-54mmHg) 29 05/14/22 21:49 05/14/22 22:02 05/14/22 22:10 Temperature 39.2 C H 38.9 C H 38.8 C H Temperature Source Cancino Cath ( Temp Sensing) Cacnino Cath ( Temp Sensing) Cnacino Cath ( Temp Sensing) Pulse Rate Pulse Rate [Right] 101 H 93 H 92 H Pulse Rhythm Pulse Rhythm [Right] Pulse Strength Pulse Strength [Right] Respiratory Rate 20 20 20 Respiratory Effort / Characteristics Mechanically Ventilated Mechanically Ventilated Mechanically Ventilated Blood Pressure Blood Pressure [Right Arm] 102/58 L 96/49 L 87/45 L Blood Pressure Mean Blood Pressure Mean [Right Arm] 72 64 59 Blood Pressure Position Blood Pressure Position [Right Arm] Lying Pulse Oximetry 98 98 100 Oxygen Delivery Method Mechanical Vent Mechanical Vent Mechanical Vent Fraction of Inspired Oxygen Sepsis Recent Fever Within 48 Hours Sepsis New/Unexplained Change in Mental Status Sepsis Action Taken by Nursing End-Tidal CO2 End Tidal CO2 (18-54mmHg) 29 28 Home Medications Current Medication List: was personally reviewed by me Laboratory Data Attestation: I reviewed the patient's lab results. 05/15/22 08:52 05/15/22 11:28 Lab Results 05/14/22 05/14/22 05/14/22 Range/Units 20:02 20:07 20:07 WBC 11.18 H (4.8-10.8) K/ul RBC 3.48 L (4.20-5.40) M/uL Hgb 10.4 L (12.0-16.0) g/dl POC Hgb (12.0-16.0) g/dl Hct 32.1 L (37.0-47.0) % POC Hct (37-47) % MCV 92.2 (80.0-100.0) fL MCH 29.9 (25.0-34.0) pg MCHC 32.4 (32.0-36.0) g/dL RDW Std Deviation 50.6 H (36.4-46.3) fL RDW Coeff of Jacinto 14.9 H (11.5-14.5) % Plt Count 132 (130-400) K/uL MPV 10.9 (9.4-12.4) fL Immature Gran % (Auto) 1.1 % Neut % (Auto) 77.8 % Lymph % (Auto) 13.0 % Saline % (Auto) 7.3 % Eos % (Auto) 0.4 % Baso % (Auto) 0.4 % Neut # (Auto) 8.71 H (1.40-6.50) K/uL Lymph # (Auto) 1.45 (1.2-3.4) K/uL Saline # (Auto) 0.82 H (0.11-0.59) K/uL Eos # (Auto) 0.04 (0-0.50) K/uL Baso # (Auto) 0.04 (0-0.2) K/uL Immature Gran # (Auto) 0.12 (0.01-0.20) K/uL Platelet Estimate Normal (Normal) Echinocytes 2+ Acanthocytes (Spur) 1+ PT 13.3 H (9.0-12.0) Seconds INR 1.3 H (0.9-1.1) APTT 47.3 H* (21.0-31.0) Seconds PTT Ratio 1.7 POC pH (7.35-7.45) POC pCO2 (35-46) mmHg POC pO2 (80-95) mmHg POC HCO3 (19-24) terese/L POC Total CO2 (24-31) mmol/L POC Base Excess (-9-1.8) terese/L POC ABG O2 Sat (90-95) % POC Sodium (135-144) mmol/L Sodium (136-145) mmol/L POC Potassium (3.3-5.0) mmol/L Potassium (3.5-5.1) mmol/L POC Chloride (101-112) mmol/L Chloride (98-107) mmol/L Carbon Dioxide (21-32) mmol/L Anion Gap (3-11) POC Anion Gap (16-25) mmol/L POC BUN (7-18) mg/dl BUN (6-23) mg/dl Creatinine (0.6-1.2) mg/dl POC Creatinine (0.6-1.3) mg/dl Est Cr Clr Drug Dosing ml/min Est GFR ( Amer) ml/min Est GFR (Non-Af Amer) ml/min BUN/Creatinine Ratio (10-20) Glucose (70-99(Fasting)) mg/dl POC Glucose (other) (70-99) mg/dl Lactate (0.4-2.0) mmol/L Calcium (8.5-10.1) mg/dl POC Ioniz Calcium Jean Marie (1.12-1.32) mmol/l Magnesium (1.7-2.4) mg/dl Total Bilirubin (0.2-1.0) mg/dl Direct Bilirubin (0-0.2) mg/dl AST (13-39) U/L ALT (7-52) U/L Alkaline Phosphatase (34-104) U/L Total Creatine Kinase (26-192) U/L Troponin I High Sens (0-14) pg/ml B-Natriuretic Peptide (0-100) pg/ml Total Protein (6.0-8.3) gm/dl Albumin (3.4-5.0) gm/dl Procalcitonin (0-0.5) ng/ml Urine Color Dark Yellow Urine Appearance Turbid A (Clear) Urine pH 5.0 (4.5-7.5) Ur Specific [place] 1.024 (1.000-1.030) Urine Protein 3+ H (Negative) Urine Glucose (UA) Negative (Negative) Urine Ketones 1+ H (Negative) Urine Blood 3+ H (Negative) Urine Nitrite Positive A (Negative) Urine Bilirubin 1+ H (Negative) Urine Urobilinogen Negative (Negative) Ur Leukocyte Esterase Trace H (Negative) Urine WBC (Auto) >30 H (0-5) /hpf Urine RBC (Auto) 5-10 H (0-4) /hpf U Hyaline Cast (Auto) 10-30 H (0-5) /lpf U Epithel Cells (Auto) >30 H (0-5) /lpf Urine Bacteria (Auto) Negative (Negative) Ur Renal Epithelial Cell Not Reportable Granular Casts 10-20 H (0) /lpf Urine Yeast Not Reportable Nasal Screen MRSA (PCR) (Negative) Adenovirus (PCR) (NotDetected) B. pertussis DNA (PCR) (NotDetected) B.parapertussis DNA PCR (NotDetected) C. pneumoniae DNA (PCR) (NotDetected) Coronavirus OC43 (PCR) (NotDetected) Coronavirus HKU1 (PCR) (NotDetected) Coronavirus 229E (PCR) (NotDetected) SARS-CoV-2 (PCR) (NotDetected) Coronavirus NL63 (PCR) (NotDetected) Human Metapneumovir PCR (NotDetected) Influenza Type A (PCR) (NotDetected) Influenza Type B (PCR) (NotDetected) M. pneumoniae (PCR) (NotDetected) Parainfluenza 1 (PCR) (NotDetected) Parainfluenza 2 (PCR) (NotDetected) Parainfluenza 3 (PCR) (NotDetected) Parainfluenza 4 (PCR) (NotDetected) RSV (PCR) (NotDetected) Entero/Rhino (PCR) (NotDetected) Staphylococcus sp PCR (NotDetected) Staph aureus (PCR) (NotDetected) mecA/C & MREJ Resist Gene (NotDetected) Bld Cult ID Panel PCR (NotDetected) 05/14/22 05/14/22 05/14/22 Range/Units 20:07 20:07 20:07 WBC (4.8-10.8) K/ul RBC (4.20-5.40) M/uL Hgb (12.0-16.0) g/dl POC Hgb (12.0-16.0) g/dl Hct (37.0-47.0) % POC Hct (37-47) % MCV (80.0-100.0) fL MCH (25.0-34.0) pg MCHC (32.0-36.0) g/dL RDW Std Deviation (36.4-46.3) fL RDW Coeff of Jacinto (11.5-14.5) % Plt Count (130-400) K/uL MPV (9.4-12.4) fL Immature Gran % (Auto) % Neut % (Auto) % Lymph % (Auto) % Saline % (Auto) % Eos % (Auto) % Baso % (Auto) % Neut # (Auto) (1.40-6.50) K/uL Lymph # (Auto) (1.2-3.4) K/uL Saline # (Auto) (0.11-0.59) K/uL Eos # (Auto) (0-0.50) K/uL Baso # (Auto) (0-0.2) K/uL Immature Gran # (Auto) (0.01-0.20) K/uL Platelet Estimate (Normal) Echinocytes Acanthocytes (Spur) PT (9.0-12.0) Seconds INR (0.9-1.1) APTT (21.0-31.0) Seconds PTT Ratio POC pH (7.35-7.45) POC pCO2 (35-46) mmHg POC pO2 (80-95) mmHg POC HCO3 (19-24) terese/L POC Total CO2 (24-31) mmol/L POC Base Excess (-9-1.8) terese/L POC ABG O2 Sat (90-95) % POC Sodium (135-144) mmol/L Sodium 138 (136-145) mmol/L POC Potassium (3.3-5.0) mmol/L Potassium 4.1 (3.5-5.1) mmol/L POC Chloride (101-112) mmol/L Chloride 108 H (98-107) mmol/L Carbon Dioxide 19 L (21-32) mmol/L Anion Gap 11 (3-11) POC Anion Gap (16-25) mmol/L POC BUN (7-18) mg/dl BUN 48 H (6-23) mg/dl Creatinine 2.48 H (0.6-1.2) mg/dl POC Creatinine (0.6-1.3) mg/dl Est Cr Clr Drug Dosing 25.8 ml/min Est GFR ( Amer) 22.8 ml/min Est GFR (Non-Af Amer) 19.7 ml/min BUN/Creatinine Ratio 19.4 (10-20) Glucose 257 H (70-99(Fasting)) mg/dl POC Glucose (other) (70-99) mg/dl Lactate 2.3 H* (0.4-2.0) mmol/L Calcium 8.2 L (8.5-10.1) mg/dl POC Ioniz Calcium Jean Marie (1.12-1.32) mmol/l Magnesium 1.6 L (1.7-2.4) mg/dl Total Bilirubin 1.2 H (0.2-1.0) mg/dl Direct Bilirubin 0.4 H (0-0.2) mg/dl AST 86 H (13-39) U/L ALT 34 (7-52) U/L Alkaline Phosphatase 62 (34-104) U/L Total Creatine Kinase 1194 H (26-192) U/L Troponin I High Sens 34488.5 H* (0-14) pg/ml B-Natriuretic Peptide (0-100) pg/ml Total Protein 6.8 (6.0-8.3) gm/dl Albumin 3.1 L (3.4-5.0) gm/dl Procalcitonin 30.70 H (0-0.5) ng/ml Urine Color Urine Appearance (Clear) Urine pH (4.5-7.5) Ur Specific [place] (1.000-1.030) Urine Protein (Negative) Urine Glucose (UA) (Negative) Urine Ketones (Negative) Urine Blood (Negative) Urine Nitrite (Negative) Urine Bilirubin (Negative) Urine Urobilinogen (Negative) Ur Leukocyte Esterase (Negative) Urine WBC (Auto) (0-5) /hpf Urine RBC (Auto) (0-4) /hpf U Hyaline Cast (Auto) (0-5) /lpf U Epithel Cells (Auto) (0-5) /lpf Urine Bacteria (Auto) (Negative) Ur Renal Epithelial Cell Granular Casts (0) /lpf Urine Yeast Nasal Screen MRSA (PCR) (Negative) Adenovirus (PCR) (NotDetected) B. pertussis DNA (PCR) (NotDetected) B.parapertussis DNA PCR (NotDetected) C. pneumoniae DNA (PCR) (NotDetected) Coronavirus OC43 (PCR) (NotDetected) Coronavirus HKU1 (PCR) (NotDetected) Coronavirus 229E (PCR) (NotDetected) SARS-CoV-2 (PCR) (NotDetected) Coronavirus NL63 (PCR) (NotDetected) Human Metapneumovir PCR (NotDetected) Influenza Type A (PCR) (NotDetected) Influenza Type B (PCR) (NotDetected) M. pneumoniae (PCR) (NotDetected) Parainfluenza 1 (PCR) (NotDetected) Parainfluenza 2 (PCR) (NotDetected) Parainfluenza 3 (PCR) (NotDetected) Parainfluenza 4 (PCR) (NotDetected) RSV (PCR) (NotDetected) Entero/Rhino (PCR) (NotDetected) Staphylococcus sp PCR (NotDetected) Staph aureus (PCR) (NotDetected) mecA/C & MREJ Resist Gene (NotDetected) Bld Cult ID Panel PCR (NotDetected) 05/14/22 05/14/22 05/14/22 Range/Units 20:07 20:08 20:09 WBC (4.8-10.8) K/ul RBC (4.20-5.40) M/uL Hgb (12.0-16.0) g/dl POC Hgb 10.5 L (12.0-16.0) g/dl Hct (37.0-47.0) % POC Hct 31 L (37-47) % MCV (80.0-100.0) fL MCH (25.0-34.0) pg MCHC (32.0-36.0) g/dL RDW Std Deviation (36.4-46.3) fL RDW Coeff of Jacinto (11.5-14.5) % Plt Count (130-400) K/uL MPV (9.4-12.4) fL Immature Gran % (Auto) % Neut % (Auto) % Lymph % (Auto) % Saline % (Auto) % Eos % (Auto) % Baso % (Auto) % Neut # (Auto) (1.40-6.50) K/uL Lymph # (Auto) (1.2-3.4) K/uL Saline # (Auto) (0.11-0.59) K/uL Eos # (Auto) (0-0.50) K/uL Baso # (Auto) (0-0.2) K/uL Immature Gran # (Auto) (0.01-0.20) K/uL Platelet Estimate (Normal) Echinocytes Acanthocytes (Spur) PT (9.0-12.0) Seconds INR (0.9-1.1) APTT (21.0-31.0) Seconds PTT Ratio POC pH 7.20 L (7.35-7.45) POC pCO2 50 H (35-46) mmHg POC pO2 83 (80-95) mmHg POC HCO3 19 (19-24) terese/L POC Total CO2 21 L (24-31) mmol/L POC Base Excess -9.0 (-9-1.8) terese/L POC ABG O2 Sat 93.0 (90-95) % POC Sodium 139 (135-144) mmol/L Sodium (136-145) mmol/L POC Potassium 4.1 (3.3-5.0) mmol/L Potassium (3.5-5.1) mmol/L POC Chloride (101-112) mmol/L Chloride (98-107) mmol/L Carbon Dioxide (21-32) mmol/L Anion Gap (3-11) POC Anion Gap (16-25) mmol/L POC BUN (7-18) mg/dl BUN (6-23) mg/dl Creatinine (0.6-1.2) mg/dl POC Creatinine (0.6-1.3) mg/dl Est Cr Clr Drug Dosing ml/min Est GFR ( Amer) ml/min Est GFR (Non-Af Amer) ml/min BUN/Creatinine Ratio (10-20) Glucose (70-99(Fasting)) mg/dl POC Glucose (other) (70-99) mg/dl Lactate (0.4-2.0) mmol/L Calcium (8.5-10.1) mg/dl POC Ioniz Calcium Jean Marie (1.12-1.32) mmol/l Magnesium (1.7-2.4) mg/dl Total Bilirubin (0.2-1.0) mg/dl Direct Bilirubin (0-0.2) mg/dl AST (13-39) U/L ALT (7-52) U/L Alkaline Phosphatase (34-104) U/L Total Creatine Kinase (26-192) U/L Troponin I High Sens (0-14) pg/ml B-Natriuretic Peptide 3521 H (0-100) pg/ml Total Protein (6.0-8.3) gm/dl Albumin (3.4-5.0) gm/dl Procalcitonin (0-0.5) ng/ml Urine Color Urine Appearance (Clear) Urine pH (4.5-7.5) Ur Specific [place] (1.000-1.030) Urine Protein (Negative) Urine Glucose (UA) (Negative) Urine Ketones (Negative) Urine Blood (Negative) Urine Nitrite (Negative) Urine Bilirubin (Negative) Urine Urobilinogen (Negative) Ur Leukocyte Esterase (Negative) Urine WBC (Auto) (0-5) /hpf Urine RBC (Auto) (0-4) /hpf U Hyaline Cast (Auto) (0-5) /lpf U Epithel Cells (Auto) (0-5) /lpf Urine Bacteria (Auto) (Negative) Ur Renal Epithelial Cell Granular Casts (0) /lpf Urine Yeast Nasal Screen MRSA (PCR) (Negative) Adenovirus (PCR) (NotDetected) B. pertussis DNA (PCR) (NotDetected) B.parapertussis DNA PCR (NotDetected) C. pneumoniae DNA (PCR) (NotDetected) Coronavirus OC43 (PCR) (NotDetected) Coronavirus HKU1 (PCR) (NotDetected) Coronavirus 229E (PCR) (NotDetected) SARS-CoV-2 (PCR) (NotDetected) Coronavirus NL63 (PCR) (NotDetected) Human Metapneumovir PCR (NotDetected) Influenza Type A (PCR) (NotDetected) Influenza Type B (PCR) (NotDetected) M. pneumoniae (PCR) (NotDetected) Parainfluenza 1 (PCR) (NotDetected) Parainfluenza 2 (PCR) (NotDetected) Parainfluenza 3 (PCR) (NotDetected) Parainfluenza 4 (PCR) (NotDetected) RSV (PCR) (NotDetected) Entero/Rhino (PCR) (NotDetected) Staphylococcus sp PCR DETECTED A (NotDetected) Staph aureus (PCR) DETECTED A (NotDetected) mecA/C & MREJ Resist Gene MRSA Not Detected (NotDetected) Bld Cult ID Panel PCR See PCR Comment (NotDetected) 05/14/22 05/14/22 05/14/22 Range/Units 20:19 20:24 20:24 WBC (4.8-10.8) K/ul RBC (4.20-5.40) M/uL Hgb (12.0-16.0) g/dl POC Hgb 11.2 L (12.0-16.0) g/dl Hct (37.0-47.0) % POC Hct 33 L (37-47) % MCV (80.0-100.0) fL MCH (25.0-34.0) pg MCHC (32.0-36.0) g/dL RDW Std Deviation (36.4-46.3) fL RDW Coeff of Jacinto (11.5-14.5) % Plt Count (130-400) K/uL MPV (9.4-12.4) fL Immature Gran % (Auto) % Neut % (Auto) % Lymph % (Auto) % Saline % (Auto) % Eos % (Auto) % Baso % (Auto) % Neut # (Auto) (1.40-6.50) K/uL Lymph # (Auto) (1.2-3.4) K/uL Saline # (Auto) (0.11-0.59) K/uL Eos # (Auto) (0-0.50) K/uL Baso # (Auto) (0-0.2) K/uL Immature Gran # (Auto) (0.01-0.20) K/uL Platelet Estimate (Normal) Echinocytes Acanthocytes (Spur) PT (9.0-12.0) Seconds INR (0.9-1.1) APTT (21.0-31.0) Seconds PTT Ratio POC pH (7.35-7.45) POC pCO2 (35-46) mmHg POC pO2 (80-95) mmHg POC HCO3 (19-24) terese/L POC Total CO2 20 L (24-31) mmol/L POC Base Excess (-9-1.8) terese/L POC ABG O2 Sat (90-95) % POC Sodium 140 (135-144) mmol/L Sodium (136-145) mmol/L POC Potassium 4.1 (3.3-5.0) mmol/L Potassium (3.5-5.1) mmol/L POC Chloride 108 (101-112) mmol/L Chloride (98-107) mmol/L Carbon Dioxide (21-32) mmol/L Anion Gap (3-11) POC Anion Gap 17.0 (16-25) mmol/L POC BUN 45 H (7-18) mg/dl BUN (6-23) mg/dl Creatinine (0.6-1.2) mg/dl POC Creatinine 2.7 H (0.6-1.3) mg/dl Est Cr Clr Drug Dosing ml/min Est GFR ( Amer) ml/min Est GFR (Non-Af Amer) ml/min BUN/Creatinine Ratio (10-20) Glucose (70-99(Fasting)) mg/dl POC Glucose (other) 248 H (70-99) mg/dl Lactate (0.4-2.0) mmol/L Calcium (8.5-10.1) mg/dl POC Ioniz Calcium Jean Marie 1.21 (1.12-1.32) mmol/l Magnesium (1.7-2.4) mg/dl Total Bilirubin (0.2-1.0) mg/dl Direct Bilirubin (0-0.2) mg/dl AST (13-39) U/L ALT (7-52) U/L Alkaline Phosphatase (34-104) U/L Total Creatine Kinase (26-192) U/L Troponin I High Sens (0-14) pg/ml B-Natriuretic Peptide (0-100) pg/ml Total Protein (6.0-8.3) gm/dl Albumin (3.4-5.0) gm/dl Procalcitonin (0-0.5) ng/ml Urine Color Urine Appearance (Clear) Urine pH (4.5-7.5) Ur Specific [place] (1.000-1.030) Urine Protein (Negative) Urine Glucose (UA) (Negative) Urine Ketones (Negative) Urine Blood (Negative) Urine Nitrite (Negative) Urine Bilirubin (Negative) Urine Urobilinogen (Negative) Ur Leukocyte Esterase (Negative) Urine WBC (Auto) (0-5) /hpf Urine RBC (Auto) (0-4) /hpf U Hyaline Cast (Auto) (0-5) /lpf U Epithel Cells (Auto) (0-5) /lpf Urine Bacteria (Auto) (Negative) Ur Renal Epithelial Cell Granular Casts (0) /lpf Urine Yeast Nasal Screen MRSA (PCR) Negative (Negative) Adenovirus (PCR) Not Detected (NotDetected) B. pertussis DNA (PCR) Not Detected (NotDetected) B.parapertussis DNA PCR Not Detected (NotDetected) C. pneumoniae DNA (PCR) Not Detected (NotDetected) Coronavirus OC43 (PCR) Not Detected (NotDetected) Coronavirus HKU1 (PCR) Not Detected (NotDetected) Coronavirus 229E (PCR) Not Detected (NotDetected) SARS-CoV-2 (PCR) Not Detected (NotDetected) Coronavirus NL63 (PCR) Not Detected (NotDetected) Human Metapneumovir PCR Not Detected (NotDetected) Influenza Type A (PCR) Not Detected (NotDetected) Influenza Type B (PCR) Not Detected (NotDetected) M. pneumoniae (PCR) Not Detected (NotDetected) Parainfluenza 1 (PCR) Not Detected (NotDetected) Parainfluenza 2 (PCR) Not Detected (NotDetected) Parainfluenza 3 (PCR) Not Detected (NotDetected) Parainfluenza 4 (PCR) Not Detected (NotDetected) RSV (PCR) Not Detected (NotDetected) Entero/Rhino (PCR) Not Detected (NotDetected) Staphylococcus sp PCR (NotDetected) Staph aureus (PCR) (NotDetected) mecA/C & MREJ Resist Gene (NotDetected) Bld Cult ID Panel PCR (NotDetected) 05/14/22 05/14/22 05/14/22 Range/Units 21:37 22:24 22:24 WBC (4.8-10.8) K/ul RBC (4.20-5.40) M/uL Hgb (12.0-16.0) g/dl POC Hgb 9.2 L (12.0-16.0) g/dl Hct (37.0-47.0) % POC Hct 27 L (37-47) % MCV (80.0-100.0) fL MCH (25.0-34.0) pg MCHC (32.0-36.0) g/dL RDW Std Deviation (36.4-46.3) fL RDW Coeff of Jacinto (11.5-14.5) % Plt Count (130-400) K/uL MPV (9.4-12.4) fL Immature Gran % (Auto) % Neut % (Auto) % Lymph % (Auto) % Saline % (Auto) % Eos % (Auto) % Baso % (Auto) % Neut # (Auto) (1.40-6.50) K/uL Lymph # (Auto) (1.2-3.4) K/uL Saline # (Auto) (0.11-0.59) K/uL Eos # (Auto) (0-0.50) K/uL Baso # (Auto) (0-0.2) K/uL Immature Gran # (Auto) (0.01-0.20) K/uL Platelet Estimate (Normal) Echinocytes Acanthocytes (Spur) PT (9.0-12.0) Seconds INR (0.9-1.1) APTT (21.0-31.0) Seconds PTT Ratio POC pH 7.26 L (7.35-7.45) POC pCO2 38 (35-46) mmHg POC pO2 133 H (80-95) mmHg POC HCO3 17 L (19-24) terese/L POC Total CO2 18 L (24-31) mmol/L POC Base Excess -10.0 L (-9-1.8) terese/L POC ABG O2 Sat 99.0 H (90-95) % POC Sodium 139 (135-144) mmol/L Sodium (136-145) mmol/L POC Potassium 3.4 (3.3-5.0) mmol/L Potassium (3.5-5.1) mmol/L POC Chloride (101-112) mmol/L Chloride (98-107) mmol/L Carbon Dioxide (21-32) mmol/L Anion Gap (3-11) POC Anion Gap (16-25) mmol/L POC BUN (7-18) mg/dl BUN (6-23) mg/dl Creatinine (0.6-1.2) mg/dl POC Creatinine (0.6-1.3) mg/dl Est Cr Clr Drug Dosing ml/min Est GFR ( Amer) ml/min Est GFR (Non-Af Amer) ml/min BUN/Creatinine Ratio (10-20) Glucose (70-99(Fasting)) mg/dl POC Glucose (other) (70-99) mg/dl Lactate 2.3 H* (0.4-2.0) mmol/L Calcium (8.5-10.1) mg/dl POC Ioniz Calcium Jean [place] (1.12-1.32) mmol/l Magnesium (1.7-2.4) mg/dl Total Bilirubin (0.2-1.0) mg/dl Direct Bilirubin (0-0.2) mg/dl AST (13-39) U/L ALT (7-52) U/L Alkaline Phosphatase (34-104) U/L Total Creatine Kinase (26-192) U/L Troponin I High Sens 52561.1 H* (0-14) pg/ml B-Natriuretic Peptide (0-100) pg/ml Total Protein (6.0-8.3) gm/dl Albumin (3.4-5.0) gm/dl Procalcitonin (0-0.5) ng/ml Urine Color Urine Appearance (Clear) Urine pH (4.5-7.5) Ur Specific [place] (1.000-1.030) Urine Protein (Negative) Urine Glucose (UA) (Negative) Urine Ketones (Negative) Urine Blood (Negative) Urine Nitrite (Negative) Urine Bilirubin (Negative) Urine Urobilinogen (Negative) Ur Leukocyte Esterase (Negative) Urine WBC (Auto) (0-5) /hpf Urine RBC (Auto) (0-4) /hpf U Hyaline Cast (Auto) (0-5) /lpf U Epithel Cells (Auto) (0-5) /lpf Urine Bacteria (Auto) (Negative) Ur Renal Epithelial Cell Granular Casts (0) /lpf Urine Yeast Nasal Screen MRSA (PCR) (Negative) Adenovirus (PCR) (NotDetected) B. pertussis DNA (PCR) (NotDetected) B.parapertussis DNA PCR (NotDetected) C. pneumoniae DNA (PCR) (NotDetected) Coronavirus OC43 (PCR) (NotDetected) Coronavirus HKU1 (PCR) (NotDetected) Coronavirus 229E (PCR) (NotDetected) SARS-CoV-2 (PCR) (NotDetected) Coronavirus NL63 (PCR) (NotDetected) Human Metapneumovir PCR (NotDetected) Influenza Type A (PCR) (NotDetected) Influenza Type B (PCR) (NotDetected) M. pneumoniae (PCR) (NotDetected) Parainfluenza 1 (PCR) (NotDetected) Parainfluenza 2 (PCR) (NotDetected) Parainfluenza 3 (PCR) (NotDetected) Parainfluenza 4 (PCR) (NotDetected) RSV (PCR) (NotDetected) Entero/Rhino (PCR) (NotDetected) Staphylococcus sp PCR (NotDetected) Staph aureus (PCR) (NotDetected) mecA/C & MREJ Resist Gene (NotDetected) Bld Cult ID Panel PCR (NotDetected) Administered Medications Aspirin (Aspirin 81 Mg Chew) 81 mg NG DAILY [facility] Stop: 06/14/22 08:59 Last Admin: 05/15/22 08:39 Dose: 81 mg Documented By: CLAUDIA Fentanyl Citrate (Fentanyl Citrate) 2,500 mcg in 250 mls @ 5 mls/hr IV .Q50H [facility]; Protocol Stop: 05/28/22 20:14 Last Titration: 05/15/22 12:00 Dose: 50 mcg/hr, 5 mls/hr Documented By: CLAUDIA Co-signed By: EZEKIEL Titration: 05/15/22 09:55 Dose: 100 mcg/hr, 10 mls/hr Documented By: CLAUDIA Co-signed By: EZEKIEL Titration: 05/15/22 08:40 Dose: 75 mcg/hr, 7.5 mls/hr Documented By: CLAUDIA Co-signed By: WRS Titration: 05/15/22 07:14 Dose: 50 mcg/hr, 5 mls/hr Documented By: CLAUDIA Co-signed By: MIGUEL Titration: 05/14/22 22:53 Dose: 50 mcg/hr, 5 mls/hr Documented By: DRAKE Co-signed By: HAM Titration: 05/14/22 22:29 Dose: 25 mcg/hr, 2.5 mls/hr Documented By: DRAKE Co-signed By: OLIVER Titration: 05/14/22 21:20 Dose: 0 mcg/hr, 0 mls/hr Documented By: DRAKE Co-signed By: ARS Titration: 05/14/22 21:17 Dose: 25 mcg/hr, 2.5 mls/hr Documented By: DRAKE Co-signed By: ARS Titration: 05/14/22 20:36 Dose: 0 mcg/hr, 0 mls/hr Documented By: DRAKE Co-signed By: Admin: 05/14/22 20:30 Dose: 25 mcg/hr, 2.5 mls/hr Documented By: DRAKE Co-signed By: OLIVER Midazolam HCl (Versed) 125 mg in 250 mls @ 2 mls/hr IV .Q96H [facility]; Protocol Stop: 05/18/22 20:00 Last Titration: 05/15/22 12:00 Dose: 1 mg/hr, 2 mls/hr Documented By: CLAUDIA Co-signed By: LAF Titration: 05/15/22 09:55 Dose: 2 mg/hr, 4 mls/hr Documented By: CLAUDIA Co-signed By: LAF Titration: 05/15/22 07:14 Dose: 2 mg/hr, 4 mls/hr Documented By: CLAUDIA Co-signed By: MIGUEL Titration: 05/14/22 22:53 Dose: 2 mg/hr, 4 mls/hr Documented By: DRAKE Co-signed By: HAM Titration: 05/14/22 22:29 Dose: 1 mg/hr, 2 mls/hr Documented By: DRAKE Co-signed By: OLIVER Titration: 05/14/22 21:36 Dose: 0 mg/hr, 0 mls/hr Documented By: DRAKE Co-signed By: HAM Admin: 05/14/22 21:31 Dose: 1 mg/hr, 2 mls/hr Documented By: DRAKE Co-signed By: KMB Norepinephrine Bitartrate (Levophed/D5w) 4 mg in 250 mls @ 85.68 mls/hr IV .Q2H56M [facility]; Protocol Stop: 06/13/22 22:29 Last Titration: 05/15/22 12:53 Dose: 0.1 mcg/kg/min, 35.7 mls/hr Documented By: Titration: 05/15/22 12:00 Dose: 0.08 mcg/kg/min, 28.6 mls/hr Documented By: Titration: 05/15/22 10:29 Dose: 0.04 mcg/kg/min, 14.3 mls/hr Documented By: Titration: 05/15/22 09:55 Dose: 0.06 mcg/kg/min, 21.4 mls/hr Documented By: Admin: 05/15/22 08:39 Dose: 0.2 mcg/kg/min, 71.4 mls/hr Documented By: ES Co-signed By: WRS Titration: 05/15/22 07:15 Dose: 0.28 mcg/kg/min, 100 mls/hr Documented By: MEJ Co-signed By: ES Admin: 05/15/22 05:32 Dose: 100 mls/hr Documented By: MEJ Co-signed By: KJS Titration: 05/15/22 05:26 Dose: 0.28 mcg/kg/min, 100 mls/hr Documented By: MEJ Co-signed By: KJS Titration: 05/15/22 03:13 Dose: 0.28 mcg/kg/min, 100 mls/hr Documented By: Titration: 05/15/22 03:00 Dose: 0.26 mcg/kg/min, 92.8 mls/hr Documented By: Admin: 05/15/22 02:54 Dose: 0.24 mcg/kg/min, 85.7 mls/hr Documented By: MEDennis Co-signed By: BPY Titration: 05/15/22 02:54 Dose: 0.24 mcg/kg/min, 85.7 mls/hr Documented By: MEJ Co-signed By: BPY Titration: 05/15/22 02:45 Dose: 0.24 mcg/kg/min, 85.7 mls/hr Documented By: Titration: 05/15/22 01:43 Dose: 0.22 mcg/kg/min, 78.5 mls/hr Documented By: Titration: 05/14/22 22:53 Dose: 0.1 mcg/kg/min, 35.7 mls/hr Documented By: Admin: 05/14/22 22:32 Dose: 0.05 mcg/kg/min, 17.9 mls/hr Documented By: DRAKE Co-signed By: OLIVER Pantoprazole Sodium 40 mg/ (Syringe) 10 mls @ 5 mls/min IV DAILY@1100 [facility] Stop: 06/14/22 10:59 Last Admin: 05/15/22 09:55 Dose: 5 mls/min Documented By: CLAUDIA Vasopressin 20 units/ Sodium (Chloride) 101 mls @ 12.12 mls/hr IV .Q8H20M [facility]; Protocol Stop: 06/14/22 00:29 Last Titration: 05/15/22 12:00 Dose: 0.04 unit/min, 12.1 mls/hr Documented By: Titration: 05/15/22 09:55 Dose: 0 unit/min, 0 mls/hr Documented By: Admin: 05/15/22 08:39 Dose: 0.04 unit/min, 12.1 mls/hr Documented By: CLAUDIA Co-signed By: WRS Titration: 05/15/22 08:39 Dose: 0.04 unit/min, 12.1 mls/hr Documented By: CLAUDIA Co-signed By: WRS Titration: 05/15/22 07:14 Dose: 0.04 unit/min, 12.1 mls/hr Documented By: CLAUDIA Co-signed By: MIGUEL Admin: 05/15/22 01:52 Dose: 0.04 unit/min, 12.1 mls/hr Documented By: MIGUEL Co-signed By: BPY Insulin Human Regular 250 (units/ Sodium Chloride) 250 mls @ 0 mls/hr IV .Q0M [facility]; Protocol Stop: 06/14/22 01:44 Last Titration: 05/15/22 13:00 Dose: 0 units/hr, 0 mls/hr Documented By: CLAUDIA Co-signed By: LAF Titration: 05/15/22 12:00 Dose: 13.4 units/hr, 13.4 mls/hr Documented By: ES Co-signed By: LAF Titration: 05/15/22 11:30 Dose: 13.4 units/hr, 13.4 mls/hr Documented By: CLAUDIA Co-signed By: LAF Titration: 05/15/22 10:00 Dose: 13.4 units/hr, 13.4 mls/hr Documented By: CLAUDIA Co-signed By: AM Titration: 05/15/22 09:00 Dose: 16.7 units/hr, 16.7 mls/hr Documented By: CLAUDIA Co-signed By: LAF Titration: 05/15/22 08:00 Dose: 13.9 units/hr, 13.9 mls/hr Documented By: CLAUDIA Co-signed By: WRS Titration: 05/15/22 07:14 Dose: 11.6 units/hr, 11.6 mls/hr Documented By: CLAUDIA Co-signed By: MEDennis Titration: 05/15/22 06:21 Dose: 11.6 units/hr, 11.6 mls/hr Documented By: MEDennis Co-signed By: BPY Titration: 05/15/22 05:15 Dose: 9.7 units/hr, 9.7 mls/hr Documented By: MEDennis Co-signed By: BPY Titration: 05/15/22 04:10 Dose: 6.9 units/hr, 6.9 mls/hr Documented By: MEDennis Co-signed By: BPY Titration: 05/15/22 03:12 Dose: 4.9 units/hr, 4.9 mls/hr Documented By: MIGUEL Co-signed By: BPY Admin: 05/15/22 01:55 Dose: 3.5 units/hr, 3.5 mls/hr Documented By: MIGUEL Co-signed By: BPMichael Insulin Aspart (Insulin Aspart Per Unit) 0 units SC ACHS ZAC Stop: 06/14/22 07:29 Last Admin: 05/15/22 12:42 Dose: Not Given Documented By: Admin: 05/15/22 09:55 Dose: Not Given Documented By: Admin: 05/15/22 08:38 Dose: Not Given Documented By: ES Discontinued Medications Fentanyl Citrate (Fentanyl Citrate 100 Mcg/2 Ml Vial) 100 mcg IV NOW STA Stop: 05/14/22 20:02 Last Admin: 05/14/22 20:15 Dose: 100 mcg Documented By: DRAKE Heparin Sodium/Dextrose (Heparin Iv Adult Wt-Based Low-Dose *No* Bolus Protocol) 1 each IV ONE ONE; Protocol Stop: 05/14/22 23:39 Last Admin: 05/15/22 02:09 Dose: Not Given Documented By: MIGUEL Cefepime HCl (Maxipime) 2,000 mg in 20 mls @ 5 mls/min IV NOW STA; Protocol Stop: 05/14/22 20:00 Last Admin: 05/14/22 20:15 Dose: 5 mls/min Documented By: DRAKE Acetaminophen (Ofirmev) 1,000 mg in 100 mls @ 400 mls/hr IV NOW STA Stop: 05/14/22 20:11 Last Infusion: 05/14/22 20:32 Dose: 0 mls/hr Documented By: Admin: 05/14/22 20:16 Dose: 400 mls/hr Documented By: DRAKE Sodium Chloride (Nss) 500 mls @ 999 mls/hr IV .Q31M ONE Stop: 05/14/22 21:14 Last Infusion: 05/14/22 21:21 Dose: 0 mls/hr Documented By: Admin: 05/14/22 20:48 Dose: 999 mls/hr Documented By: DRAKE Vancomycin HCl 2,500 mg/ (Sodium Chloride) 550 mls @ 180 mls/min IV NOW ONE Stop: 05/14/22 21:13 Last Admin: 05/14/22 21:40 Dose: 180 mls/min Documented By: DRAKE Sodium Chloride (Nss 1000ml) 500 mls @ 999 mls/hr IV .Q31M ONE Stop: 05/14/22 21:43 Last Infusion: 05/14/22 21:51 Dose: 0 mls/hr Documented By: Admin: 05/14/22 21:16 Dose: 999 mls/hr Documented By: DRAKE Sodium Chloride (Nss 1000ml) 500 mls @ 999 mls/hr IV .Q31M ONE Stop: 05/14/22 22:23 Last Infusion: 05/14/22 22:33 Dose: 0 mls/hr Documented By: Admin: 05/14/22 22:00 Dose: 999 mls/hr Documented By: DRAKE Propofol (Diprivan) 1,000 mg in 100 mls @ 0 mls/hr IV .Q0M ONE; Protocol Stop: 05/14/22 21:54 Last Titration: 05/15/22 03:36 Dose: 0 mcg/kg/min, 0 mls/hr Documented By: Titration: 05/14/22 22:21 Dose: 0 mcg/kg/min, 0 mls/hr Documented By: Admin: 05/14/22 21:56 Dose: 20 mcg/kg/min, 11.4 mls/hr Documented By: DRAKE Co-signed By: HAM Metronidazole (Flagyl) 500 mg in 100 mls @ 100 mls/hr IV NOW STA Stop: 05/14/22 23:06 Last Infusion: 05/15/22 03:36 Dose: 0 mls/hr Documented By: Admin: 05/14/22 22:23 Dose: 100 mls/hr Documented By: DRAKE Parenteral Electrolytes (Normosol-R) 1,000 mls @ 999 mls/hr IV .Q1H1M ONE Stop: 05/14/22 23:50 Last Infusion: 05/15/22 03:36 Dose: 0 mls/hr Documented By: Admin: 05/15/22 01:36 Dose: 999 mls/hr Documented By: MIGUEL Magnesium Sulfate/Dextrose (Magnesium Sulfate / D5w) 1 gm in 100 mls @ 50 mls/hr IV Q2H [facility] Stop: 05/15/22 04:59 Last Infusion: 05/15/22 04:54 Dose: 0 mls/hr Documented By: Admin: 05/15/22 03:50 Dose: 100 mls/hr Documented By: Infusion: 05/15/22 03:50 Dose: 100 mls/hr Documented By: Admin: 05/15/22 02:53 Dose: 100 mls/hr Documented By: Infusion: 05/15/22 02:37 Dose: 100 mls/hr Documented By: Admin: 05/15/22 01:37 Dose: 100 mls/hr Documented By: MIGUEL Heparin Sodium/Dextrose (Heparin Sodium/Dextrose) 25,000 units in 500 mls @ 13 mls/hr IV .Q24H [facility]; Protocol Stop: 06/14/22 01:59 Last Titration: 05/15/22 11:30 Dose: 0 units/hr, 0 mls/hr Documented By: CLAUDIA Co-signed By: EZEKIEL Titration: 05/15/22 09:55 Dose: 650 units/hr, 13 mls/hr Documented By: CLAUDIA Co-signed By: EZEKIEL Titration: 05/15/22 08:40 Dose: 0 units/hr, 0 mls/hr Documented By: CLAUDIA Co-signed By: EZEKIEL Titration: 05/15/22 07:14 Dose: 850 units/hr, 17 mls/hr Documented By: CLAUDIA Co-signed By: MIGUEL Admin: 05/15/22 02:12 Dose: 850 units/hr, 17 mls/hr Documented By: MIGUEL Co-signed By: LISSA Cefepime HCl 1,000 mg/ Syringe 10 mls @ 5 mls/min IV Q12H [facility]; Protocol Stop: 05/17/22 07:59 Last Admin: 05/15/22 08:39 Dose: 5 mls/min Documented By: CLAUDIA Insulin Human Regular (Novolin-R Bolus From Bag) 3.5 units IV ONE ONE Stop: 05/15/22 02:16 Last Admin: 05/15/22 02:19 Dose: 3.5 units Documented By: MIGUEL Co-signed By: DARNELL Midazolam HCl (Midazolam Hcl 1 Mg/Ml 2ml Vial) 2 mg IV NOW STA Stop: 05/14/22 20:02 Last Admin: 05/14/22 20:15 Dose: 2 mg Documented By: DRAKE Miscellaneous (Stat Iv Infusion Titration Per Protocol) 1 each N/A NOW STA Stop: 05/14/22 20:02 Last Admin: 05/14/22 20:55 Dose: Not Given Documented By: DRAKE Morphine Sulfate (Morphine Sulfate 4 Mg/Ml 1 Ml Carp\\Vial) 4 mg IV NOW STA Stop: 05/14/22 21:54 Last Admin: 05/14/22 21:56 Dose: 4 mg Documented By: DRAKE Norepinephrine Bitartrate (Norepinephrine/D5w 4 Mg/250 Ml) Confirm Administered Dose 4 mg IV .STK-MED ONE Stop: 05/14/22 22:26 Last Admin: 05/14/22 22:28 Dose: Not Given Documented By: DRAKE Potassium Chloride (Potassium Chloride 20 Meq/15 Ml Udc) 40 meq PO NOW STA Stop: 05/15/22 11:42 Last Admin: 05/15/22 12:44 Dose: 40 meq Documented By: CLAUDIA Sodium Bicarbonate (Sodium Bicarb 8.4% Inj 50 Meq/50 Ml Syr) 50 meq IV NOW STA Stop: 05/15/22 03:47 Last Admin: 05/15/22 04:49 Dose: 50 meq Documented By: MIGUEL Imaging Data Radiologist's Impression: Head CT 05/14/22 19:57 Exam(s): CT HEAD Without Contrast EXAM: CT Head Without Intravenous Contrast CLINICAL HISTORY: Reason for exam: AMS. TECHNIQUE: Axial computed tomography images of the head/brain without intravenous contrast. Automated exposure control was utilized for the study. A dose lowering technique was utilized adhering to the principles of ALARA. COMPARISON: No relevant prior studies available. FINDINGS: Brain: Unremarkable. No hemorrhage. No significant white matter disease. No edema. Ventricles: Unremarkable. No ventriculomegaly. Bones/joints: Unremarkable. No acute fracture. Soft tissues: Unremarkable. Sinuses: Unremarkable as visualized. No acute sinusitis. Mastoid air cells: Unremarkable as visualized. No mastoid effusion. IMPRESSION: Unremarkable head/brain CT. Electronically signed by: Berlin Cho MD 05/14/22 21:54 PM Abdomen/Pelvis CT 05/14/22 22:12 Exam(s): CT ABDOMEN + PELVIS Without Contrast EXAM: CT Abdomen and Pelvis Without Intravenous Contrast CLINICAL HISTORY: Reason for exam: sepsis, elevated LFTs. TECHNIQUE: Axial computed tomography images of the abdomen and pelvis without intravenous contrast. CTDI is 34.6 mGy and DLP is 1924.04 mGy-cm. Automated exposure control was utilized for the study. A dose lowering technique was utilized adhering to the principles of ALARA. COMPARISON: No relevant prior studies available. FINDINGS: Lung bases: Unremarkable. No mass. No consolidation. ABDOMEN: Liver: The liver is enlarged measuring 20 cm craniocaudad. No focal liver lesion is seen. Gallbladder and bile ducts: Trace amount of sludge in the gallbladder. No calcified gallstones or pericholecystic inflammation identified. No biliary duct dilation is seen. Pancreas: Unremarkable. No ductal dilation. Spleen: Unremarkable. No splenomegaly. Adrenals: Unremarkable. No mass. Kidneys and ureters: Mild perinephric edema surrounding both kidneys is nonspecific and can be SSA with renal insufficiency. No hydronephrosis or ureterolithiasis is seen. The urinary bladder is decompressed by a Cancino catheter and unremarkable. Stomach and bowel: 7 cm of stool in the rectum suggesting constipation. The remaining bowel loops are nondilated. No acute inflammatory changes are seen involving the bowel. The appendix is normal. The stomach is decompressed by a NG tube. No mucosal thickening. PELVIS: Appendix: See above. Bladder: See above. Reproductive: Unremarkable as visualized. ABDOMEN and PELVIS: Intraperitoneal space: Unremarkable. No free air. No significant fluid collection. Bones/joints: Mild multilevel degenerative changes throughout the spine. No acute fracture or subluxation is seen. Soft tissues: Unremarkable. Vasculature: The abdominal aorta is heavily calcified. 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 No abdominal aortic aneurysm. Lymph nodes: Unremarkable. No enlarged lymph nodes. IMPRESSION: 1. Mild perinephric edema surrounding both kidneys is nonspecific and can be SSA with renal insufficiency. No hydronephrosis or ureterolithiasis is seen. The urinary bladder is decompressed by a Cancino catheter and unremarkable. 2. 7 cm of stool in the rectum suggesting constipation. The remaining bowel loops are nondilated. No acute inflammatory changes are seen involving the bowel. The appendix is normal. The stomach is decompressed by a NG tube. 3. Trace amount of sludge in the gallbladder. No calcified gallstones or pericholecystic inflammation identified. No biliary duct dilation is seen. Electronically signed by: Berlin Cho MD 05/14/22 23:[address] 05/14/22 22:12 Exam(s): CT CHEST Without Contrast EXAM: CT Chest Without Intravenous Contrast CLINICAL HISTORY: Reason for exam: sepsis, pneumonia. TECHNIQUE: Axial computed tomography images of the chest without intravenous contrast. Automated exposure control was utilized for the study. A dose lowering technique was utilized adhering to the principles of ALARA. COMPARISON: November 12, 2019 FINDINGS: Lungs: Prominent pulmonary vascularity with central hazy edema suggesting CHF. Lower lung volumes than previous with new bilateral dependent atelectasis, less likely pneumonia. Pleural space: Unremarkable. No pneumothorax. No significant effusion. Heart: See below. Bones/joints: Previous sternotomy with prior aortic valvuloplasty. There is severe calcification of the mitral valve. The heart is mildly enlarged. Mild multilevel degenerative changes throughout the thoracic spine. No fracture or destructive bone lesion is seen. No dislocation. Soft tissues: Unremarkable. Vasculature: The thoracic aorta is mildly calcified but nondilated. This is a noncontrast scan. Lymph nodes: Unremarkable. No enlarged lymph nodes. Tubes, lines and devices: Endotracheal tube tip in standard position. NG tube extends into the stomach. IMPRESSION: 1. Prominent pulmonary vascularity with central hazy edema suggesting CHF. 2. Lower lung volumes than previous with new bilateral dependent atelectasis, less likely pneumonia. 3. Endotracheal tube tip in standard position. NG tube extends into the stomach. Electronically signed by: Berlin Cho MD 05/14/22 23:35 PM Discharge Plan Visit Data Chief Complaint: Respiratory Distress ED Provider: Franky Browne Discharge Problem: Acute hypoxemic respiratory failure, MARY (acute kidney injury), Acute non-ST elevation myocardial infarction (NSTEMI), Sepsis Patient Disposition: Admitted As Inpatient Discharge Instructions Interventions: ED Discharge Assessment Last Done: 05/14/22 22:54
[2022-05-14] MEDS ORDERED: fentaNYL citrate 2,500 MCG/250 ML BAG IV SCH (20:15)
[2022-05-14 20:22] LABS: iSTAT Arterial Blood Gas HCO3 19 meg/L (19-24); iSTAT Arterial Blood Gas pCO2 50 mmHg (35-46); iSTAT Arterial Blood Gas pO2 83 mmHg (80-95); iSTAT Carbon Dioxide 21 mmol/L (24-31); iSTAT Hematocrit 31 % (37-47); iSTAT Hemoglobin 10.5 g/dl (12.0-16.0); iSTAT Potassium 4.1 mmol/L (3.3-5.0); iSTAT Sodium 139 mmol/L (135-144)
[2022-05-14 20:32] LABS: iSTAT Creatinine 2.7 mg/dl (0.6-1.3); iSTAT Hemoglobin 11.2 g/dl (12.0-16.0); iSTAT Ionized Calcium 1.21 mmol/l (1.12-1.32); iSTAT Potassium 4.1 mmol/L (3.3-5.0)
[2022-05-14 20:34] LABS: Appearance Urine Turbid (Clear); Bacteria Urine Automated Negative (Negative); Blood Urine 3+ (Negative); Color Urine Dark Yellow; Epithelial Cell Urine Auto >30 /lpf (0-5); Glucose Urine UA Negative (Negative); Ketones Urine 1+ (Negative); Leukocyte Esterase Urine Trace (Negative); Nitrite Urine Positive (Negative); Protein Urine 3+ (Negative); Specific Gravity Urine 1.024 (1.000-1.030); Urobilinogen Urine Negative (Negative); WBC Urine Automated >30 /hpf (0-5)
[2022-05-14] MEDS ORDERED: SODIUM CHLORIDE 0.9% 500 ML IV ONE (20:44)
[2022-05-14 20:52] LABS: Albumin Level 3.1 gm/dl (3.4-5.0); BUN Creatinine Ratio 19.4 (10-20); Bilirubin Direct 0.4 mg/dl (0-0.2); Bilirubin,Total 1.2 mg/dl (0.2-1.0); Calcium 8.2 mg/dl (8.5-10.1); Creatinine Clr Calc Pharmacy 25.8 ml/min; Est GFR (African American) 22.8 ml/min; Est GFR (Non-African American) 19.7 ml/min; Magnesium 1.6 mg/dl (1.7-2.4); Total Protein 6.8 gm/dl (6.0-8.3)
[2022-05-14] MEDS: MIDAZOLAM HCL 125 MG/250 ML BAG IV STA ×2 (20:55→21:31)
[2022-05-14 21:06] LABS: Acanthocytes 1+; Basophils # (auto) 0.04 K/uL (0-0.2); Basophils % (auto) 0.4 %; Echinocytes 2+; Eosinophils # (auto) 0.04 K/uL (0-0.50); Eosinophils % (auto) 0.4 %; Hematocrit (blood only) 32.1 % (37.0-47.0); Hemoglobin 10.4 g/dl (12.0-16.0); Immature Granulocytes # (auto) 0.12 K/uL (0.01-0.20); Immature Granulocytes % (auto) 1.1 %; Lymphocytes # (auto) 1.45 K/uL (1.2-3.4); Mean Corpuscular Hemoglobin 29.9 pg (25.0-34.0); Mean Corpuscular Hgb Conc 32.4 g/dL (32.0-36.0); Mean Corpuscular Volume 92.2 fL (80.0-100.0); Mean Platelet Volume 10.9 fL (9.4-12.4); Monocytes # (auto) 0.82 K/uL (0.11-0.59); Monocytes % (auto) 7.3 %; Neutrophils # (auto) 8.71 K/uL (1.40-6.50); Neutrophils % (auto) 77.8 %; Platelet Count 132 K/uL (130-400); Platelet Estimate Normal (Normal); RDW Coefficient of Variation 14.9 % (11.5-14.5); RDW Standard Deviation 50.6 fL (36.4-46.3); Red Blood Count 3.48 M/uL (4.20-5.40); White Blood Count 11.18 K/ul (4.8-10.8)
[2022-05-14] MEDS ORDERED: VANCOMYCIN CONSULT ACTIVE PRN (21:10)
[2022-05-14] MEDS ORDERED: VANCOMYCIN HCL 2,500 MG in SODIUM CHLORIDE 0.9% 500 ML IV ONE (21:10)
[2022-05-14] MEDS ORDERED: SODIUM CHLORIDE 0.9% 1000ML 500 ML IV ONE ×2 (21:13→21:53)
[2022-05-14 21:16] LABS: Bilirubin Urine 1+ (Negative)
[2022-05-14 21:28] LABS: Adenovirus PCR Not Detected (NotDetected); Bordetella parapertussis PCR Not Detected (NotDetected); Bordetella pertussis PCR Not Detected (NotDetected); Chlamydia pneumoniae PCR Not Detected (NotDetected); Coronavirus 229E PCR Not Detected (NotDetected); Coronavirus CoV-2 (COVID19)PCR Not Detected (NotDetected); Coronavirus HKU1 PCR Not Detected (NotDetected); Coronavirus NL63 PCR Not Detected (NotDetected); Coronavirus OC43PCR Not Detected (NotDetected); Human Metapneumovirus PCR Not Detected (NotDetected); Influenza A PCR Not Detected (NotDetected); Influenza B PCR Not Detected (NotDetected); Mycoplasma pneumoniae PCR Not Detected (NotDetected); Parainfluenza Virus 1 PCR Not Detected (NotDetected); Parainfluenza Virus 2 PCR Not Detected (NotDetected); Parainfluenza Virus 3 PCR Not Detected (NotDetected); Parainfluenza Virus 4 PCR Not Detected (NotDetected); Respiratory Syncytial VirusPCR Not Detected (NotDetected); Rhinovirus/Enterovirus PCR Not Detected (NotDetected)
[2022-05-14 21:43] LABS: Troponin I High Sensitivity 15294.5 pg/ml (0-14)
[2022-05-14 21:52] LABS: iSTAT Arterial Blood Gas HCO3 17 meg/L (19-24); iSTAT Arterial Blood Gas pCO2 38 mmHg (35-46); iSTAT Arterial Blood Gas pH 7.26 (7.35-7.45); iSTAT Arterial Blood Gas pO2 133 mmHg (80-95); iSTAT Carbon Dioxide 18 mmol/L (24-31); iSTAT Hematocrit 27 % (37-47); iSTAT Hemoglobin 9.2 g/dl (12.0-16.0); iSTAT Potassium 3.4 mmol/L (3.3-5.0); iSTAT Sodium 139 mmol/L (135-144)
[2022-05-14] MEDS ORDERED: propofoL 1,000 MG/100 ML VIAL IV ONE (21:53)
[2022-05-14] MEDS ORDERED: MoRPHine SULFATE 4 MG/ML 1 ML CARP\\VIAL IV STA (21:53)
--- NOTE | 2022-05-14 21:55 | CT Scan Report ---
Exam(s): CT HEAD Without Contrast EXAM: CT Head Without Intravenous Contrast CLINICAL HISTORY: Reason for exam: AMS. TECHNIQUE: Axial computed tomography images of the head/brain without intravenous contrast. Automated exposure control was utilized for the study. A dose lowering technique was utilized adhering to the principles of ALARA. COMPARISON: No relevant prior studies available. FINDINGS: Brain: Unremarkable. No hemorrhage. No significant white matter disease. No edema. Ventricles: Unremarkable. No ventriculomegaly. Bones/joints: Unremarkable. No acute fracture. Soft tissues: Unremarkable. Sinuses: Unremarkable as visualized. No acute sinusitis. Mastoid air cells: Unremarkable as visualized. No mastoid effusion. IMPRESSION: Unremarkable head/brain CT. Electronically signed by: Berlin Cho MD 05/14/22 21:54 PM
[2022-05-14] MEDS ORDERED: metroNIDAZOLE 500 MG/100 ML BAG IV STA (22:07)
--- NOTE | 2022-05-14 22:15 | History & Physical Report ---
Patient seen and examined. I agree with the history and physical and the plan as outlined in the resident's note. 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 Acute hypoxemic respiratory failure/Sepsis: -Patient found in acute respiratory failure, unknown how long. -Hypoxemic and needing intubation on entry. -ABG pH 7.26, CO2 18, HCO3 17. -WBC 11.18, Hgb 10.4, lactate 2.3, CK 1194, Trop 15,294. -CT chest w/ evidence of CHF, new b/l dependent atelectasis - less likely pneumonia. -CT A&P unremarkable for acute process. -Possibly due to new infectious source (pulmonary) vs post surgical complication. -Started on Cefepime, Vancomycin, Flagyl for broad spectrum coverage. -Tylenol and ice packs for fever up to 40.6C. -Patient admitted to ICU. -Continue to trend CBC, CMP, respiratory management per ICU. Elevated Troponin/CHF: -Troponin 15,294 on admission. BNP 3521. -Echo from 05/10 w/ EF 60-65%, borderline dilated LV, increase aortic valve vmax and mean gradient. -Unable to assess cardiac pain. -Holding aspirin and clopidogrel while intubated. -Repeat troponin 18,237. -Will start on Heparin IV. -Repeat troponin until peak. -Per ED, initial EKG with minimal ST depression, repeat EKG ordered. -Echocardiogram ordered. -Cardiology consulted, will appreciate recs. Hypotension: -BP soft on admission to 77/64, improved after bolus but still in 80's to 90's systolic. -Most likely low in face of infection as daughter relayed patient usually b ecomes hypotensive with infections. -Started on norepinephrine, continue management per ICU team. -Continue to monitor. MARY: -Creatinine 2.48, increased since last creatinine on 05/11 of 1.06. -Most likely due to sepsis from unknown infectious source, possibly dehydration as well. -Repleted 500cc bolus NSS in ED. Continue fluids while intubated. -Trend BMP. CAD/HLD: -Holding home simvastatin, clopidogrel, aspirin while intubated. HTN: -Holding home metoprolol, lisinopril, bumetanide while intubated. GERD: -Protonix 40mg IV daily ordered while intubated. T2DM: -History of diabetes, elevated glucose to 200's on admission. -Hold home diabetes medications, SSI while inpatient. -Pharmacy hyperglycemic consult placed. F/E/N/GI: NPO, intubated, electrolyte repletion per ICU. DVT Prophylaxis: Heparin drip Code status: Full code, daughter stated she would not want to be on a machine for a long time but would want resuscitative measures. Dispo: ICU. 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 Daughter states she couldn't get in contact with her until quarter after 6, tried calling at 10 in the morning but her mom didn't answer, so the daughter tried to get in touch later in the evening and called neighbor - the neighbor told her she was found in respiratory distress and thus EMS were called. Last night when daughter spoke to her she was confused, didn't make sense and would zone out - but would say she's alright. Had just gotten home yesterday morning, she told her daughter food didn't really taste too well for her and didn't eat as much. In the ED she was found to be tachycardic, febrile to 40.7, and hypotensive. She was blood cultures were taken, WBC 11.18, Hgb 10.4, pH 7.26, Co2 18, HCO3 17,POC electrolytes WNL, lactate 2.3, BNP 3531, Trop 15,294, procal 30.7, U/A negative for bacteria but LE and Nitrite positive, respiratory panel negative. CT head w/o contrast negative for acute bleed. CXR w/ worsening left sided opacity/congestion compared to XR from 05/11. Patient given cefepime, flagyl, and vancomycin IV x1 dose, intubated, sedated with propofol and given 500ml bolus NSS. Allergies Allergy/AdvReac Type Severity Reaction Status Date / Time No Known Allergies Allergy Verified 05/07/22 10:25 Home Medications Medication Instructions Recorded Confirmed Type aspirin 81 mg tablet,delayed 81 mg PO QAM 10/19/19 05/07/22 History release (Adult Low Dose Aspirin) insulin aspart U-100 100 unit/mL See Rx Instructions subcut 10/14/20 05/07/22 Rx subcutaneous solution (Novolog .COMPLEX #60 mL U-100 Insulin aspart) insulin detemir U-100 100 unit/mL 50 unit (0.5 mL) subcut QPM #45 mL 02/25/21 05/07/22 Rx subcutaneous solution (Levemir U-100 Insulin) pen needle, diabetic 31 gauge x #100 ea 05/29/21 05/07/22 Rx 3/16" (BD Ultra-Fine Mini Pen Needle) multivitamin (Multiple Vitamins 1 tab PO QAM 07/02/21 05/07/22 History tablet) cholecalciferol (vitamin D3) 50 50 mcg PO QAM 10/29/21 05/07/22 History mcg (2,000 unit) capsule simvastatin 80 mg tablet 80 mg PO QPM #90 tabs 11/13/21 05/07/22 Rx clopidogrel 75 mg tablet 75 mg PO QAM #90 tabs 11/30/21 05/07/22 Rx pantoprazole 20 mg tablet,delayed 20 mg PO QAM #90 tabs 11/30/21 05/07/22 Rx release gabapentin 400 mg capsule 400 mg PO TID #90 caps 12/04/21 05/07/22 Rx blood pressure monitor #1 ea 12/08/21 05/07/22 Rx metoprolol tartrate 50 mg tablet 50 mg PO BID #180 tabs 12/10/21 05/07/22 Rx ezetimibe 10 mg tablet 10 mg PO HS #90 tabs 12/17/21 05/07/22 Rx famotidine 40 mg tablet (Pepcid) 40 mg PO HS #90 tabs 12/17/21 05/07/22 Rx nystatin 100,000 unit/gram topical 1 applic topical TID PRN yeast 12/23/21 05/07/22 Rx powder infection #60 grams potassium chloride 10 mEq 10 meq PO QAM #90 tabs 01/08/22 05/07/22 Rx tablet,extended release(part/cryst) nitroglycerin 0.4 mg sublingual 0.4 mg sublingual .COMPLEX PRN 01/14/22 05/07/22 Rx tablet (Nitrostat) Chest Pain #20 tabs lisinopril 40 mg tablet 40 mg PO HS #90 tabs 01/27/22 05/07/22 Rx bumetanide 0.5 mg tablet 0.5 mg PO QAM #90 tabs 02/03/22 05/07/22 Rx dulaglutide 1.5 mg/0.5 mL 1.5 mg (0.5 mL) subcut WK #6 mL 02/22/22 05/07/22 Rx subcutaneous pen injector metformin 1,000 mg tablet 1,000 mg PO BID #180 tabs 02/22/22 05/07/22 Rx fluticasone fur. 100 mcg-umeclid 1 inh inhalation QDL 90 days #60 ea 04/12/22 05/07/22 Rx 62.5 mcg-vilant 25 mcg inhalat.powder (Trelegy Ellipta) nystatin 100,000 unit/gram topical 1 applic topical TID PRN 05/07/22 History cream Past Med/Surg History Medical History Carotid arterial disease R carotid endarterectomy 2014 COPD (chronic obstructive pulmonary disease) controlled, stable per pt-denies rescue inhaler use Coronary artery disease s/p 1 stent Diabetes mellitus with complication IDDM Diabetic neuropathy GERD (gastroesophageal reflux disease) controlled, stable per pt History of anesthesia reaction difficulty waking History of femoral angiogram (~09/29/21) right lower extremity angiogram @ [facility] Dr. 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 Espinal S/P carotid endarterectomy (2014) R S/P section x 2 S/P coronary artery stent placement 1 placed S/P hernia repair x 2 S/P peripheral artery angioplasty with stent placement (08/2017) angioplasty and stent R external iliac artery S/P total hysterectomy and bilateral salpingo-oophorectomy (1992) d/t endometriosis Family History Grandmother (Paternal) Breast cancer Family/Other Ovarian cancer Father Diabetes Heart disease Myocardial infarction Hypertension Mother Diabetes Heart disease Brother Diabetes Heart disease Hypertension Grandfather (Paternal) Family history of esophageal cancer Other No family history of adverse response to anesthesia Denies family history of Prostate cancer Colorectal cancer Social History Smoking Status: Unknown if ever smoked Tobacco Type: Cigarettes Age Started Using Tobacco: 21; packs per day: 0.15; Cigarettes Per Day: 5 cigs a day-advised; Second Hand Exposure: No; Hx Alcohol Use: No Hx Substance Use: No Preferred Language: Occitan Communication Ability: Effective Visual Impairment: No Limitations Hearing Ability: Normal Crown Pouncer Required: Yes and No Beliefs That Will Affect Care: None marital status: Single Current Living Situation: Alone current occupational status: disabled How many Children do You have: 2 Feels Safe at Home: Yes Childhood Exposure to Second-Hand Smoke: Yes caffeine: Yes during the past year weight has: remained stable Dental Care, Regularly: Yes Physical Activity Frequency: Daily Physical Activity Frequency Comment: walks around house Seatbelt Use: always Sunscreen Use: Yes Assistive Devices: Walker Review of Systems Review of Systems: As per HPI. Physical Exam Constitutional: WD/WN, vitals as above ENMT: Intubated. Respiratory: Bilateral course rhonchi, no wheezing. Cardiovascular: Rate/Rhythm: regular rhythm and + tachycardic Heart Sounds: normal S1 and normal S2 No lower extremity edema. Gastrointestinal (Abdomen): Mildly distended, soft, BS+. Skin: Site of cardiac pacemaker incision clean without any erythema or swelling. Psychiatric: Intubated and sedated, unable to speak. Results & Data Results & Data ([facility]) Vital Signs (Past 12 Hours) Vital Signs Temp Pulse Pulse Resp BP BP Pulse Ox 05/14/22 22:02 38.9 C H 93 H 20 96/49 L 98 05/14/22 21:49 39.2 C H 101 H 20 102/58 L 98 05/14/22 21:34 39.6 C H 100 H 24 82/53 L 98 05/14/22 21:22 40.1 C H 109 H 24 77/64 L 97 05/14/22 21:18 40.2 C H 67 24 103/78 96 05/14/22 20:51 40.6 C H 92 H 24 122/69 96 05/14/22 20:44 107 H 30 H 95 05/14/22 20:43 40.7 C H 98 H 16 85/40 L 95 05/14/22 20:05 97 05/14/22 20:34 40.6 C H 93 H 16 88/65 L 95 05/14/22 20:23 40.1 C H 106 H 16 94/56 L 97 05/14/22 20:18 95 05/14/22 20:14 68 05/14/22 19:55 38.3 C H 67 16 142/63 H 97 O2 Del Method FiO2 05/14/22 22:02 Mechanical Vent 05/14/22 21:49 Mechanical Vent 05/14/22 21:34 Mechanical Vent 05/14/22 21:22 Mechanical Vent 05/14/22 21:18 Mechanical Vent 05/14/22 20:51 Mechanical Vent 05/14/22 20:44 50 05/14/22 20:43 Mechanical Vent 05/14/22 20:05 05/14/22 20:34 Mechanical Vent 05/14/22 20:23 Mechanical Vent 05/14/22 20:18 Mechanical Vent 05/14/22 20:14 05/14/22 19:55 Mechanical Vent Resident Activity Tracking Resident Involvement: Resident Care Provided Care Provided: Adult [facility] Medicine
[2022-05-14] MEDS ORDERED: NOREPINEPHRINE/D5W 4 MG/250 ML IV ONE (22:25)
[2022-05-14] MEDS: NOREPINEPHRINE/D5W 4 MG/250 ML PLCT IV SCH (22:32)
[2022-05-14 22:40] LABS: INR 1.3 (0.9-1.1); Partial Thromboplastin Ratio 1.7; Prothrombin Time 13.3 Seconds (9.0-12.0)
[2022-05-14] MEDS ORDERED: NORMOSOL-R 1,000 ML IV ONE (22:50)
[2022-05-14 22:51] LABS: Partial Thromboplastin Time 47.3 Seconds (21.0-31.0)
--- NOTE | 2022-05-14 23:36 | CT Scan Report ---
Exam(s): CT CHEST Without Contrast EXAM: CT Chest Without Intravenous Contrast CLINICAL HISTORY: Reason for exam: sepsis, pneumonia. TECHNIQUE: Axial computed tomography images of the chest without intravenous contrast. Automated exposure control was utilized for the study. A dose lowering technique was utilized adhering to the principles of ALARA. COMPARISON: November 12, 2019 FINDINGS: Lungs: Prominent pulmonary vascularity with central hazy edema suggesting CHF. Lower lung volumes than previous with new bilateral dependent atelectasis, less likely pneumonia. Pleural space: Unremarkable. No pneumothorax. No significant effusion. Heart: See below. Bones/joints: Previous sternotomy with prior aortic valvuloplasty. There is severe calcification of the mitral valve. The heart is mildly enlarged. Mild multilevel degenerative changes throughout the thoracic spine. No fracture or destructive bone lesion is seen. No dislocation. Soft tissues: Unremarkable. Vasculature: The thoracic aorta is mildly calcified but nondilated. This is a noncontrast scan. Lymph nodes: Unremarkable. No enlarged lymph nodes. Tubes, lines and devices: Endotracheal tube tip in standard position. NG tube extends into the stomach. IMPRESSION: 1. Prominent pulmonary vascularity with central hazy edema suggesting CHF. 2. Lower lung volumes than previous with new bilateral dependent atelectasis, less likely pneumonia. 3. Endotracheal tube tip in standard position. NG tube extends into the stomach. Electronically signed by: eBrlin Cho MD 05/14/22 23:35 PM
[2022-05-14 23:38] LABS: Potassium 4.1 mmol/L (3.5-5.1)
[2022-05-14] MEDS ORDERED: Heparin IV Adult Wt-Based Low-Dose *NO* Bolus Protocol IV ONE (23:38)
--- NOTE | 2022-05-14 23:38 | CT Scan Report ---
Exam(s): CT ABDOMEN + PELVIS Without Contrast EXAM: CT Abdomen and Pelvis Without Intravenous Contrast CLINICAL HISTORY: Reason for exam: sepsis, elevated LFTs. TECHNIQUE: Axial computed tomography images of the abdomen and pelvis without intravenous contrast. CTDI is 34.6 mGy and DLP is 1924.04 mGy-cm. Automated exposure control was utilized for the study. A dose lowering technique was utilized adhering to the principles of ALARA. COMPARISON: No relevant prior studies available. FINDINGS: Lung bases: Unremarkable. No mass. No consolidation. ABDOMEN: Liver: The liver is enlarged measuring 20 cm craniocaudad. No focal liver lesion is seen. Gallbladder and bile ducts: Trace amount of sludge in the gallbladder. No calcified gallstones or pericholecystic inflammation identified. No biliary duct dilation is seen. Pancreas: Unremarkable. No ductal dilation. Spleen: Unremarkable. No splenomegaly. Adrenals: Unremarkable. No mass. Kidneys and ureters: Mild perinephric edema surrounding both kidneys is nonspecific and can be SSA with renal insufficiency. No hydronephrosis or ureterolithiasis is seen. The urinary bladder is decompressed by a Cancino catheter and unremarkable. Stomach and bowel: 7 cm of stool in the rectum suggesting constipation. The remaining bowel loops are nondilated. No acute inflammatory changes are seen involving the bowel. The appendix is normal. The stomach is decompressed by a NG tube. No mucosal thickening. PELVIS: Appendix: See above. Bladder: See above. Reproductive: Unremarkable as visualized. ABDOMEN and PELVIS: Intraperitoneal space: Unremarkable. No free air. No significant fluid collection. Bones/joints: Mild multilevel degenerative changes throughout the spine. No acute fracture or subluxation is seen. Soft tissues: Unremarkable. Vasculature: The abdominal aorta is heavily calcified. 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 No abdominal aortic aneurysm. Lymph nodes: Unremarkable. No enlarged lymph nodes. IMPRESSION: 1. Mild perinephric edema surrounding both kidneys is nonspecific and can be SSA with renal insufficiency. No hydronephrosis or ureterolithiasis is seen. The urinary bladder is decompressed by a Cancino catheter and unremarkable. 2. 7 cm of stool in the rectum suggesting constipation. The remaining bowel loops are nondilated. No acute inflammatory changes are seen involving the bowel. The appendix is normal. The stomach is decompressed by a NG tube. 3. Trace amount of sludge in the gallbladder. No calcified gallstones or pericholecystic inflammation identified. No biliary duct dilation is seen. Electronically signed by: Berlin Cho MD 05/14/22 23:37 PM
--- NOTE | 2022-05-14 23:43 | Critical Care Consultation ---
Date of Consultation May 14, 2022 Assessment & Plan (1) Septic shock: Reason Critically Ill: 66-year-old female presents to the ICU mechanically ventilated with acute hypoxic respiratory failure and septic shock requiring vasopressor support. Patient also with significantly elevated troponin without EKG changes, on heparin drip. Neuro - Sedation: Fentanyl, Versed drip CT head negative for acute intracranial findings Cardiac - Shocksuspect sepsis is likely playing a role, cannot rule out cardiogenic component considering elevated troponin and CHF like picture on CT imaging -See treatment of sepsis below. -Random cortisol pending -Elevated troponin of 15,000, no ST elevation on EKG. Likely demand ischemia however patient does have cardiac history with previous PCI. Will start on heparin drip and consult cardiology. -Repeat echo pending -Recent pacemaker insertion for second-degree AV block, now AV paced on monitor -Central line, A-line inserted for continuous hemodynamic monitoring and maintaining maps greater than 65 with Levophed and vasopressin -Careful with IV fluid resuscitation given hypoxia/heart failure. Patient did receive 2.5 L crystalloid thus far -Continue ASA -Hold antihypertensive Respiratory - Acute hypoxic respiratory failureunsure if this is infectious process versus CHF exacerbation. Likely mixed etiology -Seed ID for treatment of possible pneumonia -History of COPD, DuoNeb as needed -We will hold on diuresis as patient is currently hypotensive -Careful with fluid resuscitation -Mechanically ventilated. Follow-up ABG in a.m. and wean vent as tolerated -Chest x-ray in a.m. -Continuous pulse ox and end-tidal CO2 monitoring GI - GERDPPI RENAL/LYTES - AKIcreatinine 2.6, previous creatinine 1.06 no electrolyte abnormalities -Likely prerenal in the setting of hypotension -CT abdomen and pelvis with mild perinephric edema surrounding both kidneys, likely renal insufficiency. No hydronephrosis or ureterolithiasis is seen -Continue to maintain MAP greater than 65 -Careful with IV fluid resuscitation given hypoxia -Avoid nephrotoxins and renally adjust medications -Monitor with routine BMPs - Foleystrict I's and O's ENDO - DM type II (controlled)last hemoglobin A1c 6.7. Patient now hyperglycemic and starting on insulin drip per ICU protocol -Hold metformin HEME - H&H stable, monitor routine CBC ID - Sepsisunsure of source at this time with possible pulmonary? -CT abdomen and pelvis without evidence of source of infection -Patient did recently receive pacemaker -Pro-Tanvir significantly elevated at 30, febrile with leukocytosis -Blood cultures, urine culture, sputum culture pending -Continue broad-spectrum antibiotics with vancomycin, cefepime, and Flagyl for now LINES/IV ACCESS - Right CVL IJ, left radial A-line, OG tube, ET tube, Cancino DVT PROPHYLAXIS - SCDs, heparin drip I have personally spent 85 minutes of critical care time in the direct management of this patient. This is a life/limb threatening event. This includes time spent evaluating patient, direct bedside care, chart review, placing orders, interpretation of diagnostic studies, discussion with consultants, patient, and family members, as well as other required patient management activities. This time is exclusive of all separately billable procedures, and teaching time and separate from and in addition to any other critical care service time. Thank you for allowing us to participate in the care of this patient. Please refer to my attending physician's documentation for any further recommendations. (2) NSTEMI (non-ST elevated myocardial infarction): (3) Acute hypoxemic respiratory failure: (4) Status post placement of cardiac pacemaker: (5) MARY (acute kidney injury): (6) Acute diastolic HF (heart failure): (7) COPD (chronic obstructive pulmonary disease): (8) GERD (gastroesophageal reflux disease): (9) Hyperlipidemia: History of Present Illness Attending Physician: Wilver Maher DO History of Present Illness Patient is a 66-year-old female with past medical history of COPD, CAD with history of PCI, HTN, GERD, DM type II, HLD, AVR, and recent admission for sera cardia with second-degree AV block where she received a pacemaker on 05/10. Patient presented to the hospital after being found down by family in respiratory distress. Patient was minimally responsive and was intubated by EMS prior to arrival. CT head was negative for acute intracranial findings. Patient did start to follow commands while on the ventilator. She was noted to be significantly febrile, leukocytosis, lactic acidosis and elevated procalcitonin of 30. Blood cultures drawn and she was started on broad-spectrum antibiotics. Patient also had elevated troponin of 15,000 and MARY on lab work. EKG without ST elevation, AV paced rhythm. Patient did become hypotensive and was started on vasopressors. Patient underwent CT chest, abdomen, and pelvis in route to the ICU. Patient was aligned with A-line and central line on arrival to the ICU. Allergies Allergy/AdvReac Type Severity Reaction Status Date / Time No Known Allergies Allergy Verified 05/07/22 10:25 Home Medications Medication Instructions Recorded Confirmed Type aspirin 81 mg tablet,delayed 81 mg PO QAM 10/19/19 05/07/22 History release (Adult Low Dose Aspirin) insulin aspart U-100 100 unit/mL See Rx Instructions subcut 10/14/20 05/07/22 Rx subcutaneous solution (Novolog .COMPLEX #60 mL U-100 Insulin aspart) insulin detemir U-100 100 unit/mL 50 unit (0.5 mL) subcut QPM #45 mL 02/25/21 05/07/22 Rx subcutaneous solution (Levemir U-100 Insulin) pen needle, diabetic 31 gauge x #100 ea 05/29/21 05/07/22 Rx 3/16" (BD Ultra-Fine Mini Pen Needle) multivitamin (Multiple Vitamins 1 tab PO QAM 07/02/21 05/07/22 History tablet) cholecalciferol (vitamin D3) 50 50 mcg PO QAM 10/29/21 05/07/22 History mcg (2,000 unit) capsule simvastatin 80 mg tablet 80 mg PO QPM #90 tabs 11/13/21 05/07/22 Rx clopidogrel 75 mg tablet 75 mg PO QAM #90 tabs 11/30/21 05/07/22 Rx pantoprazole 20 mg tablet,delayed 20 mg PO QAM #90 tabs 11/30/21 05/07/22 Rx release gabapentin 400 mg capsule 400 mg PO TID #90 caps 12/04/21 05/07/22 Rx blood pressure monitor #1 ea 12/08/21 05/07/22 Rx metoprolol tartrate 50 mg tablet 50 mg PO BID #180 tabs 12/10/21 05/07/22 Rx ezetimibe 10 mg tablet 10 mg PO HS #90 tabs 12/17/21 05/07/22 Rx famotidine 40 mg tablet (Pepcid) 40 mg PO HS #90 tabs 12/17/21 05/07/22 Rx nystatin 100,000 unit/gram topical 1 applic topical TID PRN yeast 12/23/21 05/07/22 Rx powder infection #60 grams potassium chloride 10 mEq 10 meq PO QAM #90 tabs 01/08/22 05/07/22 Rx tablet,extended release(part/cryst) nitroglycerin 0.4 mg sublingual 0.4 mg sublingual .COMPLEX PRN 01/14/22 05/07/22 Rx tablet (Nitrostat) Chest Pain #20 tabs lisinopril 40 mg tablet 40 mg PO HS #90 tabs 01/27/22 05/07/22 Rx bumetanide 0.5 mg tablet 0.5 mg PO QAM #90 tabs 02/03/22 05/07/22 Rx dulaglutide 1.5 mg/0.5 mL 1.5 mg (0.5 mL) subcut WK #6 mL 02/22/22 05/07/22 Rx subcutaneous pen injector metformin 1,000 mg tablet 1,000 mg PO BID #180 tabs 02/22/22 05/07/22 Rx fluticasone fur. 100 mcg-umeclid 1 inh inhalation QDL 90 days #60 ea 04/12/22 05/07/22 Rx 62.5 mcg-vilant 25 mcg inhalat.powder (Trelegy Ellipta) nystatin 100,000 unit/gram topical 1 applic topical TID PRN 05/07/22 History cream Patient History Medical History Carotid arterial disease R carotid endarterectomy 2014 COPD (chronic obstructive pulmonary disease) controlled, stable per pt-denies rescue inhaler use Coronary artery disease s/p 1 stent Diabetes mellitus with complication IDDM Diabetic neuropathy GERD (gastroesophageal reflux disease) controlled, stable per pt History of anesthesia reaction difficulty waking History of femoral angiogram (~09/29/21) right lower extremity angiogram @ [facility] Dr. 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) Lymphedema hx Occlusion of common femoral artery On anticoagulant therapy plavix daily Peripheral arterial disease stent R iliac artery Wound, surgical, infected Surgical History History of cardiac cath x2 with 1 stent placed--last done before 2014 History of esophagogastroduodenoscopy (EGD) last 01/2020 @ [facility] History of tooth extraction all teeth S/P aortic valve replacement (2014) 2014 @ [facility]--follows with Dr. Espinal S/P carotid endarterectomy (2014) R S/P section x 2 S/P coronary artery stent placement 1 placed S/P hernia repair x 2 S/P peripheral artery angioplasty with stent placement (08/2017) angioplasty and stent R external iliac artery S/P total hysterectomy and bilateral salpingo-oophorectomy (1992) d/t endometriosis Family History Grandmother (Paternal) Breast cancer Family/Other Ovarian cancer Father Diabetes Heart disease Myocardial infarction Hypertension Mother Diabetes Heart disease Brother Diabetes Heart disease Hypertension Grandfather (Paternal) Family history of esophageal cancer Other No family history of adverse response to anesthesia Denies family history of Prostate cancer Colorectal cancer Social History Smoking Status: Current every day smoker Tobacco Type: Cigarettes Age Started Using Tobacco: 21; packs per day: 0.15; Cigarettes Per Day: 5 cigs a day-advised; Second Hand Exposure: No; Do You Dip or Chew Tobacco: No; Tobacco Cessation Education Requested by Patient: No Hx Alcohol Use: No Hx Substance Use: No Preferred Language: Nepali Communication Ability: Effective Visual Impairment: No Limitations Hearing Ability: Normal Plastic Worker Required: No Beliefs That Will Affect Care: None marital status: Single Current Living Situation: Alone current occupational status: disabled How many Children do You have: 2 Other Information That Helps Us Care for You: No Feels Safe at Home: Yes Safety Concerns: Feels Safe At This Time Childhood Exposure to Second-Hand Smoke: Yes caffeine: Yes during the past year weight has: remained stable Dental Care, Regularly: Yes Physical Activity Frequency: Daily Physical Activity Frequency Comment: walks around house Seatbelt Use: always Sunscreen Use: Yes Assistive Devices: Glasses Review of Systems Review of Systems: All systems reviewed & are unremarkable except as noted in HPI & below Physical Exam Constitutional: + mechanically ventilated; no acute distress Eyes: PERRL, conjunctivae normal, anicteric sclerae ENMT: external ear and nose normal, oropharynx normal Neck: trachea midline, no thyromegaly Respiratory: Mechanically ventilated, lungs with rhonchi auscultated bilaterally in all fajardo. Symmetrical chest wall movement Cardiovascular: Regular paced rhythm, murmur, no JVD, +1 pedal edema bilateral Gastrointestinal (Abdomen): normal bowel sounds, soft, nontender, no hepatosplenomegaly Musculoskeletal: no cyanosis or clubbing, extremities motor strength 5/5 Skin: no rashes, warm and dry Neurologic: PERRLA, cough gag corneal intact. Psychiatric: Unable to assess due to sedation Genitourinary: Indwelling Cancino catheter present Results & Data Results & Data ([facility]) Vital Signs (Past 12 Hours) Vital Signs Temp Pulse Pulse Resp BP BP Pulse Ox 05/14/22 23:37 100 H 26 H 96 05/14/22 22:54 38.4 C H 103 H 18 94/37 L 97 05/14/22 22:40 38.5 C H 94 H 20 100/53 L 97 05/14/22 22:10 38.8 C H 92 H 20 87/45 L 100 05/14/22 22:02 38.9 C H 93 H 20 96/49 L 98 05/14/22 21:49 39.2 C H 101 H 20 102/58 L 98 05/14/22 21:34 39.6 C H 100 H 24 82/53 L 98 05/14/22 21:22 40.1 C H 109 H 24 77/64 L 97 05/14/22 21:18 40.2 C H 67 24 103/78 96 05/14/22 20:51 40.6 C H 92 H 24 122/69 96 05/14/22 20:44 107 H 30 H 95 05/14/22 20:43 40.7 C H 98 H 16 85/40 L 95 05/14/22 20:05 97 05/14/22 20:34 40.6 C H 93 H 16 88/65 L 95 05/14/22 20:23 40.1 C H 106 H 16 94/56 L 97 05/14/22 20:18 95 05/14/22 20:14 68 05/14/22 19:55 38.3 C H 67 16 142/63 H 97 O2 Del Method FiO2 05/14/22 23:37 50 05/14/22 22:54 Mechanical Vent 05/14/22 22:40 Mechanical Vent 05/14/22 22:10 Mechanical Vent 05/14/22 22:02 Mechanical Vent 05/14/22 21:49 Mechanical Vent 05/14/22 21:34 Mechanical Vent 05/14/22 21:22 Mechanical Vent 05/14/22 21:18 Mechanical Vent 05/14/22 20:51 Mechanical Vent 05/14/22 20:44 50 05/14/22 20:43 Mechanical Vent 05/14/22 20:05 05/14/22 20:34 Mechanical Vent 05/14/22 20:23 Mechanical Vent 05/14/22 20:18 Mechanical Vent 05/14/22 20:14 05/14/22 19:55 Mechanical Vent Coding Level of Care Code 03541 CRITICAL CARE EA ADD 30M Diagnoses Septic shock A41.9; R65.21 NSTEMI (non-ST elevated myocardial infarction) I21.4 Acute hypoxemic respiratory failure J96.01 Status post placement of cardiac pacemaker Z95.0 MARY (acute kidney injury) N17.9 Acute diastolic HF (heart failure) I50.31 COPD (chronic obstructive pulmonary disease) J44.9 GERD (gastroesophageal reflux disease) K21.9 Hyperlipidemia E78.5
[2022-05-14] MEDS ORDERED: PHARMACY GLYCEMIC MGMT CONSULT PRN (23:47)
[2022-05-15] MEDS ORDERED: LANTUS PER UNIT CHARGE SQ ONE (00:15)
[2022-05-15] MEDS ORDERED: DEXTROSE 50% 50 ML SYRINGE IV PRN (00:15)
[2022-05-15] MEDS ORDERED: CARBOHYDRATES FOR HYPOGLYCEMIA PO PRN (00:15)
[2022-05-15] MEDS ORDERED: GLUCOSE 10 TAB/TUBE PO PRN (00:15)
[2022-05-15] MEDS ORDERED: INSULIN ASPART PER UNIT CHARGE SC SCH (00:15)
[2022-05-15] MEDS ORDERED: GLUCAGON FOR INJ 1 MG VIAL IM PRN (00:15)
[2022-05-15] MEDS ORDERED: GLUCOSE 40% GEL 15 GM TUBE PO PRN (00:15)
[2022-05-15] MEDS ORDERED: STAT IV Infusion **Titration per Protocol STA (00:28)
--- NOTE | 2022-05-15 00:35 | Procedure Note ---
Procedure Note Date of Service May 15, 2022 Note ARTERIAL LINE PROCEDURE NOTE: Procedure: Arterial Line Placement Attending: Dr. Miller Provider: KRISTAL Gonzalez Indication: Monitoring on Pressors Anesthesia: Lidocaine 1% Line placed emergently in the setting of septic shock requiring continuous hemodynamic monitoring with multiple vasopressors. A time-out was completed verifying correct patient, procedure, site, positioning, and implant(s) or special equipment if applicable. Allens test was performed to ensure adequate perfusion. Patients left wrist was prepped and draped in the usual sterile fashion. Ultrasound guidance was used to aid needle placement. A 20g Arrow arterial line was introduced into the left radial artery. Catheter was threaded, and the needle was removed with appropriate blood return. Good waveform was observed. The patient tolerated the procedure well. Confirmation of placement with ultrasound. Images saved to medical record. Blood Loss: Minimal Complications: None Procedural Ultrasound Guidance: Procedure Date: 05/15/2022 Indication: Arterial line insertion Attending: Dr. Miller Provider: KRISTAL Gonzalez Artery Identified: YES Line confirmed in Artery with ultrasound: Yes Complications: NONE Patient tolerated procedure: WELL Coding CPT Codes Tubes, Drains, and Vasc Access - Tubes, Drains, and Vasc Access: [id number] Arterial Cath/Cannulation Sampling/Monitoring/Transfusion ([id number]) Tubes, Drains, and Vasc Access - Tubes, Drains, and Vasc Access: [id number] Ultrasound Guidance For Vascular ([id number]) [facility] [place] Procedure Codes (Charges) Tubes, Drains, and Vasc Access Procedure 1: Tubes, Drains, and Vasc Access: [id number] Arterial Cath/Cannulation Sampling/Monitoring/Transfusion Procedure 2: Tubes, Drains, and Vasc Access: [id number] Ultrasound Guidance For Vascular
--- NOTE | 2022-05-15 00:35 | Procedure Note ---
Procedure Note Date of Service May 14, 2022 Note INTERNAL JUGULAR CENTRAL LINE PROCEDURE NOTE: Procedure: Internal Jugular Central Line Placement Attending: Dr. Miller Provider: KRISTAL Gonzalez Indication: Central Drug Administration, Poor Venous Access, Multiple Lab Draws Necessary, etc. Anesthesia: Lidocaine 1% Line placed emergently in the setting of septic shock requiring multiple vasopressor support. A time-out was completed verifying correct patient, procedure, site, positioning, and implants(s) or special equipment if applicable. Patients right neck was cleansed and draped in the typical sterile fashion using Chloraprep. The Internal Jugular Vein and Carotid Artery were identified using ultrasound. The superficial tissue was anesthetized using 3 mL of 1% lidocaine without epinephrine under direct visualization with the ultrasound. After adequate anesthetization was achieved, the Internal Jugular vein was cannulated under direct ultrasound guidance using an introducer needle on a syringe. Good venous blood return was maintained prior to removal of syringe from introducer needle. Using Seldinger Technique, a guide wire was advanced through the introducer needle without resistance. The introducer needle was removed and ultrasound images were obtained of the guide wire within the Internal Jugular Vein and saved to the patients medical record. A small incision was made in penetrating fashion at the guide wire insertion site utilizing an 11 blade scalpel. The dilator was advanced to the vessel without resistance. The dilator was exchanged for the triple lumen catheter which was advanced into the vessel without resistance. The guide wire was removed intact from the catheter without issue. Claves were placed on each catheter tip with confirmation of good blood flow from each lumen. Each port was easily flushed with sterile saline. The catheter was placed at 16 cm and sutured in place. BioPatch was applied to the catheter and a sterile Tegaderm dressing was applied over the catheter with careful attention to sterility. Patient tolerated procedure well. No immediate complications were met. Post procedure x-ray was completed, placement was appropriate and no pneumothorax was noted. Images obtained are saved for permanent record Procedural Ultrasound Guidance: Procedure Date: 05/14/2022 Indication: Central venous catheter insertion Attending: Dr. Miller Provider: KRISTAL Gonzalez Artery AND Vein visualized: Yes Compressible Vein: Yes Guidewire or Short Catheter seen in vein prior to dilation: Yes Line confirmed in Vein with ultrasound: Yes Images obtained are saved for permanent record. Coding CPT Codes Tubes, Drains, and Vasc Access - Tubes, Drains, and Vasc Access: [id number] Ultrasound Guidance For Vascular ([id number]) Tubes, Drains, and Vasc Access - Tubes, Drains, and Vasc Access: [id number] Place catheter in vein superior or inferior vena cava ([id number]) [facility] [place] Procedure Codes (Charges) Tubes, Drains, and Vasc Access Procedure 1: Tubes, Drains, and Vasc Access: [id number] Ultrasound Guidance For Vascular Procedure 2: Tubes, Drains, and Vasc Access: [id number] Place catheter in vein superior or inferior vena cava
[2022-05-15] MEDS ORDERED: INSULIN PROTOCOL GOAL RANGE ONE (01:32)
[2022-05-15] MEDS ORDERED: STAT IV STA ×2 (01:32→14:13)
[2022-05-15] MEDS: MAGNESIUM SULFATE / D5W 1 GM/100 ML BAG IV SCH ×3 (01:37→03:50)
[2022-05-15] MEDS ORDERED: Nursing to Pharmacy Communication SCH (01:45)
[2022-05-15] MEDS: VASOPRESSIN 20 UNITS in 0.9 % SODIUM CHLORIDE 100 ML IV SCH ×3 (01:52→19:07)
[2022-05-15] MEDS: INSULIN REGULAR 250 UNITS in SODIUM CHLORIDE 0.9% 247.5 ML IV SCH (01:55)
[2022-05-15] MEDS ORDERED: HEPARIN SODIUM/DEXTROSE 25,000 UNITS/500 ML BAG IV SCH (02:00)
[2022-05-15] MEDS ORDERED: NovoLIN-R BOLUS FROM BAG IV ONE (02:15)
[2022-05-15] MEDS: NOREPINEPHRINE/D5W 4 MG/250 ML PLCT IV SCH ×5 (02:54→21:39)
[2022-05-15 03:17] LABS: Albumin Globulin Ratio 0.8 (0.9-2); Albumin Level 2.6 gm/dl (3.4-5.0); BUN Creatinine Ratio 16.7 (10-20); Bilirubin,Total 1.8 mg/dl (0.2-1.0); Calcium 7.3 mg/dl (8.5-10.1); Est GFR (African American) 16.9 ml/min; Est GFR (Non-African American) 14.6 ml/min; Globulin 3.1 gm/dl (2.5-4.0); Hematocrit (blood only) 27.6 % (37.0-47.0); Hemoglobin 8.9 g/dl (12.0-16.0); Mean Corpuscular Hgb Conc 32.2 g/dL (32.0-36.0); Mean Corpuscular Volume 92.9 fL (80.0-100.0); Mean Platelet Volume 11.8 fL (9.4-12.4); Phosphorus 5.3 mg/dl (2.5-4.9); Platelet Count 86 K/uL (130-400); Potassium 3.9 mmol/L (3.5-5.1); RDW Standard Deviation 51.6 fL (36.4-46.3); Red Blood Count 2.97 M/uL (4.20-5.40); Total Protein 5.7 gm/dl (6.0-8.3); White Blood Count 11.79 K/ul (4.8-10.8)
[2022-05-15] MEDS ORDERED: ALBUT/IPRATROP 3MG/0.5MG NEB 3 ML VIAL NEB PRN (03:29)
[2022-05-15] MEDS ORDERED: SODIUM BICARB 8.4% INJ 50 MEQ/50 ML SYR IV STA (03:46)
[2022-05-15 03:53] LABS: Basophils # (auto) 0.03 K/uL (0-0.2); Basophils % (auto) 0.3 %; Dohle Bodies 1+; Echinocytes 2+; Immature Granulocytes % (auto) 0.8 %; Lymphocytes # (auto) 0.63 K/uL (1.2-3.4); Lymphocytes % (auto) 5.3 %; Monocytes # (auto) 0.49 K/uL (0.11-0.59); Monocytes % (auto) 4.2 %; Neutrophils # (auto) 10.54 K/uL (1.40-6.50); Neutrophils % (auto) 89.4 %
[2022-05-15 03:54] LABS: iSTAT Art Bld Gas pCO2 Correct 40 mmHg (35-46); iSTAT Art Bld Gas pH Corrected 7.237 (7.35-7.45); iSTAT Arterial Blood Gas HCO3 17 meg/L (19-24); iSTAT Arterial Blood Gas pCO2 38 mmHg (35-46); iSTAT Arterial Blood Gas pH 7.25 (7.35-7.45); iSTAT Arterial Blood Gas pO2 105 mmHg (80-95); iSTAT Arterial Blood Gas pO2 C 111; iSTAT Carbon Dioxide 18 mmol/L (24-31); iSTAT FiO2 50 %; iSTAT Hematocrit 25 % (37-47); iSTAT Hemoglobin 8.5 g/dl (12.0-16.0); iSTAT Potassium 3.6 mmol/L (3.3-5.0); iSTAT Site Art Line; iSTAT Sodium 136 mmol/L (135-144)
[2022-05-15 05:08] LABS: A calco-baum cmplx NotReported Not Detected (NotDetected); Bact fragilis Not Reported Not Detected (NotDetected); C auris Not Reported Not Detected (NotDetected); Calbicans Not Reported Not Detected (NotDetected); Candida glabrata Not Reported Not Detected (NotDetected); Candida krusei Not Reported Not Detected (NotDetected); Cneoformans/gatti Not Reported Not Detected (NotDetected); Cparapsilosis Not Reported Not Detected (NotDetected); Ctropicalis Not Reported Not Detected (NotDetected); E cloacae compx Not Reported Not Detected (NotDetected); Efaecalis Not Reported Not Detected (NotDetected); Efaecium Not Reported Not Detected (NotDetected); Enterobacterales Not Reported Not Detected (NotDetected); Escherichia coli Not Reported Not Detected (NotDetected); H influenzae Not Reported Not Detected (NotDetected); K aerogenes Not Reported Not Detected (NotDetected); Koxytoca Not Reported Not Detected (NotDetected); Kpneumoniae grp Not Reported Not Detected (NotDetected); Lmonocyt Not Reported Not Detected (NotDetected); N meningitidis Not Reported Not Detected (NotDetected); P aeruginosa Not Reported Not Detected (NotDetected); Proteus spp Not Reported Not Detected (NotDetected); Salmonella spp Not Reported Not Detected (NotDetected); Smarcescens Not Reported Not Detected (NotDetected); Staph lugdunensis Not Reported Not Detected (NotDetected); Staph spp. Not Reported DETECTED (NotDetected); Staphaureus Not Reported DETECTED (NotDetected); Staphepi Not Reported Not Detected (NotDetected); Staphylococcus spp. DETECTED (NotDetected); Stenmaltophilia Not Reported Not Detected (NotDetected); Strep agal(GrpB) Not Reported Not Detected (NotDetected); Strep pneum Not Reported Not Detected (NotDetected); Strep pyog (GrpA) Not Reported Not Detected (NotDetected); Strep spp Not Reported Not Detected (NotDetected); mecAC+MREJ Resistant Gene MRSA Not Detected (NotDetected)
[2022-05-15] MEDS ORDERED: metroNIDAZOLE 500 MG/100 ML BAG IV SCH (06:00)
[2022-05-15] MEDS ORDERED: ICU Protocol for HYPERglycemia SCH (07:30)
[2022-05-15] MEDS ORDERED: CEFEPIME 1,000 MG in SYRINGE 0 ML IV SCH (08:00)
[2022-05-15 08:24] LABS: iSTAT Art Bld Gas pCO2 Correct 32 mmHg (35-46); iSTAT Arterial Blood Gas HCO3 18 meg/L (19-24); iSTAT Arterial Blood Gas pCO2 32 mmHg (35-46); iSTAT Arterial Blood Gas pH 7.37 (7.35-7.45); iSTAT Arterial Blood Gas pO2 109 mmHg (80-95); iSTAT Arterial Blood Gas pO2 C 111; iSTAT Carbon Dioxide 19 mmol/L (24-31); iSTAT FiO2 40 %; iSTAT Hematocrit 26 % (37-47); iSTAT Hemoglobin 8.8 g/dl (12.0-16.0); iSTAT Potassium 3.3 mmol/L (3.3-5.0); iSTAT Site Art Line; iSTAT Sodium 138 mmol/L (135-144)
[2022-05-15] MEDS: INSULIN ASPART PER UNIT CHARGE SC SCH ×4 (08:38→19:08)
[2022-05-15] MEDS: ASPIRIN 81 MG CHEW NG SCH (08:39)
[2022-05-15 08:49] LABS: INR 1.3 (0.9-1.1)
[2022-05-15 08:51] LABS: Partial Thromboplastin Time 111.3 Seconds (21.0-31.0)
--- NOTE | 2022-05-15 08:53 | Critical Care Progress Note ---
Date of Service May 15, 2022 Assessment & Plan (1) MARY (acute kidney injury): (2) Acute hypoxemic respiratory failure: (3) Elevated troponin: (4) Thrombocytopenia: (5) Septic shock: (6) Diabetic ketoacidosis: (7) Transaminitis: (8) Complicated UTI (urinary tract infection): (9) Bacteremia: (10) Status post placement of cardiac pacemaker: Admission and Anticipated Discharge Date Admission Date: May 14, 2022 Supervising Physician Co-Signing Physician Notes Septic shock: Reason Critically Ill: 66-year-old female presents to the ICU mechanically ventilated with acute hypoxic respiratory failure and septic shock requiring vasopressor support. Patient also with significantly elevated troponin without EKG changes, on heparin drip. Neuro - Sedation: Fentanyl, Versed drip, will wean CT head negative for acute intracranial findings RASS -1 Cardiac - Shocksuspect sepsis is likely playing a role, cannot rule out cardiogenic component considering elevated troponin and CHF like picture on CT imaging -See treatment of sepsis below. -Random cortisol unremarkable -Elevated troponin of 15,000, no ST elevation on EKG. Likely demand ischemia however patient does have cardiac history with previous PCI. Holding heparin drip due to worsening thrombocytopenia. -Repeat echo pending -Recent pacemaker insertion for second-degree AV block, now AV paced on monitor -Central line, A-line inserted for continuous hemodynamic monitoring and maintaining maps greater than 65 with Levophed and vasopressin -Careful with IV fluid resuscitation given hypoxia/heart failure. -Continue ASA -Hold antihypertensive -Begin weaning Levophed. Patient on vasopressin to help augment Levophed dosing. Respiratory - Acute hypoxic respiratory failureunsure if this is infectious process versus CHF exacerbation. Doubtful pneumonia at this time. -History of COPD, DuoNeb as needed -Careful with fluid resuscitation -Mechanically ventilated. ABG with improved metabolic acidosis. -Continuous pulse ox and end-tidal CO2 monitoring GI - GERDPPI RENAL/LYTES - AKIminimal urine output. We will give an additional 1 L of LR. Low threshold to start bicarb drip. -Likely prerenal in the setting of hypotension -CT abdomen and pelvis with mild perinephric edema surrounding both kidneys, likely renal insufficiency. No hydronephrosis or ureterolithiasis is seen -Continue to maintain MAP greater than 65 -Careful with IV fluid resuscitation given hypoxia -Avoid nephrotoxins and renally adjust medications -Monitor with routine BMPs - Foleystrict I's and O's ENDO - DM type II (controlled)last hemoglobin A1c 6.7. Patient with evidence of mild DKA. Continue insulin drip and IV fluids. HEME - Patient with chronic anemia and worsening thrombocytopenia. Check HIT panel. Hold heparin drip. Likely sepsis coagulopathy. At risk for DIC. ID - Sepsisunsure of source at this time with possible pulmonary? -Suspect secondary to complicated UTI and possible pacemaker infection in light of gram-positive cocci on blood cultures. PCR in blood detected Staphylococcus aureus which appears to be MSSA. -Patient did recently receive pacemaker -Pro-Tavnir significantly elevated at 30, febrile with leukocytosis -Blood cultures, urine culture, sputum culture pending -Continue broad-spectrum antibiotics with vancomycin, cefepime, and Flagyl for now LINES/IV ACCESS - Right CVL IJ, left radial A-line, OG tube, ET tube, Cancino DVT PROPHYLAXIS - SCDs, heparin drip CRITICAL CARE TIME - I have personally spent 47 minutes of critical care time in the direct management of this patient. This is a life/limb threatening event. This includes time spent evaluating patient, direct bedside care, chart review, placing orders, interpretation of diagnostic studies, discussion with consultants, patient, and family members, as well as other required patient management activities. This time is exclusive of all separately billable procedures, and teaching time and separate from and in addition to any other critical care service time. Subjective Patient seen and examined. Currently heavily sedated with Versed and fentanyl. She is also on moderate doses of Levophed and fixed dose vasopressin. Arterial line, IJ and Cancino catheter in place. She is currently on insulin drip. Minimal urine output overnight. Patient unresponsive to commands. Review of Systems Review of Systems: Unobtainable due to endotracheal tube Physical Exam Constitutional: + mechanically ventilated; no acute distress Eyes: PERRL, conjunctivae normal, anicteric sclerae ENMT: external ear and nose normal, oropharynx normal Neck: trachea midline, no thyromegaly Respiratory: Mechanically ventilated, lungs with rhonchi auscultated bilaterally in all fajardo. Symmetrical chest wall movement Cardiovascular: Regular paced rhythm, murmur, no JVD, +1 pedal edema bilateral Gastrointestinal (Abdomen): normal bowel sounds, soft, nontender, no hepatosplenomegaly Musculoskeletal: no cyanosis or clubbing, extremities motor strength 5/5 Skin: no rashes, warm and dry Neurologic: PERRLA, cough gag corneal intact. Psychiatric: Unable to assess due to sedation Genitourinary: Indwelling Cancino catheter present Results & Data Results & Data ([facility]) Vital Signs (Past 12 Hours) Vital Signs Temp Pulse Pulse Resp BP BP Pulse Ox 05/15/22 06:58 80 24 97 05/15/22 06:30 37.4 C 79 24 05/15/22 06:30 118/72 05/15/22 06:15 37.4 C 78 24 05/15/22 06:15 132/68 05/15/22 06:00 37.4 C 80 24 05/15/22 06:00 118/73 05/15/22 05:45 37.5 C 77 24 05/15/22 05:45 119/61 05/15/22 05:30 37.5 C 78 24 05/15/22 05:30 116/79 05/15/22 05:15 37.5 C 74 24 05/15/22 05:15 115/67 05/15/22 05:00 37.5 C 75 24 05/15/22 05:00 115/63 05/15/22 04:45 37.6 C H 77 24 05/15/22 04:45 118/60 05/15/22 04:30 37.7 C H 78 24 05/15/22 04:30 116/65 05/15/22 04:00 83 24 96 05/15/22 04:15 37.7 C H 79 24 05/15/22 04:15 107/62 05/15/22 04:00 37.8 C H 80 24 05/15/22 04:00 114/57 L 05/15/22 03:45 37.9 C H 82 24 97 05/15/22 03:45 113/67 05/15/22 03:30 38.0 C H 85 23 05/15/22 03:30 118/57 L 05/15/22 03:15 38.2 C H 89 23 05/15/22 03:15 122/62 05/15/22 03:00 38.3 C H 92 H 24 05/15/22 03:00 113/55 L 05/15/22 02:45 38.4 C H 95 H 24 95 05/15/22 02:45 90/64 L 05/15/22 02:31 38.4 C H 97 H 24 96 05/15/22 02:31 98/63 L 05/15/22 02:30 38.4 C H 98 H 24 94 05/15/22 02:15 38.4 C H 101 H 27 H 91 05/15/22 02:15 142/78 H 05/15/22 02:00 38.3 C H 96 H 24 93 05/15/22 02:00 115/75 05/15/22 01:45 38.3 C H 94 H 25 H 94 05/15/22 01:45 116/64 05/15/22 01:30 38.2 C H 95 H 25 H 94 05/15/22 01:30 121/57 L 05/15/22 01:15 38.1 C H 92 H 25 H 94 05/15/22 01:15 117/66 05/15/22 01:00 38.1 C H 86 24 94 05/15/22 01:00 119/56 L 05/15/22 00:46 38.1 C H 89 24 97 05/15/22 00:46 95/54 L 05/15/22 00:45 38.1 C H 87 25 H 93 05/15/22 00:31 60/36 L 05/15/22 00:31 38.2 C H 83 25 H 94 05/15/22 00:30 38.2 C H 93 H 24 95 05/15/22 00:26 66/47 L 05/15/22 00:26 38.2 C H 93 H 25 H 95 05/15/22 00:16 38.2 C H 89 24 94 05/15/22 00:15 38.3 C H 78 24 94 05/15/22 00:01 77/51 L 05/15/22 00:01 38.3 C H 92 H 24 96 05/14/22 23:37 38.3 C H 89 27 H 05/14/22 23:37 109/62 05/15/22 04:00 05/15/22 00:00 05/15/22 00:00 05/14/22 23:37 100 H 26 H 96 05/14/22 23:32 38.3 C H 97 H 36 H 109/62 96 05/14/22 22:54 38.4 C H 103 H 18 94/37 L 97 05/14/22 22:40 38.5 C H 94 H 20 100/53 L 97 05/14/22 22:10 38.8 C H 92 H 20 87/45 L 100 05/14/22 22:02 38.9 C H 93 H 20 96/49 L 98 05/14/22 21:49 39.2 C H 101 H 20 102/58 L 98 05/14/22 21:34 39.6 C H 100 H 24 82/53 L 98 05/14/22 21:22 40.1 C H 109 H 24 77/64 L 97 05/14/22 21:18 40.2 C H 67 24 103/78 96 05/14/22 20:51 40.6 C H 92 H 24 122/69 96 05/14/22 20:44 107 H 30 H 95 O2 Del Method FiO2 05/15/22 06:58 40 05/15/22 06:30 05/15/22 06:30 05/15/22 06:15 05/15/22 06:15 05/15/22 06:00 05/15/22 06:00 05/15/22 05:45 05/15/22 05:45 05/15/22 05:30 05/15/22 05:30 05/15/22 05:15 05/15/22 05:15 05/15/22 05:00 05/15/22 05:00 05/15/22 04:45 05/15/22 04:45 05/15/22 04:30 05/15/22 04:30 05/15/22 04:00 40 05/15/22 04:15 05/15/22 04:15 05/15/22 04:00 05/15/22 04:00 05/15/22 03:45 05/15/22 03:45 05/15/22 03:30 05/15/22 03:30 05/15/22 03:15 05/15/22 03:15 05/15/22 03:00 05/15/22 03:00 05/15/22 02:45 05/15/22 02:45 05/15/22 02:31 05/15/22 02:31 05/15/22 02:30 05/15/22 02:15 05/15/22 02:15 05/15/22 02:00 05/15/22 02:00 05/15/22 01:45 05/15/22 01:45 05/15/22 01:30 05/15/22 01:30 05/15/22 01:15 05/15/22 01:15 05/15/22 01:00 05/15/22 01:00 05/15/22 00:46 05/15/22 00:46 05/15/22 00:45 05/15/22 00:31 05/15/22 00:31 05/15/22 00:30 05/15/22 00:26 05/15/22 00:26 05/15/22 00:16 05/15/22 00:15 05/15/22 00:01 05/15/22 00:01 05/14/22 23:37 05/14/22 23:37 05/15/22 04:00 40 05/15/22 00:00 40 05/15/22 00:00 Mechanical Vent 45 05/14/22 23:37 50 05/14/22 23:32 Mechanical Vent 05/14/22 22:54 Mechanical Vent 05/14/22 22:40 Mechanical Vent 05/14/22 22:10 Mechanical Vent 05/14/22 22:02 Mechanical Vent 05/14/22 21:49 Mechanical Vent 05/14/22 21:34 Mechanical Vent 05/14/22 21:22 Mechanical Vent 05/14/22 21:18 Mechanical Vent 05/14/22 20:51 Mechanical Vent 05/14/22 20:44 50 Coding Level of Care Code 61342 CRITICAL CARE 1ST 30-74M Diagnoses MARY (acute kidney injury) N17.9 Acute hypoxemic respiratory failure J96.01 Elevated troponin R77.8 Thrombocytopenia D69.6 Septic shock A41.9; R65.21 Diabetic ketoacidosis E11.10 Transaminitis R74.01 Complicated UTI (urinary tract infection) N39.0 Bacteremia R78.81 Status post placement of cardiac pacemaker Z95.0 Time Spent (min) 47
[2022-05-15 09:24] LABS: Hematocrit (blood only) 26.7 % (37.0-47.0); Hemoglobin 8.9 g/dl (12.0-16.0); Mean Corpuscular Hemoglobin 29.9 pg (25.0-34.0); Mean Corpuscular Hgb Conc 33.3 g/dL (32.0-36.0); Mean Corpuscular Volume 89.6 fL (80.0-100.0); Mean Platelet Volume 11.1 fL (9.4-12.4); Platelet Count 72 K/uL (130-400); RDW Coefficient of Variation 15.2 % (11.5-14.5); RDW Standard Deviation 49.2 fL (36.4-46.3); Red Blood Count 2.98 M/uL (4.20-5.40); White Blood Count 11.32 K/ul (4.8-10.8)
[2022-05-15 09:31] LABS: Albumin Globulin Ratio 0.9 (0.9-2); Albumin Level 2.7 gm/dl (3.4-5.0); BUN Creatinine Ratio 18.4 (10-20); Bilirubin,Total 1.5 mg/dl (0.2-1.0); Calcium 7.2 mg/dl (8.5-10.1); Creatinine Clr Calc Pharmacy 20.6 ml/min; Est GFR (African American) 17.4 ml/min; Globulin 3.1 gm/dl (2.5-4.0); Potassium 3.3 mmol/L (3.5-5.1); Total Protein 5.8 gm/dl (6.0-8.3)
[2022-05-15] MEDS: PANTOprazole 40 MG in SYRINGE 0 ML IV SCH (09:55)
[2022-05-15 10:11] LABS: Basophils # (auto) 0.04 K/uL (0-0.2); Basophils % (auto) 0.4 %; Dohle Bodies 1+; Echinocytes 1+; Immature Granulocytes # (auto) 0.16 K/uL (0.01-0.20); Immature Granulocytes % (auto) 1.4 %; Lymphocytes # (auto) 0.93 K/uL (1.2-3.4); Lymphocytes % (auto) 8.2 %; Monocytes # (auto) 0.57 K/uL (0.11-0.59); Neutrophils # (auto) 9.62 K/uL (1.40-6.50)
--- NOTE | 2022-05-15 10:11 | XRay Report ---
XR chest 1V portable CLINICAL HISTORY: CENTRAL LINE PLACEMENT TECHNIQUE: Single frontal radiograph of the chest was obtained. Comparison: Comparison is made to chest radiograph 05/14/2022 FINDINGS: Median sternotomy wires are unchanged. Enteric tube tip lies below the diaphragm. Endotracheal tube t ip is approximately 3 cm from the moody. A right jugular venous catheter terminates in the mid SVC. Cardiomegaly is noted. Prominence and cephalization of the vasculature is seen. No evidence of pleura l effusion or pneumothorax. IMPRESSION: 1. Satisfactory position of right IJ catheter and other lines and tubes. 2. Cardiomegaly and mild pulmonary edema. ACT 112: Negative or not required by law. Electronically signed by: Milton Saucedo M.D. 05/15/2022 10:09 AM
--- NOTE | 2022-05-15 11:25 | Cardiology Consultation ---
Date of Consultation May 15, 2022 History of Present Illness Reason for Consultation: Likely MSSA sepsis status post recent pacemaker implantation Requesting Physician: Patient's primary shake maker is Dnany Espinal Attending Physician: Sandip Ibarra MD History of Present Illness Patient is intubated and sedated and cannot give a history. From the chart it appears she was confused and then her family could not get a hold of her. A neighbor found her in respiratory distress and EMS was called. When she arrived in the hospital she had a significant temperature and elevated white count and was intubated at the time. She was recently discharged from [facility] for 2-1 A-V block that was symptomatic and recent pacemaker implantation with an atrial lead and a HIS placed RV lead. The rest of review of systems is unobtainable Allergies Allergy/AdvReac Type Severity Reaction Status Date / Time No Known Allergies Allergy Verified 05/07/22 10:25 Home Medications Medication Instructions Recorded Confirmed Type aspirin 81 mg tablet,delayed 81 mg PO QAM 10/19/19 05/07/22 History release (Adult Low Dose Aspirin) insulin aspart U-100 100 unit/mL See Rx Instructions subcut 10/14/20 05/07/22 Rx subcutaneous solution (Novolog .COMPLEX #60 mL U-100 Insulin aspart) insulin detemir U-100 100 unit/mL 50 unit (0.5 mL) subcut QPM #45 mL 02/25/21 05/07/22 Rx subcutaneous solution (Levemir U-100 Insulin) pen needle, diabetic 31 gauge x #100 ea 05/29/21 05/07/22 Rx 3/16" (BD Ultra-Fine Mini Pen Needle) multivitamin (Multiple Vitamins 1 tab PO QAM 07/02/21 05/07/22 History tablet) cholecalciferol (vitamin D3) 50 50 mcg PO QAM 10/29/21 05/07/22 History mcg (2,000 unit) capsule simvastatin 80 mg tablet 80 mg PO QPM #90 tabs 11/13/21 05/07/22 Rx clopidogrel 75 mg tablet 75 mg PO QAM #90 tabs 11/30/21 05/07/22 Rx pantoprazole 20 mg tablet,delayed 20 mg PO QAM #90 tabs 11/30/21 05/07/22 Rx release gabapentin 400 mg capsule 400 mg PO TID #90 caps 12/04/21 05/07/22 Rx blood pressure monitor #1 ea 12/08/21 05/07/22 Rx metoprolol tartrate 50 mg tablet 50 mg PO BID #180 tabs 12/10/21 05/07/22 Rx ezetimibe 10 mg tablet 10 mg PO HS #90 tabs 12/17/21 05/07/22 Rx famotidine 40 mg tablet (Pepcid) 40 mg PO HS #90 tabs 12/17/21 05/07/22 Rx nystatin 100,000 unit/gram topical 1 applic topical TID PRN yeast 12/23/21 05/07/22 Rx powder infection #60 grams potassium chloride 10 mEq 10 meq PO QAM #90 tabs 01/08/22 05/07/22 Rx tablet,extended release(part/cryst) nitroglycerin 0.4 mg sublingual 0.4 mg sublingual .COMPLEX PRN 01/14/22 05/07/22 Rx tablet (Nitrostat) Chest Pain #20 tabs lisinopril 40 mg tablet 40 mg PO HS #90 tabs 01/27/22 05/07/22 Rx bumetanide 0.5 mg tablet 0.5 mg PO QAM #90 tabs 02/03/22 05/07/22 Rx dulaglutide 1.5 mg/0.5 mL 1.5 mg (0.5 mL) subcut WK #6 mL 02/22/22 05/07/22 Rx subcutaneous pen injector metformin 1,000 mg tablet 1,000 mg PO BID #180 tabs 02/22/22 05/07/22 Rx fluticasone fur. 100 mcg-umeclid 1 inh inhalation QDL 90 days #60 ea 04/12/22 05/07/22 Rx 62.5 mcg-vilant 25 mcg inhalat.powder (Trelegy Ellipta) nystatin 100,000 unit/gram topical 1 applic topical TID PRN 05/07/22 History cream Patient History Medical History Bacteremia Carotid arterial disease R carotid endarterectomy 2014 Complicated UTI (urinary tract infection) COPD (chronic obstructive pulmonary disease) controlled, stable per pt-denies rescue inhaler use Coronary artery disease s/p 1 stent Diabetes mellitus with complication IDDM Diabetic ketoacidosis Diabetic neuropathy GERD (gastroesophageal reflux disease) controlled, stable per pt History of anesthesia reaction difficulty waking History of femoral angiogram (~09/29/21) right lower extremity angiogram @ [facility] Dr. 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 Espinal S/P carotid endarterectomy (2014) R S/P section x 2 S/P coronary artery stent placement 1 placed S/P hernia repair x 2 S/P peripheral artery angioplasty with stent placement (08/2017) angioplasty and stent R external iliac artery S/P total hysterectomy and bilateral salpingo-oophorectomy (1992) d/t endometriosis Family History Grandmother (Paternal) Breast cancer Family/Other Ovarian cancer Father Diabetes Heart disease Myocardial infarction Hypertension Mother Diabetes Heart disease Brother Diabetes Heart disease Hypertension Grandfather (Paternal) Family history of esophageal cancer Other No family history of adverse response to anesthesia Denies family history of Prostate cancer Colorectal cancer Social History Smoking Status: Current every day smoker Tobacco Type: Cigarettes Age Started Using Tobacco: 21; packs per day: 0.15; Cigarettes Per Day: 5 cigs a day-advised; Second Hand Exposure: No; Do You Dip or Chew Tobacco: No; Tobacco Cessation Education Requested by Patient: No Hx Alcohol Use: No Hx Substance Use: No Preferred Language: Czech Communication Ability: Effective Visual Impairment: No Limitations Hearing Ability: Normal Jewel Gauger Required: No Beliefs That Will Affect Care: None marital status: Single Current Living Situation: Alone current occupational status: disabled How many Children do You have: 2 Other Information That Helps Us Care for You: No Feels Safe at Home: Yes Safety Concerns: Feels Safe At This Time Childhood Exposure to Second-Hand Smoke: Yes caffeine: Yes during the past year weight has: remained stable Dental Care, Regularly: Yes Physical Activity Frequency: Daily Physical Activity Frequency Comment: walks around house Seatbelt Use: always Sunscreen Use: Yes Assistive Devices: Glasses Results & Data ([facility]) Vital Signs (Past 12 Hours) Vital Signs Temp Pulse Pulse Resp BP BP Pulse Ox 05/15/22 06:58 80 24 97 05/15/22 06:30 37.4 C 79 24 05/15/22 06:30 118/72 05/15/22 06:15 37.4 C 78 24 05/15/22 06:15 132/68 05/15/22 06:00 37.4 C 80 24 05/15/22 06:00 118/73 05/15/22 05:45 37.5 C 77 24 05/15/22 05:45 119/61 05/15/22 05:30 37.5 C 78 24 05/15/22 05:30 116/79 05/15/22 05:15 37.5 C 74 24 05/15/22 05:15 115/67 05/15/22 05:00 37.5 C 75 24 05/15/22 05:00 115/63 05/15/22 04:45 37.6 C H 77 24 05/15/22 04:45 118/60 05/15/22 04:30 37.7 C H 78 24 05/15/22 04:30 116/65 05/15/22 04:00 83 24 96 05/15/22 04:15 37.7 C H 79 24 05/15/22 04:15 107/62 05/15/22 04:00 37.8 C H 80 24 05/15/22 04:00 114/57 L 05/15/22 03:45 37.9 C H 82 24 97 05/15/22 03:45 113/67 05/15/22 03:30 38.0 C H 85 23 05/15/22 03:30 118/57 L 05/15/22 03:15 38.2 C H 89 23 05/15/22 03:15 122/62 05/15/22 03:00 38.3 C H 92 H 24 05/15/22 03:00 113/55 L 05/15/22 02:45 38.4 C H 95 H 24 95 05/15/22 02:45 90/64 L 05/15/22 02:31 38.4 C H 97 H 24 96 05/15/22 02:31 98/63 L 05/15/22 02:30 38.4 C H 98 H 24 94 05/15/22 02:15 38.4 C H 101 H 27 H 91 05/15/22 02:15 142/78 H 05/15/22 02:00 38.3 C H 96 H 24 93 05/15/22 02:00 115/75 05/15/22 01:45 38.3 C H 94 H 25 H 94 05/15/22 01:45 116/64 05/15/22 01:30 38.2 C H 95 H 25 H 94 05/15/22 01:30 121/57 L 05/15/22 01:15 38.1 C H 92 H 25 H 94 05/15/22 01:15 117/66 05/15/22 01:00 38.1 C H 86 24 94 05/15/22 01:00 119/56 L 05/15/22 00:46 38.1 C H 89 24 97 05/15/22 00:46 95/54 L 05/15/22 00:45 38.1 C H 87 25 H 93 05/15/22 00:31 60/36 L 05/15/22 00:31 38.2 C H 83 25 H 94 05/15/22 00:30 38.2 C H 93 H 24 95 05/15/22 00:26 66/47 L 05/15/22 00:26 38.2 C H 93 H 25 H 95 05/15/22 00:16 38.2 C H 89 24 94 05/15/22 00:15 38.3 C H 78 24 94 05/15/22 00:01 77/51 L 05/15/22 00:01 38.3 C H 92 H 24 96 05/14/22 23:37 38.3 C H 89 27 H 05/14/22 23:37 109/62 05/15/22 04:00 05/15/22 00:00 05/15/22 00:00 05/14/22 23:37 100 H 26 H 96 05/14/22 23:32 38.3 C H 97 H 36 H 109/62 96 O2 Del Method FiO2 05/15/22 06:58 40 05/15/22 06:30 05/15/22 06:30 05/15/22 06:15 05/15/22 06:15 05/15/22 06:00 05/15/22 06:00 05/15/22 05:45 05/15/22 05:45 05/15/22 05:30 05/15/22 05:30 05/15/22 05:15 05/15/22 05:15 05/15/22 05:00 05/15/22 05:00 05/15/22 04:45 05/15/22 04:45 05/15/22 04:30 05/15/22 04:30 05/15/22 04:00 40 05/15/22 04:15 05/15/22 04:15 05/15/22 04:00 05/15/22 04:00 05/15/22 03:45 05/15/22 03:45 05/15/22 03:30 05/15/22 03:30 05/15/22 03:15 05/15/22 03:15 05/15/22 03:00 05/15/22 03:00 05/15/22 02:45 05/15/22 02:45 05/15/22 02:31 05/15/22 02:31 05/15/22 02:30 05/15/22 02:15 05/15/22 02:15 05/15/22 02:00 05/15/22 02:00 05/15/22 01:45 05/15/22 01:45 05/15/22 01:30 05/15/22 01:30 05/15/22 01:15 05/15/22 01:15 05/15/22 01:00 05/15/22 01:00 05/15/22 00:46 05/15/22 00:46 05/15/22 00:45 05/15/22 00:31 05/15/22 00:31 05/15/22 00:30 05/15/22 00:26 05/15/22 00:26 05/15/22 00:16 05/15/22 00:15 05/15/22 00:01 05/15/22 00:01 05/14/22 23:37 05/14/22 23:37 05/15/22 04:00 40 05/15/22 00:00 40 05/15/22 00:00 Mechanical Vent 45 05/14/22 23:37 50 05/14/22 23:32 Mechanical Vent she is intubated and sedated. HEENT mildly reduced carotid upstrokes Lungs: Clear to auscultation bilaterally no rales rhonchi or wheezing Heart: Regular rate and rhythm with a 2 out of 6 mid peaking crescendo decrescendo murmur present at the right upper sternal border Abdomen: Soft nontender nondistended positive bowel sounds Extremities: Mild bilateral lower extremity edema Neuro and psych could not be evaluated due to her sedation IMPRESSIONS: A. Sepsis with likely MSSA bacteremial; requiring less pressors B. LVEF 50-55% C. Moderate to severe Pulm HTN D. VDRF E. NSTEMI with a highly sensitive troponin of 15,000currently on heparin with a platelet count that is trending down. We will continue to treat this medically and if her platelet count continues to trend down I would just continue with aspirin and stop her heparin. Beta-blockers when her blood pressure allows. (1) Hx of Bradycardia: -sinus rhythm was 2-1 AV block and sympromatic s/p Dual chamber Pacemaker 05/10/22 (2) CHF (congestive heart failure) (3) Coronary artery disease: -s/p LCx PATT, August 2007, patent December 2014. -nonobstructive disease at catheterization, December 2014 (4) S/P aortic valve replacement: -s/p #25 Allen-Haq pericardial tissue valve, December 2014 Appears to have significantly elevated gradients across the prosthesis improved from last echo 5. She underwent a right common femoral artery endarterectomy in [place] [address] Orr. Unfortunately, she was readmitted in December with an infection at her surgical site As was discussed with the weigh tank operator. The likely source is the insertion of her pacemaker. I looked at her arms and her legs and I do not see any active source of infection. She is warm all over there is no significant fluctuance around the pacemaker site. She is currently requiring less pressors and is on antibiotics and improving. She will need a transesophageal echocardiogram on Tuesday. There are multiple concerns the first that her new device is potentially infected and the second being that she has a bioprosthetic aortic valve replacement with increased gradients and JENNIFER a bacteremia places her at high risk for endocarditis. I would consider a telehealth ID consultation to help guide her care as well. Her gradients are elevated across her prosthesis but better than they were during her last echo done last week. Listening to her valve does not sound more than moderately narrowed. We will continue with supportive care at this point. At this point her pacemaker appears to be functioning appropriately. I spent an hour reviewing her extensive patient chart, ER records, outpatient records and discussing the case with critical care
--- NOTE | 2022-05-15 11:37 | Hospitalist Progress Note ---
Date of Service May 15, 2022 Assessment & Plan (1) Bacteremia: Plan: Gram-positive cocci in clusters isolated from 2 of 2 blood cultures on admission. Final identification pending. This is being covered with cefepime and vancomycin. Will tailor antibiotics accordingly (2) Complicated UTI (urinary tract infection): Plan: Suspected source of sepsis (3) Diabetic ketoacidosis: Plan: Metabolic acidosis present on admission with elevated glucose. This could entirely be due to sepsis but DKA needs to be entertained. (4) Septic shock: Plan: Pressor support as necessary. Treat gram-positive cocci in the blood cultures. Await final culture results (5) Acute hypoxemic respiratory failure: Plan: Currently on ventilator support. Serial chest x-ray and serial ABG (6) Second degree atrioventricular block, Mobitz (type) I: Plan: Recent pacemaker insertion. Telemetry (7) MARY (acute kidney injury): Plan: Monitor intake and output. Serial labs Plan Currently in the ICU with ventilator support, pressor support, multiple IV antibiotics, heparin drip. Critical care management for now Admission and Anticipated Discharge Date Admission Date: May 14, 2022 Subjective Intubated and sedated. She remains on pressor support along with a heparin drip and intravenous antibiotics. Cardiac echo reveals mild global left ventricular systolic dysfunction with estimated ejection fraction 50%. Moderate LVH noted. Moderate MS with mild MR. 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 Troponin levels are markedly elevated much more than would be seen in supply demand mismatch. This raises the possibility of underlying myocarditis. I am not certain what her COVID vaccine history is but this should be considered. Review of Systems Review of Systems: Cannot assess due to unresponsive status on ventilator support Physical Exam Physical Exam: General-sedated on ventilator support HEENT-head atraumatic and normocephalic. Neck-orotracheal tube in place, trachea midline Chest-scattered bilateral rhonchi. No wheezing . From anterior examination i Cardiac-regular rate and rhythm, normal S1 and S2. No discernible JVD Abdomen-normal bowel sounds, no hepatosplenomegaly Extremities-no cyanosis, clubbing, or edema GenitourinaryFoley catheter is in place. No gross hematuria Neuro-cannot assess due to unresponsive state Psych-cannot assess due to unresponsive state Results & Data Results & Data ([facility]) Vital Signs (Past 12 Hours) Vital Signs Temp Pulse Resp BP Pulse Ox O2 Del Method FiO2 05/15/22 06:58 80 24 97 40 05/15/22 06:30 37.4 C 79 24 05/15/22 06:30 118/72 05/15/22 06:15 37.4 C 78 24 05/15/22 06:15 132/68 05/15/22 06:00 37.4 C 80 24 05/15/22 06:00 118/73 05/15/22 05:45 37.5 C 77 24 05/15/22 05:45 119/61 05/15/22 05:30 37.5 C 78 24 05/15/22 05:30 116/79 05/15/22 05:15 37.5 C 74 24 05/15/22 05:15 115/67 05/15/22 05:00 37.5 C 75 24 05/15/22 05:00 115/63 05/15/22 04:45 37.6 C H 77 24 05/15/22 04:45 118/60 05/15/22 04:30 37.7 C H 78 24 05/15/22 04:30 116/65 05/15/22 04:00 83 24 96 40 05/15/22 04:15 37.7 C H 79 24 05/15/22 04:15 107/62 05/15/22 04:00 37.8 C H 80 24 05/15/22 04:00 114/57 L 05/15/22 03:45 37.9 C H 82 24 97 05/15/22 03:45 113/67 05/15/22 03:30 38.0 C H 85 23 05/15/22 03:30 118/57 L 05/15/22 03:15 38.2 C H 89 23 05/15/22 03:15 122/62 05/15/22 03:00 38.3 C H 92 H 24 05/15/22 03:00 113/55 L 05/15/22 02:45 38.4 C H 95 H 24 95 05/15/22 02:45 90/64 L 05/15/22 02:31 38.4 C H 97 H 24 96 05/15/22 02:31 98/63 L 05/15/22 02:30 38.4 C H 98 H 24 94 05/15/22 02:15 38.4 C H 101 H 27 H 91 05/15/22 02:15 142/78 H 05/15/22 02:00 38.3 C H 96 H 24 93 05/15/22 02:00 115/75 05/15/22 01:45 38.3 C H 94 H 25 H 94 05/15/22 01:45 116/64 05/15/22 01:30 38.2 C H 95 H 25 H 94 05/15/22 01:30 121/57 L 05/15/22 01:15 38.1 C H 92 H 25 H 94 05/15/22 01:15 117/66 05/15/22 01:00 38.1 C H 86 24 94 05/15/22 01:00 119/56 L 05/15/22 00:46 38.1 C H 89 24 97 05/15/22 00:46 95/54 L 05/15/22 00:45 38.1 C H 87 25 H 93 05/15/22 00:31 60/36 L 05/15/22 00:31 38.2 C H 83 25 H 94 05/15/22 00:30 38.2 C H 93 H 24 95 05/15/22 00:26 66/47 L 05/15/22 00:26 38.2 C H 93 H 25 H 95 05/15/22 00:16 38.2 C H 89 24 94 05/15/22 00:15 38.3 C H 78 24 94 05/15/22 00:01 77/51 L 05/15/22 00:01 38.3 C H 92 H 24 96 05/14/22 23:37 38.3 C H 89 27 H 05/14/22 23:37 109/62 05/15/22 04:00 40 05/15/22 00:00 40 05/15/22 00:00 Mechanical Vent 45 05/14/22 23:37 100 H 26 H 96 50 Laboratory Results 05/15/22 08:52 05/15/22 08:52 PG Care Time/CCT Total # of Minutes Spent Total Time Spent with Patient: Total time spent is greater than 50% in coordination of care (as documented) at patient's floor/unit and/or counseling patient: Coding Level of Care Code 37059 SUB INP/OBS CARE 3/50MIN Diagnoses Bacteremia R78.81 Complicated UTI (urinary tract infection) N39.0 Diabetic ketoacidosis E11.10 Septic shock A41.9; R65.21 Acute hypoxemic respiratory failure J96.01 Second degree atrioventricular block, Mobitz (type) I I44.1 MARY (acute kidney injury) N17.9
[2022-05-15] MEDS ORDERED: POTASSIUM CHLORIDE 20 MEQ/15 ML UDC PO STA (11:41)
[2022-05-15 12:20] LABS: Albumin Globulin Ratio 0.8 (0.9-2); Albumin Level 2.6 gm/dl (3.4-5.0); BUN Creatinine Ratio 19.3 (10-20); Bilirubin,Total 1.3 mg/dl (0.2-1.0); Calcium 7.2 mg/dl (8.5-10.1); Creatinine Clr Calc Pharmacy 21.7 ml/min; Est GFR (African American) 18.5 ml/min; Globulin 3.1 gm/dl (2.5-4.0); Potassium 3.3 mmol/L (3.5-5.1); Total Protein 5.7 gm/dl (6.0-8.3)
--- NOTE | 2022-05-15 12:28 | Nephrology Consultation ---
Date of Consultation May 15, 2022 Assessment & Plan (1) MARY (acute kidney injury): Prerenal in the setting of intravascular volume depletion and complicated by ischemic/septic ATN. Urine output improving. Electrolytes acceptable. No emergent indication for dialysis. 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 Baseline creatinine ~1.0 mg/dL. AIII proteinuria, ACR 111 mcg/mg by history. UA on admission demonstrating 3+ protein, +blood, +nitrate and +LE. Microscopy >30 WBC, 5-10 RBC, +granular casts. Medications are appropriately dosed for kidney function. CT demonstrates kidneys to be unobstructed. [place] is draining concentrated urine. IVF and HCO3 replacement being appropriately provided. (2) Septic shock: Blood +MSSA. Started on vanco and cefepime. Urine culture pending. BP improving. (3) Bacteremia: Cardiology consultation reviewed. Pacer pocket without fluctuance or erythema. JAMES tentatively Tuesday. Clinically improving. (4) Complicated UTI (urinary tract infection): Urine culture pending. (5) Thrombocytopenia: Heparin gtt held due to elevated PTT. Cardiology rec holding and transition to aspirin. Clinical presentation atypical for TMA. FSP, fibrinogen pending. c/o DIC. (6) Diabetic ketoacidosis: Remains on insulin gtt per ICU team. (7) NSTEMI (non-ST elevated myocardial infarction): Heparin gtt held. No events on monitor. Paced rhythm. TTE reviewed. (8) Status post placement of cardiac pacemaker: Possible source of infection. (9) S/P aortic valve replacement: JAMES Tuesday. TTE reviewed. Cardiology following. (10) Diabetes mellitus with complication: Insulin gtt per ICU team. 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 Baseline kidney function has been normal. Baseline creatinine earlier this month 1.0 mg/dL. Shea presented to [facility] ER yesterday after being found down and unresponsive by family. Shea had respiratory distress and hypoxia documented by EMS. She was emergently intubated. Shea presented to the ER with septic shock. She was admitted to ICU and placed on vasopressor support overnight. 2/2 blood cultures positive for MSSA. Antibiotic therapy with cefepime and vancomycin provided. The patient was seen and evaluated in the ICU this morning. She was sedated and unresponsive on ventilator support. I discussed the patient's condition and plan of care with Dr. Miller. Relative oliguric overnight. Increased urine output this AM following IVF infusion. BP improving and vasopressors weaned off. Sedation is being weaned. Creatinine 2.48 mg/dL on admission increased to 3.2 mg/dL. Creatinine stable at 2.95 mg/dL this AM. Electrolytes normal. Laboratory studies notable for leukocytosis, lactic acidosis, diabetic ketoacidosis, elevated troponin, and progressive thrombocytopenia. Allergies Allergy/AdvReac Type Severity Reaction Status Date / Time No Known Allergies Allergy Verified 05/07/22 10:25 Home Medications Medication Instructions Recorded Confirmed Type aspirin 81 mg tablet,delayed 81 mg PO QAM 10/19/19 05/07/22 History release (Adult Low Dose Aspirin) insulin aspart U-100 100 unit/mL See Rx Instructions subcut 10/14/20 05/07/22 Rx subcutaneous solution (Novolog .COMPLEX #60 mL U-100 Insulin aspart) insulin detemir U-100 100 unit/mL 50 unit (0.5 mL) subcut QPM #45 mL 02/25/21 05/07/22 Rx subcutaneous solution (Levemir U-100 Insulin) pen needle, diabetic 31 gauge x #100 ea 05/29/21 05/07/22 Rx 3/16" (BD Ultra-Fine Mini Pen Needle) multivitamin (Multiple Vitamins 1 tab PO QAM 07/02/21 05/07/22 History tablet) cholecalciferol (vitamin D3) 50 50 mcg PO QAM 10/29/21 05/07/22 History mcg (2,000 unit) capsule simvastatin 80 mg tablet 80 mg PO QPM #90 tabs 11/13/21 05/07/22 Rx clopidogrel 75 mg tablet 75 mg PO QAM #90 tabs 11/30/21 05/07/22 Rx pantoprazole 20 mg tablet,delayed 20 mg PO QAM #90 tabs 11/30/21 05/07/22 Rx release gabapentin 400 mg capsule 400 mg PO TID #90 caps 12/04/21 05/07/22 Rx blood pressure monitor #1 ea 12/08/21 05/07/22 Rx metoprolol tartrate 50 mg tablet 50 mg PO BID #180 tabs 12/10/21 05/07/22 Rx ezetimibe 10 mg tablet 10 mg PO HS #90 tabs 12/17/21 05/07/22 Rx famotidine 40 mg tablet (Pepcid) 40 mg PO HS #90 tabs 12/17/21 05/07/22 Rx nystatin 100,000 unit/gram topical 1 applic topical TID PRN yeast 12/23/21 05/07/22 Rx powder infection #60 grams potassium chloride 10 mEq 10 meq PO QAM #90 tabs 01/08/22 05/07/22 Rx tablet,extended release(part/cryst) nitroglycerin 0.4 mg sublingual 0.4 mg sublingual .COMPLEX PRN 01/14/22 05/07/22 Rx tablet (Nitrostat) Chest Pain #20 tabs lisinopril 40 mg tablet 40 mg PO HS #90 tabs 01/27/22 05/07/22 Rx bumetanide 0.5 mg tablet 0.5 mg PO QAM #90 tabs 02/03/22 05/07/22 Rx dulaglutide 1.5 mg/0.5 mL 1.5 mg (0.5 mL) subcut WK #6 mL 02/22/22 05/07/22 Rx subcutaneous pen injector metformin 1,000 mg tablet 1,000 mg PO BID #180 tabs 02/22/22 05/07/22 Rx fluticasone fur. 100 mcg-umeclid 1 inh inhalation QDL 90 days #60 ea 04/12/22 05/07/22 Rx 62.5 mcg-vilant 25 mcg inhalat.powder (Trelegy Ellipta) nystatin 100,000 unit/gram topical 1 applic topical TID PRN 05/07/22 History cream Patient History Medical History Bacteremia Carotid arterial disease R carotid endarterectomy 2014 Complicated UTI (urinary tract infection) COPD (chronic obstructive pulmonary disease) controlled, stable per pt-denies rescue inhaler use Coronary artery disease s/p 1 stent Diabetes mellitus with complication IDDM Diabetic ketoacidosis Diabetic neuropathy GERD (gastroesophageal reflux disease) controlled, stable per pt History of anesthesia reaction difficulty waking History of femoral angiogram (~09/29/21) right lower extremity angiogram @ [facility] Dr. 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 Espinal S/P carotid endarterectomy (2014) R S/P section x 2 S/P coronary artery stent placement 1 placed S/P hernia repair x 2 S/P peripheral artery angioplasty with stent placement (08/2017) angioplasty and stent R external iliac artery S/P total hysterectomy and bilateral salpingo-oophorectomy (1992) d/t endometriosis Family History Grandmother (Paternal) Breast cancer Family/Other Ovarian cancer Father Diabetes Heart disease Myocardial infarction Hypertension Mother Diabetes Heart disease Brother Diabetes Heart disease Hypertension Grandfather (Paternal) Family history of esophageal cancer Other No family history of adverse response to anesthesia Denies family history of Prostate cancer Colorectal cancer Social History Smoking Status: Current every day smoker Tobacco Type: Cigarettes Age Started Using Tobacco: 21; packs per day: 0.15; Cigarettes Per Day: 5 cigs a day-advised; Second Hand Exposure: No; Do You Dip or Chew Tobacco: No; Tobacco Cessation Education Requested by Patient: No Hx Alcohol Use: No Hx Substance Use: No Preferred Language: [place] Leonean Communication Ability: Effective Visual Impairment: No Limitations Hearing Ability: Normal Wood Floor Layer Required: No Beliefs That Will Affect Care: None marital status: Single Current Living Situation: Alone current occupational status: disabled How many Children do You have: 2 Other Information That Helps Us Care for You: No Feels Safe at Home: Yes Safety Concerns: Feels Safe At This Time Childhood Exposure to Second-Hand Smoke: Yes caffeine: Yes during the past year weight has: remained stable Dental Care, Regularly: Yes Physical Activity Frequency: Daily Physical Activity Frequency Comment: walks around house Seatbelt Use: always Sunscreen Use: Yes Assistive Devices: Glasses Review of Systems Review of Systems: Unobtainable due to endotracheal tube and Unobtainable due to reduced consciousness Physical Exam Constitutional: + ill appearing, + altered mental status (sedated) and + mechanically ventilated Eyes: + anicteric sclerae; pupils not irregular ENMT: ETT Neck: normal visual inspection and trachea midline Respiratory: symmetric chest movement Auscultation: lungs clear to auscult ation bilaterally and + rhonchi Cardiovascular: Rate/Rhythm: regular rate Heart Sounds: normal S1, normal S2 and + murmur Extremities: no edema Gastrointestinal (Abdomen): Inspection/Auscultation: + abdomen distended and normal bowel sounds Musculoskeletal: Extremities: + cyanosis and + petechiae; no clubbing Skin: + turgor decreased and + ecchymosis; no jaundice Neurologic: sedated Results & Data ([facility]) Vital Signs (Past 12 Hours) Vital Signs Temp Pulse Resp BP Pulse Ox FiO2 05/15/22 06:58 80 24 97 40 05/15/22 06:30 37.4 C 79 24 05/15/22 06:30 118/72 05/15/22 06:15 37.4 C 78 24 05/15/22 06:15 132/68 05/15/22 06:00 37.4 C 80 24 05/15/22 06:00 118/73 05/15/22 05:45 37.5 C 77 24 05/15/22 05:45 119/61 05/15/22 05:30 37.5 C 78 24 05/15/22 05:30 116/79 05/15/22 05:15 37.5 C 74 24 05/15/22 05:15 115/67 05/15/22 05:00 37.5 C 75 24 05/15/22 05:00 115/63 05/15/22 04:45 37.6 C H 77 24 05/15/22 04:45 118/60 05/15/22 04:30 37.7 C H 78 24 05/15/22 04:30 116/65 05/15/22 04:00 83 24 96 40 05/15/22 04:15 37.7 C H 79 24 05/15/22 04:15 107/62 05/15/22 04:00 37.8 C H 80 24 05/15/22 04:00 114/57 L 05/15/22 03:45 37.9 C H 82 24 97 05/15/22 03:45 113/67 05/15/22 03:30 38.0 C H 85 23 05/15/22 03:30 118/57 L 05/15/22 03:15 38.2 C H 89 23 05/15/22 03:15 122/62 05/15/22 03:00 38.3 C H 92 H 24 05/15/22 03:00 113/55 L 05/15/22 02:45 38.4 C H 95 H 24 95 05/15/22 02:45 90/64 L 05/15/22 02:31 38.4 C H 97 H 24 96 05/15/22 02:31 98/63 L 05/15/22 02:30 38.4 C H 98 H 24 94 05/15/22 02:15 38.4 C H 101 H 27 H 91 05/15/22 02:15 142/78 H 05/15/22 02:00 38.3 C H 96 H 24 93 05/15/22 02:00 115/75 05/15/22 01:45 38.3 C H 94 H 25 H 94 05/15/22 01:45 116/64 05/15/22 01:30 38.2 C H 95 H 25 H 94 05/15/22 01:30 121/57 L 05/15/22 01:15 38.1 C H 92 H 25 H 94 05/15/22 01:15 117/66 05/15/22 01:00 38.1 C H 86 24 94 05/15/22 01:00 119/56 L 05/15/22 00:46 38.1 C H 89 24 97 05/15/22 00:46 95/54 L 05/15/22 00:45 38.1 C H 87 25 H 93 05/15/22 00:31 60/36 L 05/15/22 00:31 38.2 C H 83 25 H 94 05/15/22 00:30 38.2 C H 93 H 24 95 05/15/22 00:26 66/47 L 05/15/22 00:26 38.2 C H 93 H 25 H 95 05/15/22 04:00 40 Laboratory Results Laboratory Results - last 24 hr 05/14/22 05/14/22 05/14/22 20:02 20:07 20:07 WBC 11.18 H RBC 3.48 L Hgb 10.4 L POC Hgb Hct 32.1 L POC Hct MCV 92.2 MCH 29.9 MCHC 32.4 RDW Std Deviation 50.6 H RDW Coeff of Jacinto 14.9 H Plt Count 132 MPV 10.9 Immature Gran % (Auto) 1.1 Neut % (Auto) 77.8 Lymph % (Auto) 13.0 Cecil % (Auto) 7.3 Eos % (Auto) 0.4 Baso % (Auto) 0.4 Neut # (Auto) 8.71 H Lymph # (Auto) 1.45 Cecil # (Auto) 0.82 H Eos # (Auto) 0.04 Baso # (Auto) 0.04 Immature Gran # (Auto) 0.12 Dohle Bodies Platelet Estimate Normal Echinocytes 2+ Acanthocytes (Spur) 1+ Peripher Smr Path Cons PT 13.3 H INR 1.3 H APTT 47.3 H* PTT Ratio 1.7 Sample Site POC pH POC pCO2 POC pO2 POC HCO3 POC Total CO2 POC Base Excess ABG pH (Temp Correct) ABG pCO2 (Temp Corrct POC ABG pO2 at Pt Temp POC ABG O2 Sat Paul Test O2 Delivery Device POC O2 Rate POC FiO2 Tidal Volume PEEP POC Sodium Sodium POC Potassium Potassium POC Chloride Chloride Carbon Dioxide Anion Gap POC Anion Gap POC BUN BUN Creatinine POC Creatinine Est Cr Clr Drug Dosing Est GFR ( Amer) Est GFR (Non-Af Amer) BUN/Creatinine Ratio Glucose POC Glucose POC Glucose (other) Lactate Calcium POC Ioniz Calcium Jean Marie Phosphorus Magnesium Total Bilirubin Direct Bilirubin AST ALT Alkaline Phosphatase Total Creatine Kinase Troponin I High Sens B-Natriuretic Peptide Total Protein Albumin Globulin Albumin/Globulin Ratio Serotonin Release Assay Procalcitonin Random Cortisol Urine Color Dark Yellow Urine Appearance Turbid A Urine pH 5.0 Ur Specific [place] 1.024 Urine Protein 3+ H Urine Glucose (UA) Negative Urine Ketones 1+ H Urine Blood 3+ H Urine Nitrite Positive A Urine Bilirubin 1+ H Urine Urobilinogen Negative Ur Leukocyte Esterase Trace H Urine WBC (Auto) >30 H Urine RBC (Auto) 5-10 H U Hyaline Cast (Auto) 10-30 H U Epithel Cells (Auto) >30 H Urine Bacteria (Auto) Negative Ur Renal Epithelial Cell Not Reportable Granular Casts 10-20 H Urine Yeast Not Reportable Nasal Screen MRSA (PCR) Heparin Depend Plt Ab Adenovirus (PCR) B. pertussis DNA (PCR) B.parapertussis DNA PCR C. pneumoniae DNA (PCR) Coronavirus OC43 (PCR) Coronavirus HKU1 (PCR) Coronavirus 229E (PCR) SARS-CoV-2 (PCR) Coronavirus NL63 (PCR) Human Metapneumovir PCR Influenza Type A (PCR) Influenza Type B (PCR) M. pneumoniae (PCR) Parainfluenza 1 (PCR) Parainfluenza 2 (PCR) Parainfluenza 3 (PCR) Parainfluenza 4 (PCR) RSV (PCR) Entero/Rhino (PCR) Staphylococcus sp PCR Staph aureus (PCR) mecA/C & MREJ Resist Gene Bld Cult ID Panel PCR 05/14/22 05/14/22 05/14/22 20:07 20:07 20:07 WBC RBC Hgb POC Hgb Hct POC Hct MCV MCH MCHC RDW Std Deviation RDW Coeff of Jacinto Plt Count MPV Immature Gran % (Auto) Neut % (Auto) Lymph % (Auto) Cecil % (Auto) Eos % (Auto) Baso % (Auto) Neut # (Auto) Lymph # (Auto) Cecil # (Auto) Eos # (Auto) Baso # (Auto) Immature Gran # (Auto) Dohle Bodies Platelet Estimate Echinocytes Acanthocytes (Spur) Peripher Smr Path Cons PT INR APTT PTT Ratio Sample Site POC pH POC pCO2 POC pO2 POC HCO3 POC Total CO2 POC Base Excess ABG pH (Temp Correct) ABG pCO2 (Temp Corrct POC ABG pO2 at Pt Temp POC ABG O2 Sat Paul Test O2 Delivery Device POC O2 Rate POC FiO2 Tidal Volume PEEP POC Sodium Sodium 138 POC Potassium Potassium 4.1 POC Chloride Chloride 108 H Carbon Dioxide 19 L Anion Gap 11 POC Anion Gap POC BUN BUN 48 H Creatinine 2.48 H POC Creatinine Est Cr Clr Drug Dosing 25.8 Est GFR ( Amer) 22.8 Est GFR (Non-Af Amer) 19.7 BUN/Creatinine Ratio 19.4 Glucose 257 H POC Glucose POC Glucose (other) Lactate 2.3 H* Calcium 8.2 L POC Ioniz Calcium Jean Marie Phosphorus Magnesium 1.6 L Total Bilirubin 1.2 H Direct Bilirubin 0.4 H AST 86 H ALT 34 Alkaline Phosphatase 62 Total Creatine Kinase 1194 H Troponin I High Sens 87273.5 H* B-Natriuretic Peptide Total Protein 6.8 Albumin 3.1 L Globulin Albumin/Globulin Ratio Serotonin Release Assay Procalcitonin 30.70 H Random Cortisol Urine Color Urine Appearance Urine pH Ur Specific [place] Urine Protein Urine Glucose (UA) Urine Ketones Urine Blood Urine Nitrite Urine Bilirubin Urine Urobilinogen Ur Leukocyte Esterase Urine WBC (Auto) Urine RBC (Auto) U Hyaline Cast (Auto) U Epithel Cells (Auto) Urine Bacteria (Auto) Ur Renal Epithelial Cell Granular Casts Urine Yeast Nasal Screen MRSA (PCR) Heparin Depend Plt Ab Adenovirus (PCR) B. pertussis DNA (PCR) B.parapertussis DNA PCR C. pneumoniae DNA (PCR) Coronavirus OC43 (PCR) Coronavirus HKU1 (PCR) Coronavirus 229E (PCR) SARS-CoV-2 (PCR) Coronavirus NL63 (PCR) Human Metapneumovir PCR Influenza Type A (PCR) Influenza Type B (PCR) M. pneumoniae (PCR) Parainfluenza 1 (PCR) Parainfluenza 2 (PCR) Parainfluenza 3 (PCR) Parainfluenza 4 (PCR) RSV (PCR) Entero/Rhino (PCR) Staphylococcus sp PCR Staph aureus (PCR) mecA/C & MREJ Resist Gene Bld Cult ID Panel PCR 05/14/22 05/14/22 05/14/22 20:07 20:08 20:09 WBC RBC Hgb POC Hgb 10.5 L Hct POC Hct 31 L MCV MCH MCHC RDW Std Deviation RDW Coeff of Jacinto Plt Count MPV Immature Gran % (Auto) Neut % (Auto) Lymph % (Auto) Cecil % (Auto) Eos % (Auto) Baso % (Auto) Neut # (Auto) Lymph # (Auto) Cecil # (Auto) Eos # (Auto) Baso # (Auto) Immature Gran # (Auto) Dohle Bodies Platelet Estimate Echinocytes Acanthocytes (Spur) Peripher Smr Path Cons PT INR APTT PTT Ratio Sample Site POC pH 7.20 L POC pCO2 50 H POC pO2 83 POC HCO3 19 POC Total CO2 21 L POC Base Excess -9.0 ABG pH (Temp Correct) ABG pCO2 (Temp Corrct POC ABG pO2 at Pt Temp POC ABG O2 Sat 93.0 Paul Test O2 Delivery Device POC O2 Rate POC FiO2 Tidal Volume PEEP POC Sodium 139 Sodium POC Potassium 4.1 Potassium POC Chloride Chloride Carbon Dioxide Anion Gap POC Anion Gap POC BUN BUN Creatinine POC Creatinine Est Cr Clr Drug Dosing Est GFR ( Amer) Est GFR (Non-Af Amer) BUN/Creatinine Ratio Glucose POC Glucose POC Glucose (other) Lactate Calcium POC Ioniz Calcium Jean Marie Phosphorus Magnesium Total Bilirubin Direct Bilirubin AST ALT Alkaline Phosphatase Total Creatine Kinase Troponin I High Sens B-Natriuretic Peptide 3521 H Total Protein Albumin Globulin Albumin/Globulin Ratio Serotonin Release Assay Procalcitonin Random Cortisol Urine Color Urine Appearance Urine pH Ur Specific [place] Urine Protein Urine Glucose (UA) Urine Ketones Urine Blood Urine Nitrite Urine Bilirubin Urine Urobilinogen Ur Leukocyte Esterase Urine WBC (Auto) Urine RBC (Auto) U Hyaline Cast (Auto) U Epithel Cells (Auto) Urine Bacteria (Auto) Ur Renal Epithelial Cell Granular Casts Urine Yeast Nasal Screen MRSA (PCR) Heparin Depend Plt Ab Adenovirus (PCR) B. pertussis DNA (PCR) B.parapertussis DNA PCR C. pneumoniae DNA (PCR) Coronavirus OC43 (PCR) Coronavirus HKU1 (PCR) Coronavirus 229E (PCR) SARS-CoV-2 (PCR) Coronavirus NL63 (PCR) Human Metapneumovir PCR Influenza Type A (PCR) Influenza Type B (PCR) M. pneumoniae (PCR) Parainfluenza 1 (PCR) Parainfluenza 2 (PCR) Parainfluenza 3 (PCR) Parainfluenza 4 (PCR) RSV (PCR) Entero/Rhino (PCR) Staphylococcus sp PCR DETECTED A Staph aureus (PCR) DETECTED A mecA/C & MREJ Resist Gene MRSA Not Detected Bld Cult ID Panel PCR See PCR Comment 05/14/22 05/14/22 05/14/22 20:19 20:24 20:24 WBC RBC Hgb POC Hgb 11.2 L Hct POC Hct 33 L MCV MCH MCHC RDW Std Deviation RDW Coeff of Jacinto Plt Count MPV Immature Gran % (Auto) Neut % (Auto) Lymph % (Auto) Cecil % (Auto) Eos % (Auto) Baso % (Auto) Neut # (Auto) Lymph # (Auto) Cecil # (Auto) Eos # (Auto) Baso # (Auto) Immature Gran # (Auto) Dohle Bodies Platelet Estimate Echinocytes Acanthocytes (Spur) Peripher Smr Path Cons PT INR APTT PTT Ratio Sample Site POC pH POC pCO2 POC pO2 POC HCO3 POC Total CO2 20 L POC Base Excess ABG pH (Temp Correct) ABG pCO2 (Temp Corrct POC ABG pO2 at Pt Temp POC ABG O2 Sat Paul Test O2 Delivery Device POC O2 Rate POC FiO2 Tidal Volume PEEP POC Sodium 140 Sodium POC Potassium 4.1 Potassium POC Chloride 108 Chloride Carbon Dioxide Anion Gap POC Anion Gap 17.0 POC BUN 45 H BUN Creatinine POC Creatinine 2.7 H Est Cr Clr Drug Dosing Est GFR ( Amer) Est GFR (Non-Af Amer) BUN/Creatinine Ratio Glucose POC Glucose POC Glucose (other) 248 H Lactate Calcium POC Ioniz Calcium Jean Marie 1.21 Phosphorus Magnesium Total Bilirubin Direct Bilirubin AST ALT Alkaline Phosphatase Total Creatine Kinase Troponin I High Sens B-Natriuretic Peptide Total Protein Albumin Globulin Albumin/Globulin Ratio Serotonin Release Assay Procalcitonin Random Cortisol Urine Color Urine Appearance Urine pH Ur Specific [place] Urine Protein Urine Glucose (UA) Urine Ketones Urine Blood Urine Nitrite Urine Bilirubin Urine Urobilinogen Ur Leukocyte Esterase Urine WBC (Auto) Urine RBC (Auto) U Hyaline Cast (Auto) U Epithel Cells (Auto) Urine Bacteria (Auto) Ur Renal Epithelial Cell Granular Casts Urine Yeast Nasal Screen MRSA (PCR) Negative Heparin Depend Plt Ab Adenovirus (PCR) Not Detected B. pertussis DNA (PCR) Not Detected B.parapertussis DNA PCR Not Detected C. pneumoniae DNA (PCR) Not Detected Coronavirus OC43 (PCR) Not Detected Coronavirus HKU1 (PCR) Not Detected Coronavirus 229E (PCR) Not Detected SARS-CoV-2 (PCR) Not Detected Coronavirus NL63 (PCR) Not Detected Human Metapneumovir PCR Not Detected Influenza Type A (PCR) Not Detected Influenza Type B (PCR) Not Detected M. pneumoniae (PCR) Not Detected Parainfluenza 1 (PCR) Not Detected Parainfluenza 2 (PCR) Not Detected Parainfluenza 3 (PCR) Not Detected Parainfluenza 4 (PCR) Not Detected RSV (PCR) Not Detected Entero/Rhino (PCR) Not Detected Staphylococcus sp PCR Staph aureus (PCR) mecA/C & MREJ Resist Gene Bld Cult ID Panel PCR 05/14/22 05/14/22 05/14/22 21:37 22:24 22:24 WBC RBC Hgb POC Hgb 9.2 L Hct POC Hct 27 L MCV MCH MCHC RDW Std Deviation RDW Coeff of Jacinto Plt Count MPV Immature Gran % (Auto) Neut % (Auto) Lymph % (Auto) Cecil % (Auto) Eos % (Auto) Baso % (Auto) Neut # (Auto) Lymph # (Auto) Cecil # (Auto) Eos # (Auto) Baso # (Auto) Immature Gran # (Auto) Dohle Bodies Platelet Estimate Echinocytes Acanthocytes (Spur) Peripher Smr Path Cons PT INR APTT PTT Ratio Sample Site POC pH 7.26 L POC pCO2 38 POC pO2 133 H POC HCO3 17 L POC Total CO2 18 L POC Base Excess -10.0 L ABG pH (Temp Correct) ABG pCO2 (Temp Corrct POC ABG pO2 at Pt Temp POC ABG O2 Sat 99.0 H Paul Test O2 Delivery Device POC O2 Rate POC FiO2 Tidal Volume PEEP POC Sodium 139 Sodium POC Potassium 3.4 Potassium POC Chloride Chloride Carbon Dioxide Anion Gap POC Anion Gap POC BUN BUN Creatinine POC Creatinine Est Cr Clr Drug Dosing Est GFR ( Amer) Est GFR (Non-Af Amer) BUN/Creatinine Ratio Glucose POC Glucose POC Glucose (other) Lactate 2.3 H* Calcium POC Ioniz Calcium Jean Marie Phosphorus Magnesium Total Bilirubin Direct Bilirubin AST ALT Alkaline Phosphatase Total Creatine Kinase Troponin I High Sens 15193.1 H* B-Natriuretic Peptide Total Protein Albumin Globulin Albumin/Globulin Ratio Serotonin Release Assay Procalcitonin Random Cortisol Urine Color Urine Appearance Urine pH Ur Specific [place] Urine Protein Urine Glucose (UA) Urine Ketones Urine Blood Urine Nitrite Urine Bilirubin Urine Urobilinogen Ur Leukocyte Esterase Urine WBC (Auto) Urine RBC (Auto) U Hyaline Cast (Auto) U Epithel Cells (Auto) Urine Bacteria (Auto) Ur Renal Epithelial Cell Granular Casts Urine Yeast Nasal Screen MRSA (PCR) Heparin Depend Plt Ab Adenovirus (PCR) B. pertussis DNA (PCR) B.parapertussis DNA PCR C. pneumoniae DNA (PCR) Coronavirus OC43 (PCR) Coronavirus HKU1 (PCR) Coronavirus 229E (PCR) SARS-CoV-2 (PCR) Coronavirus NL63 (PCR) Human Metapneumovir PCR Influenza Type A (PCR) Influenza Type B (PCR) M. pneumoniae (PCR) Parainfluenza 1 (PCR) Parainfluenza 2 (PCR) Parainfluenza 3 (PCR) Parainfluenza 4 (PCR) RSV (PCR) Entero/Rhino (PCR) Staphylococcus sp PCR Staph aureus (PCR) mecA/C & MREJ Resist Gene Bld Cult ID Panel PCR 05/15/22 05/15/22 05/15/22 01:25 02:28 02:28 WBC 11.79 H RBC 2.97 L Hgb 8.9 L POC Hgb Hct 27.6 L POC Hct MCV 92.9 MCH 30.0 MCHC 32.2 RDW Std Deviation 51.6 H RDW Coeff of Jacinto 15.0 H Plt Count 86 L MPV 11.8 Immature Gran % (Auto) 0.8 Neut % (Auto) 89.4 Lymph % (Auto) 5.3 Cecil % (Auto) 4.2 Eos % (Auto) 0.0 Baso % (Auto) 0.3 Neut # (Auto) 10.54 H Lymph # (Auto) 0.63 L Cecil # (Auto) 0.49 Eos # (Auto) 0.00 Baso # (Auto) 0.03 Immature Gran # (Auto) 0.10 Dohle Bodies 1+ Platelet Estimate Echinocytes 2+ Acanthocytes (Spur) Peripher Smr Path Cons PT INR APTT PTT Ratio Sample Site POC pH POC pCO2 POC pO2 POC HCO3 POC Total CO2 POC Base Excess ABG pH (Temp Correct) ABG pCO2 (Temp Corrct POC ABG pO2 at Pt Temp POC ABG O2 Sat Paul Test O2 Delivery Device POC O2 Rate POC FiO2 Tidal Volume PEEP POC Sodium Sodium POC Potassium Potassium POC Chloride Chloride Carbon Dioxide Anion Gap POC Anion Gap POC BUN BUN Creatinine POC Creatinine Est Cr Clr Drug Dosing Est GFR ( Amer) Est GFR (Non-Af Amer) BUN/Creatinine Ratio Glucose POC Glucose POC Glucose (other) 293 H Lactate Calcium POC Ioniz Calcium Jean Marie Phosphorus Magnesium Total Bilirubin Direct Bilirubin AST ALT Alkaline Phosphatase Total Creatine Kinase Troponin I High Sens 5562.1 H* D B-Natriuretic Peptide Total Protein Albumin Globulin Albumin/Globulin Ratio Serotonin Release Assay Procalcitonin Random Cortisol Urine Color Urine Appearance Urine pH Ur Specific [place] Urine Protein Urine Glucose (UA) Urine Ketones Urine Blood Urine Nitrite Urine Bilirubin Urine Urobilinogen Ur Leukocyte Esterase Urine WBC (Auto) Urine RBC (Auto) U Hyaline Cast (Auto) U Epithel Cells (Auto) Urine Bacteria (Auto) Ur Renal Epithelial Cell Granular Casts Urine Yeast Nasal Screen MRSA (PCR) Heparin Depend Plt Ab Adenovirus (PCR) B. pertussis DNA (PCR) B.parapertussis DNA PCR C. pneumoniae DNA (PCR) Coronavirus OC43 (PCR) Coronavirus HKU1 (PCR) Coronavirus 229E (PCR) SARS-CoV-2 (PCR) Coronavirus NL63 (PCR) Human Metapneumovir PCR Influenza Type A (PCR) Influenza Type B (PCR) M. pneumoniae (PCR) Parainfluenza 1 (PCR) Parainfluenza 2 (PCR) Parainfluenza 3 (PCR) Parainfluenza 4 (PCR) RSV (PCR) Entero/Rhino (PCR) Staphylococcus sp PCR Staph aureus (PCR) mecA/C & MREJ Resist Gene Bld Cult ID Panel PCR 05/15/22 05/15/22 05/15/22 02:28 02:28 03:06 WBC RBC Hgb POC Hgb Hct POC Hct MCV MCH MCHC RDW Std Deviation RDW Coeff of Jacinto Plt Count MPV Immature Gran % (Auto) Neut % (Auto) Lymph % (Auto) Cecil % (Auto) Eos % (Auto) Baso % (Auto) Neut # (Auto) Lymph # (Auto) Cecil # (Auto) Eos # (Auto) Baso # (Auto) Immature Gran # (Auto) Dohle Bodies Platelet Estimate Echinocytes Acanthocytes (Spur) Peripher Smr Path Cons PT INR APTT PTT Ratio Sample Site POC pH POC pCO2 POC pO2 POC HCO3 POC Total CO2 POC Base Excess ABG pH (Temp Correct) ABG pCO2 (Temp Corrct POC ABG pO2 at Pt Temp POC ABG O2 Sat Paul Test O2 Delivery Device POC O2 Rate POC FiO2 Tidal Volume PEEP POC Sodium Sodium 137 POC Potassium Potassium 3.9 POC Chloride Chloride 109 H Carbon Dioxide 16 L Anion Gap 12 H POC Anion Gap POC BUN BUN 53 H Creatinine 3.18 H D POC Creatinine Est Cr Clr Drug Dosing 20.0 Est GFR ( Amer) 16.9 Est GFR (Non-Af Amer) 14.6 BUN/Creatinine Ratio 16.7 Glucose 342 H* POC Glucose POC Glucose (other) 326 H Lactate 1.5 Calcium 7.3 L POC Ioniz Calcium Jean Marie Phosphorus 5.3 H Magnesium 2.0 Total Bilirubin 1.8 H Direct Bilirubin AST 108 H ALT 33 Alkaline Phosphatase 48 Total Creatine Kinase Troponin I High Sens Cancelled B-Natriuretic Peptide Total Protein 5.7 L Albumin 2.6 L Globulin 3.1 Albumin/Globulin Ratio 0.8 L Serotonin Release Assay Procalcitonin Random Cortisol Urine Color Urine Appearance Urine pH Ur Specific [place] Urine Protein Urine Glucose (UA) Urine Ketones Urine Blood Urine Nitrite Urine Bilirubin Urine Urobilinogen Ur Leukocyte Esterase Urine WBC (Auto) Urine RBC (Auto) U Hyaline Cast (Auto) U Epithel Cells (Auto) Urine Bacteria (Auto) Ur Renal Epithelial Cell Granular Casts Urine Yeast Nasal Screen MRSA (PCR) Heparin Depend Plt Ab Adenovirus (PCR) B. pertussis DNA (PCR) B.parapertussis DNA PCR C. pneumoniae DNA (PCR) Coronavirus OC43 (PCR) Coronavirus HKU1 (PCR) Coronavirus 229E (PCR) SARS-CoV-2 (PCR) Coronavirus NL63 (PCR) Human Metapneumovir PCR Influenza Type A (PCR) Influenza Type B (PCR) M. pneumoniae (PCR) Parainfluenza 1 (PCR) Parainfluenza 2 (PCR) Parainfluenza 3 (PCR) Parainfluenza 4 (PCR) RSV (PCR) Entero/Rhino (PCR) Staphylococcus sp PCR Staph aureus (PCR) mecA/C & MREJ Resist Gene Bld Cult ID Panel PCR 05/15/22 05/15/22 05/15/22 03:38 03:52 04:04 WBC RBC Hgb POC Hgb 8.5 L Hct POC Hct 25 L MCV MCH MCHC RDW Std Deviation RDW Coeff of Jacinto Plt Count MPV Immature Gran % (Auto) Neut % (Auto) Lymph % (Auto) Cecil % (Auto) Eos % (Auto) Baso % (Auto) Neut # (Auto) Lymph # (Auto) Cecil # (Auto) Eos # (Auto) Baso # (Auto) Immature Gran # (Auto) Dohle Bodies Platelet Estimate Echinocytes Acanthocytes (Spur) Peripher Smr Path Cons PT INR APTT PTT Ratio Sample Site Art Line POC pH 7.25 L POC pCO2 38 POC pO2 105 H POC HCO3 17 L POC Total CO2 18 L POC Base Excess -10.0 L ABG pH (Temp Correct) 7.237 L ABG pCO2 (Temp Corrct 40 POC ABG pO2 at Pt Temp 111 POC ABG O2 Sat 97.0 H Paul Test NA O2 Delivery Device Ventilator POC O2 Rate 24 POC FiO2 50 Tidal Volume 400 PEEP 8 POC Sodium 136 Sodium POC Potassium 3.6 Potassium POC Chloride Chloride Carbon Dioxide Anion Gap POC Anion Gap POC BUN BUN Creatinine POC Creatinine Est Cr Clr Drug Dosing Est GFR ( Amer) Est GFR (Non-Af Amer) BUN/Creatinine Ratio Glucose POC Glucose POC Glucose (other) 351 H* Lactate Calcium POC Ioniz Calcium Jean Marie Phosphorus Magnesium Total Bilirubin Direct Bilirubin AST ALT Alkaline Phosphatase Total Creatine Kinase Troponin I High Sens B-Natriuretic Peptide Total Protein Albumin Globulin Albumin/Globulin Ratio Serotonin Release Assay Procalcitonin Random Cortisol 57.14 Urine Color Urine Appearance Urine pH Ur Specific [place] Urine Protein Urine Glucose (UA) Urine Ketones Urine Blood Urine Nitrite Urine Bilirubin Urine Urobilinogen Ur Leukocyte Esterase Urine WBC (Auto) Urine RBC (Auto) U Hyaline Cast (Auto) U Epithel Cells (Auto) Urine Bacteria (Auto) Ur Renal Epithelial Cell Granular Casts Urine Yeast Nasal Screen MRSA (PCR) Heparin Depend Plt Ab Adenovirus (PCR) B. pertussis DNA (PCR) B.parapertussis DNA PCR C. pneumoniae DNA (PCR) Coronavirus OC43 (PCR) Coronavirus HKU1 (PCR) Coronavirus 229E (PCR) SARS-CoV-2 (PCR) Coronavirus NL63 (PCR) Human Metapneumovir PCR Influenza Type A (PCR) Influenza Type B (PCR) M. pneumoniae (PCR) Parainfluenza 1 (PCR) Parainfluenza 2 (PCR) Parainfluenza 3 (PCR) Parainfluenza 4 (PCR) RSV (PCR) Entero/Rhino (PCR) Staphylococcus sp PCR Staph aureus (PCR) mecA/C & MREJ Resist Gene Bld Cult ID Panel PCR 05/15/22 05/15/22 05/15/22 05:10 06:19 07:47 WBC RBC Hgb POC Hgb Hct POC Hct MCV MCH MCHC RDW Std Deviation RDW Coeff of Jacinto Plt Count MPV Immature Gran % (Auto) Neut % (Auto) Lymph % (Auto) Cecil % (Auto) Eos % (Auto) Baso % (Auto) Neut # (Auto) Lymph # (Auto) Cecil # (Auto) Eos # (Auto) Baso # (Auto) Immature Gran # (Auto) Dohle Bodies Platelet Estimate Echinocytes Acanthocytes (Spur) Peripher Smr Path Cons PT INR APTT PTT Ratio Sample Site POC pH POC pCO2 POC pO2 POC HCO3 POC Total CO2 POC Base Excess ABG pH (Temp Correct) ABG pCO2 (Temp Corrct POC ABG pO2 at Pt Temp POC ABG O2 Sat Paul Test O2 Delivery Device POC O2 Rate POC FiO2 Tidal Volume PEEP POC Sodium Sodium POC Potassium Potassium POC Chloride Chloride Carbon Dioxide Anion Gap POC Anion Gap POC BUN BUN Creatinine POC Creatinine Est Cr Clr Drug Dosing Est GFR ( Amer) Est GFR (Non-Af Amer) BUN/Creatinine Ratio Glucose POC Glucose POC Glucose (other) 364 H* 349 H Lactate Calcium POC Ioniz Calcium Jean Marie Phosphorus Magnesium Total Bilirubin Direct Bilirubin AST ALT Alkaline Phosphatase Total Creatine Kinase Troponin I High Sens 06427.9 H* D B-Natriuretic Peptide Total Protein Albumin Globulin Albumin/Globulin Ratio Serotonin Release Assay Procalcitonin Random Cortisol Urine Color Urine Appearance Urine pH Ur Specific [place] Urine Protein Urine Glucose (UA) Urine Ketones Urine Blood Urine Nitrite Urine Bilirubin Urine Urobilinogen Ur Leukocyte Esterase Urine WBC (Auto) Urine RBC (Auto) U Hyaline Cast (Auto) U Epithel Cells (Auto) Urine Bacteria (Auto) Ur Renal Epithelial Cell Granular Casts Urine Yeast Nasal Screen MRSA (PCR) Heparin Depend Plt Ab Adenovirus (PCR) B. pertussis DNA (PCR) B.parapertussis DNA PCR C. pneumoniae DNA (PCR) Coronavirus OC43 (PCR) Coronavirus HKU1 (PCR) Coronavirus 229E (PCR) SARS-CoV-2 (PCR) Coronavirus NL63 (PCR) Human Metapneumovir PCR Influenza Type A (PCR) Influenza Type B (PCR) M. pneumoniae (PCR) Parainfluenza 1 (PCR) Parainfluenza 2 (PCR) Parainfluenza 3 (PCR) Parainfluenza 4 (PCR) RSV (PCR) Entero/Rhino (PCR) Staphylococcus sp PCR Staph aureus (PCR) mecA/C & MREJ Resist Gene Bld Cult ID Panel PCR 05/15/22 05/15/22 05/15/22 07:47 07:53 08:10 WBC RBC Hgb POC Hgb 8.8 L Hct POC Hct 26 L MCV MCH MCHC RDW Std Deviation RDW Coeff of Jacinto Plt Count MPV Immature Gran % (Auto) Neut % (Auto) Lymph % (Auto) Cecil % (Auto) Eos % (Auto) Baso % (Auto) Neut # (Auto) Lymph # (Auto) Cecil # (Auto) Eos # (Auto) Baso # (Auto) Immature Gran # (Auto) Dohle Bodies Platelet Estimate Echinocytes Acanthocytes (Spur) Peripher Smr Path Cons PT 14.0 H INR 1.3 H APTT 111.3 H* PTT Ratio 4.0 Sample Site Art Line POC pH 7.37 POC pCO2 32 L POC pO2 109 H POC HCO3 18 L POC Total CO2 19 L POC Base Excess -7.0 ABG pH (Temp Correct) 7.360 ABG pCO2 (Temp Corrct 32 L POC ABG pO2 at Pt Temp 111 POC ABG O2 Sat 98.0 H Paul Test NA O2 Delivery Device Ventilator POC O2 Rate 24 POC FiO2 40 Tidal Volume 450 PEEP 5 POC Sodium 138 Sodium POC Potassium 3.3 Potassium POC Chloride Chloride Carbon Dioxide Anion Gap POC Anion Gap POC BUN BUN Creatinine POC Creatinine Est Cr Clr Drug Dosing Est GFR ( Amer) Est GFR (Non-Af Amer) BUN/Creatinine Ratio Glucose POC Glucose POC Glucose (other) 322 H Lactate Calcium POC Ioniz Calcium Jean Marie Phosphorus Magnesium Total Bilirubin Direct Bilirubin AST ALT Alkaline Phosphatase Total Creatine Kinase Troponin I High Sens B-Natriuretic Peptide Total Protein Albumin Globulin Albumin/Globulin Ratio Serotonin Release Assay Procalcitonin Random Cortisol Urine Color Urine Appearance Urine pH Ur Specific [place] Urine Protein Urine Glucose (UA) Urine Ketones Urine Blood Urine Nitrite Urine Bilirubin Urine Urobilinogen Ur Leukocyte Esterase Urine WBC (Auto) Urine RBC (Auto) U Hyaline Cast (Auto) U Epithel Cells (Auto) Urine Bacteria (Auto) Ur Renal Epithelial Cell Granular Casts Urine Yeast Nasal Screen MRSA (PCR) Heparin Depend Plt Ab Adenovirus (PCR) B. pertussis DNA (PCR) B.parapertussis DNA PCR C. pneumoniae DNA (PCR) Coronavirus OC43 (PCR) Coronavirus HKU1 (PCR) Coronavirus 229E (PCR) SARS-CoV-2 (PCR) Coronavirus NL63 (PCR) Human Metapneumovir PCR Influenza Type A (PCR) Influenza Type B (PCR) M. pneumoniae (PCR) Parainfluenza 1 (PCR) Parainfluenza 2 (PCR) Parainfluenza 3 (PCR) Parainfluenza 4 (PCR) RSV (PCR) Entero/Rhino (PCR) Staphylococcus sp PCR Staph aureus (PCR) mecA/C & MREJ Resist Gene Bld Cult ID Panel PCR 05/15/22 05/15/22 05/15/22 08:52 08:52 08:52 WBC 11.32 H RBC 2.98 L Hgb 8.9 L POC Hgb Hct 26.7 L POC Hct MCV 89.6 MCH 29.9 MCHC 33.3 RDW Std Deviation 49.2 H RDW Coeff of Jacinto 15.2 H Plt Count 72 L MPV 11.1 Immature Gran % (Auto) 1.4 Neut % (Auto) 85.0 Lymph % (Auto) 8.2 Cecil % (Auto) 5.0 Eos % (Auto) 0.0 Baso % (Auto) 0.4 Neut # (Auto) 9.62 H Lymph # (Auto) 0.93 L Cecil # (Auto) 0.57 Eos # (Auto) 0.00 Baso # (Auto) 0.04 Immature Gran # (Auto) 0.16 Dohle Bodies 1+ Platelet Estimate Echinocytes 1+ Acanthocytes (Spur) Peripher Smr Path Cons Pending PT INR APTT PTT Ratio Sample Site POC pH POC pCO2 POC pO2 POC HCO3 POC Total CO2 POC Base Excess ABG pH (Temp Correct) ABG pCO2 (Temp Corrct POC ABG pO2 at Pt Temp POC ABG O2 Sat Paul Test O2 Delivery Device POC O2 Rate POC FiO2 Tidal Volume PEEP POC Sodium Sodium 137 POC Potassium Potassium 3.3 L POC Chloride Chloride 108 H Carbon Dioxide 19 L Anion Gap 10 POC Anion Gap POC BUN BUN 57 H Creatinine 3.10 H POC Creatinine Est Cr Clr Drug Dosing 20.6 Est GFR ( Amer) 17.4 Est GFR (Non-Af Amer) 15.0 BUN/Creatinine Ratio 18.4 Glucose 282 H POC Glucose POC Glucose (other) Lactate Calcium 7.2 L POC Ioniz Calcium Jean Marie Phosphorus Magnesium Total Bilirubin 1.5 H Direct Bilirubin AST 119 H ALT 37 Alkaline Phosphatase 45 Total Creatine Kinase Troponin I High Sens B-Natriuretic Peptide Total Protein 5.8 L Albumin 2.7 L Globulin 3.1 Albumin/Globulin Ratio 0.9 Serotonin Release Assay Pending Procalcitonin Random Cortisol Urine Color Urine Appearance Urine pH Ur Specific [place] Urine Protein Urine Glucose (UA) Urine Ketones Urine Blood Urine Nitrite Urine Bilirubin Urine Urobilinogen Ur Leukocyte Esterase Urine WBC (Auto) Urine RBC (Auto) U Hyaline Cast (Auto) U Epithel Cells (Auto) Urine Bacteria (Auto) Ur Renal Epithelial Cell Granular Casts Urine Yeast Nasal Screen MRSA (PCR) Heparin Depend Plt Ab Pending Adenovirus (PCR) B. pertussis DNA (PCR) B.parapertussis DNA PCR C. pneumoniae DNA (PCR) Coronavirus OC43 (PCR) Coronavirus HKU1 (PCR) Coronavirus 229E (PCR) SARS-CoV-2 (PCR) Coronavirus NL63 (PCR) Human Metapneumovir PCR Influenza Type A (PCR) Influenza Type B (PCR) M. pneumoniae (PCR) Parainfluenza 1 (PCR) Parainfluenza 2 (PCR) Parainfluenza 3 (PCR) Parainfluenza 4 (PCR) RSV (PCR) Entero/Rhino (PCR) Staphylococcus sp PCR Staph aureus (PCR) mecA/C & MREJ Resist Gene Bld Cult ID Panel PCR 05/15/22 05/15/22 05/15/22 08:58 10:12 11:28 WBC RBC Hgb POC Hgb Hct POC Hct MCV MCH MCHC RDW Std Deviation RDW Coeff of Jacinto Plt Count MPV Immature Gran % (Auto) Neut % (Auto) Lymph % (Auto) Cecil % (Auto) Eos % (Auto) Baso % (Auto) Neut # (Auto) Lymph # (Auto) Cecil # (Auto) Eos # (Auto) Baso # (Auto) Immature Gran # (Auto) Dohle Bodies Platelet Estimate Echinocytes Acanthocytes (Spur) Peripher Smr Path Cons PT INR APTT PTT Ratio Sample Site POC pH POC pCO2 POC pO2 POC HCO3 POC Total CO2 POC Base Excess ABG pH (Temp Correct) ABG pCO2 (Temp Corrct POC ABG pO2 at Pt Temp POC ABG O2 Sat Paul Test O2 Delivery Device POC O2 Rate POC FiO2 Tidal Volume PEEP POC Sodium Sodium 138 POC Potassium Potassium 3.3 L POC Chloride Chloride 110 H Carbon Dioxide 20 L Anion Gap 8 POC Anion Gap POC BUN BUN 57 H Creatinine 2.95 H POC Creatinine Est Cr Clr Drug Dosing 21.7 Est GFR ( Amer) 18.5 Est GFR (Non-Af Amer) 16.0 BUN/Creatinine Ratio 19.3 Glucose 169 H POC Glucose POC Glucose (other) 277 H 208 H Lactate Calcium 7.2 L POC Ioniz Calcium Jean Marie Phosphorus Magnesium Total Bilirubin 1.3 H Direct Bilirubin AST 116 H ALT 36 Alkaline Phosphatase 42 Total Creatine Kinase Troponin I High Sens B-Natriuretic Peptide Total Protein 5.7 L Albumin 2.6 L Globulin 3.1 Albumin/Globulin Ratio 0.8 L Serotonin Release Assay Procalcitonin Random Cortisol Urine Color Urine Appearance Urine pH Ur Specific [place] Urine Protein Urine Glucose (UA) Urine Ketones Urine Blood Urine Nitrite Urine Bilirubin Urine Urobilinogen Ur Leukocyte Esterase Urine WBC (Auto) Urine RBC (Auto) U Hyaline Cast (Auto) U Epithel Cells (Auto) Urine Bacteria (Auto) Ur Renal Epithelial Cell Granular Casts Urine Yeast Nasal Screen MRSA (PCR) Heparin Depend Plt Ab Adenovirus (PCR) B. pertussis DNA (PCR) B.parapertussis DNA PCR C. pneumoniae DNA (PCR) Coronavirus OC43 (PCR) Coronavirus HKU1 (PCR) Coronavirus 229E (PCR) SARS-CoV-2 (PCR) Coronavirus NL63 (PCR) Human Metapneumovir PCR Influenza Type A (PCR) Influenza Type B (PCR) M. pneumoniae (PCR) Parainfluenza 1 (PCR) Parainfluenza 2 (PCR) Parainfluenza 3 (PCR) Parainfluenza 4 (PCR) RSV (PCR) Entero/Rhino (PCR) Staphylococcus sp PCR Staph aureus (PCR) mecA/C & MREJ Resist Gene Bld Cult ID Panel PCR 05/15/22 11:29 WBC RBC Hgb POC Hgb Hct POC Hct MCV MCH MCHC RDW Std Deviation RDW Coeff of Jacinto Plt Count MPV Immature Gran % (Auto) Neut % (Auto) Lymph % (Auto) Cecil % (Auto) Eos % (Auto) Baso % (Auto) Neut # (Auto) Lymph # (Auto) Cecil # (Auto) Eos # (Auto) Baso # (Auto) Immature Gran # (Auto) Dohle Bodies Platelet Estimate Echinocytes Acanthocytes (Spur) Peripher Smr Path Cons PT INR APTT PTT Ratio Sample Site POC pH POC pCO2 POC pO2 POC HCO3 POC Total CO2 POC Base Excess ABG pH (Temp Correct) ABG pCO2 (Temp Corrct POC ABG pO2 at Pt Temp POC ABG O2 Sat Paul Test O2 Delivery Device POC O2 Rate POC FiO2 Tidal Volume PEEP POC Sodium Sodium POC Potassium Potassium POC Chloride Chloride Carbon Dioxide Anion Gap POC Anion Gap POC BUN BUN Creatinine POC Creatinine Est Cr Clr Drug Dosing Est GFR ( Amer) Est GFR (Non-Af Amer) BUN/Creatinine Ratio Glucose POC Glucose 181 H POC Glucose (other) Lactate Calcium POC Ioniz Calcium Jean Marie Phosphorus Magnesium Total Bilirubin Direct Bilirubin AST ALT Alkaline Phosphatase Total Creatine Kinase Troponin I High Sens B-Natriuretic Peptide Total Protein Albumin Globulin Albumin/Globulin Ratio Serotonin Release Assay Procalcitonin Random Cortisol Urine Color Urine Appearance Urine pH Ur Specific [place] Urine Protein Urine Glucose (UA) Urine Ketones Urine Blood Urine Nitrite Urine Bilirubin Urine Urobilinogen Ur Leukocyte Esterase Urine WBC (Auto) Urine RBC (Auto) U Hyaline Cast (Auto) U Epithel Cells (Auto) Urine Bacteria (Auto) Ur Renal Epithelial Cell Granular Casts Urine Yeast Nasal Screen MRSA (PCR) Heparin Depend Plt Ab Adenovirus (PCR) B. pertussis DNA (PCR) B.parapertussis DNA PCR C. pneumoniae DNA (PCR) Coronavirus OC43 (PCR) Coronavirus HKU1 (PCR) Coronavirus 229E (PCR) SARS-CoV-2 (PCR) Coronavirus NL63 (PCR) Human Metapneumovir PCR Influenza Type A (PCR) Influenza Type B (PCR) M. pneumoniae (PCR) Parainfluenza 1 (PCR) Parainfluenza 2 (PCR) Parainfluenza 3 (PCR) Parainfluenza 4 (PCR) RSV (PCR) Entero/Rhino (PCR) Staphylococcus sp PCR Staph aureus (PCR) mecA/C & MREJ Resist Gene Bld Cult ID Panel PCR Diagnostic Findings CT Abdomen and Pelvis Without Intravenous Contrast FINDINGS: Lung bases: Unremarkable. No mass. No consolidation. ABDOMEN: Liver: The liver is enlarged measuring 20 cm craniocaudad. No focal liver lesion is seen. Gallbladder and bile ducts: Trace amount of sludge in the gallbladder. No calcified gallstones or pericholecystic inflammation identified. No biliary duct dilation is seen. Pancreas: Unremarkable. No ductal dilation. Spleen: Unremarkable. No splenomegaly. Adrenals: Unremarkable. No mass. Kidneys and ureters: Mild perinephric edema surrounding both kidneys is nonspecific and can be SSA with renal insufficiency. No hydronephrosis or ureterolithiasis is seen. The urinary bladder is decompressed by a Cancino catheter and unremarkable. Stomach and bowel: 7 cm of stool in the rectum suggesting constipation. The remaining bowel loops are nondilated. No acute inflammatory changes are seen involving the bowel. The appendix is normal. The stomach is decompressed by a NG tube. No mucosal thickening. PELVIS: Appendix: See above. Bladder: See above. Reproductive: Unremarkable as visualized. ABDOMEN and PELVIS: Intraperitoneal space: Unremarkable. No free air. No significant fluid collection. Bones/joints: Mild multilevel degenerative changes throughout the spine. No acute fracture or subluxation is seen. Soft tissues: Unremarkable. Vasculature: The abdominal aorta is heavily calcified. 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 No abdominal aortic aneurysm. Lymph nodes: Unremarkable. No enlarged lymph nodes. IMPRESSION: 1. Mild perinephric edema surrounding both kidneys is nonspecific and can be SSA with renal insufficiency. No hydronephrosis or ureterolithiasis is seen. The urinary bladder is decompressed by a Cancino catheter and unremarkable. 2. 7 cm of stool in the rectum suggesting constipation. The remaining bowel loops are nondilated. No acute inflammatory changes are seen involving the bowel. The appendix is normal. The stomach is decompressed by a NG tube. 3. Trace amount of sludge in the gallbladder. No calcified gallstones or pericholecystic inflammation identified. No biliary duct dilation is seen. CT Chest Without Intravenous Contrast FINDINGS: Lungs: Prominent pulmonary vascularity with central hazy edema suggesting CHF. Lower lung volumes than previous with new bilateral dependent atelectasis, less likely pneumonia. Pleural space: Unremarkable. No pneumothorax. No significant effusion. Heart: See below. Bones/joints: Previous sternotomy with prior aortic valvuloplasty. There is severe calcification of the mitral valve. The heart is mildly enlarged. Mild multilevel degenerative changes throughout the thoracic spine. No fracture or destructive bone lesion is seen. No dislocation. Soft tissues: Unremarkable. Vasculature: The thoracic aorta is mildly calcified but nondilated. This is a noncontrast scan. Lymph nodes: Unremarkable. No enlarged lymph nodes. Tubes, lines and devices: Endotracheal tube tip in standard position. NG tube extends into the stomach. IMPRESSION: 1. Prominent pulmonary vascularity with central hazy edema suggesting CHF. 2. Lower lung volumes than previous with new bilateral dependent atelectasis, less likely pneumonia. 3. Endotracheal tube tip in standard position. NG tube extends into the stomach. Transthoracic echocardiogram Moderate concentric LVH with midly reduced LVEF (50-55%). Mild global hypokinetic LV. Bioprosthetic aortic valve with findings of severe stenosis. ECG Additional Comments: Atrial-sensed ventricular-paced PG Care Time/CCT Total # of Minutes Spent Total Time Spent with Patient: Total time spent is greater than 50% in coordination of care (as documented) at patient's floor/unit and/or counseling patient: Coding Level of Care Code 97582 IN/OBS CONSULT LVL 5,80M Diagnoses MARY (acute kidney injury) N17.9 Septic shock A41.9; R65.21 Bacteremia R78.81 Complicated UTI (urinary tract infection) N39.0 Thrombocytopenia D69.6 Diabetic ketoacidosis E11.10 NSTEMI (non-ST elevated myocardial infarction) I21.4 Status post placement of cardiac pacemaker Z95.0 S/P aortic valve replacement Z95.2 Diabetes mellitus with complication E11.8
[2022-05-15] MEDS ORDERED: CALCIUM GLUCONATE 10% 2,000 MG in DEXTROSE 5% 50 ML IV ONE (14:13)
--- NOTE | 2022-05-15 14:19 | Electrocardiogram Report ---
Test Reason : Blood Pressure : / mmHG Vent. Rate : 106 BPM Atrial Rate : 113 BPM P-R Int : 000 ms QRS Dur : 138 ms QT Int : 340 ms P-R-T Axes : 079 081 264 degrees QTc Int : 451 ms Poor data quality, interpretation may be adversely affected Both nsr and atrial paced beats Ventricular-paced rhythm Abnormal ECG When compared with ECG of 10-MAY-2022 12:28, Atrial paced beats are present Vent. rate has increased BY 13 BPM Confirmed by Brendan Ardon ([id number]) on 05/15/2022 2:19:03 PM Referred By: REFERRED SELF Confirmed By:Brendan Ardon
--- NOTE | 2022-05-15 14:22 | Electrocardiogram Report ---
Test Reason : Blood Pressure : / mmHG Vent. Rate : 106 BPM Atrial Rate : 106 BPM P-R Int : 160 ms QRS Dur : 144 ms QT Int : 410 ms P-R-T Axes : 000 081 -78 degrees QTc Int : 544 ms Poor data quality, interpretation may be adversely affected Atrial-sensed ventricular-paced rhythm Abnormal ECG When compared with ECG of 14-MAY-2022 20:28, (unconfirmed) Atrial Paced beats are no longer present Confirmed by Brendan Ardon ([id number]) on 05/15/2022 2:22:02 PM Referred By: REFERRED SELF Confirmed By:Brendan Ardon
--- NOTE | 2022-05-15 14:25 | Pharmacy Report ---
Pharmacy Glycemic Short Note 2 - Date of Service May 15, 2022 - Glycemic Short BSG Results (Last 24 hours): 05/14/22 05/14/22 05/15/22 20:07 20:19 01:25 Glucose 257 H POC Glucose POC Glucose (other) 248 H 293 H 05/15/22 05/15/22 05/15/22 02:28 03:06 04:04 Glucose 342 H* POC Glucose POC Glucose (other) 326 H 351 H* 05/15/22 05/15/22 05/15/22 05:10 06:19 07:53 Glucose POC Glucose POC Glucose (other) 364 H* 349 H 322 H 05/15/22 05/15/22 05/15/22 08:52 08:58 10:12 Glucose 282 H POC Glucose POC Glucose (other) 277 H 208 H 05/15/22 05/15/22 05/15/22 11:28 11:29 12:56 Glucose 169 H POC Glucose 181 H POC Glucose (other) 122 H 05/15/22 14:00 Glucose POC Glucose POC Glucose (other) 128 H OUTPATIENT ANTIDIABETIC REGIMEN: * Levemir 50 units SQ Daily * Novolog 14 units with meals + scale (max 22 units) * Metformin 1000 mg PO BID * Trulicity 1.5 mg SQ on Sundays * Hb1C = 6.7% (05/08/22) ASSESSMENT: * Ms Gan is a 66 y/o F with a PMH of T2DM who presents with MSSA bacteremia. She is currently intubated requiring pressor support. * She is on a heparin infusion. * Since patient is critically ill, will continue insulin that was begun on hi. Consider transition when patient is off pressors/ more hemodynamically stable. PLAN FOR INPATIENT GLYCEMIC CONTROL: * insulin infusion per protocol with goal range of 110-180 mg/dL.
[2022-05-15] MEDS: LACTATED RINGER'S 1,000 ML IV SCH ×2 (14:56→20:24)
--- NOTE | 2022-05-15 14:58 | XRay Report ---
XR chest 1V portable CLINICAL HISTORY: Sepsis TECHNIQUE: Single frontal radiograph of the chest was obtained. Comparison: Comparison is made to chest radiograph 05/11/2022 FINDINGS: Median sternotomy wires are unchanged. Endotracheal tube terminates 3 cm from moody. Dual lead pacem fernando is seen. Cardiomegaly is noted. Prominence and cephalization of the vasculature is seen. Airspac e opacities are seen throughout the lungs. No evidence of pleural effusion or pneumothorax. IMPRESSION: Cardiomegaly and mild pulmonary edema. Multifocal airspace opacities may represent atelectasis, pneum onia, and/or aspiration. ACT 112: Negative or not required by law. Electronically signed by: Milton Saucedo M.D. 05/15/2022 2:57 PM
--- NOTE | 2022-05-15 18:44 | XRay Report ---
XR chest 1V portable CLINICAL HISTORY: Resp failure TECHNIQUE: Single frontal radiograph of the chest was obtained. Comparison: Comparison is made to chest radiograph 05/15/2022 FINDINGS: Lines and tubes are stable. The cardiomediastinal silhouette normal. Prominence and cephalization of the vasculature is seen. No evidence of pleural effusion or pneumothorax. IMPRESSION: Cardiomegaly and mild pulmonary edema, overall similar to prior exam. ACT 112: Negative or not required by law. Electronically signed by: Milton Saucedo M.D. 05/15/2022 6:41 PM
[2022-05-15] MEDS: ceFAZolin 1000MG 1,000 MG/7.5 ML SYR IV SCH (19:08)
[2022-05-16] MEDS: LACTATED RINGER'S 1,000 ML IV SCH ×3 (01:16→08:07)
[2022-05-16] MEDS: INSULIN REGULAR 250 UNITS in SODIUM CHLORIDE 0.9% 247.5 ML IV SCH (01:18)
[2022-05-16] MEDS: NOREPINEPHRINE/D5W 4 MG/250 ML PLCT IV SCH ×2 (01:40→08:01)
[2022-05-16] MEDS: VASOPRESSIN 20 UNITS in 0.9 % SODIUM CHLORIDE 100 ML IV SCH ×2 (04:54→07:52)
[2022-05-16 05:28] LABS: iSTAT Art Bld Gas pCO2 Correct 29 mmHg (35-46); iSTAT Art Bld Gas pH Corrected 7.402 (7.35-7.45); iSTAT Arterial Blood Gas HCO3 18 meg/L (19-24); iSTAT Arterial Blood Gas pCO2 27 mmHg (35-46); iSTAT Arterial Blood Gas pH 7.42 (7.35-7.45); iSTAT Arterial Blood Gas pO2 68 mmHg (80-95); iSTAT Arterial Blood Gas pO2 C 74; iSTAT Carbon Dioxide 18 mmol/L (24-31); iSTAT FiO2 30 %; iSTAT Hematocrit 22 % (37-47); iSTAT Hemoglobin 7.5 g/dl (12.0-16.0); iSTAT Potassium 3.7 mmol/L (3.3-5.0); iSTAT Site Art Line; iSTAT Sodium 135 mmol/L (135-144)
[2022-05-16 05:59] LABS: Albumin Globulin Ratio 0.8 (0.9-2); Albumin Level 2.3 gm/dl (3.4-5.0); BUN Creatinine Ratio 24.2 (10-20); Calcium 7.3 mg/dl (8.5-10.1); Creatinine Clr Calc Pharmacy 29.8 ml/min; Est GFR (African American) 27.1 ml/min; Est GFR (Non-African American) 23.4 ml/min; Magnesium 1.9 mg/dl (1.7-2.4); Phosphorus 2.7 mg/dl (2.5-4.9); Potassium 3.7 mmol/L (3.5-5.1); Total Protein 5.3 gm/dl (6.0-8.3)
[2022-05-16 06:05] LABS: Prothrombin Time 11.1 Seconds (9.0-12.0)
[2022-05-16 06:09] LABS: Acanthocytes 2+; Basophils # (auto) 0.03 K/uL (0-0.2); Basophils % (auto) 0.3 %; Hematocrit (blood only) 24.3 % (37.0-47.0); Hemoglobin 8.2 g/dl (12.0-16.0); Immature Granulocytes # (auto) 0.29 K/uL (0.01-0.20); Immature Granulocytes % (auto) 2.6 %; Lymphocytes # (auto) 0.71 K/uL (1.2-3.4); Lymphocytes % (auto) 6.3 %; Mean Corpuscular Hemoglobin 29.6 pg (25.0-34.0); Mean Corpuscular Hgb Conc 33.7 g/dL (32.0-36.0); Mean Corpuscular Volume 87.7 fL (80.0-100.0); Mean Platelet Volume 11.7 fL (9.4-12.4); Monocytes # (auto) 0.87 K/uL (0.11-0.59); Monocytes % (auto) 7.7 %; Neutrophils # (auto) 9.38 K/uL (1.40-6.50); Neutrophils % (auto) 83.1 %; Platelet Count 59 K/uL (130-400); Platelet Estimate Decreased (Normal); Polychromasia 1+; RDW Coefficient of Variation 14.6 % (11.5-14.5); RDW Standard Deviation 47.5 fL (36.4-46.3); Red Blood Count 2.77 M/uL (4.20-5.40); White Blood Count 11.28 K/ul (4.8-10.8)
[2022-05-16] MEDS ORDERED: MAGNESIUM SULFATE / D5W 1 GM/100 ML BAG IV ONE (06:41)
[2022-05-16] MEDS ORDERED: POTASSIUM CHLORIDE 20 MEQ/15 ML UDC PO STA (06:42)
[2022-05-16] MEDS: INSULIN ASPART PER UNIT CHARGE SC SCH ×2 (07:52→08:07)
[2022-05-16] MEDS: ASPIRIN 81 MG CHEW NG SCH (07:52)
[2022-05-16] MEDS: ceFAZolin 1000MG 1,000 MG/7.5 ML SYR IV SCH (08:00)
--- NOTE | 2022-05-16 08:57 | XRay Report ---
SINGLE VIEW CHEST CLINICAL HISTORY: Respiratory failure. FINDINGS: An AP, portable, upright chest radiograph is compared to study dated 05/15/2022 and correlat ed with chest CT dated 05/14/2022. The examination is degraded by portable technique and apical lordot ic positioning. The patient is status post midline sternotomy and cardiac valve surgery. A 2-lead car diac pacemaker is unchanged in position. An endotracheal tube, an enteric tube, and a right internal jugular central venous catheter are unchanged in position. The heart is enlarged noting atherosclerot ic calcification of the thoracic area. There is pulmonary vascular congestion with evidence of inters titial edema. There are small pleural effusions with dependent consolidation. No pneumothorax is seen . The skeletal structures are osteopenic. The bony thorax is grossly intact. IMPRESSION: 1. Stable lines and tubes. 2. Cardiomegaly and cardiac pacemaker without evidence of congestive failure and pulmonary edema. Thi s is similar to yesterday. 3. Small pleural effusions with dependent consolidation. ACT 112: Negative or not required by law. Electronically signed by: Rober Duong M.D. 05/16/2022 8:55 AM
--- NOTE | 2022-05-16 09:10 | Nephrology Progress Note ---
Date of Service May 16, 2022 Assessment & Plan (1) MARY (acute kidney injury): Plan: Prerenal in the setting of intravascular volume depletion and complicated by ischemic/septic ATN. Non-oliguric. Electrolytes acceptable. No emergent indication for dialysis. 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 Baseline creatinine ~1.0 mg/dL. AIII proteinuria, ACR 111 mcg/mg by history. UA on admission demonstrating 3+ protein, +blood, +nitrate and +LE. Microscopy >30 WBC, 5-10 RBC, +granular casts. Medications are appropriately dosed for kidney function. CT showed kidneys to be unobstructed. Cancino is draining dark yellow urine. MAP goal >65. IVF and HCO3 replacement being appropriately provided. Nutrition per ICU team. (2) Septic shock: Plan: Blood +MSSA. Started on vanco and cefepime. Remains on cefazolin. Unfortunately, concerning persistent evidence of infection. Pocket will likely need to be explored as well as concern for possible evidence of prosthetic valve infection. Prognosis is unfortunately poor. Shea has been 100% paced. (3) Bacteremia: Plan: Unfortunately there is concerning persistent evidence of infection following recently placed pacer. Bleeding complications post procedure noted. (4) Thrombocytopenia: Plan: PTT normalized after discontinuation of heparin gtt. Peripheral smear, HIT ab, and fibrinogen/FSP pending. (5) Status post placement of cardiac pacemaker: (6) S/P aortic valve replacement: Admission and Anticipated Discharge Date Admission Date: May 14, 2022 Subjective Remains intubated and sedated. Sedation weaned this AM but Shea was not awake. She was seen and evaluated with Dr. Miller. Shea remains on vasopressor support. Increased UOP. Persistent fevers. 100% paced. Review of Systems Review of Systems: Unobtainable due to endotracheal tube and Unobtainable due to reduced consciousness Physical Exam Constitutional: + ill appearing, + altered mental status (sedated) and + mechanically ventilated ENMT: ETT Neck: trachea midline and + thick neck Respiratory: symmetric chest movement Auscultation: + rhonchi Cardiovascular: Rate/Rhythm: regular rate Heart Sounds: normal S1, normal S2 and + murmur Vessels: posterior tibial pulses present (by doppler on right) Extremities: + edema; + abnormal capillary refill Gastrointestinal (Abdomen): Inspection/Auscultation: + abdomen distended and normal bowel sounds Musculoskeletal: Extremities: + cyanosis (noted cold left foot - PT by doppler only) and + petechiae; no clubbing Skin: + turgor decreased and + ecchymosis; no jaundice Genitourinary: Cancino with concentrated yellow urine in bag Results & Data ([facility]) Vital Signs (Past 12 Hours) Vital Signs Temp Pulse Resp BP Pulse Ox FiO2 05/16/22 07:55 79 20 98 30 05/16/22 05:05 21 30 05/16/22 03:25 91 H 24 95 30 05/16/22 06:05 116/65 05/16/22 06:05 37.9 C H 93 H 20 92 05/16/22 06:00 38.0 C H 89 20 92 05/16/22 05:00 38.2 C H 95 H 24 94 05/16/22 04:00 38.3 C H 97 H 24 94 05/16/22 04:00 125/64 05/16/22 04:00 30 05/16/22 04:00 97 H 121/57 L 05/16/22 03:00 38.2 C H 92 H 21 94 05/16/22 01:00 38.1 C H 96 H 24 94 05/16/22 00:00 38.1 C H 97 H 24 94 05/16/22 00:00 131/72 05/15/22 23:00 38.1 C H 100 H 24 94 05/16/22 00:00 86 124/57 L 05/16/22 00:00 30 05/15/22 22:56 90 26 H 94 30 05/15/22 22:01 38.0 C H 99 H 24 94 05/15/22 22:00 139/78 05/15/22 21:59 38.0 C H 97 H 24 94 05/15/22 21:00 38.1 C H 94 H 24 94 05/15/22 20:21 94 H 24 97 30 Laboratory Results Laboratory Results - last 24 hr 05/15/22 05/15/22 05/15/22 02:28 07:47 07:47 WBC RBC Hgb POC Hgb Hct POC Hct MCV MCH MCHC RDW Std Deviation RDW Coeff of Jacinto Plt Count MPV Immature Gran % (Auto) Neut % (Auto) Lymph % (Auto) [place] % (Auto) Eos % (Auto) Baso % (Auto) Neut # (Auto) Lymph # (Auto) [place] # (Auto) Eos # (Auto) Baso # (Auto) Immature Gran # (Auto) Dohle Bodies Platelet Estimate Polychromasia Echinocytes Acanthocytes (Spur) Peripher Smr Path Cons PT 14.0 H INR 1.3 H APTT 111.3 H* PTT Ratio 4.0 Sample Site POC pH POC pCO2 POC pO2 POC HCO3 POC Total CO2 POC Base Excess ABG pH (Temp Correct) ABG pCO2 (Temp Corrct POC ABG pO2 at Pt Temp POC ABG O2 Sat Paul Test O2 Delivery Device POC O2 Rate POC FiO2 Tidal Volume PEEP POC Sodium Sodium POC Potassium Potassium Chloride Carbon Dioxide Anion Gap BUN Creatinine Est Cr Clr Drug Dosing Est GFR ( Amer) Est GFR (Non-Af Amer) BUN/Creatinine Ratio Glucose POC Glucose POC Glucose (other) Calcium Phosphorus Magnesium Total Bilirubin AST ALT Alkaline Phosphatase Troponin I High Sens 97056.9 H* D Total Protein Albumin Globulin Albumin/Globulin Ratio Serotonin Release Assay Heparin Depend Plt Ab 05/15/22 05/15/22 05/15/22 07:53 08:10 08:52 WBC RBC Hgb POC Hgb 8.8 L Hct POC Hct 26 L MCV MCH MCHC RDW Std Deviation RDW Coeff of Jacinto Plt Count MPV Immature Gran % (Auto) Neut % (Auto) Lymph % (Auto) [place] % (Auto) Eos % (Auto) Baso % (Auto) Neut # (Auto) Lymph # (Auto) [place] # (Auto) Eos # (Auto) Baso # (Auto) Immature Gran # (Auto) Dohle Bodies Platelet Estimate Polychromasia Echinocytes Acanthocytes (Spur) Peripher Smr Path Cons PT INR APTT PTT Ratio Sample Site Art Line POC pH 7.37 POC pCO2 32 L POC pO2 109 H POC HCO3 18 L POC Total CO2 19 L POC Base Excess -7.0 ABG pH (Temp Correct) 7.360 ABG pCO2 (Temp Corrct 32 L POC ABG pO2 at Pt Temp 111 POC ABG O2 Sat 98.0 H Paul Test NA O2 Delivery Device Ventilator POC O2 Rate 24 POC FiO2 40 Tidal Volume 450 PEEP 5 POC Sodium 138 Sodium 137 POC Potassium 3.3 Potassium 3.3 L Chloride 108 H Carbon Dioxide 19 L Anion Gap 10 BUN 57 H Creatinine 3.10 H Est Cr Clr Drug Dosing 20.6 Est GFR ( Amer) 17.4 Est GFR (Non-Af Amer) 15.0 BUN/Creatinine Ratio 18.4 Glucose 282 H POC Glucose POC Glucose (other) 322 H Calcium 7.2 L Phosphorus Magnesium Total Bilirubin 1.5 H AST 119 H ALT 37 Alkaline Phosphatase 45 Troponin I High Sens Total Protein 5.8 L Albumin 2.7 L Globulin 3.1 Albumin/Globulin Ratio 0.9 Serotonin Release Assay Heparin Depend Plt Ab 05/15/22 05/15/22 05/15/22 08:52 08:52 08:58 WBC 11.32 H RBC 2.98 L Hgb 8.9 L POC Hgb Hct 26.7 L POC Hct MCV 89.6 MCH 29.9 MCHC 33.3 RDW Std Deviation 49.2 H RDW Coeff of Jacinto 15.2 H Plt Count 72 L MPV 11.1 Immature Gran % (Auto) 1.4 Neut % (Auto) 85.0 Lymph % (Auto) 8.2 [place] % (Auto) 5.0 Eos % (Auto) 0.0 Baso % (Auto) 0.4 Neut # (Auto) 9.62 H Lymph # (Auto) 0.93 L [place] # (Auto) 0.57 Eos # (Auto) 0.00 Baso # (Auto) 0.04 Immature Gran # (Auto) 0.16 Dohle Bodies 1+ Platelet Estimate Polychromasia Echinocytes 1+ Acanthocytes (Spur) Peripher Smr Path Cons Pending PT INR APTT PTT Ratio Sample Site POC pH POC pCO2 POC pO2 POC HCO3 POC Total CO2 POC Base Excess ABG pH (Temp Correct) ABG pCO2 (Temp Corrct POC ABG pO2 at Pt Temp POC ABG O2 Sat Paul Test O2 Delivery Device POC O2 Rate POC FiO2 Tidal Volume PEEP POC Sodium Sodium POC Potassium Potassium Chloride Carbon Dioxide Anion Gap BUN Creatinine Est Cr Clr Drug Dosing Est GFR ( Amer) Est GFR (Non-Af Amer) BUN/Creatinine Ratio Glucose POC Glucose POC Glucose (other) 277 H Calcium Phosphorus Magnesium Total Bilirubin AST ALT Alkaline Phosphatase Troponin I High Sens Total Protein Albumin Globulin Albumin/Globulin Ratio Serotonin Release Assay Pending Heparin Depend Plt Ab Pending 05/15/22 05/15/22 05/15/22 10:12 11:28 11:29 WBC RBC Hgb POC Hgb Hct POC Hct MCV MCH MCHC RDW Std Deviation RDW Coeff of Jacinto Plt Count MPV Immature Gran % (Auto) Neut % (Auto) Lymph % (Auto) [place] % (Auto) Eos % (Auto) Baso % (Auto) Neut # (Auto) Lymph # (Auto) [place] # (Auto) Eos # (Auto) Baso # (Auto) Immature Gran # (Auto) Dohle Bodies Platelet Estimate Polychromasia Echinocytes Acanthocytes (Spur) Peripher Smr Path Cons PT INR APTT PTT Ratio Sample Site POC pH POC pCO2 POC pO2 POC HCO3 POC Total CO2 POC Base Excess ABG pH (Temp Correct) ABG pCO2 (Temp Corrct POC ABG pO2 at Pt Temp POC ABG O2 Sat Paul Test O2 Delivery Device POC O2 Rate POC FiO2 Tidal Volume PEEP POC Sodium Sodium 138 POC Potassium Potassium 3.3 L Chloride 110 H Carbon Dioxide 20 L Anion Gap 8 BUN 57 H Creatinine 2.95 H Est Cr Clr Drug Dosing 21.7 Est GFR ( Amer) 18.5 Est GFR (Non-Af Amer) 16.0 BUN/Creatinine Ratio 19.3 Glucose 169 H POC Glucose 181 H POC Glucose (other) 208 H Calcium 7.2 L Phosphorus Magnesium Total Bilirubin 1.3 H AST 116 H ALT 36 Alkaline Phosphatase 42 Troponin I High Sens Total Protein 5.7 L Albumin 2.6 L Globulin 3.1 Albumin/Globulin Ratio 0.8 L Serotonin Release Assay Heparin Depend Plt Ab 05/15/22 05/15/22 05/15/22 12:56 13:53 14:00 WBC RBC Hgb POC Hgb Hct POC Hct MCV MCH MCHC RDW Std Deviation RDW Coeff of Jacinto Plt Count MPV Immature Gran % (Auto) Neut % (Auto) Lymph % (Auto) [place] % (Auto) Eos % (Auto) Baso % (Auto) Neut # (Auto) Lymph # (Auto) [place] # (Auto) Eos # (Auto) Baso # (Auto) Immature Gran # (Auto) Dohle Bodies Platelet Estimate Polychromasia Echinocytes Acanthocytes (Spur) Peripher Smr Path Cons PT INR APTT PTT Ratio Sample Site POC pH POC pCO2 POC pO2 POC HCO3 POC Total CO2 POC Base Excess ABG pH (Temp Correct) ABG pCO2 (Temp Corrct POC ABG pO2 at Pt Temp POC ABG O2 Sat Paul Test O2 Delivery Device POC O2 Rate POC FiO2 Tidal Volume PEEP POC Sodium Sodium POC Potassium Potassium Chloride Carbon Dioxide Anion Gap BUN Creatinine Est Cr Clr Drug Dosing Est GFR ( Amer) Est GFR (Non-Af Amer) BUN/Creatinine Ratio Glucose POC Glucose POC Glucose (other) 122 H 128 H Calcium Phosphorus Magnesium Total Bilirubin AST ALT Alkaline Phosphatase Troponin I High Sens 36484.8 H* Total Protein Albumin Globulin Albumin/Globulin Ratio Serotonin Release Assay Heparin Depend Plt Ab 05/15/22 05/15/22 05/15/22 15:05 15:59 17:57 WBC RBC Hgb POC Hgb Hct POC Hct MCV MCH MCHC RDW Std Deviation RDW Coeff of Jacinto Plt Count MPV Immature Gran % (Auto) Neut % (Auto) Lymph % (Auto) [place] % (Auto) Eos % (Auto) Baso % (Auto) Neut # (Auto) Lymph # (Auto) [place] # (Auto) Eos # (Auto) Baso # (Auto) Immature Gran # (Auto) Dohle Bodies Platelet Estimate Polychromasia Echinocytes Acanthocytes (Spur) Peripher Smr Path Cons PT INR APTT PTT Ratio Sample Site POC pH POC pCO2 POC pO2 POC HCO3 POC Total CO2 POC Base Excess ABG pH (Temp Correct) ABG pCO2 (Temp Corrct POC ABG pO2 at Pt Temp POC ABG O2 Sat Paul Test O2 Delivery Device POC O2 Rate POC FiO2 Tidal Volume PEEP POC Sodium Sodium POC Potassium Potassium Chloride Carbon Dioxide Anion Gap BUN Creatinine Est Cr Clr Drug Dosing Est GFR ( Amer) Est GFR (Non-Af Amer) BUN/Creatinine Ratio Glucose POC Glucose POC Glucose (other) 117 H 116 H 97 Calcium Phosphorus Magnesium Total Bilirubin AST ALT Alkaline Phosphatase Troponin I High Sens Total Protein Albumin Globulin Albumin/Globulin Ratio Serotonin Release Assay Heparin Depend Plt Ab 05/15/22 05/15/22 05/15/22 19:09 20:30 21:34 WBC RBC Hgb POC Hgb Hct POC Hct MCV MCH MCHC RDW Std Deviation RDW Coeff of Jacinto Plt Count MPV Immature Gran % (Auto) Neut % (Auto) Lymph % (Auto) [place] % (Auto) Eos % (Auto) Baso % (Auto) Neut # (Auto) Lymph # (Auto) [place] # (Auto) Eos # (Auto) Baso # (Auto) Immature Gran # (Auto) Dohle Bodies Platelet Estimate Polychromasia Echinocytes Acanthocytes (Spur) Peripher Smr Path Cons PT INR APTT PTT Ratio Sample Site POC pH POC pCO2 POC pO2 POC HCO3 POC Total CO2 POC Base Excess ABG pH (Temp Correct) ABG pCO2 (Temp Corrct POC ABG pO2 at Pt Temp POC ABG O2 Sat Paul Test O2 Delivery Device POC O2 Rate POC FiO2 Tidal Volume PEEP POC Sodium Sodium POC Potassium Potassium Chloride Carbon Dioxide Anion Gap BUN Creatinine Est Cr Clr Drug Dosing Est GFR ( Amer) Est GFR (Non-Af Amer) BUN/Creatinine Ratio Glucose POC Glucose POC Glucose (other) 106 H 113 H 117 H Calcium Phosphorus Magnesium Total Bilirubin AST ALT Alkaline Phosphatase Troponin I High Sens Total Protein Albumin Globulin Albumin/Globulin Ratio Serotonin Release Assay Heparin Depend Plt Ab 05/15/22 05/15/22 05/16/22 22:09 23:09 01:01 WBC RBC Hgb POC Hgb Hct POC Hct MCV MCH MCHC RDW Std Deviation RDW Coeff of Jacnito Plt Count MPV Immature Gran % (Auto) Neut % (Auto) Lymph % (Auto) [place] % (Auto) Eos % (Auto) Baso % (Auto) Neut # (Auto) Lymph # (Auto) [place] # (Auto) Eos # (Auto) Baso # (Auto) Immature Gran # (Auto) Dohle Bodies Platelet Estimate Polychromasia Echinocytes Acanthocytes (Spur) Peripher Smr Path Cons PT INR APTT PTT Ratio Sample Site POC pH POC pCO2 POC pO2 POC HCO3 POC Total CO2 POC Base Excess ABG pH (Temp Correct) ABG pCO2 (Temp Corrct POC ABG pO2 at Pt Temp POC ABG O2 Sat Paul Test O2 Delivery Device POC O2 Rate POC FiO2 Tidal Volume PEEP POC Sodium Sodium POC Potassium Potassium Chloride Carbon Dioxide Anion Gap BUN Creatinine Est Cr Clr Drug Dosing Est GFR ( Amer) Est GFR (Non-Af Amer) BUN/Creatinine Ratio Glucose POC Glucose POC Glucose (other) 123 H 126 H 137 H Calcium Phosphorus Magnesium Total Bilirubin AST ALT Alkaline Phosphatase Troponin I High Sens Total Protein Albumin Globulin Albumin/Globulin Ratio Serotonin Release Assay Heparin Depend Plt Ab 05/16/22 05/16/22 05/16/22 04:02 05:14 05:18 WBC 11.28 H RBC 2.77 L Hgb 8.2 L POC Hgb 7.5 L Hct 24.3 L POC Hct 22 L MCV 87.7 MCH 29.6 MCHC 33.7 RDW Std Deviation 47.5 H RDW Coeff of Jacinto 14.6 H Plt Count 59 L MPV 11.7 Immature Gran % (Auto) 2.6 Neut % (Auto) 83.1 Lymph % (Auto) 6.3 [place] % (Auto) 7.7 Eos % (Auto) 0.0 Baso % (Auto) 0.3 Neut # (Auto) 9.38 H Lymph # (Auto) 0.71 L [place] # (Auto) 0.87 H Eos # (Auto) 0.00 Baso # (Auto) 0.03 Immature Gran # (Auto) 0.29 H Dohle Bodies Platelet Estimate Decreased L Polychromasia 1+ Echinocytes Acanthocytes (Spur) 2+ Peripher Smr Path Cons PT INR APTT PTT Ratio Sample Site Art Line POC pH 7.42 POC pCO2 27 L POC pO2 68 L POC HCO3 18 L POC Total CO2 18 L POC Base Excess -7.0 ABG pH (Temp Correct) 7.402 ABG pCO2 (Temp Corrct 29 L POC ABG pO2 at Pt Temp 74 POC ABG O2 Sat 94.0 Paul Test NA O2 Delivery Device Ventilator POC O2 Rate 24 POC FiO2 30 Tidal Volume 450 PEEP 5 POC Sodium 135 Sodium POC Potassium 3.7 Potassium Chloride Carbon Dioxide Anion Gap BUN Creatinine Est Cr Clr Drug Dosing Est GFR ( Amer) Est GFR (Non-Af Amer) BUN/Creatinine Ratio Glucose POC Glucose POC Glucose (other) 155 H Calcium Phosphorus Magnesium Total Bilirubin AST ALT Alkaline Phosphatase Troponin I High Sens Total Protein Albumin Globulin Albumin/Globulin Ratio Serotonin Release Assay Heparin Depend Plt Ab 05/16/22 05/16/22 05/16/22 05:18 05:18 06:03 WBC RBC Hgb POC Hgb Hct POC Hct MCV MCH MCHC RDW Std Deviation RDW Coeff of Jacinto Plt Count MPV Immature Gran % (Auto) Neut % (Auto) Lymph % (Auto) [place] % (Auto) Eos % (Auto) Baso % (Auto) Neut # (Auto) Lymph # (Auto) [place] # (Auto) Eos # (Auto) Baso # (Auto) Immature Gran # (Auto) Dohle Bodies Platelet Estimate Polychromasia Echinocytes Acanthocytes (Spur) Peripher Smr Path Cons PT 11.1 INR 1.0 APTT PTT Ratio Sample Site POC pH POC pCO2 POC pO2 POC HCO3 POC Total CO2 POC Base Excess ABG pH (Temp Correct) ABG pCO2 (Temp Corrct POC ABG pO2 at Pt Temp POC ABG O2 Sat Paul Test O2 Delivery Device POC O2 Rate POC FiO2 Tidal Volume PEEP POC Sodium Sodium 135 L POC Potassium Potassium 3.7 Chloride 108 H Carbon Dioxide 18 L Anion Gap 9 BUN 52 H Creatinine 2.15 H D Est Cr Clr Drug Dosing 29.8 Est GFR ( Amer) 27.1 Est GFR (Non-Af Amer) 23.4 BUN/Creatinine Ratio 24.2 H Glucose 166 H POC Glucose POC Glucose (other) 174 H Calcium 7.3 L Phosphorus 2.7 D Magnesium 1.9 Total Bilirubin 1.0 AST 85 H ALT 31 Alkaline Phosphatase 39 Troponin I High Sens Total Protein 5.3 L Albumin 2.3 L Globulin 3.0 Albumin/Globulin Ratio 0.8 L Serotonin Release Assay Heparin Depend Plt Ab 05/16/22 07:54 WBC RBC Hgb POC Hgb Hct POC Hct MCV MCH MCHC RDW Std Deviation RDW Coeff of Jacinto Plt Count MPV Immature Gran % (Auto) Neut % (Auto) Lymph % (Auto) [place] % (Auto) Eos % (Auto) Baso % (Auto) Neut # (Auto) Lymph # (Auto) [place] # (Auto) Eos # (Auto) Baso # (Auto) Immature Gran # (Auto) Dohle Bodies Platelet Estimate Polychromasia Echinocytes Acanthocytes (Spur) Peripher Smr Path Cons PT INR APTT PTT Ratio Sample Site POC pH POC pCO2 POC pO2 POC HCO3 POC Total CO2 POC Base Excess ABG pH (Temp Correct) ABG pCO2 (Temp Corrct POC ABG pO2 at Pt Temp POC ABG O2 Sat Paul Test O2 Delivery Device POC O2 Rate POC FiO2 Tidal Volume PEEP POC Sodium Sodium POC Potassium Potassium Chloride Carbon Dioxide Anion Gap BUN Creatinine Est Cr Clr Drug Dosing Est GFR ( Amer) Est GFR (Non-Af Amer) BUN/Creatinine Ratio Glucose POC Glucose POC Glucose (other) 197 H Calcium Phosphorus Magnesium Total Bilirubin AST ALT Alkaline Phosphatase Troponin I High Sens Total Protein Albumin Globulin Albumin/Globulin Ratio Serotonin Release Assay Heparin Depend Plt Ab PG Care Time/CCT Total # of Minutes Spent Total Time Spent with Patient: Total time spent is greater than 50% in coordination of care (as documented) at patient's floor/unit and/or counseling patient: Coding Level of Care Code 59937 SUB INP/OBS CARE 3/50MIN Diagnoses MARY (acute kidney injury) N17.9 Septic shock A41.9; R65.21 Bacteremia R78.81 Thrombocytopenia D69.6 Status post placement of cardiac pacemaker Z95.0 S/P aortic valve replacement Z95.2
[2022-05-16] MEDS: PANTOprazole 40 MG in SYRINGE 0 ML IV SCH (09:18)
--- NOTE | 2022-05-16 09:54 | Critical Care Progress Note ---
Date of Service May 16, 2022 Assessment & Plan (1) MARY (acute kidney injury): Plan: Secondary to septic shock. Urine output improved along with creatinine. Continue to monitor closely. Maintain MAP above 65. Appreciate nephrology input. (2) Acute hypoxemic respiratory failure: Plan: Currently intubated for airway protection. Hypoxic on presentation but currently only on FiO2 of 30% and PEEP of 5. Continue ARDSnet protocol. (3) Elevated troponin: Plan: Holding off anticoagulation due to worsening thrombocytopenia likely secondary to sepsis coagulopathy (4) Thrombocytopenia: Plan: HIT panel pending. Holding off anticoagulation. Peripheral smear pending. (5) Septic shock: Plan: Continue Levophed and vasopressin. Source is bacteremia likely from pacemaker infection. Patient also with prosthetic aortic valve. She is not clearing her cultures. Cultures growing MSSA. Currently on Ancef. Continue crystalloid infusion. (6) Diabetic ketoacidosis: Plan: Resolving with insulin and fluids. Replace electrolytes as appropriate. (7) Transaminitis: Plan: Improving. Likely component of shock. (8) Bacteremia: Plan: Suspect pacemaker infection and possible bioprosthesis infection. Patient will need JAMES and cardiothoracic evaluation. Recommend transfer to tertiary center. Discussed with daughter who is in agreement. (9) Status post placement of cardiac pacemaker: Plan: Possible pacer site infection. (10) Cold left foot: Plan: Checking arterial Dopplers of the lower extremities. She has a history of vasculopathy. We will need to test for patient's vascular surgery if evidence of clot or stenosis. Check lactic acid. 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 Patient also with mild valvular aortic insufficiency and severe mitral annular calcification. She has evidence of pulmonary hypertension secondary to left- sided heart disease. Medically complex patient may benefit from PA catheter and transfer to tertiary center. Plan Discussed with handle rounder operator and hospitalist service. Daughter updated over the phone. CRITICAL CARE TIME - I have personally spent 72 minutes of critical care time in the direct management of this patient. This is a life/limb threatening event. This includes time spent evaluating patient, direct bedside care, chart review, placing orders, interpretation of diagnostic studies, discussion with consultants, patient, and family members, as well as other required patient management activities. This time is exclusive of all separately billable procedures, and teaching time and separate from and in addition to any other critical care service time. Admission and Anticipated Discharge Date Admission Date: May 14, 2022 Subjective Patient currently off sedation. Remains obtunded. Escalating doses of Levophed and vasopressin. No acute arrhythmic events overnight. Review of Systems Review of Systems: Unobtainable due to endotracheal tube Physical Exam Constitutional: + mechanically ventilated; no acute distress Eyes: PERRL, conjunctivae normal, anicteric sclerae ENMT: external ear and nose normal, oropharynx normal Neck: trachea midline, no thyromegaly Gastrointestinal (Abdomen): normal bowel sounds, soft, nontender, no hepatosplenomegaly Musculoskeletal: no cyanosis or clubbing, extremities motor strength 5/5 Skin: no rashes, warm and dry Results & Data Results & Data ([facility]) Vital Signs (Past 12 Hours) Vital Signs Temp Pulse Resp BP Pulse Ox FiO2 05/16/22 09:00 38.1 C H 65 20 91 05/16/22 08:19 38.0 C H 95 H 20 93 05/16/22 08:19 112/59 L 05/16/22 08:00 38.0 C H 94 H 20 94 05/16/22 08:00 130/71 05/16/22 07:00 37.9 C H 95 H 20 93 05/16/22 07:55 79 20 98 30 05/16/22 05:05 21 30 05/16/22 03:25 91 H 24 95 30 05/16/22 06:05 116/65 05/16/22 06:05 37.9 C H 93 H 20 92 05/16/22 06:00 38.0 C H 89 20 92 05/16/22 05:00 38.2 C H 95 H 24 94 05/16/22 04:00 38.3 C H 97 H 24 94 05/16/22 04:00 125/64 05/16/22 04:00 30 05/16/22 04:00 97 H 121/57 L 05/16/22 03:00 38.2 C H 92 H 21 94 05/16/22 01:00 38.1 C H 96 H 24 94 05/16/22 00:00 38.1 C H 97 H 24 94 05/16/22 00:00 131/72 05/15/22 23:00 38.1 C H 100 H 24 94 05/16/22 00:00 86 124/57 L 05/16/22 00:00 30 05/15/22 22:56 90 26 H 94 30 05/15/22 22:01 38.0 C H 99 H 24 94 05/15/22 22:00 139/78 05/15/22 21:59 38.0 C H 97 H 24 94 05/15/22 21:00 38.1 C H 94 H 24 94 Coding Level of Care Code 11421 CRITICAL CARE 1ST 30-74M Diagnoses MARY (acute kidney injury) N17.9 Acute hypoxemic respiratory failure J96.01 Elevated troponin R77.8 Thrombocytopenia D69.6 Septic shock A41.9; R65.21 Diabetic ketoacidosis E11.10 Transaminitis R74.01 Bacteremia R78.81 Status post placement of cardiac pacemaker Z95.0 Cold left foot R20.9 Severe aortic valve stenosis I35.0 Time Spent (min) 72
--- NOTE | 2022-05-16 10:41 | Hospitalist Progress Note ---
Date of Service May 16, 2022 Assessment & Plan (1) Bacteremia: Plan: Gram-positive cocci in clusters isolated from 2 of 2 blood cultures on admission. Apparently not MRSA. Vancomycin and cefepime have been switched to intravenous Ancef. (2) Complicated UTI (urinary tract infection): Plan: Possible source of sepsis. She also apparently had a postoperative right femoral endarterectomy wound infection last fall. This could also be the possible source of infection (3) Diabetic ketoacidosis: Plan: Metabolic acidosis present on admission with elevated glucose. This could entirely be due to sepsis but DKA was a consideration but appears to be unlikely. (4) Septic shock: Plan: Pressor support as necessary. Treat staph bacteremia. Does not appear to be MRSA. Await final culture results (5) Acute hypoxemic respiratory failure: Plan: Currently on ventilator support. Serial chest x-ray and serial ABG (6) Second degree atrioventricular block, Mobitz (type) I: Plan: Recent pacemaker insertion. Telemetry (7) MARY (acute kidney injury): Plan: Monitor intake and output. Serial labs Plan Currently in the ICU with ventilator support, pressor support, IV antibiotics, heparin drip. Critical care management for now. Plan transfer to tertiary care center. [facility] has been contacted and they have accepted the patient pending bed availability. Hopefully today, May 16 Admission and Anticipated Discharge Date Admission Date: May 14, 2022 Subjective Patient remains sedated on ventilator support. She remains on pressor support. The staph in the blood does not appear to be MRSA and vancomycin has been switched to Ancef. Creatinine improved to 2.1. More than likely she has endocarditis from the staph bacteremia. She will be transferred to [facility] when a bed is available. I have spoken by phone to her POA daughter, Petra Cho. Dr. Mcnally has also spoken to the POA daughter. Review of Systems Review of Systems: The patient is sedated and intubated and cannot answer any questions related to review of systems Physical Exam Physical Exam: General-sedated on ventilator support HEENT-head atraumatic and normocephalic. Neck-orotracheal tube in place, trachea midline Chest-scattered bilateral rhonchi. No wheezing . From anterior examination i Cardiac-regular rate and rhythm, normal S1 and S2. No discernible JVD Abdomen-normal bowel sounds, no hepatosplenomegaly Extremities-no cyanosis, clubbing, or edema GenitourinaryFoley catheter is in place. No gross hematuria Neuro-cannot assess due to unresponsive state Psych-cannot assess due to unresponsive state Results & Data Results & Data ([facility]) Vital Signs (Past 12 Hours) Vital Signs Temp Pulse Resp BP Pulse Ox O2 Del Method FiO2 05/16/22 09:00 38.1 C H 65 20 91 05/16/22 08:19 38.0 C H 95 H 20 93 05/16/22 08:19 112/59 L 05/16/22 08:00 38.0 C H 94 H 20 94 05/16/22 08:00 130/71 05/16/22 07:00 37.9 C H 95 H 20 93 05/16/22 08:00 Mechanical Vent 30 05/16/22 08:00 Mechanical Vent 30 05/16/22 08:00 30 05/16/22 08:00 65 05/16/22 07:55 79 20 98 30 05/16/22 05:05 21 30 05/16/22 03:25 91 H 24 95 30 05/16/22 06:05 116/65 05/16/22 06:05 37.9 C H 93 H 20 92 05/16/22 06:00 38.0 C H 89 20 92 05/16/22 05:00 38.2 C H 95 H 24 94 05/16/22 04:00 38.3 C H 97 H 24 94 05/16/22 04:00 125/64 05/16/22 04:00 30 05/16/22 04:00 97 H 121/57 L 05/16/22 03:00 38.2 C H 92 H 21 94 05/16/22 01:00 38.1 C H 96 H 24 94 05/16/22 00:00 38.1 C H 97 H 24 94 05/16/22 00:00 131/72 05/15/22 23:00 38.1 C H 100 H 24 94 05/16/22 00:00 86 124/57 L 05/16/22 00:00 30 05/15/22 22:56 90 26 H 94 30 05/15/22 22:01 38.0 C H 99 H 24 94 05/15/22 22:00 139/78 05/15/22 21:59 38.0 C H 97 H 24 94 Laboratory Results 05/16/22 05:18 05/16/22 05:18 PG Care Time/CCT Total # of Minutes Spent Total Time Spent with Patient: Total time spent is greater than 50% in coordination of care (as documented) at patient's floor/unit and/or counseling patient: Coding Level of Care Code 00466 SUB INP/OBS CARE 3/50MIN Diagnoses Bacteremia R78.81 Complicated UTI (urinary tract infection) N39.0 Diabetic ketoacidosis E11.10 Septic shock A41.9; R65.21 Acute hypoxemic respiratory failure J96.01 Second degree atrioventricular block, Mobitz (type) I I44.1 MARY (acute kidney injury) N17.9
--- NOTE | 2022-05-16 10:44 | Ultrasound Report ---
ULTRASOUND BILATERAL LOWER EXTREMITY ARTERIAL CLINICAL HISTORY: Cold legs. COMPARISON STUDY: Right lower extremity arterial ultrasound dated 11/14/2019. CT angiogram of the pelvi s dated 12/31/2021. TECHNIQUE: Real-time grayscale and color Doppler sonography of the arteries of the right and left low er extremity were performed from the inguinal crease to the foot. Ankle-brachial indices were not ass essed on this portable examination. FINDINGS: Right lower extremity: Atherosclerotic plaque and irregularity is seen throughout the arteries of the right lower extremity. There are triphasic arterial waveforms in the common femoral artery with elev ated velocities measuring up to 239 cm/s. Profunda femoris artery is patent with velocities measuring up to 167 cm/s. There are biphasic to triphasic waveforms throughout the superficial femoral artery. Velocities measure up to 179 cm/s proximally. Velocities in the mid to distal superficial femoral ar iggy measure up to 135 cm/s. There are slightly blunted arterial upstrokes in the distal superficial femoral and popliteal arteries. Velocities within the popliteal artery measure up to 68 cm/s. There i s three-vessel runoff to the foot. The calf arteries are monophasic with slightly blunted arterial up strokes. Velocities within the calf arteries measure up to 52 cm/s. Question reversal of flow within the right anterior tibial artery. The dorsalis pedis artery is patent with velocities measuring up to 25 cm/s. Left lower extremity: There is atherosclerotic plaque and irregularity throughout the arteries of the left lower extremity. There are triphasic waveforms in the common femoral artery with velocities jose suring up to 208 cm/s. The profunda femoris artery is patent with velocities measuring up to 99 cm/s. There are triphasic waveforms throughout the superficial femoral artery with velocities measuring up to 132 cm/s. Velocities in the popliteal artery measure up to 51 cm/s. There is three-vessel runoff to the left foot. Velocities in the calf arteries measure up to 69 cm/s. There is monophasic flow wit hin the distal peroneal artery and the distal posterior tibial artery. There is monophasic flow withi n the dorsalis pedis artery with velocities measuring up to 29 cm/s. IMPRESSION: 1. Peripheral vascular disease with mildly elevated velocities within the common femoral arteries maximus aterally suggesting at least mild stenosis. See above. 2. No focal vessel conclusion is seen throughout the arteries of either leg. Dictated: 05/16/2022 10:25 AM Transcribed: 05/16/2022 10:37 AM Sophia [id number] [email or web address] Electronically signed by: Rober Duong M.D. 05/16/2022 10:43 AM
--- NOTE | 2022-05-16 10:47 | Discharge Summary ---
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 Daughter states she couldn't get in contact with her until quarter after 6, tried calling at 10 in the morning but her mom didn't answer, so the daughter tried to get in touch later in the evening and called neighbor - the neighbor told her she was found in respiratory distress and thus EMS were called. Last night when daughter spoke to her she was confused, didn't make sense and would zone out - but would say she's alright. Had just gotten home yesterday morning, she told her daughter food didn't really taste too well for her and didn't eat as much. In the ED she was found to be tachycardic, febrile to 40.7, and hypotensive. She was blood cultures were taken, WBC 11.18, Hgb 10.4, pH 7.26, Co2 18, HCO3 17,POC electrolytes WNL, lactate 2.3, BNP 3531, Trop 15,294, procal 30.7, U/A negative for bacteria but LE and Nitrite positive, respiratory panel negative. CT head w/o contrast negative for acute bleed. CXR w/ worsening left sided opacity/congestion compared to XR from 05/11. Patient given cefepime, flagyl, and vancomycin IV x1 dose, intubated, sedated with propofol and given 500ml bolus NSS. Discharge Data Allergies Allergy/AdvReac Type Severity Reaction Status Date / Time No Known Allergies Allergy Verified 05/07/22 10:25 Consultations 05/14/22 21:14 ED Decision to Admit Stat 05/14/22 23:47 Consult Cardiology Routine Consult Project Administrative Assistant Routine 05/15/22 03:31 Consult Nephrology Routine Ordered Studies 05/14/22 19:57 CT head/brain wo con Stat 05/14/22 22:12 CT Abd and Pelvis [CT abd pelvis wo con] Urgent CT chest diagnostic wo con Urgent 05/16/22 08:46 US arterial duplex LE BI Stat Discharge Plan Discharge Items Reason For Visit: RESPIRATORY DISTRESS Follow-up/Referrals: Domonique Henderson, [Primary Care Provider] - Medications and DC Order Prescriptions: No Action insulin aspart U-100 [Novolog U-100 Insulin aspart] 100 unit/mL solution See Rx Instructions subcut .COMPLEX Qty: 60 5RF Rx Instructions: 14 units TID increase 2 units based on Blood sugar reading MAX dose of 22 units tid subcut; Levemir U-100 Insulin 100 unit/mL solution 50 unit subcut QPM Qty: 45 3RF (DME) pen needle, diabetic [BD Ultra-Fine Mini Pen Needle] 31 gauge x 3/16" needle See Rx Instructions .Route Qty: 100 3RF Rx Instructions: As directed 3 times a day with insulin simvastatin 80 mg tablet 80 mg PO QPM Qty: 90 1RF pantoprazole 20 mg tablet,delayed release (DR/EC) 20 mg PO QAM Qty: 90 1RF clopidogrel 75 mg tablet 75 mg PO QAM Qty: 90 1RF gabapentin 400 mg capsule 400 mg PO TID Qty: 90 5RF (DME) blood pressure monitor Kit See Rx Instructions .Route Qty: 1 0RF Rx Instructions: As directed metoprolol tartrate 50 mg tablet 50 mg PO BID Qty: 180 1RF ezetimibe 10 mg tablet 10 mg PO HS Qty: 90 1RF famotidine [Pepcid] 40 mg tablet 40 mg PO HS Qty: 90 1RF Rx Instructions: 40 mg PO HS and PRN QAM; potassium chloride 10 mEq tablet,ER particles/crystals 10 meq PO QAM Qty: 90 1RF lisinopril 40 mg tablet 40 mg PO HS Qty: 90 1RF bumetanide 0.5 mg tablet 0.5 mg PO QAM Qty: 90 1RF metformin 1,000 mg tablet 1,000 mg PO BID Qty: 180 3RF dulaglutide 1.5 mg/0.5 mL pen injector 1.5 mg subcut WK Qty: 6 1RF Patient Comments: takes on sundays Trelegy Ellipta 100-62.5-25 mcg blister with device 1 inh inhalation QDL 90 Days Qty: 60 1RF aspirin [Adult Low Dose Aspirin] 81 mg tablet,delayed release (DR/EC) 81 mg PO QAM cholecalciferol (vitamin D3) 50 mcg (2,000 unit) capsule 50 mcg PO QAM nystatin 100,000 unit/gram cream 1 applic topical TID PRN Rx Instructions: until area healed multivitamin [Multiple Vitamins] Tablet 1 tab PO QAM nitroglycerin [Nitrostat] 0.4 mg tablet, sublingual 0.4 mg sublingual .COMPLEX PRN (Reason: Chest Pain) Qty: 20 3RF Rx Instructions: 1 SL AT THE ONSET OF CHEST PAIN.MAY REPEAT EVERY 5 MIN FOR A TOTAL OF THREE DOSES PRN; do not exceed 3 doses per episode nystatin 100,000 unit/gram powder 1 applic topical TID PRN (Reason: yeast infection) Qty: 60 3RF Admission Data Admit Date/Time: 05/14/22 22:35 Attending Provider: Sandip Ibarra Admit Provider: Wilver Maher Primary Care Provider: Domonique Henderson Other Providers: Alberto Dixon ; Steffen Mead ; Rigoberto Barbosa ; Keagan Espinal ; Geoffrey Masters ; Claudio Holley ; Jeffrey Cota Jr ; Darrick Tobar ; Ines Granados ; Jeanne Garibay ; Lavon Walls ; Bill Lundberg ; Sandip Reyes ; Dorothea Wells ; Tracie Burgos ; Deni Miller ; Marquis Kwong ; Tyree Alfaro ; Geoffrey Lopez V. ; Alfredo Miller ; Grover Bowers ; Joann Woodard ; Dean Melendez ; Beatrice Jaime Coding Diagnoses
--- NOTE | 2022-05-16 10:59 | Discharge Summary ---
Date of Service May 16, 2022 Principal Diagnosis Septic shock, acute hypoxic respiratory failure, marked troponin elevation, acute kidney injury Discharge Exam General-intubated and sedated HEENT-head atraumatic and normocephalic, pupils equal and reactive to light. Orotracheal tube in place Neck- trachea midline Chest-scattered bilateral rhonchi . No wheezing Cardiac-regular rate and rhythm, normal S1 and S2 Abdomen-normal bowel sounds, no hepatosplenomegaly Extremities-no cyanosis, no peripheral edema Neuro-cannot assess. Intubated and sedated Psych-cannot assess. Intubated and sedated Discharge Data Allergies Allergy/AdvReac Type Severity Reaction Status Date / Time No Known Allergies Allergy Verified 05/07/22 10:25 Consultations 05/14/22 21:14 ED Decision to Admit Stat 05/14/22 23:47 Consult Cardiology Routine Consult Veterinary Anatomist Routine 05/15/22 03:31 Consult Nephrology Routine 05/16/22 10:49 Burn CD for patient Stat Ordered Studies 05/14/22 19:57 CT head/brain wo con Stat 05/14/22 22:12 CT Abd and Pelvis [CT abd pelvis wo con] Urgent CT chest diagnostic wo con Urgent 05/16/22 08:46 US arterial duplex LE BI Stat Hospital Course (1) Bacteremia: Staph isolated. Does not appear to be MRSA. She is now on intravenous Ancef. Previously on cefepime and vancomycin. Await final blood culture results and sensitivities (2) Complicated UTI (urinary tract infection): Could possibly be source of current infection. She also had a right femoral endarterectomy November 06, 2021 with postoperative infection which could pos sibly be the source of current infection (3) Diabetic ketoacidosis: Ruled out (4) Septic shock: She remains on Levophed and vasopressin pressor support. Continue to treat staph bacteremia (5) Acute hypoxemic respiratory failure: Currently intubated on ventilator support. Serial chest x-ray. Serial ABG. Wean as tolerated (6) Second degree atrioventricular block, Mobitz (type) I: Recent permanent cardiac pacemaker implantation earlier this month (7) MARY (acute kidney injury): Present on admission. Improved. Creatinine is trending downward Plan Transfer to tertiary care center, [facility], when bed is available Total Time Total Time Spent Total Time Spent (In Minutes): 45 minutes Discharge Plan Discharge Items Patient Disposition: Transfer Acute Care Hospital Reason For Visit: RESPIRATORY DISTRESS Discharge Diagnosis: Septic shock, acute hypoxic respiratory failure, staph bacteremia, acute kidney injury, markedly elevated troponin Activity: As commented below Activity Comment: Bedrest Non-emergency contact: Primary Care Provider Call non-emergency contact if: you have any medication questions Follow-up/Referrals: Domonique Henderson DO [Primary Care Provider] - Dietitian Info: Currently n.p.o. Diet: Carb Consistent or DM2 and Heart Healthy Addtl Attending Provider Instructions: See primary care provider after discharge from [facility] for continued care Pending Studies at Discharge: No Stand-Alone Forms: My [facility] [place] [employer] Skilled Items Patient informed of condition?: No DNR: No Discharge Level of Care: Other Communicable Disease: No Discharge Prognosis: Other Lines: Peripheral IV Urinary Catheter: Yes Medications and DC Order Prescriptions: New midazolam (PF) 1 mg/mL Solution 2 mg IV Q60M PRNQty: 0 0RF aspirin [Children's Aspirin] 81 mg Tablet,Chewable 81 mg NG DAILY Qty: 0 0RF ipratropium-albuterol 0.5 mg-3 mg(2.5 mg base)/3 mL Solution For Nebulization 3 ml NEB Q4R PRN (Reason: shortness of breath or wheezing) Qty: 0 0RF fentanyl citrate (PF) 50 mcg/mL Solution 50 mcg IV Q60M PRN (Reason: sedation) Qty: 0 0RF Discontinued insulin aspart U-100 [Novolog U-100 Insulin aspart] 100 unit/mL solution See Rx Instructions subcut .COMPLEX Qty: 60 5RF Rx Instructions: 14 units TID increase 2 units based on Blood sugar reading MAX dose of 22 units tid subcut; Levemir U-100 Insulin 100 unit/mL solution 50 unit subcut QPM Qty: 45 3RF (DME) pen needle, diabetic [BD Ultra-Fine Mini Pen Needle] 31 gauge x 3/16" needle See Rx Instructions .Route Qty: 100 3RF Rx Instructions: As directed 3 times a day with insulin simvastatin 80 mg tablet 80 mg PO QPM Qty: 90 1RF pantoprazole 20 mg tablet,delayed release (DR/EC) 20 mg PO QAM Qty: 90 1RF clopidogrel 75 mg tablet 75 mg PO QAM Qty: 90 1RF gabapentin 400 mg capsule 400 mg PO TID Qty: 90 5RF (DME) blood pressure monitor Kit See Rx Instructions .Route Qty: 1 0RF Rx Instructions: As directed metoprolol tartrate 50 mg tablet 50 mg PO BID Qty: 180 1RF ezetimibe 10 mg tablet 10 mg PO HS Qty: 90 1RF famotidine [Pepcid] 40 mg tablet 40 mg PO HS Qty: 90 1RF Rx Instructions: 40 mg PO HS and PRN QAM; potassium chloride 10 mEq tablet,ER particles/crystals 10 meq PO QAM Qty: 90 1RF lisinopril 40 mg tablet 40 mg PO HS Qty: 90 1RF bumetanide 0.5 mg tablet 0.5 mg PO QAM Qty: 90 1RF metformin 1,000 mg tablet 1,000 mg PO BID Qty: 180 3RF dulaglutide 1.5 mg/0.5 mL pen injector 1.5 mg subcut WK Qty: 6 1RF Patient Comments: takes on sundays Trelegy Ellipta 100-62.5-25 mcg blister with device 1 inh inhalation QDL 90 Days Qty: 60 1RF aspirin [Adult Low Dose Aspirin] 81 mg tablet,delayed release (DR/EC) 81 mg PO QAM cholecalciferol (vitamin D3) 50 mcg (2,000 unit) capsule 50 mcg PO QAM nystatin 100,000 unit/gram cream 1 applic topical TID PRN Rx Instructions: until area healed multivitamin [Multiple Vitamins] Tablet 1 tab PO QAM nitroglycerin [Nitrostat] 0.4 mg tablet, sublingual 0.4 mg sublingual .COMPLEX PRN (Reason: Chest Pain) Qty: 20 3RF Rx Instructions: 1 SL AT THE ONSET OF CHEST PAIN.MAY REPEAT EVERY 5 MIN FOR A TOTAL OF THREE DOSES PRN; do not exceed 3 doses per episode nystatin 100,000 unit/gram powder 1 applic topical TID PRN (Reason: yeast infection) Qty: 60 3RF Discharge Orders: Discharge Order (Routine); Ordered 05/16/22 Ordered By: Sandip Ibarra Admission Data Admit Date/Time: 05/14/22 22:35 Attending Provider: Sandip Ibarra Admit Provider: Wilver Maher Primary Care Provider: Ricotta,Domonique M. Other Providers: Alberto Dixon ; Steffen Mead ; Rigoberto Barbosa ; Keagan Espinal ; Geoffrey Masters ; Claudio Holley ; Jeffrey Cota Jr ; Darrick Tobar ; Ines Granados ; Jeanne Garibay ; Lavon Walls ; Bill Lundberg ; Sandip Reyes ; Dorothea Wells ; Tracie Burgos ; Deni Miller ; Marquis Kwong ; Tyree Alfaro ; Geoffrey Lopez V. ; Alfredo Miller ; Grover Bowers ; Joann Woodard ; Dean Melendez ; Beatrice Jaime Coding Level of Care Code 10235 INP/OBS DISCH >30 MIN Diagnoses Bacteremia R78.81 Complicated UTI (urinary tract infection) N39.0 Diabetic ketoacidosis E11.10 Septic shock A41.9; R65.21 Acute hypoxemic respiratory failure J96.01 Second degree atrioventricular block, Mobitz (type) I I44.1 MARY (acute kidney injury) N17.9
[2022-05-16] MEDS ORDERED: ceFAZolin 2000MG 2,000 MG/15 ML SYR IV SCH (20:00)
--- NOTE | 2022-05-31 14:00 | Coding Query ---
CODING QUERY To promote full compliance with coding requirements relating to patient care, provider participation is requested in all cases of professional fee coder uncertainty. Please assist us with the question(s) below: Coding Question(s): Please clarify if the arterial line was placed in the right or left internal jugular vein. Physician's Response(s): Left radial arterial line was placed by overnight LEAH, Danny Cage. Thank you Cristina Painting Principal Diagnosis: "that condition established after study, to be chiefly responsible for occasioning the admission of the patient to the hospital for care." Co-Existing Principal Diagnosis: "when two or more diagnoses equally meet the criteria for principal diagnosis as determined by the circumstances of admission, diagnostic work up, and/or therapy provided, and the Alphabetic Index, Tabular List, or another coding guideline does not provide sequencing direction, any one of the diagnoses may be sequenced first." "When the physician has documented what appears to be a current diagnosis in the body of the record, but has not included the diagnosis in the final diagnostic statement, the physician should be asked whether the diagnosis should be added." ([facility] 2 QTR90. p3-4) [place]
--- NOTE | 2022-06-01 12:41 | Coding Query ---
CODING QUERY A cemtral venous catheter was placed in the patients right internal jugular vein. Not an arterial line. I'll make an addendum to clarify. thanks, Danny Ramachandran To promote full compliance with coding requirements relating to patient care, provider participation is requested in all cases of corporate statistical financial analyst uncertainty. Please assist us with the question(s) below: Coding Question(s): Please clarify if the arterial line was placed in the right or left internal jugular vein. Physician's Response(s): Thank you Cristina Painting Principal Diagnosis: "that condition established after study, to be chiefly responsible for occasioning the admission of the patient to the hospital for care." Co-Existing Principal Diagnosis: "when two or more diagnoses equally meet the criteria for principal diagnosis as determined by the circumstances of admission, diagnostic work up, and/or therapy provided, and the Alphabetic Index, Tabular List, or another coding guideline does not provide sequencing direction, any one of the diagnoses may be sequenced first." "When the physician has documented what appears to be a current diagnosis in the body of the record, but has not included the diagnosis in the final diagnostic statement, the physician should be asked whether the diagnosis should be added." ([facility] 2 QTR90. p3-4) [place]
== END 2022-05-16 13:00 | disposition short-term general hospital (02) | DRG 871 ==
LOC: ED 19:52 → 1E 22:35 → SUATTDRO 22:35 → 1E 22:54